=== PATIENT | male | born 1960 | race Caucasian/White ===

== ENCOUNTER 2018-10-15 16:06 | Outpatient (REF) | payer BC, SELFPAY ==
[2018-10-15 21:33] LABS: Anion Gap 12.3 mmol/L (3-11); BUN 24 mg/dL (7-18); CO2 21.7 mmol/L (21.0-32.0); CREATININE 1.51 mg/dL (0.70-1.30); Calcium 9.2 mg/dL (8.5-10.1); Chloride 105 mmol/L (98-107); Estimated GFR 47.37 (mL/min/1.73m2); Glucose 92 mg/dL (70-100); Potassium 4.5 mmol/L (3.5-5.1); Sodium 139 mmol/L (136-145)
[2018-10-15 21:35] LABS: Hemoglobin A1C 7.1 % (4.5-6.2)
== END 2018-10-15 16:26 ==
LOC: NCHCN 16:06
PROVIDERS: PCP Internal Medicine; Visit Provider Internal Medicine
DX: E11.9 Type 2 diabetes mellitus without complications (principal)
CPT/HCPCS: 80048; 83036

== ENCOUNTER 2019-07-18 13:43 | Outpatient (REF) | payer BC, SELFPAY ==
[2019-07-18 20:51] LABS: Anion Gap 10.6 mmol/L (3-11); BUN 47 mg/dL (7-18); CO2 20.4 mmol/L (21.0-32.0); CREATININE 2.41 mg/dL (0.70-1.30); Calcium 9.7 mg/dL (8.5-10.1); Chloride 103 mmol/L (98-107); Estimated GFR 27.53 (mL/min/1.73m2); Glucose 136 mg/dL (74-106); Potassium 5.8 mmol/L (3.5-5.1); Sodium 134 mmol/L (136-145)
[2019-07-22 11:52] LABS: Hepatitis C Ab w Rflx HCV PCR Negative (Negative)
== END 2019-07-18 14:03 ==
LOC: NCHCN 13:43
PROVIDERS: PCP Internal Medicine; Visit Provider Internal Medicine
DX: E11.9 Type 2 diabetes mellitus without complications (principal); I10 Essential (primary) hypertension; N18.3 Chronic kidney disease, stage 3 (moderate); F32.9 Major depressive disorder, single episode, unspecified; I35.8 Other nonrheumatic aortic valve disorders; E66.9 Obesity, unspecified; Z11.59 Encounter for screening for other viral diseases
CPT/HCPCS: 80048; 86803

== ENCOUNTER 2019-07-23 09:53 | Outpatient (REF) | payer BC, SELFPAY ==
[2019-07-23 20:32] LABS: Anion Gap 10.5 mmol/L (3-11); BUN 41 mg/dL (7-18); CO2 19.5 mmol/L (21.0-32.0); CREATININE 1.86 mg/dL (0.70-1.30); Calcium 9.6 mg/dL (8.5-10.1); Chloride 107 mmol/L (98-107); Estimated GFR 37.12 (mL/min/1.73m2); Glucose 110 mg/dL (74-106); Potassium 5.9 mmol/L (3.5-5.1); Sodium 137 mmol/L (136-145)
== END 2019-07-23 10:13 ==
LOC: NCHCN 09:53
PROVIDERS: PCP Internal Medicine; Visit Provider Internal Medicine
DX: E11.9 Type 2 diabetes mellitus without complications (principal); I10 Essential (primary) hypertension; N17.9 Acute kidney failure, unspecified
CPT/HCPCS: 80048

== ENCOUNTER 2019-08-01 09:51 | Outpatient (REF) | payer BC, SELFPAY ==
[2019-08-01 20:50] LABS: Anion Gap 11.9 mmol/L (3-11); BUN 45 mg/dL (7-18); CO2 25.1 mmol/L (21.0-32.0); CREATININE 2.05 mg/dL (0.70-1.30); Calcium 9.6 mg/dL (8.5-10.1); Chloride 104 mmol/L (98-107); Estimated GFR 33.18 (mL/min/1.73m2); Glucose 164 mg/dL (74-106); Potassium 4.5 mmol/L (3.5-5.1); Sodium 141 mmol/L (136-145)
== END 2019-08-01 10:11 ==
LOC: NCHCN 09:51
PROVIDERS: PCP Internal Medicine; Visit Provider Internal Medicine
DX: I10 Essential (primary) hypertension (principal); E11.9 Type 2 diabetes mellitus without complications; N18.3 Chronic kidney disease, stage 3 (moderate)
CPT/HCPCS: 80048

== ENCOUNTER 2020-05-05 16:38 | Outpatient (REF) | payer BC, SELFPAY ==
[2020-05-05 21:11] LABS: HCT 37.7 % (40.0-50.0); HGB 12.5 g/dL (13.5-17.5); MCH 28.2 pg (27.0-33.0); MCHC 33.2 % (32.0-36.0); MCV 84.9 fL (80-95); MPV 11.1 fL (8.0-11.0); Platelet Count 136 10^3/uL (130-400); RBC 4.44 10^6/uL (4.36-5.78); RDW 13.4 % (11.8-14.1); RDW-SD 41.8 fL; WBC 5.91 10^3/uL (4.4-10.8)
[2020-05-05 22:06] LABS: ALT 37 U/L (16-63); AST 29 U/L (15-37); Albumin 4.1 g/dL (3.4-5.0); Alkaline Phosphatase 119 U/L (46-116); Anion Gap 11.2 mmol/L (3-11); BUN 33 mg/dL (7-18); Bilirubin, Total 0.5 mg/dL (0.2-1.0); CO2 26.8 mmol/L (21.0-32.0); Calcium 9.3 mg/dL (8.5-10.1); Calculated LDL 117 mg/dL (<100); Chloride 104 mmol/L (98-107); Cholesterol 214 mg/dL (<200); Estimated GFR 34.03 (mL/min/1.73m2); Glucose 123 mg/dL (74-106); HDL Cholesterol 45 mg/dL (40-60); Sodium 142 mmol/L (136-145); Total Protein 7.9 g/dL (6.4-8.2); Triglyceride 260 mg/dL (<150)
[2020-05-05 22:42] LABS: PHOSPHORUS 3.3 mg/dL (2.6-4.7)
== END 2020-05-05 16:39 | disposition home or self-care (01) ==
LOC: NCHCN 16:38
PROVIDERS: PCP Internal Medicine; Visit Provider Internal Medicine
DX: I10 Essential (primary) hypertension (principal); E11.9 Type 2 diabetes mellitus without complications; N18.30 Chronic kidney disease, stage 3 unspecified; F32.9 Major depressive disorder, single episode, unspecified; G44.219 Episodic tension-type headache, not intractable; E66.9 Obesity, unspecified
CPT/HCPCS: 80053; 80061; 85027; 83986; 84100

== ENCOUNTER 2020-12-17 14:46 | Outpatient (REF) | payer BC, SELFPAY ==
[2020-12-17 14:51] LABS: Anion Gap 10.2 mmol/L (3-11); BUN 46 mg/dL (7-18); CO2 25.8 mmol/L (21.0-32.0); CREATININE 2.4 mg/dL (0.70-1.30); Calcium 9.5 mg/dL (8.5-10.1); Chloride 105 mmol/L (98-107); Estimated GFR 27.57 (mL/min/1.73m2); Glucose 152 mg/dL (74-106); Potassium 4.3 mmol/L (3.5-5.1); Sodium 141 mmol/L (136-145)
[2020-12-18 10:04] LABS: HIV-1/2 Ag & Ab Screen Negative (Negative)
== END 2020-12-17 14:47 | disposition home or self-care (01) ==
LOC: NCHCN 14:46
PROVIDERS: PCP Internal Medicine; Visit Provider Internal Medicine
DX: E11.9 Type 2 diabetes mellitus without complications (principal); I10 Essential (primary) hypertension; N18.30 Chronic kidney disease, stage 3 unspecified; N17.9 Acute kidney failure, unspecified; E78.5 Hyperlipidemia, unspecified; Z11.4 Encounter for screening for human immunodeficiency virus [HIV]
CPT/HCPCS: 80048; 87389

== ENCOUNTER 2021-05-31 18:47 | Outpatient (REF) | payer BC, SELFPAY ==
[2021-05-31 18:25] LABS: HCT 35.6 % (40.0-50.0); HGB 11.4 g/dL (13.5-17.5); MCH 27.9 pg (27.0-33.0); MPV 11.1 fL (8.0-11.0); Platelet Count 109 10^3/uL (130-400); RBC 4.09 10^6/uL (4.36-5.78); RDW 13.8 % (11.8-14.1)
[2021-05-31 19:26] LABS: Anion Gap 10.6 mmol/L (3-11); BUN 36 mg/dL (7-18); CO2 24.4 mmol/L (21.0-32.0); CREATININE 2.2 mg/dL (0.70-1.30); Calcium 9.3 mg/dL (8.5-10.1); Chloride 108 mmol/L (98-107); Estimated GFR 30.38 (mL/min/1.73m2); Glucose 142 mg/dL (74-106); Potassium 4.2 mmol/L (3.5-5.1); Sodium 143 mmol/L (136-145)
[2021-06-01 09:33] LABS: Iron 66 ug/dL (65-175); Total Iron Binding Capacity 338 ug/dL (250-450)
[2021-06-01 09:47] LABS: ALT 30 U/L (16-63); AST 23 U/L (15-37); Albumin 4.1 g/dL (3.4-5.0); Alkaline Phosphatase 107 U/L (46-116); Bilirubin, Total 0.6 mg/dL (0.2-1.0); Ferritin 125 ng/mL (26-388); Total Protein 7.6 g/dL (6.4-8.2)
[2021-06-01 09:56] LABS: Bilirubin, Direct 0.1 mg/dL (0.0-0.2)
== END 2021-05-31 18:48 | disposition home or self-care (01) ==
LOC: NCHCN 18:47
PROVIDERS: PCP Internal Medicine; Visit Provider Internal Medicine
DX: D64.9 Anemia, unspecified (principal); D69.6 Thrombocytopenia, unspecified; E11.9 Type 2 diabetes mellitus without complications; R07.89 Other chest pain
CPT/HCPCS: 80048; 80076; 85027; 82728; 83540; 83550

== ENCOUNTER 2021-06-03 00:51 | Outpatient (CLI) | payer BC, SELFPAY ==
--- NOTE | 2021-06-03 09:00 | ETT_ITS ---
APPROVED REPORT Exam: Exercise Treadmill Patient Location: Out-Patient Room/Bed: Stress Nurse: Kristi Mays RN Ordering Provider:KOJO LAM, Contact Number: [phone] BMI: 42.82 Indications: CHEST DISCOMFORT. Medical History Medical History: Murmur, GERD, Sleep apnea, Obesity, HTN, DM II, HLD, CKD III Cardiac Medications: Metoprolol succinate, Metformin, Losartan, Atorvastatin, Amlodipine, Aspirin, Ve rapamil, Torsemide, Allergies: Losartan, Lisinopril Cardiac Risk Factors: HTN, Hyperlipidemia, , DM, Obesity Previous Cardiac Procedures: None Pretest Chest Pain Characteristics: No chest pain Exercise History: Sedentary Physical Disabilities: None Lung Sounds: Clear to auscultation Heart Sounds: Regular, Murmur Stress Test Details Test: Exercise stress testing was performed using a Sinan protocol. Rest Stress HR Resting HR Supine: 70 bpm Max Heart Rate (APMHR): 157 bpm Resting HR Standin bpm Target HR (85% APMHR): 133 bpm Max HR Achieved: 138 bpm % of APMHR: 87 Recovery HR: 87 bpm HR response to stress: Normal HR response to stress Comment: Metoprolol succinate held for 48 hours prior to test. BP Resting BP Supine: 180/98 mmHg Resting BP Standin/80 mmHg Max BP: 200/70 mmHg Recovery BP: 158/80 mmHg BP response to stress: Normal blood pressure response to stress. Comment: Hypertensive at baseline. ECG Resting ECG: Sinus Rhythm Ectopy: none Comment: minimal baseline ST depression noted in inferior leads Stress ECG: Sinus Tachycardia ST Change: Horizontal/Downsloping ST depression Lead(s): II, III, aVF, V3, V4, V5, V6 Stage: [address] Deviation: 2 mm Arrhythmia: None Recovery ECG: Sinus Rhythm Recovery ST Change: Horizontal/Downsloping ST depression Lead(s): inferior leads, V5, V6 Recovery ST Deviation: 2 mm Recovery Arrhythmia: Rare PVC, PACs Comment: ST segments returning to baseline by minute 11 of recovery period. Clinical Reason for Termination: Fatigue Stress Symptoms: Dyspnea, Leg Fatigue, General Fatigue, Chest pain Exercise duration: 06 min37 sec Highest Stage Reached: Stage 2: 2.5 mph at 12% grade. Exercise capacity: 8.01 METs Potts Treadmill Score: -7 Rate Pressure Product: [id number] Stress ECG Conclusion 1. Resting electrocardiogram showed minor inferolateral ST depression 2. Patient exercised on Sinan protocol and completed a workload of 8 METS 3. Resting hypertension. Normal hemodynamic response to exercise. The patient achieved 87% of predi cted heart rate for age 4. The electrocardiographic portion of the test was consistent with myocardial ischemia with 2 mm of inferior and 1.[address] depression at peak exercise. The electrocardiogram returned to baseline by minute 11 of recovery 5. Rare atrial and ventricular ectopic beats were seen 6. Suggest repeat with imaging if clinically indicated Potts Treadmill Score is -7 which is Moderate risk. Stress Test Summary STAGE Time (mins) Speed (mph) Grade (%) HR BP SYMPTOMS METS Supine 70 180/98 Standing 79 162/80 1 3 1.7 10 120 148/78 4.6 2 6 2.5 12 132 178/88 2/10 chest discomfort; leg spasms 7 1 min recovery 122 192/62 nausea; chest discomfort resolved. 3 min recovery 89 200/70 6 min recovery 91 182/78 9 min recovery 87 158/80
== END 2021-06-03 01:11 ==
PROVIDERS: PCP Internal Medicine; Visit Provider Internal Medicine
DX: R07.89 Other chest pain (principal)
CPT/HCPCS: 93017

== ENCOUNTER 2021-06-04 13:49 | Outpatient (REF) | payer BC, SELFPAY ==
[2021-06-04 21:54] LABS: HCT 36.1 % (40.0-50.0); HGB 11.6 g/dL (13.5-17.5); MCH 28.2 pg (27.0-33.0); MCHC 32.1 % (32.0-36.0); MCV 87.8 fL (80-95); MPV 11.6 fL (8.0-11.0); Platelet Count 106 10^3/uL (130-400); RBC 4.11 10^6/uL (4.36-5.78); RDW 13.5 % (11.8-14.1); RDW-SD 43.4 fL; Reticulocyte 1.4 % (0.5-2.4); WBC 5.33 10^3/uL (4.4-10.8)
[2021-06-04 22:52] LABS: Vitamin B12 320 pg/mL (193-986)
[2021-06-07 13:29] LABS: Albumin 57.7 % (55.8-66.1); Albumin g/dL 4.3 g/dL (3.6-5.2); Total Protein 7.5 g/dL (6.3-8.2)
== END 2021-06-04 13:50 | disposition home or self-care (01) ==
LOC: NCHCN 13:49
PROVIDERS: PCP Internal Medicine; Visit Provider Internal Medicine
DX: D64.9 Anemia, unspecified (principal); D69.6 Thrombocytopenia, unspecified; E78.5 Hyperlipidemia, unspecified; E11.9 Type 2 diabetes mellitus without complications; I10 Essential (primary) hypertension; N18.31 Chronic kidney disease, stage 3a; E66.9 Obesity, unspecified
CPT/HCPCS: 85027; 82607; 82746; 84165; 85045

== ENCOUNTER 2021-06-14 04:35 | Outpatient (CLI) | payer BC, SELFPAY ==
[2021-06-14 11:30] LABS: Source Nasal/Nares
[2021-06-14 14:03] LABS: COVID-19 PCR Negative (Negative)
== END 2021-06-14 04:36 | disposition home or self-care (01) ==
LOC: LBO 04:35
PROVIDERS: PCP Internal Medicine; Visit Provider Internal Medicine Interventional Cardiology
DX: Z20.822 Contact with and (suspected) exposure to COVID-19 (principal); R06.00 Dyspnea, unspecified; Z01.818 Encounter for other preprocedural examination
CPT/HCPCS: 87635

== ENCOUNTER 2021-06-21 16:27 | Outpatient (REF) | payer BC, SELFPAY ==
[2021-06-21 21:34] LABS: Anion Gap 11.1 mmol/L (3-11); BUN 40 mg/dL (7-18); CO2 26.9 mmol/L (21.0-32.0); CREATININE 2.6 mg/dL (0.70-1.30); Calcium 9.9 mg/dL (8.5-10.1); Chloride 106 mmol/L (98-107); Estimated GFR 25.05 (mL/min/1.73m2); Glucose 127 mg/dL (74-106); Potassium 4.1 mmol/L (3.5-5.1); Sodium 144 mmol/L (136-145)
== END 2021-06-21 16:28 | disposition home or self-care (01) ==
LOC: NCHCN 16:27
PROVIDERS: PCP Internal Medicine; Visit Provider Internal Medicine
DX: I10 Essential (primary) hypertension (principal)
CPT/HCPCS: 80048

== ENCOUNTER → 2021-09-02 01:27 | Outpatient (CLI) | payer BC, SELFPAY ==
--- NOTE | 2021-09-02 07:45 | DI.MRI_ITS ---
Exam(s) MR ABDOMEN WO EXAM: MR ABDOMEN WO CLINICAL HISTORY: LIVER CYST, K76.89, HEMANGIOMA PROTOCOL TECHNIQUE: Multiplanar multisequence MRA of the Abdomen was performed. Examination was performed w ithout contrast due to the patient's decreased renal function. COMPARISON: US US ABDOMEN from 07/30/2021 FINDINGS: Liver: Innumerable hepatic cysts. The largest measures 3.9 x 3.5 cm. There is a septated 3.3 x 2.8 cm cyst in the left lobe. No solid hepatic mass is identified. Pancreas: Unremarkable. Gallbladder and Bile Ducts: Unremarkable. No biliary ductal dilatation. Adrenals: Unremarkable. Kidneys: Multiple bilateral renal simple cysts. The largest is on the left and measures 3.1 x 3.1 cm . No solid renal mass or obstruction. Spleen: Unremarkable. Bowel: Unremarkable. Aorta: Unremarkable. Soft Tissues: Unremarkable. Bone: Unremarkable. Lymph Nodes: Unremarkable. IMPRESSION: 1. Multiple hepatic and renal simple cysts. 2. No solid hepatic mass. DATA REPOSITORY:
[2021-09-02 08:09] LABS: CREATININE 3.1 mg/dL (0.70-1.30); Estimated GFR 20.45 (mL/min/1.73m2)
== END ==
PROVIDERS: PCP Internal Medicine; Visit Provider Internal Medicine
DX: K76.89 Other specified diseases of liver (principal)
CPT/HCPCS: 74181; 82565

== ENCOUNTER 2021-09-06 08:07 | Day surgery (SDC) | payer BC, SELFPAY ==
--- NOTE | 2021-09-03 10:21 | ANES.CON_ITS ---
General Date of Service Date of Service: 09/03/21 Reason for Consult Requesting Provider: Rosanna Velazco How Consult Conducted:: Chart Review Reason for Consult:: Known cardiac history. Consult Recommendation after Review:: Patient can proceed. Stable angina, moderate risk per recent stress test. Meds Allergies and Home Medications Allergies Allergy/AdvReac Type Severity Reaction Status Date / Time losartan Allergy Unknown Verified 08/26/21 08:45 lisinopril AdvReac cough Unverified 08/26/21 08:45 Home Medication Medication Instructions Recorded amlodipine 10 mg tablet 10 mg PO DAILY 12/25/13 sertraline 100 mg tablet 100 mg PO DAILY 12/25/13 aspirin 81 mg tablet,delayed 81 mg PO DAILY 08/28/16 release (Aspir-) atorvastatin 20 mg tablet (Lipitor) 20 mg PO QPM 08/28/16 ranitidine HCl 75 mg tablet 75 mg PO DAILY 05/08/17 spironolactone 50 mg tablet 50 mg PO DAILY 05/08/17 diltiazem HCl 360 mg capsule,24 360 mg PO DAILY 12/24/20 hr,extended release losartan 50 mg tablet 25 mg PO DAILY 12/24/20 metformin 500 mg tablet 1,000 mg PO BID 12/24/20 metoprolol succinate 50 mg 50 mg PO DAILY 12/24/20 tablet,extended release 24 hr torsemide 10 mg tablet 10 mg PO DAILY 12/24/20 bisacodyl 5 mg tablet,delayed 5 mg PO ONCE #4 tabs 08/26/21 release (Dulcolax (bisacodyl)) polyethylene glycol 3350 17 17 g PO ONCE #238 grams 08/26/21 gram/dose oral powder PFSH Active Problems Active Problems: Problem Status Onset Code Screening for colon cancer Z12.11 Medical History Medical History (Updated 09/03/21 @ 08:05 by Von Mejia) Aortic stenosis Chronic kidney disease CKD III Depression Deviated nasal septum Diabetes GERD (gastroesophageal reflux disease) History of adenomatous polyp of colon History of chest pain Hypertension Idiopathic thrombocytopenia Murmur Obesity MARI (obstructive sleep apnea) Very Severe-per sleep study 05/04/17 Positive cardiac stress test Sleep apnea Stable angina Surgical History Surgical History (Updated 09/03/21 @ 08:05 by Von Mejia) Colonoscopy - MAC (06/05/17) History of cardiac catheterization 06/17/21 [facility]-see scanned records Tobacco Smoking/Tobacco Use Status: Never Substance Use Substance use: Never Vital Signs & Lab Results Point of Care Results Nursing Point of Care Results: No Data to Display Lab Results Blood Type / Crossmatch: No Data to Display Complete Blood Count: No Data to Display Complete Metabolic Panel: Creatinine 3.1 mg/dL (0.70-1.30) H 09/02/21 07:56 Estimated GFR/1.73 m2 20.45 (mL/min/1.73m2) 09/02/21 07:56 Liver Function Panel: No Data to Display Coagulation Panel: No Data to Display Cardiac Panel: No Data to Display Arterial Blood Gas: No Data to Display Venous Blood Gas: No Data to Display Pancreas Panel: No Data to Display Thyroid Panel: No Data to Display Infectious Disease: No Data to Display Blood Cultures: No Data to Display Toxicology Panel: No Data to Display Imaging and Studies Imaging and Studies Stress Test Summary: Stress ECG Conclusion 1. Resting electrocardiogram showed minor inferolateral ST depression 2. Patient exercised on Sinan protocol and completed a workload of 8 METS 3. Resting hypertension. Normal hemodynamic response to exercise. The patient achieved 87% of predicted heart rate for age 4. The electrocardiographic portion of the test was consistent with myocardial ischemia with 2 mm of inferior and 1.[address] depression at peak exercise. The electrocardiogram returned to baseline by minute 11 of recovery 5. Rare atrial and ventricular ectopic beats were seen 6. Suggest repeat with imaging if clinically indicated Potts Treadmill Score is -7 which is Moderate risk. Echocardiogram Summary: MARIA DE JESUS from [facility] reviewed. Scanned into system.
--- NOTE | 2021-09-06 06:17 | W.COLOREPORT ---
Colonoscopy Report Date of procedure: 09/06/21 Pre-op diagnosis general: Colon Cancer Screening and Hx of polyps Post-op diagnosis procedure note: other (polyps and mild diverticulosis) Procedure: Colonoscopy with polypectomy Surgeon: Rosanna Velazco Anesthesia Type: General:No Airway Estimated blood loss (mL): 3 Pathology: other (ascending, transverse and descending colon polyp) Complications: None Disposition: same day Indications: The patient is here for Colonoscopy pre-op.?His last screening was in? 2018, which was remarkable for tubular adenomatous polyps x4.??He has no family history of colon cancer. He has not had any bowel habit changes. -Discussed colonoscopy bowel prep as well as the procedure. Discussed possible complications of the procedure to include bleeding, pain, perforation, missed small lesion/polyp, sore throat, aspiration and adverse reaction to the medications. Questions were answered to patient?s satisfaction. No guarantees were implied or given.? Prep: Miralax/Dulcolax Procedure Start Time: 10:01 Procedure End Time: 11:08 Retraction Time: 49 minutes Findings: 3 polyps mild sigmoid diverticulosis Procedure Description: After informed consent was obtained the patient was taken to the procedure room and placed in a left decubitous position. Monitors were applied and a time out was done. The patients name, date of , procedure, allergies to medications and metal in their body was reviewed. The patient was then sedated. Once sedated and comfortable a rectal exam was done. External exam was normal. Internal exam revealed a normal sphincter tone and no palpable masses. The prostate felt smooth and enlarged. The scope was then introduced and retro-flexed. No internal hemorrhoids, polyps or masses were identified on retro-flexion. The scope was then advanced to the cecum without difficulty. The ileocecal vlave and appendiceal orifice were identified. The prep was marginal. The scope was then slowly retracted over 49 minutes back into the rectum. Polyps were removed with a hot snare in the ascending and transverse colon and with cold forceps in the descending colon. There was mild sigmoid diverticulosis noted. The scope was removed and the patient was woken up and taken back to Same day surgery in stable condition. The patient tolerated the procedure well and there were no immediate complications.
--- NOTE | 2021-09-06 06:18 | W.PM.DSUDISC ---
Discharge Plan Disposition Patient Disposition: HOME Condition: Good Discharge Details Reason For Visit: colonoscopy Attending Provider: Rosanna Velazco Primary Care Provider: Vinicius John Home Meds and New Rx's Prescriptions: Continued sertraline 100 MG tablet 100 mg PO DAILY spironolactone 50 MG tablet 50 mg PO DAILY ranitidine HCl 75 MG tablet 75 mg PO DAILY Label Comments: 06/01/17 has not been taking. losartan 50 mg tablet 25 mg PO DAILY metformin 500 mg tablet 1,000 mg PO BID torsemide 10 mg tablet 10 mg PO DAILY metoprolol succinate 50 mg tablet extended release 24 hr 50 mg PO DAILY verapamil 240 mg capsule,ext rel. pellets 24 hr 240 cap PO DAILY Label Comments: TAKE 1 CAPSULE BY MOUTH EVERY DAY atorvastatin [Lipitor] 20 MG tablet 20 mg PO QPM aspirin [Aspir-81] 81 MG tablet,delayed release (DR/EC) 81 mg PO DAILY Discontinued bisacodyl [Dulcolax (bisacodyl)] 5 mg tablet,delayed release (DR/EC) 5 mg PO ONCE Qty: 4 0RF Rx Instructions: Take according to provider's instructions for colonoscopy prep. polyethylene glycol 3350 17 gram/dose powder 17 g PO ONCE Qty: 238 0RF Rx Instructions: To be taken as directed by prescriber's office for colonoscopy prep. Discharge Instructions Instructions: Colorectal Polyps (DC) Additional Instructions: Findings: 3 polyps Follow up: 3-5 years Please call if you develop: fevers >101.5 Nausea or Vomiting Abdominal pain that is not transient Rectal bleeding that is more then a tbsp A hard abdomen and inability to pass gas DAY SURGERY UNIT POST ENDOSCOPY INSTRUCTIONS Instructions for everyone who is given Anesthesia: For your safety, please do the following for the next 24 Hours: a. Do not drive or operate dangerous equipment b. Do not drink alcohol beverages or use any recreational drugs for the first 24 hours or while taking pain medications. The medications in your body may have a reaction that can be dangerous. c. Do not make any important decisions or sign any important papers 1. Generally there are no restrictions on your activity after a day or so has gone by, but you may feel a bit fatigued for a few days. 2. After you arrive home you may have a light meal and return to a normal diet as you can tolerate it without feeling sick to your stomach. 3. After surgery, you may feel pain or discomfort. This should be only transient, but if it persists please contact your doctor. 4. If there are any questions regarding the findings of your procedure, please feel free to contact your doctor. 6. If you are unable to contact your doctor with a problem, contact the hospital at [phone]. 7. Continue all your regular medications unless directed otherwise. I understand the above instructions and have no questions. Signature of Patient or Responsible Adult Escort Date/Time Name of Responsible Adult Escort Signature of Nurse Date/Time Activity:: Activity as Tolerated Diet:: As Tolerated Discharge Orders Discharge Orders: Discharge Order (Routine); Ordered 09/06/21 Ordered By: Rosanna Velazco
--- NOTE | 2021-09-06 06:19 | W.ANESPRE ---
General Info Date of Service Date Performed: 09/06/21 Height: 5 ft 9 in Weight: 126.552 kg Body Mass Index (BMI): 41.2 Surgical Procedure: Operation Date: 09/06/21 09:35 Proposed Procedure Side Surgeon p Colonoscopy Rosanna Velazco MD Meds Allergies and Home Medications Allergies Allergy/AdvReac Type Severity Reaction Status Date / Time losartan AdvReac Mild Verified 09/06/21 08:24 lisinopril AdvReac cough Unverified 09/06/21 08:08 Home Medication Medication Instructions Recorded sertraline 100 mg tablet 100 mg PO DAILY 12/25/13 aspirin 81 mg tablet,delayed 81 mg PO DAILY 08/28/16 release (Aspir-) atorvastatin 20 mg tablet (Lipitor) 20 mg PO QPM 08/28/16 ranitidine HCl 75 mg tablet 75 mg PO DAILY 05/08/17 spironolactone 50 mg tablet 50 mg PO DAILY 05/08/17 losartan 50 mg tablet 25 mg PO DAILY 12/24/20 metformin 500 mg tablet 1,000 mg PO BID 12/24/20 metoprolol succinate 50 mg 50 mg PO DAILY 12/24/20 tablet,extended release 24 hr torsemide 10 mg tablet 10 mg PO DAILY 12/24/20 bisacodyl 5 mg tablet,delayed 5 mg PO ONCE #4 tabs 08/26/21 release (Dulcolax (bisacodyl)) polyethylene glycol 3350 17 17 g PO ONCE #238 grams 08/26/21 gram/dose oral powder verapamil 240 mg 24 hr 240 cap PO DAILY 09/03/21 capsule,extended release Current Visit Medications: Current Medications Generic Name Dose Route Start Last Admin Trade Name Eileen PRN Reason Stop Dose Admin Ringer's Solution 1,000 mls @ 80 mls/hr 09/06/21 06:00 IV 10/03/21 23:59 INFUSION KRYS IV Miscellaneous Supplies 1 each 09/06/21 06:00 Iv Access IV 10/03/21 23:59 DIRECTED KRYS Sodium Chloride 0 ml 09/06/21 06:00 Normal Saline Flush 10 Ml Syr IV 10/03/21 23:59 PRN PRN Sodium Chloride 0 ml 09/06/21 06:00 Normal Saline 10 Ml Vial IJ 10/03/21 23:59 DIRECTED PRN Sterile Water 0 ml 09/06/21 06:00 Water,Injection,Sterile 10 Ml Vial IJ 10/03/21 23:59 DIRECTED PRN PFSH Active Problems Active Problems: Problem Status Onset Code Screening for colon cancer Z12.11 Medical History Medical History Aortic stenosis Chronic kidney disease CKD III Depression Deviated nasal septum Diabetes GERD (gastroesophageal reflux disease) History of adenomatous polyp of colon History of chest pain Hypertension Idiopathic thrombocytopenia Murmur Obesity MARI (obstructive sleep apnea) Very Severe-per sleep study 05/04/17-Uses BiPAP Positive cardiac stress test Sleep apnea Stable angina Surgical History Surgical History Colonoscopy - MAC (06/05/17) History of cardiac catheterization 06/17/21 [facility]-see scanned records Tobacco Smoking/Tobacco Use Status: Never Alcohol Alcohol Intake: current Alcohol intake frequency: holidays/special occasions only Substance Use Substance use: Never Substance use type: does not use Vital Signs and Lab Results Vital Signs Most Recent Vital Signs in EMR: Temp Pulse Resp BP Pulse Ox 36.6 C 80 18 158/98 H 98 09/06/21 08:20 09/06/21 08:20 09/06/21 08:20 09/06/21 08:20 09/06/21 08:20 Lab Results Blood Type / Crossmatch: No Data to Display Complete Blood Count: No Data to Display Complete Metabolic Panel: Creatinine 3.1 mg/dL (0.70-1.30) H 09/02/21 07:56 Estimated GFR/1.73 m2 20.45 (mL/min/1.73m2) 09/02/21 07:56 Liver Function Panel: No Data to Display Coagulation Panel: No Data to Display Cardiac Panel: No Data to Display Arterial Blood Gas: No Data to Display Venous Blood Gas: No Data to Display Pancreas Panel: No Data to Display Thyroid Panel: No Data to Display Infectious Disease: No Data to Display Blood Cultures: No Data to Display Toxicology Panel: No Data to Display Imaging and Studies Imaging and Studies Study information below may be from another EMR and interpreted by another provider. Please see original notes in EMR for more complete details. Stress Test Summary: 06/03/21: 8 Mets, 87% of predicted HR, ischemia with 2 mm of inferior and 1.5 mm anterolateral depression at peak. Echocardiogram Summary: 06/17/21: Mild , moderate MR, LVEF 60-65% Cardiac Catheterization Summary: 06/17/21: aortic stenosis, mod diffuse LAD, 90% left circ lesion. Anesthesia Assessment and Plan Anesthesia History Personal History: No History of Anesthesia Complications Family History: No Family History of Anesthesia Complications Exercise Tolerance Exercise Tolerance: Metabolic Equivalents>4 Pertinent Negatives Pertinent Negatives: No Symptoms of GERD Cardiac & Pulmonary Exam Cardiac Exam: Normal S1/S2 Heart Sounds Pulmonary Exam: Clear Bilateral Breath Sounds Implantable Cardiac Device Does patient have a Pacemaker or an ICD?: No Airway Exam Known Difficult Airway: No Mallampati Class: 2 Mouth Opening: Normal (> 3cm) Thyromental Distance: Greater than 3 cm Neck Range of Motion: Full ROM Neck Circumference: Thick Teeth Condition: Normal Dentition ASA Classification ASA Score: ASA 3 Emergency Case?: No NPO Status NPO Status: NPO Clears >2 hours, Solids >8 hours Anesthesia Plan Resuscitation Status: Full Code Anesthesia Technique: General Anesthesia Airway Planned: Natural Airway Monitors Used: Standard Monitors Preoperative Comments:: 61 yo male with history of polyps here for colo. Sig PMHx: CAD (90% circ stenosis, + stress test), mild , CKDIV, DM (metformin), GERD, HTN, severe MARI, HTN (losartan, metoprolol, torsemide, verapamil). Previous Anes: colo - prop, and glyco for severe nalini with pauses.
[2021-09-06 08:20] VITALS: BP 158/98; PULSE 80; RESP 18; TEMP 36.6; O2SAT 98
[2021-09-06] MEDS: Lactated Ringers 1,000 ML 80 ML IV (08:46)
[2021-09-06 09:59] VITALS: BMI 41.2
--- NOTE | 2021-09-06 10:20 | BOWEL_PTH ---
PATIENT: Khang Cortez LOC: [facility] U#:[id number] AGE/SX: 61/M ROOM: RE09/06/[address]: Rosanna Velazco MD : [id number] BED: DIS: 09/06/2021 SPEC #: [id number] RECD: 09/06/21 12:59 STATUS: JOSE ENRIQUE REQ #: [id number] MARI: 09/06/21 10:[address]: Rosanna Velazco DEPT: Surgical Specimen RECD BY: Patience Faria ENTERED: 09/06/21 13:00 SP TYPE: Bowel OTHR DR: Vinicius John Tissues: 1 - BIOPSY BOWEL 2 - BIOPSY BOWEL 3 - BIOPSY BOWEL Procedures: GROSS AND MICRO LEVEL 4 Comments: [id number]
[2021-09-06 11:15] VITALS: BP 147/88; PULSE 74; RESP 16; TEMP 36.4; O2SAT 97
--- NOTE | 2021-09-06 11:30 | W.ANESPOSTOP ---
Postoperative Evaluation Date, Time and Location Date Performed: 09/06/21 Time Performed: 11:30 Patient Location: Day Surgery Unit Vital Signs Most Recent Imported Vital Signs: Most Recent Vital Signs Temp Pulse Resp BP Pulse Ox 36.4 C L 74 16 147/88 H 97 09/06/21 11:15 09/06/21 11:15 09/06/21 11:15 09/06/21 11:15 09/06/21 11:15 Assessment Mental Status: Awake (Alert & Oriented to Patient Baseline) Airway and Respiratory Function: Patent airway with normal (patient baseline) respiratory exam Cardiovascular Function: Hemodynamically Stable Hydration Status: Adequately Hydrated Nausea & Vomiting: No Nausea or Vomiting Pain: Pt. Denies Any Pain Peripheral Nerve Block: Patient did not receive a nerve block
[2021-09-06 11:40] VITALS: BP 154/87; PULSE 60; RESP 16; TEMP 36.3; O2SAT 97
== END 2021-09-06 11:55 | disposition home or self-care (01) ==
PROVIDERS: PCP Internal Medicine; Visit Provider Surgery
PROC: 0DJD8ZZ Inspection of Lower Intestinal Tract, Via Natural or Artificial Opening Endoscopic (ICD-10-PCS; CPT 45378; principal; 2021-09-06 09:30)
DX: Z12.11 Encounter for screening for malignant neoplasm of colon (principal); K63.5 Polyp of colon; K57.30 Diverticulosis of large intestine without perforation or abscess without bleeding; Z86.010 Personal history of colon polyps; I12.9 Hypertensive chronic kidney disease with stage 1 through stage 4 chronic kidney disease, or unspecified chronic kidney disease; E11.22 Type 2 diabetes mellitus with diabetic chronic kidney disease; N18.30 Chronic kidney disease, stage 3 unspecified
CPT/HCPCS: 45385; 88305

== ENCOUNTER 2021-10-01 09:30 | Outpatient (REF) | payer BC, SELFPAY ==
[2021-10-01 15:24] LABS: HCT 35.1 % (40.0-50.0); HGB 11.3 g/dL (13.5-17.5); MCHC 32.2 % (32.0-36.0); MCV 87 fL (80-95); MPV 11.3 fL (8.0-11.0); Platelet Count 142 10^3/uL (130-400); RBC 4.04 10^6/uL (4.36-5.78); RDW 13.7 % (11.8-14.1); WBC 6.33 10^3/uL (4.4-10.8)
[2021-10-01 15:59] LABS: Anion Gap 12.9 mmol/L (3-11); BUN 45 mg/dL (7-18); CO2 22.1 mmol/L (21.0-32.0); CREATININE 2.2 mg/dL (0.70-1.30); Calcium 9.3 mg/dL (8.5-10.1); Chloride 104 mmol/L (98-107); Estimated GFR 30.38 (mL/min/1.73m2); Glucose 167 mg/dL (74-106); Potassium 4.3 mmol/L (3.5-5.1); Sodium 139 mmol/L (136-145)
== END 2021-10-01 09:31 | disposition home or self-care (01) ==
LOC: NCHCN 09:30
PROVIDERS: PCP Internal Medicine; Visit Provider Internal Medicine
DX: D64.9 Anemia, unspecified (principal); N28.1 Cyst of kidney, acquired
CPT/HCPCS: 80048; 85027

== ENCOUNTER → 2021-10-05 01:03 | Outpatient (CLI) | payer BC, SELFPAY ==
--- NOTE | 2021-10-05 | DI.MRI_ITS ---
Exam(s) MR ANGIO BRAIN WO EXAM: MR ANGIO BRAIN WO CLINICAL HISTORY: LIVER DISEASE,? ANEURYSM, family h/o aneurysm, z82.49 TECHNIQUE: Magnetic resonance angiography brain was performed on a 1.5 dayton unit with [id number] t sequence. No IV contrast Field of view of this study is from the skull base up. COMPARISON: No prior brain exams were available for comparison FINDINGS: ANTERIOR CIRCULATION: Both internal carotid arteries are patent in the skull base-carotid canals as well as within the cave rnous sinuses. Supraclinoid aspects of the internal carotid arteries are patent and nonaneurysmal. Both a 1 segments are patent as are the anterior cerebral arteries and there is no evidence of aneury sm at the level of the anterior communicating artery. Both middle cerebral arteries are patent. No significant stenosis nor occlusion. No aneurysms evide nt in these vessels. POSTERIOR CIRCULATION: Basilar artery is formed by both vertebral arteries at the skull base. Basila r artery ascends with normal luminal diameter. Distally gives off superior cerebellar arteries and a walter this level terminates as patent bilateral posterior cerebral arteries. The posterior cerebral a rteries also receive blood from thin bilateral posterior communicating arteries. There is no evidenc e of aneurysm of the tip of the basilar artery nor elsewhere in the [id number]. LIMITED BRAIN PARENCHYMAL SEQUENCES: No evidence of intracranial hemorrhage, intra or extra-axial. Ventricles are not enlarged or shifted . There is no abnormal signal in the cerebellar hemispheres nor within the cassidy, midbrain, and thalami. There is relatively symmetrical periventricular signal abnormality around the atriae of both latera l ventricles as well as some patchy to sub cm white matter signal abnormality in the supra ventricula r and periventricular white matter bilaterally. These findings most probable aided to chronic ischem ic change. Visualized paranasal sinuses post inflammatory retention cysts seen anteriorly in the left maxillary sinus. Frontal sinuses are hypoplastic. Sphenoid sinuses are clear. There is signal abnormality th roughout the mastoid air cells on the left side and in a few of the mastoid air cells on the right si de. IMPRESSION: 1. Patent intracranial arteries, as described above. No aneurysms evident. 2. Chronic small-vessel white matter ischemic changes in the periventricular and supraventricular reg ions. Incidentally noted is evidence signal abnormality throughout the left mastoid air cells, consistent w ith mastoiditis. Lesser amount of the same seen on the right side. Also post inflammatory retention cyst seen in the anterior aspect of the left maxillary sinus measuring 1 1 x 1.3 cm. No fluid level s evident in the paranasal sinuses. DATA REPOSITORY:
== END ==
PROVIDERS: PCP Internal Medicine; Visit Provider Internal Medicine
DX: R90.82 White matter disease, unspecified (principal)
CPT/HCPCS: 70544

== ENCOUNTER 2022-02-13 10:10 | Emergency (ER) | payer BC, SELFPAY ==
[2022-02-13] VITALS (39 sets, daily range): BP systolic 143–186; BP diastolic 69–113; PULSE 42–78; RESP 14–30; TEMP 36.8; O2SAT 90–100
--- NOTE | 2022-02-13 10:00 | RT.EKG_ITS ---
APPROVED REPORT Exam: Resting ECG Reason for Exam: chest pain Patient Location: E HR:49 bpm ECG Measurements Heart Rate 49 AXIS WI 198 P 60 QRSd 98 QRS 29 QT 416 T 43 QTc 376 Conclusion Sinus bradycardia...rate< 60 Supraventricular bigeminy...bigeminy string>4 w/ SV complexes Sinus pause...long R-R interval, normal QRSd. Sinus. Normal axis. No STEMI. I have reviewed and interpreted ECG and agree with software generated interpretation.
--- NOTE | 2022-02-13 10:13 | W.ED.GENAD ---
Discharge Plan Disposition Patient Disposition: Home Condition: Improving Discharge Details Clinical Impression: Calculus of left ureter, Nausea, Chest pressure Primary Care Provider: Vinicius John ED Provider: Mari Jenkins Home Meds and New Rx's Prescriptions: New tamsulosin [Flomax] 0.4 mg capsule 0.4 mg PO DAILY Qty: 10 0RF Continued sertraline 100 MG tablet 100 mg PO DAILY losartan 50 mg tablet 50 mg PO DAILY metformin 500 mg tablet 1,000 mg PO BID torsemide 10 mg tablet 10 mg PO DAILY metoprolol succinate 50 mg tablet extended release 24 hr 50 mg PO DAILY atorvastatin 80 mg tablet 80 mg PO DAILY isosorbide dinitrate 30 mg tablet 30 mg PO DAILY Rx Instructions: allow nitrate-free interval of 12-14 hrs per 24-hr period verapamil 240 mg capsule,ext rel. pellets 24 hr 240 cap PO DAILY Label Comments: TAKE 1 CAPSULE BY MOUTH EVERY DAY aspirin [Aspir-81] 81 MG tablet,delayed release (DR/EC) 81 mg PO DAILY Discharge Instructions Instructions: Chest Pain (ED), Kidney Stones (ED), Acute Nausea and Vomiting (ED) Additional Instructions: Your blood tests, EKGs and chest imaging today are reassuring and show no evidence of acute concerning or significant findings. You were noted to have a small kidney stone in the left side of your abdomen on the CT of your abdomen today. This may be contributing to your lower abdominal pain and nausea. Drink plenty of fluids and get plenty of rest. Take Tylenol as needed and directed for pain. Take Zofran as needed and directed for nausea and vomiting. A prescription for Flomax has been sent electronically to your pharmacy to take once daily. Follow-up with urology for reevaluation of your kidney stone. Follow-up with your primary care doctor in 1 week. Return to the emergency department with any worsening or new concerning symptoms. Referrals: Alexander Barrera MD [ [facility] STAFF PHYSICIAN] - Discharge Data Discharge Physician: Mari Jenkins Medical Decision Making 1020 -- 61yo M w/ a h/o obesity, hypertension, hyperlipidemia, diabetes, gerd, and MARI who presents with nausea for the past 6 hours and chest pain or shortness of breath for the past hour. He did also endorse lower abdominal pain this morning. EKG notes a rate of 49, sinus with supraventricular bigeminy but no stemi and nondiagnostic. Heart rate 50s. Blood pressure hypertensive at 185/83. He is afebrile. Patient appears uncomfortable which I suspect is from his nausea and is bradycardic at times which may be a vagal response from the nausea. His abdomen is soft and minimally tender in the left lower and suprapubic quadrants. Differential diagnosis includes GERD, gastritis, gastroenteritis, colitis, ACS, PE. Will place an IV, bolus IV fluids, screening labs, CT chest abdomen pelvis and give IV Zofran, IV Pepcid, GI cocktail and Carafate and reassess. 1050 --labs reviewed. Normal white blood cell count. Creatinine 3.2 which is significantly diminished compared to 2.2 in September 2021 however his creatinine was 3.1 in August 2021. Lipase within normal limits. Fluvid negative. Will change CT scan from IV to oral contrast. Patient states his nausea is improved. We will attempt oral contrast. 1300 --patient tolerating contrast well. He states his nausea and pain has improved. 1430 --repeat troponin negative. Repeat EKG unchanged and no acute findings. CT chest negative for acute findings. CT abdomen and pelvis note tiny stone in the left lower ureter with mild left hydronephrosis. Patient reassessed and he feels much better and feels comfortable going home. Renal function improved after IV fluids. Dose of Flomax given. Will send home with Zofran ODT and will send with 3 tab bottle zofran to go and will send flomax electronically to his pharmacy. Patient placed on urology follow-up list. Advised to increase fluids and rest. Advised to follow up with the primary care doctor for re-evaluation. Usual and customary return precautions given prior to discharge. Medical Records Medical records reviewed: Yes I reviewed the patient's medical records. Imaging Data Radiologic Study: Radiologist's impression: CT Chest Without Contrast; Diagnostic Exam date and time: 02/13/2022 1:51 PM Age: 61 years old Clinical indication: Vomiting; Dyspnea and other: Substernal pain TECHNIQUE: Imaging protocol: Diagnostic computed tomography of the chest without contrast. Radiation optimization: All CT scans at this facility use at least one of these dose optimization techniques: automated exposure control; mA and/or kV adjustment per patient size (includes targeted exams where dose is matched to clinical indication); or iterative reconstruction. Other contrast: Oral, [id number], 50ml; COMPARISON: CR LEFT RIBS PA CXR ONLY-3VIEWS 08/28/2016 4:57 PM FINDINGS: Lungs: Slight subpleural scarring in the left mid lung adjacent to the old rib fractures. Pleural spaces: Unremarkable. No pneumothorax. No pleural effusion. Heart: Unremarkable. No cardiomegaly. No pericardial effusion. Coronary arteries: Coronary artery calcifications. Lymph nodes: Unremarkable. No enlarged lymph nodes. Vasculature: Vascular calcifications. Bones/joints: Old left rib fractures. Soft tissues: Unremarkable. IMPRESSION: 1. No acute findings 2. Old left rib fractures CT Abdomen And Pelvis Without Contrast Exam date and time: 02/13/2022 1:51 PM Age: 61 years old Clinical indication: Vomiting; Dyspnea and other: Substernal pain TECHNIQUE: Imaging protocol: Computed tomography of the abdomen and pelvis without contrast. Radiation optimization: All CT scans at this facility use at least one of these dose optimization techniques: automated exposure control; mA and/or kV adjustment per patient size (includes targeted exams where dose is matched to clinical indication); or iterative reconstruction. Other contrast: Oral, [id number], 50ml; COMPARISON: MR ABDOMEN WO 09/02/2021 8:01 AM FINDINGS: Liver: Multiple hepatic cysts.? These were better demonstrated on the MRI. Gallbladder and bile ducts: Normal. No calcified stones. No ductal dilation. Pancreas: Normal. No ductal dilation. Spleen: Normal. No splenomegaly. Adrenal glands: Normal. No mass. Kidneys and ureters:? Mild left hydronephrosis and ureterectasis.? Left perinephric and periureteric soft tissue stranding. 3-4 mm stone in the lower left ureter, just above the ureterovesical junction. Bulky nonobstructing stones lower pole right kidney.? Large cyst left kidney.? Multiple tiny cysts in both kidneys were better demonstrated the MRI. Stomach and bowel: Unremarkable. No obstruction. No mucosal thickening. Appendix: No evidence of appendicitis. Intraperitoneal space: Unremarkable. No free air. No significant fluid collection. Vasculature: Vascular calcifications. No abdominal aortic aneurysm. Lymph nodes: Unremarkable. No enlarged lymph nodes. Urinary bladder: Unremarkable as visualized. Reproductive: Mild prostatic enlargement. Prostatic calcifications. Bones/joints: Degenerative arthritis lower lumbar spine and pelvis. Soft tissues: Subcutaneous edema lateral to the left hip. Small fat containing inguinal hernias. IMPRESSION: 1. Tiny stone in the lower left ureter with mild left hydronephrosis and ureterectasis 2. Bulky nonobstructing stones in the right kidney 3. Multiple hepatic cysts and renal cysts Lab Data Lab results reviewed: Yes I reviewed the patient's lab results. Labs: Laboratory Tests Range/Units 02/13/22 02/13/22 02/13/22 10:22 10:22 11:10 WBC (4.4-10.8) 10^3/uL 8.63 RBC (4.36-5.78) 10^6/uL 4.51 Hgb (13.5-17.5) g/dL 12.4 L Hct (40.0-50.0) % 40.0 MCV (80-95) fL 89 MCH (27.0-33.0) pg 27.5 MCHC (32.0-36.0) % 31.0 L RDW (11.8-14.1) % 14.9 H Plt Count (130-400) 10^3/uL 148 MPV (8.0-11.0) fL 10.8 Immature Gran % 0.3 Neutrophils % 89.0 Lymphocytes % 5.1 Monocytes % 4.8 Eosinophils % 0.5 Basophils % 0.3 Nucleated RBC % (0.0-0.3) % 0.0 Absolute Neutrophils (1.2-6.7) 10^3/uL 7.68 H Absolute Lymphocytes (1.2-3.4) 10^3/uL 0.44 L Absolute Monocytes (0.1-0.8) 10^3/uL 0.41 Absolute Eosinophils (0.0-0.7) 10^3/uL 0.04 Absolute Basophils (0.0-0.2) 10^3/uL 0.03 Sodium (136-145) mmol/L 141 Potassium (3.5-5.1) mmol/L 4.5 Chloride (98-107) mmol/L 106 Carbon Dioxide (21.0-32.0) mmol/L 24.3 Anion Gap (3-11) mmol/L 10.7 BUN (7-18) mg/dL 37 H Creatinine (0.70-1.30) mg/dL 3.2 H Est GFR (CKD-EPI 2020) (mL/min/1.73m2) 20.94 Glucose (74-106) mg/dL 158 H Calcium (8.5-10.1) mg/dL 10.0 Magnesium (1.8-2.4) mg/dL 2.3 Total Bilirubin (0.2-1.0) mg/dL 0.8 AST (15-37) U/L 52 H ALT (16-63) U/L 48 Alkaline Phosphatase (46-116) U/L 142 H Troponin I (<or=60) ng/L < 50 Total Protein (6.4-8.2) g/dL 9.4 H Albumin (3.4-5.0) g/dL 4.7 Lipase (73-393) U/L 207 COVID-19 Source Nasopharynx SARS-CoV-2 (PCR) (Negative) Negative Influenza Type A (PCR) (Negative) Negative Influenza Type B (PCR) (Negative) Negative RSV (PCR) (Negative) Negative Range/Units 02/13/22 02/13/22 14:00 14:00 WBC (4.4-10.8) 10^3/uL RBC (4.36-5.78) 10^6/uL Hgb (13.5-17.5) g/dL Hct (40.0-50.0) % MCV (80-95) fL MCH (27.0-33.0) pg MCHC (32.0-36.0) % RDW (11.8-14.1) % Plt Count (130-400) 10^3/uL MPV (8.0-11.0) fL Immature Gran % Neutrophils % Lymphocytes % Monocytes % Eosinophils % Basophils % Nucleated RBC % (0.0-0.3) % Absolute Neutrophils (1.2-6.7) 10^3/uL Absolute Lymphocytes (1.2-3.4) 10^3/uL Absolute Monocytes (0.1-0.8) 10^3/uL Absolute Eosinophils (0.0-0.7) 10^3/uL Absolute Basophils (0.0-0.2) 10^3/uL Sodium (136-145) mmol/L 142 Potassium (3.5-5.1) mmol/L 4.5 Chloride (98-107) mmol/L 110 H Carbon Dioxide (21.0-32.0) mmol/L 25.0 Anion Gap (3-11) mmol/L 7.0 BUN (7-18) mg/dL 35 H Creatinine (0.70-1.30) mg/dL 2.9 H Est GFR (CKD-EPI 2020) (mL/min/1.73m2) 23.57 Glucose (74-106) mg/dL 117 H Calcium (8.5-10.1) mg/dL 8.8 Magnesium (1.8-2.4) mg/dL Total Bilirubin (0.2-1.0) mg/dL AST (15-37) U/L ALT (16-63) U/L Alkaline Phosphatase (46-116) U/L Troponin I (<or=60) ng/L < 50 Total Protein (6.4-8.2) g/dL Albumin (3.4-5.0) g/dL Lipase (73-393) U/L COVID-19 Source SARS-CoV-2 (PCR) (Negative) Influenza Type A (PCR) (Negative) Influenza Type B (PCR) (Negative) RSV (PCR) (Negative) ECG Data Attestation: I personally reviewed and interpreted this ECG (s) as follows: Interpretation: rate of 49, sinus, normal axis, supraventricular bigeminy, no stemi. HPI General Mode of arrival: ambulatory. Date/Time Provider Initiated Documentation: 02/13/22 10:10. Limitations to Documentation: no limitations. Information obtained by: patient. HPI Narrative: Pt is a 61yo M w/ a h/o obesity, hypertension, hyperlipidemia, diabetes, gerd, MARI who presents for nausea since 4am and chest pain and shortness of breath started 1 hour ago. Patient states he went to bed feeling fatigued and then awoke at 4 AM with nausea and dry heaving. Patient states 1 hour ago while sitting on the couch at home he developed substernal chest pressure and shortness of breath. He does also endorse that he has leftlower abdominal pain that feels achy since this morning. He states the chest pain and abdominal pain is 2/10. He has not taken any medication for his symptoms. He denies fever, sore throat, ear pain, cough, vomiting, diarrhea, or urinary symptoms. He states he ate pasta salad last night. He states his last bowel movement was this morning and within normal limits. Related Data Home Medications Medication Instructions Recorded Confirmed sertraline 100 mg tablet 100 mg PO DAILY 12/25/13 02/13/22 aspirin 81 mg tablet,delayed 81 mg PO DAILY 08/28/16 02/13/22 release (Aspir-) losartan 50 mg tablet 50 mg PO DAILY 12/24/20 02/13/22 metformin 500 mg tablet 1,000 mg PO BID 12/24/20 02/13/22 metoprolol succinate 50 mg 50 mg PO DAILY 12/24/20 02/13/22 tablet,extended release 24 hr torsemide 10 mg tablet 10 mg PO DAILY 12/24/20 02/13/22 verapamil 240 mg 24 hr 240 cap PO DAILY 09/03/21 02/13/22 capsule,extended release atorvastatin 80 mg tablet 80 mg PO DAILY 12/08/21 02/13/22 isosorbide dinitrate 30 mg tablet 30 mg PO DAILY 12/08/21 02/13/22 tamsulosin 0.4 mg capsule (Flomax) 0.4 mg PO DAILY #10 caps 02/13/22 Previous Rx's Medication Instructions Recorded tamsulosin 0.4 mg capsule (Flomax) 0.4 mg PO DAILY #10 caps 02/13/22 Allergies Allergy/AdvReac Type Severity Reaction Status Date / Time losartan AdvReac Mild Verified 09/06/21 08:24 lisinopril AdvReac cough Unverified 02/13/22 10:45 General Stated Complaint: Chest Pain BEENA: 3 Review of Systems All systems reviewed & are unremarkable except as noted in HPI and below Constitutional Constitutional: Reports as per HPI, Denies chills and Denies fever(s) Eyes Eyes: Denies blurry vision ENT Ears, Nose, Mouth, and Throat: Denies dizziness, Denies sore throat and Denies throat swelling Cardiovascular Cardiovascular: Reports chest pain and Reports dyspnea Respiratory Respiratory: Denies cough and Reports dyspnea Gastrointestinal Gastrointestinal: Denies abdominal pain, Denies diarrhea, Reports nausea and Denies vomiting Genitourinary Genitourinary: Denies hematuria and Denies dysuria Musculoskeletal Musculoskeletal: Denies back pain and Denies numbness Integumentary/Breasts Skin/Breast: Denies lesions and Denies rash Neurologic Neurologic: Denies dizziness, Denies localized weakness and Denies numbness Allergic/Immunologic Allergic/Immunologic: Denies throat swelling PFSH All Active Problems (Updated 12/25/22 @ 14:55 by Mari Jenkins DO) Calculus of left ureter (Acute) Nausea (Acute) Chest pressure (Acute) Tubular adenoma of colon (Acute) Screening for colon cancer (Acute) Medical History (Updated 02/13/22 @ 14:55 by Mari Jenkins DO) Aortic stenosis Chronic kidney disease CKD III Depression Deviated nasal septum Diabetes GERD (gastroesophageal reflux disease) History of adenomatous polyp of colon History of chest pain Hypertension Idiopathic thrombocytopenia Murmur Obesity MARI (obstructive sleep apnea) Very Severe-per sleep study 05/04/17-Uses BiPAP Positive cardiac stress test Sleep apnea Stable angina Surgical History (Updated 09/15/21 @ 08:22 by Anita Oliveira RN) Colonoscopy - MAC (06/05/17) 08/2021 History of cardiac catheterization 06/17/21 [facility]-see scanned records Social History Smoking/Tobacco Use Status: Never Smoking risk assessment performed?: Yes Alcohol Intake: current Alcohol Intake frequency: holidays/special occasions only Drug use: Never Substance use type: does not use Do you feel safe at home: Yes Do you feel safe in your relationship?: Yes Exam Const General: cooperative and anxious Orientation: alert, awake and oriented x3 HENMT Head: normal to inspection Ears: hearing grossly normal bilaterally and external ears normal Face and sinus: normal facial exam Eyes General: appearance normal, both eyes and all related structures Pupils: PERRL EOM: EOM intact bilaterally Neck Neck: normal visual inspection and No submandibular swelling Lymphatic: no lymphadenopathy noted Chest Chest: normal inspection of the chest, normal palpation of entire chest wall and no tenderness Resp Effort & Inspection: normal respiratory effort and able to speak in complete sentences Auscultation: clear to auscultation bilaterally Cardio Rate: regular rate Rhythm: regular rhythm GI Inspection: normal to inspection Palpation: soft, not firm, not rigid and tender (minimal) in the LLQ and suprapubicly Auscultation: hypoactive bowel sounds Back/Spine/Pelvis Thoracic/Lumbar Spine: thoracic and lumbar spine normal to inspection Pelvis: no pain with anterior-posterior compression Skin General skin exam: no rashes or lesions noted Neuro General: patient alert, patient awake and patient oriented x3 Cognition: normal cognition Speech: speech normal Motor: muscle tone normal throughout Sensory Exam: no sensory deficits noted Extrem General: normal to inspection, full ROM, capillary refill normal, no calf tenderness bilaterally and no edema Psych Appearance: grossly normal Mental Status: mental status grossly normal Speech and Movement: speech and movement normal Affect: normal affect
[2022-02-13 10:32] LABS: Abs Immature Grans 0.03 10^3/uL (0.0-0.06); Absolute Basophil Count 0.03 10^3/uL (0.0-0.2); Absolute Eosinophil Count 0.04 10^3/uL (0.0-0.7); Absolute Lymphocyte Count 0.44 10^3/uL (1.2-3.4); Absolute Monocyte Count 0.41 10^3/uL (0.1-0.8); Absolute Neutrophil Count 7.68 10^3/uL (1.2-6.7); Basophils % 0.3; Eosinophils % 0.5; HGB 12.4 g/dL (13.5-17.5); Immature Grans % 0.3; Lymphocytes % 5.1; MCH 27.5 pg (27.0-33.0); MCV 89 fL (80-95); MPV 10.8 fL (8.0-11.0); Monocytes % 4.8; Platelet Count 148 10^3/uL (130-400); RBC 4.51 10^6/uL (4.36-5.78); RDW 14.9 % (11.8-14.1); RDW-SD 48.9 fL; WBC 8.63 10^3/uL (4.4-10.8)
[2022-02-13] MEDS: Famotidine 20 MG/2 ML VIAL IVP (10:40)
[2022-02-13] MEDS: Normal Saline 1,000 ML 1000 ML IV (10:40)
[2022-02-13] MEDS: Ondansetron 4 MG/2 ML VIAL IVP (10:40)
[2022-02-13 10:48] LABS: ALT 48 U/L (16-63); AST 52 U/L (15-37); Albumin 4.7 g/dL (3.4-5.0); Alkaline Phosphatase 142 U/L (46-116); Anion Gap 10.7 mmol/L (3-11); BUN 37 mg/dL (7-18); Bilirubin, Total 0.8 mg/dL (0.2-1.0); CO2 24.3 mmol/L (21.0-32.0); CREATININE 3.2 mg/dL (0.70-1.30); Chloride 106 mmol/L (98-107); Estimated GFR 20.94 (mL/min/1.73m2); Glucose 158 mg/dL (74-106); Lipase 207 U/L (73-393); Magnesium 2.3 mg/dL (1.8-2.4); Potassium 4.5 mmol/L (3.5-5.1); Sodium 141 mmol/L (136-145); Total Protein 9.4 g/dL (6.4-8.2); Troponin I < 50 ng/L (<or=60)
[2022-02-13] MEDS: ACETAMINOPHEN 1,000 MG/100 ML BTL 400 MG IVPB (10:59)
[2022-02-13 11:57] LABS: COVID-19 PCR Negative (Negative); Influenza A PCR Negative (Negative); Influenza B PCR Negative (Negative); RSV PCR Negative (Negative)
[2022-02-13 12:01] LABS: Source Nasopharynx
--- NOTE | 2022-02-13 13:45 | RT.EKG_ITS ---
APPROVED REPORT Exam: Resting ECG Reason for Exam: chest pressure Patient Location: E HR:56 bpm ECG Measurements Heart Rate 56 AXIS AL 221 P 55 QRSd 93 QRS 18 QT 388 T 32 QTc 374 Conclusion Sinus bradycardia...rate< 60 Prolonged AL interval...AL >220, V-rate 50- 90. Sinus. Normal axis. No STEMI. I have reviewed and interpreted ECG and agree with software generated interpretation.
[2022-02-13] MEDS: Omnipaque 350 MG/ML 50 ML BTL PO (13:46)
--- NOTE | 2022-02-13 13:52 | DI.CT_ITS ---
Exam(s) CT CHEST/ABD/PEL WO EXAM: CT CHEST/ABD/PEL WO CLINICAL HISTORY: substernal chest/lower abd pain/nausea. TECHNIQUE: Imaging Protocol: Axial computed tomography images with coronal and sagittal reformatted images were created and reviewed CONTRAST MATERIAL: Intravenous: none Oral: Yes there COMPARISON: MR MR ABDOMEN WO from 09/02/2021 FINDINGS: CHEST: LUNGS: There are no pulmonary infiltrates nor pleural effusions. There are no ominous pulmonary nodu les. No focal findings in the trachea and mainstem bronchi. No bronchiectasis.. MEDIASTINUM: There is no obvious hilar nor mediastinal adenopathy. Partially visualized thyroid appe ars unremarkable. No supraclavicular nor axillary adenopathy evident. CARDIAC: Heart size is upper normal. There is no pericardial effusion.Coronary artery calcification noted-moderate. The diameter of the ascending thoracic aorta is 3.8 cm. Slightly prominent. Diamet er of the descending thoracic aorta is upper normal. OSSEOUS: There are multiple healed left-sided rib fractures involving the left 3rd through 7th ribs.. No acute fractures. No osseous lesions. ABDOMEN: There is no ascites. LIVER: Again noted are innumerable cysts in the liver involving both lobes and measuring up to 3.8 cm , as evident on prior MRI. Liver size is slightly prominent. GALLBLADDER/BILIARY: No obvious gallbladder pathology. CBD is not dilated. PANCREAS: No evidence of obvious pancreatic mass nor dilatation of the pancreatic duct. There are no pancreatic cysts. SPLEEN: Slightly prominent spleen size. No splenic cysts. ADRENALS: There are no significant adrenal masses. KIDNEYS: Small cortical cysts seen on the prior MRI are difficult to appreciate on noninfused study. However, there is is again noted a cyst in the lateral cortex of the left kidney measuring 3 x 3 cm, unchanged. No new solid renal masses. There calculi in the right kidney measuring up to 1.4 cm, no nobstructive. On the left side there is a 3 millimeter calculus in the lower left ureter few cm abov e the UVJ with mild dilatation/hydronephrosis of the left collecting system above this level. Also m ild perinephric streaking on the left side. ABDOMINAL AORTA: Abdominal aorta is not enlarged. LYMPH NODES: There is no retroperitoneal nor para-aortic adenopathy. ABDOMINAL WALL/GI: No evidence of significant anterior abdominal wall nor inguinal hernia. No evidence of bowel obstruction. PELVIS: LYMPH NODES: There is no intrapelvic nor inguinal adenopathy. GI: No evidence of appendicitis.No evidence of sigmoid diverticulitis. URINARY BLADDER: No calculi nor obvious masses evident REPRODUCTIVE: Age appropriate OSSEOUS: No significant osseous lesions. IMPRESSION: 1. No acute pulmonary findings. Multiple healed left-sided rib fractures. 2. Ascending thoracic aorta diameter is slightly prominent measuring 3.8 cm 3. There is a 3 millimeter calculus in the lower left ureter with mild hydronephrosis on the left oneida e above this level as well as unilateral left-sided perinephric streaking. 4. 1.4 cm nonobstructive calculus in lower pole of the opposite-right kidney. 5. Innumerable benign-appearing cysts in the liver again noted. 3.3 cm cyst in the left kidney. No evidence of adult polycystic kidney disease in this patient who has innumerable hepatic cysts. RADIATION DOSE DELIVERED: 2,106.82mGy.cm Total DLP DATA REPOSITORY: All CT scans at this facility are submitted to the National Radiology Data Registry (NRDR) Dose Index Registry (DIR) with the [employer] ([employer]). RADIATION OPTIMIZATION: All CT scans at this facility use at least one of these dose optimization te chniques: automated exposure control; mA and/or kV adjustment per patient size (includes targeted exa ms where dose is matched to clinical indication); or iterative reconstruction.
[2022-02-13 14:24] LABS: Troponin I < 50 ng/L (<or=60)
--- NOTE | 2022-02-13 14:27 | DI.VRAD_ITS ---
PROCEDURE INFORMATION: Exam: CT Chest Without Contrast; Diagnostic Exam date and time: 02/13/2022 1:51 PM Age: 61 years old Clinical indication: Vomiting; Dyspnea and other: Substernal pain TECHNIQUE: Imaging protocol: Diagnostic computed tomography of the chest without contrast. Radiation optimization: All CT scans at this facility use at least one of these dose optimization techniques: automated exposure control; mA and/or kV adjustment per patient size (includes targeted exams where dose is matched to clinical indication); or iterative reconstruction. Other contrast: Oral, [id number], 50ml; COMPARISON: CR LEFT RIBS PA CXR ONLY-3VIEWS 08/28/2016 4:57 PM FINDINGS: Lungs: Slight subpleural scarring in the left mid lung adjacent to the old rib fractures. Pleural spaces: Unremarkable. No pneumothorax. No pleural effusion. Heart: Unremarkable. No cardiomegaly. No pericardial effusion. Coronary arteries: Coronary artery calcifications. Lymph nodes: Unremarkable. No enlarged lymph nodes. Vasculature: Vascular calcifications. Bones/joints: Old left rib fractures. Soft tissues: Unremarkable. IMPRESSION: 1. No acute findings 2. Old left rib fractures PROCEDURE INFORMATION: Exam: CT Abdomen And Pelvis Without Contrast Exam date and time: 02/13/2022 1:51 PM Age: 61 years old Clinical indication: Vomiting; Dyspnea and other: Substernal pain TECHNIQUE: Imaging protocol: Computed tomography of the abdomen and pelvis without contrast. Radiation optimization: All CT scans at this facility use at least one of these dose optimization techniques: automated exposure control; mA and/or kV adjustment per patient size (includes targeted exams where dose is matched to clinical indication); or iterative reconstruction. Other contrast: Oral, [id number], 50ml; COMPARISON: MR ABDOMEN WO 09/02/2021 8:01 AM FINDINGS: Liver: Multiple hepatic cysts. These were better demonstrated on the MRI. Gallbladder and bile ducts: Normal. No calcified stones. No ductal dilation. Pancreas: Normal. No ductal dilation. Spleen: Normal. No splenomegaly. Adrenal glands: Normal. No mass. Kidneys and ureters: Mild left hydronephrosis and ureterectasis. Left perinephric and periureteric soft tissue stranding. 3-4 mm stone in the lower left ureter, just above the ureterovesical junction. Bulky nonobstructing stones lower pole right kidney. Large cyst left kidney. Multiple tiny cysts in both kidneys were better demonstrated the MRI. Stomach and bowel: Unremarkable. No obstruction. No mucosal thickening. Appendix: No evidence of appendicitis. Intraperitoneal space: Unremarkable. No free air. No significant fluid collection. Vasculature: Vascular calcifications. No abdominal aortic aneurysm. Lymph nodes: Unremarkable. No enlarged lymph nodes. Urinary bladder: Unremarkable as visualized. Reproductive: Mild prostatic enlargement. Prostatic calcifications. Bones/joints: Degenerative arthritis lower lumbar spine and pelvis. Soft tissues: Subcutaneous edema lateral to the left hip. Small fat containing inguinal hernias. IMPRESSION: 1. Tiny stone in the lower left ureter with mild left hydronephrosis and ureterectasis 2. Bulky nonobstructing stones in the right kidney 3. Multiple hepatic cysts and renal cysts Dictated and Authenticated by: Naty Goldman MD. Ordering:ODETTE Guerra MD
[2022-02-13 14:48] LABS: BUN 35 mg/dL (7-18); CREATININE 2.9 mg/dL (0.70-1.30); Calcium 8.8 mg/dL (8.5-10.1); Chloride 110 mmol/L (98-107); Estimated GFR 23.57 (mL/min/1.73m2); Glucose 117 mg/dL (74-106); Potassium 4.5 mmol/L (3.5-5.1); Sodium 142 mmol/L (136-145)
[2022-02-13] MEDS: Ondansetron O.D.T. 4 MG TABEF (14:54)
[2022-02-13] MEDS: Ondansetron O.D.T. 4 MG TABEF, 3 TABS/BTL 12 MG (14:54)
[2022-02-13] MEDS: Ondansetron O.D.T. 4 MG TABEF, 3 TABS/BTL PO (14:54)
[2022-02-13] MEDS: Ondansetron O.D.T. 4 MG TABEF PO (14:54)
[2022-02-13] MEDS: Tamsulosin 0.4 MG CAPCR PO (14:55)
[2022-02-13] MEDS: Sucralfate 1 GM TAB PO (14:55)
== END 2022-02-13 15:12 | disposition home or self-care (01) ==
PROVIDERS: Emergency Provider Physician Assistant; PCP Internal Medicine
DX: N13.2 Hydronephrosis with renal and ureteral calculous obstruction (principal); R07.2 Precordial pain; E78.5 Hyperlipidemia, unspecified; E11.22 Type 2 diabetes mellitus with diabetic chronic kidney disease; I12.9 Hypertensive chronic kidney disease with stage 1 through stage 4 chronic kidney disease, or unspecified chronic kidney disease; N18.30 Chronic kidney disease, stage 3 unspecified; Z20.822 Contact with and (suspected) exposure to COVID-19; Z79.82 Long term (current) use of aspirin; Z79.84 Long term (current) use of oral hypoglycemic drugs
CPT/HCPCS: 36415; 71250; 80048; 80053; 83690; 87637; 93005; 96361; 96374; 96375; 99285; 74176; 83735; 84484; 85025; 93010; J0131; J2405; Q9967

== ENCOUNTER 2022-02-15 19:15 | Observation (INO) | payer BC, SELFPAY ==
[2022-02-15] VITALS (22 sets, daily range): BP systolic 151–175; BP diastolic 73–81; PULSE 69–81; RESP 14–24; TEMP 36.5–36.8; O2SAT 90–99
[2022-02-15 19:37] LABS: Bilirubin Negative (Negative); Blood Large (Negative); Clarity Clear (Clear); Glucose Negative (Negative); Ketones Negative (Negative); Leukocyte Esterase Negative (Negative); Nitrite Negative (Negative); Specific Gravity 1.015 (1.005-1.025); Urobilinogen 0.2 EU/dL (Up TO 0.2); pH 5.5 (5-8)
[2022-02-15] MEDS: Normal Saline 500 ML IV ×2 (19:54→22:49)
[2022-02-15 19:57] LABS: Bacteria Few HPF (Negative); C & S Indicated? No; Casts 0-2 Hyaline LPF (Negative); Crystals Negative HPF (Negative); Epithelial Cells Rare HPF (Negative); Mucus Negative (Negative); RBC >50 HPF (0-2); WBC 0-2 HPF (0-5)
[2022-02-15] MEDS: Ondansetron 4 MG/2 ML VIAL IVP (20:00)
--- NOTE | 2022-02-15 20:01 | ED.GENADUL_ITS ---
Discharge Plan Disposition Patient Disposition: Admit to [facility] Condition: Stable Discharge Details Clinical Impression: Kidney calculus, PALLAVI (acute kidney injury) Admit Date/Time: 02/15/22 23:53 Admit Provider: Jarad Gómez Attending Provider: Jarad Gómez Primary Care Provider: Vinicius John ED Provider: Sanket Garcia Discharge Data Discharge Date/Time-TO BE ENTERED AT DEPARTURE: 02/16/22 00:47 Medical Decision Making <Sanket Garcia NP - Last Filed: 02/16/22 20:27> Patient presenting to the emergency department for chief complaint of left flank pain. Patient states symptoms started 3 days ago and he presented to the emergency department was evaluated and diagnosed with a small left kidney stone. He states since then he has had chills especially with painful episodes, diffic ulty feeling warm, and checked his temperature tonight and had thermometer reading at home of 100.2. Patient does report that symptoms seem to coincide with pain. Patient does state history of poor renal function but denies any change in urination. Patient's only other associated symptoms is some nausea again with pain episodes. Physical exam shows very mild left lower quadrant tenderness to deep palpation only. No CVA tenderness and exam is otherwise unremarkable. We will plan on giving fluids, Tylenol and hydromorphone and checking labs Review of patient's labs show slightly worsened anemia with hemoglobin of 9.9 with patient's baseline being typically around 12, platelet count of 87, otherwise no leukocytosis or shift noted. CMP does show significant elevation of BUN at 42, creatinine of 4.2 and a GFR 15 CMP is otherwise nondiagnostic. Uric acid was 8.5. Urinalysis reviewed and shows large amount of blood in greater than 50 RBCs but no nitrites leukocyte Estrace or significant findings to suggest infection were noted. We will still send for culture given patient's report of fever like symptoms but I question if this is more secondary to pain response compared to acute infection. Given significant worsening of patient's renal function over the past couple days we will plan on performing noncontrasted CT scan for comparison of any worsening findings. Radiologist in regards to finding and patient does continue to have a obstructing 3 mm stone in the left UVJ that is moved to 5 mm. Radiologist also did note some thickening around the junction of the ureter and bladder and questions inflammatory process versus very subtle neoplasm that could be delaying stone movement. He did also notice a nonobstructing 15 mm staghorn calculi on the right. And also mention concern of possible angiomyolipoma that was not noticed on previous MRI imaging done in August. We will plan on speaking to urology at [facility] given concerning acute worsening of labs over the last [address] findings. Patient remains mildly hypertensive but otherwise in stable condition. Medical Records Medical records reviewed: Yes I reviewed the patient's medical records. Imaging Data Radiologic Study: Imaging: CT Scan Radiologist's impression: IMPRESSION: 1. The previously reported partially obstructive calculus in the distal left ureter demonstrates a short distal translation and is now approximately 5 mm proximal to the left UVJ. 2. In the right kidney, there is a 15 mm nonobstructive staghorn calculus. 3. Multiple bilateral renal and hepatic cysts as demonstrated on the comparison MRI. 4. However, in the left kidney, the largest lesion measures 3 cm and contains a small center of macroscopic fat without calcification which is suspicious for an angiomyolipoma. As this was not confirmed on the MRI without contrast, this may represent an atypical fat poor angiomyolipoma. Non emergent ultrasound of the left kidney may be helpful in further characterizing this lesion if clinically indicated. 5. Mild splenomegaly. 6. Prostatomegaly. Lab Data Lab results reviewed: Yes I reviewed the patient's lab results. <Jasen Ross MD - Last Filed: 02/15/22 23:58> Patient presenting to the emergency department for chief complaint of left flank pain. Patient states symptoms started 3 days ago and he presented to the emergency department was evaluated and diagnosed with a small left kidney stone. He states since then he has had chills especially with painful episodes, difficulty feeling warm, and checked his temperature tonight and had thermometer reading at home of 100.2. Patient does report that symptoms seem to coincide with pain. Patient does state history of poor renal function but denies any change in urination. Patient's only other associated symptoms is some nausea again with pain episodes. Physical exam shows very mild left lower quadrant tenderness to deep palpation only. No CVA tenderness and exam is otherwise unremarkable. We will plan on giving fluids, Tylenol and hydromorphone and checking labs Review of patient's labs show slightly worsened anemia with hemoglobin of 9.9 with patient's baseline being typically around 12, platelet count of 87, otherwise no leukocytosis or shift noted. CMP does show significant elevation of BUN at 42, creatinine of 4.2 and a GFR 15 CMP is otherwise nondiagnostic. Uric acid was 8.5. Urinalysis reviewed and shows large amount of blood in greater than 50 RBCs but no nitrites leukocyte Estrace or significant findings to suggest infection were noted. We will still send for culture given patient's report of fever like symptoms but I question if this is more secondary to pain response compared to acute infection. Given significant worsening of patient's renal function over the past couple days we will plan on performing noncontrasted CT scan for comparison of any worsening findings. Radiologist in regards to finding and patient does continue to have a obstructing 3 mm stone in the left UVJ that is moved to 5 mm. Radiologist also did note some thickening around the junction of the ureter and bladder and qu estions inflammatory process versus very subtle neoplasm that could be delaying stone movement. He did also notice a nonobstructing 15 mm staghorn calculi on the right. And also mention concern of possible angiomyolipoma that was not noticed on previous MRI imaging done in August. We will plan on speaking to urology at [facility] given concerning acute worsening of labs over the last [address] findings. Patient remains mildly hypertensive but otherwise in stable condition. 23: 36 patient requiring multiple doses of pain medications for persistent left lower quadrant discomfort. It appears the kidney stone is moving however slightly working its way towards the UVJ. Slight hydro without signs of infected stone. Nontoxic no vomiting. Given history of CKD now with PALLAVI in the setting of kidney stone and persistent pain patient be admitted for fluid hydration tamsulosin and urology consultation in the morning. HPI <Sanket Garcia NP - Last Filed: 02/16/22 20:27> General Mode of arrival: ambulatory . Date/Time Provider Initiated Documentation: 02/15/22 19:21 . Limitations to Documentation: no limitations . Information obtained by: patient, RN notes reviewed and old records reviewed . History of Present Illness 61 year old M presents to the emergency department with the chief complaint of Left flank pain , described as moderate, with intensity rated at 5. Quality is described as aching and sharp, and is localized to the left (flank). Patient abdomen. Patient started experiencing this hour(s) (3) and it has been intermittent. No relieving factors improve symptom(s), No exacerbating factors reported . Related Data Home Medications Medication Instructions Recorded Confirmed sertraline 100 mg tablet 100 mg PO DAILY 12/25/13 02/15/22 aspirin 81 mg tablet,delayed 81 mg PO DAILY 08/28/16 02/13/22 release (Aspir-) losartan 50 mg tablet 50 mg PO DAILY 12/24/20 02/15/22 metformin 500 mg tablet 1,000 mg PO BID 12/24/20 02/15/22 metoprolol succinate 50 mg 50 mg PO DAILY 12/24/20 02/15/22 tablet,extended release 24 hr torsemide 10 mg tablet 10 mg PO DAILY 12/24/20 02/15/22 verapamil 240 mg 24 hr 240 cap PO DAILY 09/03/21 02/15/22 capsule,extended release atorvastatin 80 mg tablet 80 mg PO QPM 12/08/21 02/16/22 tamsulosin 0.4 mg capsule (Flomax) 0.4 mg PO DAILY #10 caps 02/13/22 02/15/22 isosorbide mononitrate 30 mg 30 mg PO DAILY 02/16/22 02/16/22 tablet,extended release 24 hr Previous Rx's Medication Instructions Recorded tamsulosin 0.4 mg capsule (Flomax) 0.4 mg PO DAILY #10 caps 02/13/22 Allergies Allergy/AdvReac Type Severity Reaction Status Date / Time losartan AdvReac Mild Verified 02/15/22 19:31 lisinopril AdvReac cough Unverified 02/15/22 19:31 General Stated Complaint: FlankPain BEENA: 3 Review of Systems <Sanket Garcia NP - Last Filed: 02/16/22 20:27> Constitutional Constitutional: Reports chills, Reports fever(s) and Reports malaise ENT Ears, Nose, Mouth, and Throat: Denies nasal congestion and Denies sore throat Cardiovascular Cardiovascular: Denies chest pain, Denies syncope and Denies dyspnea Respiratory Respiratory: Denies cough and Denies dyspnea Gastrointestinal Gastrointestinal: Reports abdominal pain, Denies melena, Denies hematochezia, Reports nausea and Denies vomiting Genitourinary Genitourinary: Reports as per HPI, Denies hematuria, Denies difficulty urinating, Denies dysuria, Reports flank pain and Denies urinary frequency Integumentary/Breasts Skin/Breast: Denies rash and Denies unusual bruising Neurologic Neurologic: Denies syncope Hematologic/Lymphatic Hematologic/Lymphatic: Denies easy bruising PFSH <Sanket Garcia NP - Last Filed: 02/16/22 20:27> All Active Problems (Updated 02/16/22 @ 19:30 by Parisa Eason MD) Discharge planning issues (Acute) DVT prophylaxis (Acute) Hydronephrosis of left kidney (Acute) Acute kidney injury superimposed on chronic kidney disease (Acute) Calculus of left ureter (Acute) Nausea (Acute) Chest pressure (Acute) Kidney calculus (Chronic) PALLAVI (acute kidney injury) (Acute) Tubular adenoma of colon (Acute) Screening for colon cancer (Acute) Medical History Aortic stenosis Chronic kidney disease CKD III Depression Deviated nasal septum Diabetes GERD (gastroesophageal reflux disease) History of adenomatous polyp of colon History of chest pain Hypertension Idiopathic thrombocytopenia Murmur Obesity MARI (obstructive sleep apnea) Very Severe-per sleep study 05/04/17-Uses BiPAP Positive cardiac stress test Sleep apnea Stable angina Surgical History Colonoscopy - [facility] (06/05/17) 08/2021 History of cardiac catheterization 06/17/21 [facility]-see scanned records Social History Smoking/Tobacco Use Status: Never Smoking risk assessment performed?: Yes Alcohol Intake: current Alcohol Intake frequency: holidays/special occasions only Drug use: Never Substance use type: does not use Do you feel safe at home: Yes Do you feel safe in your relationship?: Yes Exam <Sanket Garcia NP - Last Filed: 02/16/22 20:27> Const General: cooperative Orientation: alert, awake and oriented x3 Resp Effort & Inspection: normal respiratory effort and able to speak in complete sentences Auscultation: clear to auscultation bilaterally Cardio Rate: regular rate Rhythm: regular rhythm Heart Sounds: murmur systolic II/ GI Palpation: soft, no hepatosplenomegaly, not firm, no guarding, no masses, no pulsatile masses, not rigid, no splenomegaly and tender in the LLQ Auscultation: normal bowel sounds Back/Spine/Pelvis Back: no CVA tenderness Neuro General: patient alert, patient awake, patient oriented x3, gait normal and moves all extremities Course <Sanket Garcia NP - Last Filed: 02/16/22 20:27> Vital Signs Vital signs: Vital Signs Temperature 36.5 C 02/15/22 19:24 Pulse 81 02/15/22 19:24 Respiratory Rate 16 02/15/22 19:24 Blood Pressure 175/75 H 02/15/22 19:24 Pulse Oximetry 99 02/15/22 19:24 Temperature 36.5 C 02/15/22 19:24 Temperature Source Temporal Artery Scan 02/15/22 19:24 Pulse 81 02/15/22 19:24 Respiratory Rate 16 02/15/22 19:24 Respiratory Effort 02/15/22 19:24 Blood Pressure 175/75 H 02/15/22 19:24 Blood Pressure Position Supine 02/15/22 19:24 Pulse Oximetry 99 02/15/22 19:24 Oxygen Delivery Method Room Air 02/15/22 19:24 Oxygen Flow Rate 0 02/15/22 19:24 Pain Level 5 02/15/22 19:24 Lab/Test Results Lab/Test Results: Laboratory Tests Range/Units 02/15/22 19:25 Urine Color (Yellow) Yellow Urine Clarity (Clear) Clear Urine pH (5-8) 5.5 Ur Specific Mingus (1.005-1.025) 1.015 Urine Protein (Negative) mg/dL 100 H Urine Ketones (Negative) mg/dL Negative Urine Blood (Negative) Large H Urine Nitrite (Negative) Negative Urine Bilirubin (Negative) Negative Urine Urobilinogen (Up TO 0.2) EU/dL 0.2 Ur Leukocyte Esterase (Negative) Negative Urine RBC (0-2) HPF >50 H Urine WBC (0-5) HPF 0-2 Ur Epithelial Cells (Negative) HPF Rare Urine Crystals (Negative) HPF Negative Urine Bacteria (Negative) HPF Few Urine Casts (Negative) LPF 0-2 Hyaline Urine Mucus (Negative) Negative Ur Culture Indicated? No Urine Glucose (Negative) mg/dL Negative
[2022-02-15 20:03] LABS: Abs Immature Grans 0.02 10^3/uL (0.0-0.06); Absolute Basophil Count 0.01 10^3/uL (0.0-0.2); Absolute Eosinophil Count 0.07 10^3/uL (0.0-0.7); Absolute Lymphocyte Count 0.63 10^3/uL (1.2-3.4); Absolute Monocyte Count 0.45 10^3/uL (0.1-0.8); Absolute Neutrophil Count 4.06 10^3/uL (1.2-6.7); Basophils % 0.2; Eosinophils % 1.3; HCT 31.3 % (40.0-50.0); HGB 9.9 g/dL (13.5-17.5); Immature Grans % 0.4; MCHC 31.6 % (32.0-36.0); MCV 88 fL (80-95); MPV 11.3 fL (8.0-11.0); Monocytes % 8.6; Neutrophils % 77.5; RBC 3.54 10^6/uL (4.36-5.78); RDW 14.8 % (11.8-14.1); RDW-SD 47.8 fL; WBC 5.24 10^3/uL (4.4-10.8)
[2022-02-15] MEDS: HYDROmorphone 2 MG/ML SYR 0.5 MG IVP ×2 (20:05→23:23)
[2022-02-15] MEDS: ACETAMINOPHEN 1,000 MG/100 ML BTL 400 MG IVPB (20:10)
[2022-02-15 20:11] LABS: ALT 29 U/L (16-63); AST 29 U/L (15-37); Albumin 3.8 g/dL (3.4-5.0); Alkaline Phosphatase 105 U/L (46-116); Anion Gap 10.7 mmol/L (3-11); BUN 42 mg/dL (7-18); Bilirubin, Total 0.7 mg/dL (0.2-1.0); CO2 24.3 mmol/L (21.0-32.0); Calcium 9.2 mg/dL (8.5-10.1); Chloride 107 mmol/L (98-107); Estimated GFR 15.11 (mL/min/1.73m2); Glucose 89 mg/dL (74-106); Potassium 4.5 mmol/L (3.5-5.1); Sodium 142 mmol/L (136-145); Total Protein 7.9 g/dL (6.4-8.2); Uric Acid 8.5 mg/dL (3.5-7.2)
[2022-02-15 20:13] LABS: CREATININE 4.2 mg/dL (0.70-1.30)
--- NOTE | 2022-02-15 20:15 | DI.CT_ITS ---
Exam(s) CT RENAL COLIC WO EXAM: CT RENAL COLIC WO CLINICAL HISTORY: left flank pain. TECHNIQUE: Imaging Protocol: Axial computed tomography images with coronal and sagittal reformatted images were created and reviewed. COMPARISON: MR MR ABDOMEN WO from 09/02/[address] CHEST/ABD/PEL WO from 02/13/2022 FINDINGS: ABDOMEN: Lung Bases: Normal where visualized. Liver: Normal density. There again seen numerous hepatic cysts. Gallbladder and biliary tract: No radiodense calculus or biliary ductal dilation. Pancreas: Normal density, no abnormal calcifications or inflammatory process. Spleen: Mild splenomegaly. Kidneys: Normal size, contour and axis.There is a 3 mm stone in the distal left ureter causing mild-t o-moderate hydronephrosis. There is bilateral nephrolithiasis. There is a stable left renal cyst. Adrenal glands: No mass is seen. Lymph nodes: Within normal limits. Abdominal Aorta: Abdominal portion non-dilated. Atherosclerosis is present. PELVIS: Bladder:Symmetric distention, no gross wall thickening. Bowel: No obstruction or bowel wall thickening. Appendix is unremarkable. There are few colonic dive rticuli but no evidence of acute diverticulitis. Peritoneal cavity: No ascites, collection or mesenteric inflammatory response. No free air. Reproductive organs: There is an enlarged prostate gland. Bones: Within normal limits. Soft Tissues: Within normal limits. IMPRESSION: 1. There is a 3 mm stone in the distal ureter just proximal to the UVJ causing [id number] hydro nephrosis. 2. Bilateral nephrolithiasis. RADIATION DOSE DELIVERED: 1,642.49mGy.cm Total DLP DATA REPOSITORY: All CT scans at this facility are submitted to the National Radiology Data Registry (NRDR) Dose Index Registry (DIR) with the [employer] ([employer]). RADIATION OPTIMIZATION: All CT scans at this facility use at least one of these dose optimization te chniques: automated exposure control; mA and/or kV adjustment per patient size (includes targeted exa ms where dose is matched to clinical indication); or iterative reconstruction.
[2022-02-15 20:26] LABS: Diff Comment PLT Morph Reviewed; Platelet Count 87 10^3/uL (130-400)
[2022-02-15 21:23] LABS: Source Nasal/Nares
[2022-02-15 21:55] LABS: COVID-19 PCR Negative (Negative)
--- NOTE | 2022-02-15 22:11 | DI.VRAD_ITS ---
Addendum created by Shiva oLtt MD on 02/15/2022 10:41:20 PM EST: Findings were discussed with SABIHA DELGADO at 02/15/2022 10:23 PM EST. Addendum created by Shiva Lott MD on 02/15/2022 10:18:52 PM EST: Findings were discussed with SABIHA DELGADO at 02/15/2022 10:16 PM EST. There is mild thickening of the bladder trigone, particularly on the left, that may reflect inflammation, thrombus or neoplasm. Initial report created on 02/15/2022 10:10:17 PM EST: PROCEDURE INFORMATION: Exam: CT Abdomen And Pelvis Without Contrast Exam date and time: 02/15/2022 8:51 PM Age: 61 years old Clinical indication: Other: L flank; Patient HX: Left flank pain; Additional info: HX of kidney disease TECHNIQUE: Imaging protocol: Computed tomography of the abdomen and pelvis without contrast. Radiation optimization: All CT scans at this facility use at least one of these dose optimization techniques: automated exposure control; mA and/or kV adjustment per patient size (includes targeted exams where dose is matched to clinical indication); or iterative reconstruction. COMPARISON: 1. CT CHEST/ABD/PEL WO 02/13/2022 1:51 PM 2. MRI ABDOMEN WO 09/02/2021 8:01 AM FINDINGS: Lungs: The visualized lung qureshi show mild bibasilar atelectasis. Liver: The liver dome is outside the field of view. However, the liver appears normal in size and contains multiple simple appearing cysts. These have been reported on the comparison MRI. Gallbladder and bile ducts: No calcified gallstones. No ductal dilation. Pancreas: The pancreas is normal. Spleen: In the spleen is mildly enlarged measuring 14 cm in length. Adrenal glands: The adrenal glands are normal. Kidneys and ureters: There is no right hydronephrosis. In the lower pole of the right kidney, there is a nonobstructive calcified staghorn calculus measuring 15 mm in long dimension. There is fullness of the left renal collecting system and ureter down to the ureterovesical junction (UVJ). The previously described calculus that on the comparison CT scan was in the distal left ureter, is now 5 mm proximal to the left UVJ after a short interval distal mobilization. There is stranding and inflammatory change in the retroperitoneal fat adjacent to the left ureter. There are multiple bilateral renal cysts as described on the prior MRI of the abdomen without contrast. In the interpolar region to lower pole of the left kidney, there is a 3 cm diameter low-density lesion with microscopic fat at the center of the lesion that measures-41 Hounsfield units. The lesion contains no calcifications. This is suspicious for an angiomyolipoma. Stomach and bowel: There is no evidence of small bowel or colonic obstruction. Appendix: No evidence of appendicitis. Intraperitoneal space: No free air. No significant fluid collection. Vasculature: No abdominal aortic aneurysm. Lymph nodes: No enlarged retroperitoneal or mesenteric lymph nodes. Urinary bladder: The bladder shows a normal contour and is clear of calcific opacities. Reproductive: The prostate measures 5.2 cm in transverse dimension. Bones/joints: No acute fracture. No evidence of bone destruction. Soft tissues: Unremarkable. IMPRESSION: 1. The previously reported partially obstructive calculus in the distal left ureter demonstrates a short distal translation and is now approximately 5 mm proximal to the left UVJ. 2. In the right kidney, there is a 15 mm nonobstructive staghorn calculus. 3. Multiple bilateral renal and hepatic cysts as demonstrated on the comparison MRI. 4. However, in the left kidney, the largest lesion measures 3 cm and contains a small center of macroscopic fat without calcification which is suspicious for an angiomyolipoma. As this was not confirmed on the MRI without contrast, this may represent an atypical fat poor angiomyolipoma. Non emergent ultrasound of the left kidney may be helpful in further characterizing this lesion if clinically indicated. 5. Mild splenomegaly. 6. Prostatomegaly. Dictated and Authenticated by: Shiva Lott MD. Ordering:ANNA MARIE Coles MD
[2022-02-16] VITALS (11 sets, daily range): BP systolic 124–183; BP diastolic 69–95; PULSE 60–107; RESP 9–24; TEMP 36.7–37.4; O2SAT 91–95
[2022-02-16] MEDS: Normal Saline Flush 10 ML SYR IVP ×5 (01:17→22:47)
[2022-02-16] MEDS: Normal Saline 1,000 ML 150 ML IV (01:17)
[2022-02-16] MEDS: Tamsulosin 0.4 MG CAPCR PO ×2 (01:17→11:03)
--- NOTE | 2022-02-16 06:45 | HPE_ITS ---
Date of service: 02/15/22 Time of Service: 23:58 Assessment and Plan Assessment and plan (1) Calculus of left ureter: Start date: 02/15/22 Status: Acute Assessment and plan: This is a 61-year-old gentleman with acute left flank pain and an obstructing 3 to 5 mm distal ureteral stone without evidence of urinary tract infection but having some chills and slightly elevated temperature at home. Watch closely for infection and consult urology for evaluation. He may need cystoscopy and ureteral stent with a question of a mass in the distal ureteral region. He does not have a history of previous kidney stones. He does have CKD and is made and worsened with metformin on board with his IV contrast therefore metformin will be held and IV resuscitation is ongoing with pain control. Consult urology. (2) PALLAVI (acute kidney injury): Start date: 02/15/22 Status: Acute Assessment and plan: Patient's baseline creatinine is just around 3 and he is now above 4. IV hydration and trend labs. Consult urology but also long-term patient should be seeing nephrology and do better with diet and weight control. His uric acid is also elevated which may need to be addressed. (3) Chronic kidney disease: Assessment and plan: Baseline elevation in his creatinine with anemia associated. Monitor with PCP. (4) Diabetes: Assessment and plan: On metformin with admitting glucose low. Hold metformin and glucometer checks before meals and at bedtime with short acting insulin coverage while hospitalized. Patient will be n.p.o. for possible procedure. (5) Hypertension: Assessment and plan: Continue usual outpatient medical therapy with patient blood pressure running high presently. (6) Idiopathic thrombocytopenia: Assessment and plan: Patient platelet count is low without evidence of liver disease and no other blood lines low. Caution with procedures with patient on aspirin chronically. Aspirin is held. This should be reviewed by hematology at some point. History of Present Illness History of Present Illness Chief Complaint: Left flank pain for 3 days Narrative: This is a 61-year-old gentleman who presented to the ED with a 3-day history of left flank pain but no reports of gross hematuria. He offers no previous history of renal lithiasis but did have symptoms of the chills and not been able to get warm with a measurement of his temperature at 100.2 at home prior to presentation. In the ED he was evaluated and found to have a staghorn calculus on the right kidney and a left distal ureteral stone 3 to 5 mm at the UVP junction and not passing. He received IV fluids with Flomax and continued to have discomfort requiring IV Dilaudid for pain management. He also received IV Tylenol. He states that he does have a history of hypertension diabetes but does not mention his chronic kidney disease which apparently is present with a creatinine in the range of 3 at baseline. It is slightly elevated above 4 at this time. He denies any nausea or vomiting. He is not active physically but d oes have an exercise plan started. His diabetes is not reported as uncontrolled and he is on mostly oral therapy. In the ED he was found to have a low platelet count and mild anemia which probably is associated with CKD though the platelet count would not necessarily go with that diagnosis. He is not a drinker of alcohol and liver functions and bilirubin are normal. The patient appears to have poor grasp of his medical problems being on Imdur and high-dose statin but stated that he has never had a cardiac event though he does admit to having a cardiac murmur (). His problem list does hav stable angina listed. He did have some nausea with this pain episodes and felt chills but no vomiting as stated. His urinalysis in the ED did not show acute infection. He did have contrast with his CTs and metformin is being held with patient on glucometer checks with insulin coverage during his hospital stay. He is on observation. He is a full code. Review of Systems Narrative: 13 point review of systems otherwise unrevealing or stable. PFSH All Active Problems Calculus of left ureter (Acute) Nausea (Acute) Chest pressure (Acute) Kidney calculus (Chronic) PALLAVI (acute kidney injury) (Acute) Tubular adenoma of colon (Acute) Screening for colon cancer (Acute) Medical History Aortic stenosis Chronic kidney disease CKD III Depression Deviated nasal septum Diabetes GERD (gastroesophageal reflux disease) History of adenomatous polyp of colon History of chest pain Hypertension Idiopathic thrombocytopenia Murmur Obesity MARI (obstructive sleep apnea) Very Severe-per sleep study 05/04/17-Uses BiPAP Positive cardiac stress test Sleep apnea Stable angina Surgical History Colonoscopy - MAC (06/05/17) 08/2021 History of cardiac catheterization 06/17/21 [facility]-see scanned records Social History Smoking/Tobacco Use Status: Never Smoking risk assessment performed?: Yes Alcohol Intake: current Alcohol Intake frequency: holidays/special occasions only Drug use: Never Substance use type: does not use Do you feel safe at home: Yes Do you feel safe in your relationship?: Yes Meds Allergies and Home Medications Allergies Allergy/AdvReac Type Severity Reaction Status Date / Time losartan AdvReac Mild Verified 02/15/22 19:31 lisinopril AdvReac cough Unverified 02/15/22 19:31 Home Medications Medication Instructions Recorded Confirmed Type sertraline 100 mg tablet 100 mg PO DAILY 12/25/13 02/15/22 History aspirin 81 mg tablet,delayed 81 mg PO DAILY 08/28/16 02/13/22 History release (Aspir-) losartan 50 mg tablet 50 mg PO DAILY 12/24/20 02/15/22 History metformin 500 mg tablet 1,000 mg PO BID 12/24/20 02/15/22 History metoprolol succinate 50 mg 50 mg PO DAILY 12/24/20 02/15/22 History tablet,extended release 24 hr torsemide 10 mg tablet 10 mg PO DAILY 12/24/20 02/15/22 History verapamil 240 mg 24 hr 240 cap PO DAILY 09/03/21 02/15/22 History capsule,extended release atorvastatin 80 mg tablet 80 mg PO DAILY 12/08/21 02/13/22 History tamsulosin 0.4 mg capsule (Flomax) 0.4 mg PO DAILY #10 caps 02/13/22 02/15/22 Rx isosorbide mononitrate 30 mg 30 mg PO DAILY 02/16/22 02/16/22 History tablet,extended release 24 hr Exam Narrative Exam Narrative: General: Patient appears slightly older than stated age, moderately obese especially over the trunk acute distress. He is alert and oriented x3. HEENT: Normocephalic, eyes with pupils equal and react to light symmetrically, extraocular movement intact and sclera anicteric. Oropharynx with moist mucosa. Neck: Supple without JVD. Back: Stooped posture without CVA tenderness. Heart: Regular rate and rhythm with 3/6 to 4/6 systolic murmur left lower border and 3/6 holosystolic murmur over apex. No rubs or gallops. Abdomen: Obese contour, soft without guarding or rebound. Tender to palpation over left kidney and flank area but not left lower quadrant. No palpable masses. Bowel sounds positive all quadrants. Genitalia/rectal: Exam deferred. Extremities: Without clubbing, cyanosis or grossly pitting edema. Peripheral pulses intact. Skin: Normal color, warm and dry. Neuro: Cranial nerves II through XII grossly intact, no focalizing motor deficits and no tremor. Psych: Normal affect and mood though patient is a poor historian. No abnormal thought processes. Remote and recent memory intact. Results Imaging Imaging Studies: CT RENAL COLIC WO EXAM:? CT RENAL COLIC WO CLINICAL HISTORY: ? left flank pain.? TECHNIQUE:? Imaging Protocol: Axial computed tomography images with coronal and sagittal reformatted images were created and reviewed. COMPARISON:? MR MR ABDOMEN WO from 09/02/[address] CHEST/ABD/PEL WO from 02/13/2022 FINDINGS: ABDOMEN: Lung Bases: Normal where visualized. Liver: Normal density. There again seen numerous hepatic cysts.? Gallbladder and biliary tract: No radiodense calculus or biliary ductal dilation. Pancreas: Normal density, no abnormal calcifications or inflammatory process. Spleen: Mild splenomegaly.? Kidneys: Normal size, contour and axis.There is a 3 mm stone in the distal left ureter causing [id number] hydronephrosis.? There is bilateral nephrolithiasis.? There is a stable left renal cyst.? Adrenal glands: No mass is seen. Lymph nodes: Within normal limits.? Abdominal Aorta: Abdominal portion non-dilated. Atherosclerosis is present. PELVIS:? Bladder:Symmetric distention, no gross wall thickening. Bowel: No obstruction or bowel wall thickening. Appendix is unremarkable.? There are few colonic diverticuli but no evidence of acute diverticulitis. Peritoneal cavity: No ascites, collection or mesenteric inflammatory response.? No free air.? Reproductive organs: There is an enlarged prostate gland.? Bones: Within normal limits. Soft Tissues: Within normal limits. IMPRESSION: 1. There is a 3 mm stone in the distal ureter just proximal to the UVJ causing [id number] hydronephrosis. 2. Bilateral nephrolithiasis.? Addendum created by Shiva Lott MD on 02/15/2022 10:41:20 PM EST: Findings were discussed with SABIHA DELGADO at 02/15/2022 10:23 PM EST. Addendum created by Shiva Lott MD on 02/15/2022 10:18:52 PM EST: Findings were discussed with SABIHA DELGADO at 02/15/2022 10:16 PM EST. There is mild thickening of the bladder trigone, particularly on the left, that may reflect inflammation, thrombus or neoplasm. Initial report created on 02/15/2022 10:10:17 PM EST: PROCEDURE INFORMATION: Exam: CT Abdomen And Pelvis Without Contrast Exam date and time: 02/15/2022 8:51 PM Age: 61 years old Clinical indication: Other: L flank; Patient HX: Left flank pain; Additional info: HX of kidney disease TECHNIQUE: Imaging protocol: Computed tomography of the abdomen and pelvis without contrast. Radiation optimization: All CT scans at this facility use at least one of these dose optimization techniques: automated exposure control; mA and/or kV adjustment per patient size (includes targeted exams where dose is matched to clinical indication); or iterative reconstruction. COMPARISON: 1. CT CHEST/ABD/PEL WO 02/13/2022 1:51 PM 2. MRI ABDOMEN WO 09/02/2021 8:01 AM FINDINGS: Lungs: The visualized lung quresih show mild bibasilar atelectasis. Liver: The liver dome is outside the field of view. However, the liver appears normal in size and contains multiple simple appearing cysts. These have been reported on the comparison MRI. Gallbladder and bile ducts: No calcified gallstones. No ductal dilation. Pancreas: The pancreas is normal. Spleen: In the spleen is mildly enlarged measuring 14 cm in length. Adrenal glands: The adrenal glands are normal. Kidneys and ureters: There is no right hydronephrosis. In the lower pole of the right kidney, there is a nonobstructive calcified staghorn calculus measuring 15 mm in long dimension. There is fullness of the left renal collecting system and ureter down to the ureterovesical junction (UVJ). The previously described calculus that on the comparison CT scan was in the distal left ureter, is now 5 mm proximal to the left UVJ after a short interval distal mobilization. There is stranding and inflammatory change in the retroperitoneal fat adjacent to the left ureter. There are multiple bilateral renal cysts as described on the prior MRI of the abdomen without contrast. In the interpolar region to lower pole of the left kidney, there is a 3 cm diameter low-density lesion with microscopic fat at the center of the lesion that measures-41 Hounsfield units. The lesion contains no calcifications. This is suspicious for an angiomyolipoma. Stomach and bowel: There is no evidence of small bowel or colonic obstruction. Appendix: No evidence of appendicitis. Intraperitoneal space: No free air. No significant fluid collection. Vasculature: No abdominal aortic aneurysm. Lymph nodes: No enlarged retroperitoneal or mesenteric lymph nodes. Urinary bladder: The bladder shows a normal contour and is clear of calcific opacities. Reproductive: The prostate measures 5.2 cm in transverse dimension. Bones/joints: No acute fracture. No evidence of bone destruction. Soft tissues: Unremarkable. IMPRESSION: 1. The previously reported partially obstructive calculus in the distal left ureter demonstrates a short distal translation and is now approximately 5 mm proximal to the left UVJ. 2. In the right kidney, there is a 15 mm nonobstructive staghorn calculus. 3. Multiple bilateral renal and hepatic cysts as demonstrated on the comparison MRI. 4. However, in the left kidney, the largest lesion measures 3 cm and contains a small center of macroscopic fat without calcification which is suspicious for an angiomyolipoma. As this was not confirmed on the MRI without contrast, this may represent an atypical fat poor angiomyolipoma. Non emergent ultrasound of the left kidney may be helpful in further characterizing this lesion if clinically indicated. 5. Mild splenomegaly. 6. Prostatomegaly. Labs Result diagrams: 02/15/22 19:50 02/15/22 19:50 Labs: Laboratory Results - last 24 hr 02/15/22 02/15/22 02/15/22 19:25 19:50 19:50 WBC 5.24 RBC 3.54 L Hgb 9.9 L D Hct 31.3 L MCV 88 MCH 28.0 MCHC 31.6 L RDW 14.8 H Plt Count 87 L MPV 11.3 H Immature Gran % 0.4 Neutrophils % 77.5 Lymphocytes % 12.0 Monocytes % 8.6 Eosinophils % 1.3 Basophils % 0.2 Nucleated RBC % 0.0 Absolute Neutrophils 4.06 Absolute Lymphocytes 0.63 L Absolute Monocytes 0.45 Absolute Eosinophils 0.07 Absolute Basophils 0.01 Sodium 142 Potassium 4.5 Chloride 107 Carbon Dioxide 24.3 Anion Gap 10.7 BUN 42 H Creatinine 4.2 H* D Est GFR (CKD-EPI 2020) 15.11 Glucose 89 Uric Acid 8.5 H Calcium 9.2 Total Bilirubin 0.7 AST 29 ALT 29 Alkaline Phosphatase 105 Total Protein 7.9 Albumin 3.8 Urine Color Yellow Urine Clarity Clear Urine pH 5.5 Ur Specific [place] 1.015 Urine Protein 100 H Urine Ketones Negative Urine Blood Large H Urine Nitrite Negative Urine Bilirubin Negative Urine Urobilinogen 0.2 Ur Leukocyte Esterase Negative Urine RBC >50 H Urine WBC 0-2 Ur Epithelial Cells Rare Urine Crystals Negative Urine Bacteria Few Urine Casts 0-2 Hyaline Urine Mucus Negative Ur Culture Indicated? No Urine Glucose Negative COVID-19 Source SARS-CoV-2 (PCR) 02/15/22 21:20 WBC RBC Hgb Hct MCV MCH MCHC RDW Plt Count MPV Immature Gran % Neutrophils % Lymphocytes % Monocytes % Eosinophils % Basophils % Nucleated RBC % Absolute Neutrophils Absolute Lymphocytes Absolute Monocytes Absolute Eosinophils Absolute Basophils Sodium Potassium Chloride Carbon Dioxide Anion Gap BUN Creatinine Est GFR (CKD-EPI 2020) Glucose Uric Acid Calcium Total Bilirubin AST ALT Alkaline Phosphatase Total Protein Albumin Urine Color Urine Clarity Urine pH Ur Specific [place] Urine Protein Urine Ketones Urine Blood Urine Nitrite Urine Bilirubin Urine Urobilinogen Ur Leukocyte Esterase Urine RBC Urine WBC Ur Epithelial Cells Urine Crystals Urine Bacteria Urine Casts Urine Mucus Ur Culture Indicated? Urine Glucose COVID-19 Source Nasal/Nares SARS-CoV-2 (PCR) Negative Last Vital Signs Temp 37.2 C 02/16/22 01:06 Pulse 79 02/16/22 01:06 Resp 16 02/16/22 01:06 BP 165/95 H 02/16/22 01:06 Pulse Ox 95 02/16/22 01:06
[2022-02-16] MEDS: MORPHine 2 MG/ML SYR IVP (07:20)
[2022-02-16 07:26] LABS: HCT 31.2 % (40.0-50.0); HGB 9.9 g/dL (13.5-17.5); MCHC 31.7 % (32.0-36.0); MCV 88 fL (80-95); MPV 10.8 fL (8.0-11.0); RBC 3.53 10^6/uL (4.36-5.78); RDW-SD 48.2 fL; WBC 4.33 10^3/uL (4.4-10.8)
[2022-02-16 07:48] LABS: ALT 26 U/L (16-63); AST 26 U/L (15-37); Albumin 3.7 g/dL (3.4-5.0); Alkaline Phosphatase 102 U/L (46-116); Anion Gap 9.6 mmol/L (3-11); BUN 36 mg/dL (7-18); Bilirubin, Total 0.7 mg/dL (0.2-1.0); CO2 25.4 mmol/L (21.0-32.0); Calcium 9.1 mg/dL (8.5-10.1); Chloride 107 mmol/L (98-107); Estimated GFR 16.52 (mL/min/1.73m2); Glucose 98 mg/dL (74-106); Magnesium 2.1 mg/dL (1.8-2.4); Potassium 4.4 mmol/L (3.5-5.1); Sodium 142 mmol/L (136-145); Total Protein 7.7 g/dL (6.4-8.2)
[2022-02-16 07:50] LABS: CREATININE 3.9 mg/dL (0.70-1.30)
[2022-02-16 08:27] LABS: Platelet Count 80 10^3/uL (130-400)
--- NOTE | 2022-02-16 08:42 | PDOC.CMIN ---
- If Service Date Differs Date of service: 02/16/22 Time of Service: 08:42 Care Management Initial Assess REASON FOR HOSPITALIZATION:: left ureteral calculus PAST MEDICAL HISTORY/PAST SURGICAL HISTORY:: All Active Problems . Calculus of left ureter (Acute). Nausea (Acute). Chest pressure (Acute). Kidney calculus (Chronic). PALLAVI (acute kidney injury) (Acute). Tubular adenoma of colon (Acute). Screening for colon cancer (Acute). Medical History . Aortic stenosis. Chronic kidney disease. CKD III. Depression. Deviated nasal septum. Diabetes. GERD (gastroesophageal reflux disease). History of adenomatous polyp of colon. History of chest pain. Hypertension. Idiopathic thrombocytopenia. Murmur. Obesity. MARI (obstructive sleep apnea). Very Severe-per sleep study 05/04/17-Uses BiPAP. Positive cardiac stress test. Sleep apnea. Stable angina. Surgical History . Colonoscopy - MAC (06/05/17). 08/2021. History of cardiac catheterization. 06/17/21 [facility]-see scanned records PREVIOUS FUNCTIONAL STATUS/SOCIAL/FAMILY SUPPORTS:: Delfino lives alone in a single family home in [facility]. He has 2 daughters; one daughter lives in the [facility] where she attends school and the other is moving to [place] imminently. Delfino is retired but worked as [employer] for the [employer]. He is independent at baseline. Delfino continues to drive but prefers to walk most places for the exercise. CURRENT FUNCTIONAL STATUS:: Delfino was lying in bed when CM met with him. He was polite and agreeable to conversation, but not overly talkative. Delfino is scheduled to have Urological Surgery tomorrow and shared that he may be able to discharge afterwards if all goes well. ADVANCE DIRECTIVES:: On file. Nico Cortez is [facility] Has patient been provided with info about the portal/API?: Yes Did the patient sign up for the portal?: Yes CODE STATUS:: Full Code INSURANCE COVERAGE / FINANCIAL ISSUES:: [employer] CURRENT HOME/COMMUNITY SERVICES/EQUIPMENT:: none PRIMARY CARE PHYSICIAN:: Vinicius John POTENTIAL DISCHARGE NEEDS:: follow up with PCP and plan of care PATIENT/FAMILY EDUCATION NEEDS:: review of discharge instructions, activity, limitations, follow up plan, Ask Me Three TRANSPORTATION:: via private vehicle with family PLAN:: Anticipate Delfino will be discharged home with no new services when medically cleared by provider. He will follow up with Urology and his PCP and transport with family vs RCT. CM will continue to offer support to Delfino and his discharge needs.
[2022-02-16] MEDS: Lactated Ringers 1,000 ML 150 ML IV ×3 (09:10→22:47)
[2022-02-16] MEDS: HYDROmorphone 2 MG/ML SYR 0.5 MG IVP ×4 (09:10→22:47)
[2022-02-16] MEDS: Ondansetron 4 MG/2 ML VIAL IVP (09:10)
[2022-02-16] MEDS: Metoprolol CR 50 MG TABCR PO (11:02)
[2022-02-16] MEDS: Isosorbide Mononitrate 30 MG TABCR PO (11:03)
[2022-02-16] MEDS: Sertraline 100 MG TAB PO (11:03)
--- NOTE | 2022-02-16 11:59 | UCONE_ITS ---
Date of service: 02/16/22 Time of Service: 10:30 Assessment and Plan Assessment and plan (1) Calculus of left ureter: Status: Acute Assessment and plan: Khang is a 61-year-old male that has been recently in the emergency room twice for left flank pain. His second trip to the emergency room yesterday then initiated an inpatient stay. He is currently in for observation for pain management related to his distal left ureteral stone. It was discussed with this individual that he has greater than 50% chance to pass this 3 mm stone. He at this point is having trouble with pain management. We discussed surgical intervention that could occur as early as tomorrow. Surgical intervention would include cystoscopy, left retrograde pyelogram, left ureteroscopy and stone manipulation with questionable possible stent to the left. He is interested in surgical intervention if he does not pass the stone overnight. He understands that he is not to have anything to eat or drink after midnight. Hospitalist was informed that preop orders will be completed and given to the urology nurse for getting this individual on the surgical schedule for tomorrow. Due to his cardiac history and noted prominent murmur on exam, anesthesia group was messaged so they can review this individual. Per anesthesia he is good to proceed with the procedure tomorrow. Patient and daughter are without questions or concerns at this time. Will continue with orders by hospitalist. Dictation was done by Dragon voice recognition. Errors may be present within the note. A total of 25 minutes was spent reviewing this patient's EMR, [id number] time, and documenting. History of Present Illness History of Present Illness Chief Complaint: Left flank pain for 3 days Narrative: Khang is a 61-year-old male that presented to the emergency room 3 days ago with chest pain, flank pain, nausea and lower left quadrant discomfort. He was discovered to have a 3 mm distal left ureteral stone. He was given tamsulosin and discharged home. Late yesterday evening he has pain flared and he went back to the emergency room. He states that he was again scanned with a CT and told that his distal left ureteral stone had moved slightly down towards the UVJ. For pain management he was admitted to the hospitalist services. This is his first kidney stone. He has no known history of gout or parathyroid disease to report. He does have a history of GERD, obesity, hypertension, heart murmur, hyperlipidemia, and MARI. Patient reports that the hospitalist team is working on transitioning his pain management. He still notes being uncomfortable. He reported a fever to the emergency room yesterday but has been afebrile since. He is able to take sips of water. He does not describe nausea or vomiting. He has not had gross hematuria nor dysuria. Consults Consult date: 02/16/22 Requesting physician: Jarad Gómez Review of Systems Narrative: As noted in HPI PFSH All Active Problems Calculus of left ureter (Acute) Nausea (Acute) Chest pressure (Acute) Kidney calculus (Chronic) PALLAVI (acute kidney injury) (Acute) Tubular adenoma of colon (Acute) Screening for colon cancer (Acute) Medical History Aortic stenosis Chronic kidney disease CKD III Depression Deviated nasal septum Diabetes GERD (gastroesophageal reflux disease) History of adenomatous polyp of colon History of chest pain Hypertension Idiopathic thrombocytopenia Murmur Obesity MARI (obstructive sleep apnea) Very Severe-per sleep study 05/04/17-Uses BiPAP Positive cardiac stress test Sleep apnea Stable angina Surgical History Colonoscopy - MAC (06/05/17) 08/2021 History of cardiac catheterization 06/17/21 [facility]-see scanned records Social History Smoking/Tobacco Use Status: Never Smoking risk assessment performed?: Yes Alcohol Intake: current Alcohol Intake frequency: holidays/special occasions only Drug use: Never Substance use type: does not use Do you feel safe at home: Yes Do you feel safe in your relationship?: Yes Exam Const General: cooperative and acute distress mild (flank pain) Nutritional Appearance: obese Orientation: alert, awake and oriented x3 Eyes Conjunctivae: conjunctivae normal Resp Effort & Inspection: normal respiratory effort and able to speak in complete sentences Auscultation: clear to auscultation bilaterally Cardio Rate: regular rate Rhythm: regular rhythm Heart Sounds: murmur GI Palpation: tender in the LLQ General: No CVA tenderness Results Last Vital Signs Temp 98.1 F 02/16/22 07:09 Pulse 70 02/16/22 07:09 Resp 20 02/16/22 07:09 BP 183/90 H 02/16/22 07:09 Pulse Ox 94 02/16/22 07:09 Labs Result diagrams: 02/16/22 07:15 02/16/22 07:15 Labs: Laboratory Results - last 24 hr 02/15/22 02/15/22 02/15/22 19:25 19:50 19:50 WBC 5.24 RBC 3.54 L Hgb 9.9 L D Hct 31.3 L MCV 88 MCH 28.0 MCHC 31.6 L RDW 14.8 H Plt Count 87 L MPV 11.3 H Immature Gran % 0.4 Neutrophils % 77.5 Lymphocytes % 12.0 Monocytes % 8.6 Eosinophils % 1.3 Basophils % 0.2 Nucleated RBC % 0.0 Absolute Neutrophils 4.06 Absolute Lymphocytes 0.63 L Absolute Monocytes 0.45 Absolute Eosinophils 0.07 Absolute Basophils 0.01 Sodium 142 Potassium 4.5 Chloride 107 Carbon Dioxide 24.3 Anion Gap 10.7 BUN 42 H Creatinine 4.2 H* D Est GFR (CKD-EPI 2020) 15.11 Glucose 89 Uric Acid 8.5 H Calcium 9.2 Magnesium Total Bilirubin 0.7 AST 29 ALT 29 Alkaline Phosphatase 105 Total Protein 7.9 Albumin 3.8 Urine Color Yellow Urine Clarity Clear Urine pH 5.5 Ur Specific [place] 1.015 Urine Protein 100 H Urine Ketones Negative Urine Blood Large H Urine Nitrite Negative Urine Bilirubin Negative Urine Urobilinogen 0.2 Ur Leukocyte Esterase Negative Urine RBC >50 H Urine WBC 0-2 Ur Epithelial Cells Rare Urine Crystals Negative Urine Bacteria Few Urine Casts 0-2 Hyaline Urine Mucus Negative Ur Culture Indicated? No Urine Glucose Negative COVID-19 Source SARS-CoV-2 (PCR) 02/15/22 02/16/22 02/16/22 21:20 07:15 07:15 WBC 4.33 L RBC 3.53 L Hgb 9.9 L Hct 31.2 L MCV 88 MCH 28.0 MCHC 31.7 L RDW 15.0 H Plt Count 80 L MPV 10.8 Immature Gran % Neutrophils % Lymphocytes % Monocytes % Eosinophils % Basophils % Nucleated RBC % Absolute Neutrophils Absolute Lymphocytes Absolute Monocytes Absolute Eosinophils Absolute Basophils Sodium 142 Potassium 4.4 Chloride 107 Carbon Dioxide 25.4 Anion Gap 9.6 BUN 36 H Creatinine 3.9 H* Est GFR (CKD-EPI 2020) 16.52 Glucose 98 Uric Acid Calcium 9.1 Magnesium 2.1 Total Bilirubin 0.7 AST 26 ALT 26 Alkaline Phosphatase 102 Total Protein 7.7 Albumin 3.7 Urine Color Urine Clarity Urine pH Ur Specific [place] Urine Protein Urine Ketones Urine Blood Urine Nitrite Urine Bilirubin Urine Urobilinogen Ur Leukocyte Esterase Urine RBC Urine WBC Ur Epithelial Cells Urine Crystals Urine Bacteria Urine Casts Urine Mucus Ur Culture Indicated? Urine Glucose COVID-19 Source Nasal/Nares SARS-CoV-2 (PCR) Negative Imaging Abdomen CT scan report/results: report reviewed and image reviewed
--- NOTE | 2022-02-16 14:25 | PHA.REVIEW2 ---
Pharmacy Admission Review - Admission Clinical Review (Last Reviewed 02/16/22 @ 12:10 by Yenifer Vance DNP) Calculus of left ureter (Acute) PALLAVI (acute kidney injury) (Acute) losartan Adverse Reaction (Mild, Verified 02/15/22 19:31) lisinopril Adverse Reaction (Unverified 02/15/22 19:31) cough Resuscitation Status Full Code Height 5 ft 8 in Weight 122.7 kg - Comments Comments/Follow Ups: OR tomorrow - Renal Dosing Renal Dosing: BUN 36 mg/dL (7-18) H 02/16/22 07:15 Creatinine 3.9 mg/dL (0.70-1.30) H* 02/16/22 07:15 Medications needing adjustments: Reviewed List of meds needing interventions: eCrCl 24.7 ml/min, Scr 3.9 (baseline around 3) - Anticoagulation Anticoagulation: Hgb 9.9 g/dL (13.5-17.5) L 02/16/22 07:15 Hct 31.2 % (40.0-50.0) L 02/16/22 07:15 Plt Count 80 10^3/uL (130-400) L 02/16/22 07:15 Creatinine 3.9 mg/dL (0.70-1.30) H* 02/16/22 07:15 DVT Prophylaxis: N/A (Plts <100 -- aspirin also held) - Opiate Usage Evaluate Pain Scale/Pains Meds: Reviewed (hydromorphone 0.5mg q2h prn) Scheduled Bowel Reg ordered if on Opiates?: Yes (prn orders) - Relevant Labs Sodium 142 mmol/L (136-145) 02/16/22 07:15 Potassium 4.4 mmol/L (3.5-5.1) 02/16/22 07:15 Chloride 107 mmol/L (98-107) 02/16/22 07:15 Magnesium 2.1 mg/dL (1.8-2.4) 02/16/22 07:15 Electrolytes, C-Reactive P, ESR: Reviewed - DM Control DM Control: Glucose 98 mg/dL (74-106) 02/16/22 07:15 Finger Stick Blood Glucose 112 Finger Stick Blood Glucose 112 Finger Stick Blood Glucose 112 Finger Stick Blood Glucose 107 Finger Stick Blood Glucose 107 DM Control: Intervened (SSI with meals) - Cardiac Review BP, HR, EF%: Reviewed List meds needing interventions: isosorbide, metoprolol, losartan (not ordered) - Qtc Review QTc: Reviewed - IV to PO Switch IV Medications: Reviewed - Home Meds Home Med List reviewed: Reviewed Relevent Home Meds Not ordered & why?: not ordered: losartan (PALLAVI) - Current meds Current Medication Order Review: Reviewed
[2022-02-16] MEDS: Acetaminophen 325 MG TAB PO ×2 (17:35→22:46)
--- NOTE | 2022-02-16 19:21 | PGE_ITS ---
Date of Service Date of service: 02/16/22 Time of Service: 17:50 Assessment and Plan Assessment and plan (1) Calculus of left ureter: Start date: 02/15/22 Status: Acute Assessment and plan: Obstructive, causing L hydronephrosis. Continue IVF + flomax. Case reviewed and there are no contraindications to procede with surgery. NPO for cystoscopy/stent tomorrow if does not pass the stone. (2) Hydronephrosis of left kidney: Status: Acute Assessment and plan: As above (3) Acute kidney injury superimposed on chronic kidney disease: Status: Acute Assessment and plan: As above (4) Diabetes: Assessment and plan: Continue to hold metformin. SSI. (5) Idiopathic thrombocytopenia: Assessment and plan: Does have evidence of B12 deficiency on prior labs. Will recheck B12. Will rx cyanocobalamin. (6) DVT prophylaxis: Status: Acute Assessment and plan: SCDs Hold chemical DVT ppx in light of thrombocytopenia and anticipated procedure tomorrow (7) Discharge planning issues: Status: Acute Assessment and plan: Full code Possible discharge home after procedure tomorrow Subjective Subjective Interval history since last seen: Mr Cortez feels better right now. His pain is 1/10 and is in his left flank. No nausea at this time, had it earlier. No shortness of breath. Has a headache. Tired. Planned for cysto/stent tomorrow. NPO after midnight. Exam Narrative Exam Narrative: General: Pleasant middle-aged male, A&Ox3, sitting comfortably at the edge of the bed HEENT: EOMI, MMM Heart: RRR, + WHITNEY Lungs: faint crackles at B bases Abdomen: soft, nontender, nondistended Extremities: trace edema BLEs Objective Last Vital Signs Temp 36.8 C 02/16/22 15:20 Pulse 60 02/16/22 15:20 Resp 19 02/16/22 15:20 BP 143/72 H 02/16/22 15:20 Pulse Ox 95 02/16/22 15:20 Laboratory Results - last 24 hr 02/15/22 02/15/22 02/15/22 19:25 19:50 19:50 WBC 5.24 RBC 3.54 L Hgb 9.9 L D Hct 31.3 L MCV 88 MCH 28.0 MCHC 31.6 L RDW 14.8 H Plt Count 87 L MPV 11.3 H Immature Gran % 0.4 Neutrophils % 77.5 Lymphocytes % 12.0 Monocytes % 8.6 Eosinophils % 1.3 Basophils % 0.2 Nucleated RBC % 0.0 Absolute Neutrophils 4.06 Absolute Lymphocytes 0.63 L Absolute Monocytes 0.45 Absolute Eosinophils 0.07 Absolute Basophils 0.01 Sodium 142 Potassium 4.5 Chloride 107 Carbon Dioxide 24.3 Anion Gap 10.7 BUN 42 H Creatinine 4.2 H* D Est GFR (CKD-EPI 2020) 15.11 Glucose 89 Uric Acid 8.5 H Calcium 9.2 Magnesium Total Bilirubin 0.7 AST 29 ALT 29 Alkaline Phosphatase 105 Total Protein 7.9 Albumin 3.8 Urine Color Yellow Urine Clarity Clear Urine pH 5.5 Ur Specific [place] 1.015 Urine Protein 100 H Urine Ketones Negative Urine Blood Large H Urine Nitrite Negative Urine Bilirubin Negative Urine Urobilinogen 0.2 Ur Leukocyte Esterase Negative Urine RBC >50 H Urine WBC 0-2 Ur Epithelial Cells Rare Urine Crystals Negative Urine Bacteria Few Urine Casts 0-2 Hyaline Urine Mucus Negative Ur Culture Indicated? No Urine Glucose Negative COVID-19 Source SARS-CoV-2 (PCR) 02/15/22 02/16/22 02/16/22 21:20 07:15 07:15 WBC 4.33 L RBC 3.53 L Hgb 9.9 L Hct 31.2 L MCV 88 MCH 28.0 MCHC 31.7 L RDW 15.0 H Plt Count 80 L MPV 10.8 Immature Gran % Neutrophils % Lymphocytes % Monocytes % Eosinophils % Basophils % Nucleated RBC % Absolute Neutrophils Absolute Lymphocytes Absolute Monocytes Absolute Eosinophils Absolute Basophils Sodium 142 Potassium 4.4 Chloride 107 Carbon Dioxide 25.4 Anion Gap 9.6 BUN 36 H Creatinine 3.9 H* Est GFR (CKD-EPI 2020) 16.52 Glucose 98 Uric Acid Calcium 9.1 Magnesium 2.1 Total Bilirubin 0.7 AST 26 ALT 26 Alkaline Phosphatase 102 Total Protein 7.7 Albumin 3.7 Urine Color Urine Clarity Urine pH Ur Specific [place] Urine Protein Urine Ketones Urine Blood Urine Nitrite Urine Bilirubin Urine Urobilinogen Ur Leukocyte Esterase Urine RBC Urine WBC Ur Epithelial Cells Urine Crystals Urine Bacteria Urine Casts Urine Mucus Ur Culture Indicated? Urine Glucose COVID-19 Source Nasal/Nares SARS-CoV-2 (PCR) Negative
[2022-02-16] MEDS: Atorvastatin 40 MG TAB 80 MG PO (20:37)
[2022-02-17] VITALS (21 sets, daily range): BP systolic 77–160; BP diastolic 39–79; PULSE 48–75; RESP 14–26; TEMP 36.2–37.4; O2SAT 86–96; BMI 42.2
[2022-02-17] MEDS: Acetaminophen 325 MG TAB PO ×3 (05:36→17:56)
[2022-02-17] MEDS: HYDROmorphone 2 MG/ML SYR 0.5 MG IVP ×2 (05:37→09:38)
[2022-02-17] MEDS: Ondansetron 4 MG/2 ML VIAL IVP (05:43)
[2022-02-17] MEDS: Normal Saline Flush 10 ML SYR IVP ×2 (05:43→09:39)
[2022-02-17] MEDS: Lactated Ringers 1,000 ML 150 ML IV (05:48)
[2022-02-17 06:10] LABS: Abs Immature Grans 0.01 10^3/uL (0.0-0.06); Absolute Basophil Count 0.02 10^3/uL (0.0-0.2); Absolute Lymphocyte Count 0.45 10^3/uL (1.2-3.4); Absolute Monocyte Count 0.48 10^3/uL (0.1-0.8); Absolute Neutrophil Count 3.88 10^3/uL (1.2-6.7); Basophils % 0.4; HCT 29.7 % (40.0-50.0); HGB 9.3 g/dL (13.5-17.5); Immature Grans % 0.2; Lymphocytes % 9.1; MCH 27.7 pg (27.0-33.0); MCHC 31.3 % (32.0-36.0); MCV 88 fL (80-95); MPV 11.1 fL (8.0-11.0); Monocytes % 9.7; Neutrophils % 78.6; RBC 3.36 10^6/uL (4.36-5.78); RDW 14.6 % (11.8-14.1); RDW-SD 47.1 fL; WBC 4.94 10^3/uL (4.4-10.8)
[2022-02-17 06:20] LABS: Prothrombin Time 10.1 sec (9.3-11.0)
[2022-02-17 06:26] LABS: Anion Gap 8.4 mmol/L (3-11); BUN 31 mg/dL (7-18); CO2 24.6 mmol/L (21.0-32.0); CREATININE 3.5 mg/dL (0.70-1.30); Calcium 8.9 mg/dL (8.5-10.1); Chloride 106 mmol/L (98-107); Estimated GFR 18.81 (mL/min/1.73m2); Glucose 110 mg/dL (74-106); Magnesium 1.9 mg/dL (1.8-2.4); Potassium 4.4 mmol/L (3.5-5.1); Sodium 139 mmol/L (136-145)
[2022-02-17 06:37] LABS: Diff Comment PLT Morph Reviewed; Platelet Count 85 10^3/uL (130-400)
[2022-02-17 06:54] LABS: Vitamin B12 403 pg/mL (193-986)
[2022-02-17] MEDS: Isosorbide Mononitrate 30 MG TABCR PO (09:39)
[2022-02-17] MEDS: Metoprolol CR 50 MG TABCR PO (09:39)
--- NOTE | 2022-02-17 09:43 | PDOC.CMPRO ---
- If Service Date Differs Date of service: 02/17/22 Time of Service: 09:43 Care Management Progress Note S/O: Delfino was scheduled to have surgery today with Dr. Barrera. He had a Cystoscopy with stent placement. CM met with Delfino and his daughter Nico post-operatively. He will be discharged in the morning. Both Delfino and his daughter Nico denied the need for any services at home. A: Delfino is a 61 year old man admitted on 02/15/22 with left Ureterolithiasis P:Anticipate Delfino will be discharged home with no new services when medically cleared by provider, likely tomorrow morning. He will follow up with Urology and his PCP and transport with his daughter, who will remain with him for a few days. CM will continue to offer support to Delfino and his discharge needs.
--- NOTE | 2022-02-17 10:20 | W.ANESPRE ---
General Info Date of Service Date Performed: 02/17/22 Height: 5 ft 8 in Weight: 125.9 kg Body Mass Index (BMI): 42.2 Surgical Procedure: Operation Date: 02/17/22 11:10 Proposed Procedure Side Surgeon p Cystoscopy/Retrograde/UreteroscopyStone Manipulation/? Stent Placement Left Alexander Barrera MD Meds Allergies and Home Medications Allergies Allergy/AdvReac Type Severity Reaction Status Date / Time losartan AdvReac Mild Verified 02/15/22 19:31 lisinopril AdvReac cough Unverified 02/15/22 19:31 Home Medication Medication Instructions Recorded sertraline 100 mg tablet 100 mg PO DAILY 12/25/13 aspirin 81 mg tablet,delayed 81 mg PO DAILY 08/28/16 release (Aspir-) losartan 50 mg tablet 50 mg PO DAILY 12/24/20 metformin 500 mg tablet 1,000 mg PO BID 12/24/20 metoprolol succinate 50 mg 50 mg PO DAILY 12/24/20 tablet,extended release 24 hr torsemide 10 mg tablet 10 mg PO DAILY 12/24/20 verapamil 240 mg 24 hr 240 cap PO DAILY 09/03/21 capsule,extended release atorvastatin 80 mg tablet 80 mg PO QPM 12/08/21 tamsulosin 0.4 mg capsule (Flomax) 0.4 mg PO DAILY #10 caps 02/13/22 isosorbide mononitrate 30 mg 30 mg PO DAILY 02/16/22 tablet,extended release 24 hr Current Visit Medications: Current Medications Generic Name Dose Route Start Last Admin Trade Name Freq PRN Reason Stop Dose Admin Acetaminophen 0 mg 02/16/22 06:51 02/17/22 09:39 Acetaminophen 325 Mg Tab PO 650 mg Q4H PRN PRN Administration Al Hydrox/Mg Hydrox/Simethicone 30 ml 02/16/22 06:51 Mylanta Suspension 30 Ml Cup PO Q2H PRN PRN Atorvastatin Calcium 80 mg 02/16/22 20:00 02/16/22 20:37 Atorvastatin 40 Mg Tab PO 80 mg QPM KRYS Administration Cyanocobalamin 1,000 mcg 02/17/22 08:30 02/17/22 09:31 Cyanocobalamin 500 Mcg Tab PO Not Given DAILY KRYS Dextrose 0 gm 02/16/22 07:03 Glucose Oral Gel 15 Gm/37.5 Gm Tube PO DIRECTED PRN Dextrose/Water 0 gm 02/16/22 07:03 Dextrose 50%-Water 25 Gm/50 Ml Syr IVP DIRECTED PRN Dimethicone/Zinc Oxide 0 gm 02/16/22 06:51 Karina Protect Cream 142 Gm Tube TP PRN PRN Docusate Sodium 100 mg 02/16/22 06:51 Docusate Sodium 100 Mg Cap PO TID PRN PRN Hydromorphone HCl 0.5 mg 02/16/22 08:51 02/17/22 09:38 Hydromorphone 2 Mg/Ml Syr IVP 0.5 mg Q2H PRN PRN Administration Sodium Chloride 500 mls @ 0 mls/hr 02/15/22 23:52 Saline 500ml Bag IV PRN PRN As Directed Ringer's Solution 1,000 mls @ 150 mls/hr 02/16/22 08:00 02/17/22 05:48 IV 150 mls/hr INFUSION KRYS Administration IV Miscellaneous Supplies 1 each 02/15/22 23:45 Iv Access IV DIRECTED [facility] Insulin Aspart 0 units 02/16/22 08:00 02/17/22 09:04 Insulin Aspart 300 Units/3 Ml Pen SC Not Given 0800,1200,1700,2200 [facility] Protocol Isosorbide Mononitrate 30 mg 02/16/22 08:30 02/17/22 09:39 Isosorbide Mononitrate 30 Mg Tabcr PO 30 mg DAILY KRYS Administration Magnesium Hydroxide 30 ml 02/16/22 06:51 Milk Of Magnesia 30 Ml Cup PO DAILY PRN PRN Metoprolol Succinate 50 mg 02/16/22 08:30 02/17/22 09:39 Metoprolol Cr 50 Mg Tabcr PO 50 mg DAILY KRYS Administration Ondansetron HCl 4 mg 02/16/22 08:50 02/17/22 05:43 Ondansetron 4 Mg/2 Ml Vial IVP 4 mg Q6H PRN PRN Administration Polyethylene Glycol 17 gm 02/16/22 06:51 Polyethylene Glycol 3350 17 Gm Packet PO DAILY PRN PRN Constipation Sertraline HCl 100 mg 02/16/22 08:30 02/17/22 09:31 Sertraline 100 Mg Tab PO Not Given DAILY [facility] Sodium Chloride 0 ml 02/15/22 19:43 02/17/22 09:39 Normal Saline Flush 10 Ml Syr IVP 10 ml PRN PRN Administration Tamsulosin HCl 0.4 mg 02/16/22 08:30 02/17/22 09:31 Tamsulosin 0.4 Mg Capcr PO Not Given DAILY KRYS Verapamil HCl 240 mg 02/16/22 08:30 02/17/22 09:39 Verapamil C.R. 120 Mg Tabcr PO 240 mg DAILY KRYS Administration PFSH Active Problems Active Problems: Problem Status Onset Code Discharge planning issues Z02.9 DVT prophylaxis Z29.9 Hydronephrosis of left kidney N13.30 Acute kidney injury superimposed on chronic kidney disease N17.9, N18.9 Calculus of left ureter N20.1 Nausea R11.0 Chest pressure R07.89 Kidney calculus N20.0 PALLAVI (acute kidney injury) N17.9 Tubular adenoma of colon D12.6 Screening for colon cancer Z12.11 Medical History Medical History Aortic stenosis Chronic kidney disease CKD III Depression Deviated nasal septum Diabetes GERD (gastroesophageal reflux disease) History of adenomatous polyp of colon History of chest pain Hypertension Idiopathic thrombocytopenia Murmur Obesity MARI (obstructive sleep apnea) Very Severe-per sleep study 05/04/17-Uses BiPAP Positive cardiac stress test Sleep apnea Stable angina Surgical History Surgical History Colonoscopy - MAC (06/05/17) 08/2021 History of cardiac catheterization 06/17/21 [facility]-see scanned records Tobacco Smoking/Tobacco Use Status: Never Alcohol Alcohol Intake: current Alcohol intake frequency: holidays/special occasions only Substance Use Substance use: Never Substance use type: does not use Vital Signs and Lab Results Vital Signs Most Recent Vital Signs in EMR: Most Recent Vital Signs Temp Pulse Resp BP Pulse Ox 36.9 C 60 18 145/78 H 92 02/17/22 07:09 02/17/22 07:09 02/17/22 07:09 02/17/22 07:09 02/17/22 07:09 Point of Care Results Point of Care Results: Finger Stick Blood Glucose 118 02/17/22 09:04 Lab Results Result Diagrams: 02/17/22 05:58 02/17/22 05:58 Blood Type / Crossmatch: No Data to Display Complete Blood Count: White Blood Count 4.94 10^3/uL (4.4-10.8) 02/17/22 05:58 Red Blood Count 3.36 10^6/uL (4.36-5.78) L 02/17/22 05:58 Hemoglobin 9.3 g/dL (13.5-17.5) L 02/17/22 05:58 Hematocrit 29.7 % (40.0-50.0) L 02/17/22 05:58 Platelet Count 85 10^3/uL (130-400) L 02/17/22 05:58 Complete Metabolic Panel: Sodium 139 mmol/L (136-145) 02/17/22 05:58 Potassium 4.4 mmol/L (3.5-5.1) 02/17/22 05:58 Chloride 106 mmol/L (98-107) 02/17/22 05:58 Carbon Dioxide 24.6 mmol/L (21.0-32.0) 02/17/22 05:58 BUN 31 mg/dL (7-18) H 02/17/22 05:58 Creatinine 3.5 mg/dL (0.70-1.30) H 02/17/22 05:58 Est GFR (CKD-EPI 2020) 18.81 (mL/min/1.73m2) 02/17/22 05:58 Magnesium 1.9 mg/dL (1.8-2.4) 02/17/22 05:58 Calcium 8.9 mg/dL (8.5-10.1) 02/17/22 05:58 Albumin 3.7 g/dL (3.4-5.0) 02/16/22 07:15 Glucose 110 mg/dL (74-106) H 02/17/22 05:58 Liver Function Panel: Alanine Aminotransferase (ALT/SGPT) 26 U/L (16-63) 02/16/22 07:15 Aspartate Amino Transf (AST/SGOT) 26 U/L (15-37) 02/16/22 07:15 Coagulation Panel: INR International Normalized Ratio 1.0 (0.9-1.1) 02/17/22 05:58 Prothrombin Time 10.1 sec (9.3-11.0) 02/17/22 05:58 Cardiac Panel: Troponin I < 50 ng/L (<or=60) 02/13/22 Arterial Blood Gas: No Data to Display Venous Blood Gas: No Data to Display Pancreas Panel: Lipase 207 U/L (73-393) 02/13/22 10:22 Thyroid Panel: No Data to Display Infectious Disease: Coronavirus (COVID-19)(PCR) Negative (Negative) 02/15/22 21:20 Coronavirus 2019 Source Nasal/Nares 02/15/22 21:20 Influenza Virus Type A (PCR) Negative (Negative) 02/13/22 11:10 Influenza Virus Type B (PCR) Negative (Negative) 02/13/22 11:10 Respiratory Syncytial Virus (PCR) Negative (Negative) 02/13/22 11:10 Blood Cultures: No Data to Display Toxicology Panel: No Data to Display Imaging and Studies Imaging and Studies Study information below may be from another EMR and interpreted by another provider. Please see original notes in EMR for more complete details. EKG Summary: 02/13/22: Conclusion Sinus bradycardia...rate< 60 Prolonged NV interval...NV >220, V-rate 50- 90. Stress Test Summary: 06/03/21: 8 Mets, 87% of predicted HR, ischemia with 2 mm of inferior and 1.5 mm anterolateral depression at peak. Echocardiogram Summary: 06/17/21: Mild , moderate MR, LVEF 60-65% Cardiac Catheterization Summary: 06/17/21: aortic stenosis, mod diffuse LAD, 90% left circ lesion. Anesthesia Assessment and Plan Anesthesia History Personal History: No History of Anesthesia Complications Family History: No Family History of Anesthesia Complications Exercise Tolerance Exercise Tolerance: Metabolic Equivalents>4 Pertinent Negatives Pertinent Negatives: No Symptoms of GERD Cardiac & Pulmonary Exam Cardiac Exam: Normal S1/S2 Heart Sounds Pulmonary Exam: Clear Bilateral Breath Sounds Implantable Cardiac Device Does patient have a Pacemaker or an ICD?: No Airway Exam Known Difficult Airway: No Mallampati Class: 2 Mouth Opening: Normal (> 3cm) Thyromental Distance: Greater than 3 cm Neck Range of Motion: Full ROM Neck Circumference: Thick Teeth Condition: Normal Dentition ASA Classification ASA Score: ASA 3 Emergency Case?: No NPO Status NPO Status: NPO Clears >2 hours, Solids >8 hours Anesthesia Plan Resuscitation Status: Full Code Anesthesia Technique: General Anesthesia Airway Planned: LMA Monitors Used: Standard Monitors Preoperative Comments:: Below is from last preop: Sig PMHx: CAD (90% circ stenosis, + stress test), mild , CKDIV, DM (metformin), GERD, HTN, severe MARI, HTN (losartan, metoprolol, torsemide, verapamil). Previous Anes: colo - prop, and glyco for severe nalini with pauses.
--- NOTE | 2022-02-17 10:38 | CHAPLAIN ---
Khang was up in the chair when I visited. His daughter was staying with him. I explained my role and offered support. Khang was pleasant but not interested in further conversation.
--- NOTE | 2022-02-17 11:30 | DI.RAD_ITS ---
Exam(s) XR RETROGRADE IN OR EXAM: XR RETROGRADE IN OR CLINICAL HISTORY: Calculus Left Ureter. TECHNIQUE: 2D digital imaging was performed. COMPARISON: No exams were available for comparison FINDINGS: Fluoroscopy provided during urologic procedure. See procedure report for details. Radiation exposure index: mai Bernard=14.36mGy IMPRESSION: DATA REPOSITORY: RADIATION DOSE DELIVERED:
[2022-02-17] MEDS: Omnipaque 300 MG/ML 50 ML BTL (12:39)
[2022-02-17] MEDS: Lidocaine 2% Jelly 6 ML SYR (12:40)
--- NOTE | 2022-02-17 12:57 | ROE_ITS ---
Date of service: 02/17/22 Time of Service: 12:57 Operative Note Operative Note DATE OF PROCEDURE: 02/17/22 PRE-OP DIAGNOSIS: Left ureteral stone POST-OP DIAGNOSIS: same PROCEDURE: cystoscopy, left retrograde pyelogram, left ureteroscopy with stone extraction, insert left ureteral stent SURGEON: Alexander Barrera ANESTHESIA TYPE: General LMA/ETT Refer to Anesthesia Record ESTIMATED BLOOD LOSS: 5 PATHOLOGY: other (stone for chemical analysis) COMPLICATIONS: None Patient was transported to: PACU Patient's condition: stable Implants: 4.8 [place] by 22 to 30 cm left ureteral stent (with safety string taped to dorsum of penis) Indications: This is a 61-year-old gentleman who presented to the emergency department with left renal colic. He was found to have a 3 to 4 mm left distal ureteral stone. He failed conservative management and presented back to the emergency room with uncontrolled pain and low-grade fevers. He was then admitted to the hospital and presents now for stone manipulation Findings: Left distal ureteral stone Procedure Description: The patient was given preoperative IV antibiotics. He was brought to the operating room on 02/17/2022. After successful induction of general anesthesia, he was placed in the dorsal lithotomy position. His genitalia was prepped and draped. 2% Xylocaine jelly was instilled into the urethra to act as a local anesthetic. A 22 [place] Irish rigid cystoscope was passed through the urethra into the bladder. Urethra and bladder were inspected with a 30 degree lens. The pendulous, bulbar and membranous urethra appeared normal with no strictures. The prostatic urethra showed lateral lobe enlargement and a very small median lobe. The bladder neck was entered and the bladder mucosa was inspected. Both ureteral orifices were identified. The left orifice appeared more edematous than the right. We cannulated the left ureteral orifice with a 5 [place] Irish access catheter and a retrograde pyelogram was obtained by injecting Omnipaque through the access catheter under fluoroscopic guidance. A filling defect in the distal ureter was identified. I was able to maneuver a Glidewire through the access catheter and passed the wire above the level of the filling defect up the remainder of the ureter. Once I did so, a hydronephrotic drip was encountered. We then removed the cystoscope and passed a semirigid ureteroscope through the urethra into the bladder. I was able to engage the semirigid ureteroscope into the left ureteral orifice and advanced the scope until a stone was visualized. The stone was grasped in a 0 tip stone basket and removed. The stone was then sent to pathology for chemical analysis. Because of the hydronephrotic drip, we elected to place a ureteral stent. We chose a 4.8 [place] variable length stent and advanced it over the wire. The proximal end of the stent was curled in the collecting system and the distal and was curled within the bladder. The safety string was left in place and brought through the urethra. The end of the string was taped to the dorsum of the penis. The positioning of the stent was confirmed both fluoroscopically and cystoscopically. He tolerated this procedure well with no complications.
[2022-02-17] MEDS: fentaNYL 100 MCG/2 ML VIAL IVP (13:42)
[2022-02-17] MEDS: Phenazopyridine 200 MG TAB PO (14:01)
--- NOTE | 2022-02-17 14:06 | W.ANESPOSTOP ---
Postoperative Evaluation Date, Time and Location Date Performed: 02/17/22 Time Performed: 14:06 Patient Location: PACU Vital Signs Most Recent Imported Vital Signs: Most Recent Vital Signs Temp Pulse Resp BP Pulse Ox 36.7 C 58 L 16 116/60 92 02/17/22 13:15 02/17/22 13:30 02/17/22 13:30 02/17/22 13:30 02/17/22 13:30 Pain Score Most Recent Pain Score: Most Recent Pain Score Pain Level [Left Lower 4 02/16/22 22:40 Posterior Back] Pain Level 4 02/17/22 13:30 Assessment Mental Status: Awake (Alert & Oriented to Patient Baseline) Airway and Respiratory Function: Other (back to floor with 2 l NC. ) Cardiovascular Function: Hemodynamically Stable Hydration Status: Adequately Hydrated Nausea & Vomiting: No Nausea or Vomiting Pain: Pain is tolerable per patient Peripheral Nerve Block: Patient did not receive a nerve block
--- NOTE | 2022-02-17 14:12 | W.ANESPOSTOP ---
Postoperative Evaluation Date, Time and Location Date Performed: 02/17/22 Time Performed: 13:35 Patient Location: PACU Vital Signs Most Recent Imported Vital Signs: Most Recent Vital Signs Temp Pulse Resp BP Pulse Ox 36.7 C 56 L 17 120/52 L 86 L 02/17/22 13:15 02/17/22 13:45 02/17/22 13:45 02/17/22 13:45 02/17/22 13:45 Most Recent Vital Signs Temp Pulse Resp BP Pulse Ox 36.7 C 58 L 16 116/60 92 02/17/22 13:15 02/17/22 13:30 02/17/22 13:30 02/17/22 13:30 02/17/22 13:30 Pain Score Most Recent Pain Score: Most Recent Pain Score Pain Level [Left Lower 4 02/16/22 22:40 Posterior Back] Pain Level 5 02/17/22 13:45 Assessment Mental Status: Awake (Alert & Oriented to Patient Baseline) Airway and Respiratory Function: Patent airway with normal (patient baseline) respiratory exam Cardiovascular Function: Hemodynamically Stable Hydration Status: Adequately Hydrated Nausea & Vomiting: No Nausea or Vomiting Pain: Pain is tolerable per patient Peripheral Nerve Block: Patient did not receive a nerve block
[2022-02-17] MEDS: Insulin Aspart 300 UNITS/3 ML PEN SC (17:18)
--- NOTE | 2022-02-17 17:30 | W.PM.PROGNOT ---
Date of Service Date of service: 02/17/22 Time of Service: 17:31 Assessment and Plan Assessment and plan (1) Calculus of left ureter: Start date: 02/15/22 Status: Acute Assessment and plan: Obstructive, causing L hydronephrosis. Now s/p cystoureteroscopy and left distal ureter stenting Cont. flomax and iv fluids even though he is drinking ok, his creatinine and BUN were still high this morning but coming down. Now at 31 and 3.5 I anticipated dc home today but apparently Dr. Barrera wants to observe him overnight. If no fevers or complications then dc home in the a.m. Professional time spent interviewing and examining patient, discussion of goals of care with hospital team (care management, nursing and consulting professionals) was 30 minutes. (2) Hydronephrosis of left kidney: Status: Acute Assessment and plan: As above (3) Acute kidney injury superimposed on chronic kidney disease: Status: Acute Assessment and plan: His baseline creatinine appears to be 2.2 to 2.9; he presented w/ creatinine 4.2 and BUN 37, BUN now down to 31. Will cont. hydration overnight w/ LR (4) Diabetes: Assessment and plan: Continue to hold metformin. SSI. (5) Idiopathic thrombocytopenia: Assessment and plan: Does have evidence of B12 deficiency on prior labs. repeat B12 level was normal at 403 pg/mL; check methylmalonic acid level and homocysteine however, w/ serum level of 403, he is not B12 deficient (6) DVT prophylaxis: Status: Acute Assessment and plan: SCDs Hold chemical DVT ppx in light of thrombocytopenia and anticipated procedure tomorrow (7) Discharge planning issues: Status: Acute Assessment and plan: Full code dc home tomorrow after seen by Dr. Barrera Subjective Subjective Interval history since last seen: Mr. Cortez underwent cystoureteroscopy, retrograde pyelogram, and left ureteral stenting for distal left ureteral 3 mm stone just proximal to the L. UVJ. Patient tolerated this well. He returned to his room late this afternoon but is already sitting up at the bedside eating. he says that he has some urethral pain and some hematuria but no flank pain. I asked him when Dr. Barrera wants him to follow up, he indicated that Dr. Barrera said that he would be in to see him in the morning. Exam Narrative Exam Narrative: Morbidly obese male (BMI 42.2 kg/m2), who is alert and oriented, sitting up at the beside eating dinner and conversing w/ his daughter Left flank is nontender to palpation; abdomen is obese, soft, nontender Objective Last Vital Signs Temp 36.6 C 02/17/22 17:12 Pulse 53 L 02/17/22 17:12 Resp 20 02/17/22 17:12 BP 138/71 02/17/22 17:12 Pulse Ox 93 02/17/22 17:12 Laboratory Results - last 24 hr 02/17/22 02/17/22 02/17/22 05:58 05:58 05:58 WBC 4.94 RBC 3.36 L Hgb 9.3 L Hct 29.7 L MCV 88 MCH 27.7 MCHC 31.3 L RDW 14.6 H Plt Count 85 L MPV 11.1 H Immature Gran % 0.2 Neutrophils % 78.6 Lymphocytes % 9.1 Monocytes % 9.7 Eosinophils % 2.0 Basophils % 0.4 Nucleated RBC % 0.0 Absolute Neutrophils 3.88 Absolute Lymphocytes 0.45 L Absolute Monocytes 0.48 Absolute Eosinophils 0.10 Absolute Basophils 0.02 PT 10.1 INR 1.0 Sodium 139 Potassium 4.4 Chloride 106 Carbon Dioxide 24.6 Anion Gap 8.4 BUN 31 H Creatinine 3.5 H Est GFR (CKD-EPI 2020) 18.81 Glucose 110 H Calcium 8.9 Magnesium 1.9 Vitamin B12 02/17/22 05:58 WBC RBC Hgb Hct MCV MCH MCHC RDW Plt Count MPV Immature Gran % Neutrophils % Lymphocytes % Monocytes % Eosinophils % Basophils % Nucleated RBC % Absolute Neutrophils Absolute Lymphocytes Absolute Monocytes Absolute Eosinophils Absolute Basophils PT INR Sodium Potassium Chloride Carbon Dioxide Anion Gap BUN Creatinine Est GFR (CKD-EPI 2020) Glucose Calcium Magnesium Vitamin B12 403
[2022-02-17] MEDS: Atorvastatin 40 MG TAB 80 MG PO (19:24)
[2022-02-17] MEDS: Lactated Ringers 1,000 ML 85 ML IV (19:24)
[2022-02-18 00:14] VITALS: BP 120/71; PULSE 60; RESP 20; TEMP 37; O2SAT 94
[2022-02-18 02:23] VITALS: BP 174/79; PULSE 62; RESP 18; TEMP 37.1; O2SAT 96
[2022-02-18] MEDS: Acetaminophen 325 MG TAB PO (05:14)
--- NOTE | 2022-02-18 07:25 | DSE_ITS ---
Date of service: 02/18/22 Time of Service: 07:26 DS: Diagnosis Discharge Diagnosis (1) Calculus of left ureter: Status: Acute (2) Hydronephrosis of left kidney: Status: Acute (3) Acute kidney injury superimposed on chronic kidney disease: Status: Acute (4) Diabetes: (5) Idiopathic thrombocytopenia: (6) DVT prophylaxis: Status: Acute (7) Discharge planning issues: Status: Acute Discharge Plan Disposition Patient Disposition: Home Condition: Good Discharge Details Reason For Visit: Left Ureterolithiasis,PALLAVI,DM Admit Date/Time: 02/15/22 23:53 Admit Provider: Jarad Gómez Attending Provider: Jarad Gómez Primary Care Provider: Vinicius oJhn Hospital Course Hospital Course: The patient was admitted and given IV the hydration and analgesics. His renal function was monitored. His symptoms persisted in spite of medical therapy, so he was taken to the operating room on 02/17/2022 where he underwent ureteroscopy, stone extraction and insertion of a left ureteral stent. His renal colic pain improved but he had some stent discomfort with voiding. His symptoms have been managed with Tylenol. His serum creatinine was stable at 3.3 mg/dL. He is ready for discharge on 02/18/2022. Home Meds and New Rx's Prescriptions: No Action sertraline 100 MG tablet 100 mg PO DAILY losartan 50 mg tablet 50 mg PO DAILY metformin 500 mg tablet 1,000 mg PO BID torsemide 10 mg tablet 10 mg PO DAILY metoprolol succinate 50 mg tablet extended release 24 hr 50 mg PO DAILY atorvastatin 80 mg tablet 80 mg PO QPM verapamil 240 mg capsule,ext rel. pellets 24 hr 240 cap PO DAILY Label Comments: TAKE 1 CAPSULE BY MOUTH EVERY DAY aspirin [Aspir-81] 81 MG tablet,delayed release (DR/EC) 81 mg PO DAILY tamsulosin [Flomax] 0.4 mg capsule 0.4 mg PO DAILY Qty: 10 0RF isosorbide mononitrate [Imdur] 30 mg Tablet Extended Release 24 Hr 30 mg PO DAILY Discharge Instructions Additional Instructions: No need to strain urine Use [id number] Tylenol for pain-avoid anti-inflammatory medications due to kidney effects and Follow-up with urology early next week for stent removal Additional follow-up with urology in 4 to 6 weeks for renal ultrasound Use [id number] MiraLAX and stool softeners for bowel function Activity:: Activity as Tolerated Equipment/Supplies:: No Equipment Needed Diet:: As Tolerated Discharge Data Discharge Comment: Please OK discharge with hospitalists DS: Summary Time Spent with Patient providing and/or coordinating discharge services: Less than 30 minutes Status at Discharge Functional status at discharge: independent ambulation Overall status at discharge: patient is progressing back to baseline Mental Status: mental status grossly normal Speech and Movement: speech and movement normal Mood: congruent mood Affect: normal affect Exam Narrative Exam Narrative: On the morning of this charge, he appears comfortable His vital signs are documented elsewhere His chest wall motion is normal. He does not appear short of breath at rest His abdomen is soft with no guarding or rebound tenderness He is awake and alert Psych Mental Status: mental status grossly normal Speech and Movement: speech and movement normal Mood: congruent mood Affect: normal affect DS: Data Vitals/I&O Vitals and I&O: Vital Signs Temperature 37.1 C 02/18/22 02:23 Temperature Source Tympanic 02/18/22 02:23 Pulse 62 02/18/22 02:23 Pulse Rhythm Regular 02/18/22 00:44 Pulse 75 02/16/22 00:40 Respiratory Rate 18 02/18/22 02:23 Respiratory Effort Non-Labored 02/18/22 00:44 Respiratory Depth Normal 02/18/22 00:44 Respiratory Pattern Normal 02/18/22 00:44 Blood Pressure 174/79 H 02/18/22 02:23 Blood Pressure Mean 101 02/15/22 23:00 Blood Pressure Position Supine 02/15/22 19:24 Pulse Oximetry 96 02/18/22 02:23 Oxygen Delivery Method Room Air 02/18/22 02:23 Oxygen Flow Rate 0 02/18/22 02:23 Pain Level 2 02/18/22 05:14 Comment 02/16/22 07:09 Intake & Output 02/17/22 02/17/22 02/18/22 11:59 23:59 11:59 Intake Total 1020 / 2411.417 1391.417 / 2411.417 0 / 0 Output Total 1000 / 1400 400 / 1400 200 / 200 Balance 1010.417 991.417 / 1011.417 -200 / -200 Weight 125.9 kg Intake: IV 1020 / 1990.417 971.417 / 1990.417 0 / 0 Oral 420 / 420 Output: Urine 1000 / 1400 400 / 1400 200 / 200 Other: Urine Color Yellow Bright Red Dark Sridevi Brown [place] Urine Appearance Clear Hematuria Hematuria Urine Odor Normal Strong Normal Comment Patient voiding independently in room Emesis Description None Voiding Methods Toilet Urinal Toilet Data Completed and Pending Labs on day of discharge: Labs from last 24 hours 02/18/22 02/18/22 02/17/22 06:35 06:35 12:50 Sodium Pending Potassium Pending Chloride Pending Carbon Dioxide Pending Anion Gap Pending BUN Pending Creatinine Pending Est GFR (CKD-EPI 2020) Pending Glucose Pending Calcium Pending Methylmalonic Acid Pending Folate Pending Homocysteine Pending Stone Source Pending Stone Comment Pending Kidney Stone Analysis Pending [facility] All Active Problems Discharge planning issues (Acute) DVT prophylaxis (Acute) Hydronephrosis of left kidney (Acute) Acute kidney injury superimposed on chronic kidney disease (Acute) Calculus of left ureter (Acute) Nausea (Acute) Chest pressure (Acute) Kidney calculus (Chronic) PALLAVI (acute kidney injury) (Acute) Tubular adenoma of colon (Acute) Screening for colon cancer (Acute) Medical History Aortic stenosis Chronic kidney disease CKD III Depression Deviated nasal septum Diabetes GERD (gastroesophageal reflux disease) History of adenomatous polyp of colon History of chest pain Hypertension Idiopathic thrombocytopenia Murmur Obesity MARI (obstructive sleep apnea) Very Severe-per sleep study 05/04/17-Uses BiPAP Positive cardiac stress test Sleep apnea Stable angina Surgical History Colonoscopy - MAC (06/05/17) 08/2021 History of cardiac catheterization 06/17/21 [facility]-see scanned records Social History Smoking/Tobacco Use Status: Never Smoking risk assessment performed?: Yes Alcohol Intake: current Alcohol Intake frequency: holidays/special occasions only Drug use: Never Substance use type: does not use Do you feel safe at home: Yes Do you feel safe in your relationship?: Yes
[2022-02-18 07:26] LABS: Anion Gap 8.8 mmol/L (3-11); BUN 29 mg/dL (7-18); CO2 26.2 mmol/L (21.0-32.0); CREATININE 3.3 mg/dL (0.70-1.30); Calcium 8.9 mg/dL (8.5-10.1); Chloride 105 mmol/L (98-107); Estimated GFR 20.18 (mL/min/1.73m2); Glucose 93 mg/dL (74-106); Potassium 4.4 mmol/L (3.5-5.1); Sodium 140 mmol/L (136-145)
--- NOTE | 2022-02-18 07:33 | W.PM.PROGNOT ---
Date of Service Date of service: 02/18/22 Time of Service: 07:33 Assessment and Plan Assessment and plan (1) Calculus of left ureter: Status: Acute Assessment and plan: His discomfort is now controlled with Tylenol. I think as long as his lab work does not show an increase in his creatinine, a discharge to home would be reasonable. He will need to follow-up with me early next week to have his stent removed. We will then follow-up in 4 to 6 weeks for renal ultra sound (to rule out residual hydronephrosis after ureteroscopy), to review his stones chemical analysis and to discuss treatment options available for his nonobstructing right-sided kidney stone. Subjective Subjective Interval history since last seen: He has had some comfort with the voiding which seems to be improving over time. His discomfort has been controlled with Tylenol. He denies any nausea or vomiting He has not moved his bowels in about 3 days Exam Narrative Exam Narrative: He appears comfortable His vital signs are documented elsewhere He is awake and alert His lab work from this morning is still pending Objective Last Vital Signs Temp 37.1 C 02/18/22 02:23 Pulse 62 02/18/22 02:23 Resp 18 02/18/22 02:23 BP 174/79 H 02/18/22 02:23 Pulse Ox 96 02/18/22 02:23
[2022-02-18 08:22] VITALS: BP 169/80; PULSE 64; RESP 18; TEMP 36.8; O2SAT 95
[2022-02-18] MEDS: Tamsulosin 0.4 MG CAPCR PO (08:24)
[2022-02-18] MEDS: Isosorbide Mononitrate 30 MG TABCR PO (08:24)
[2022-02-18] MEDS: Sertraline 100 MG TAB PO (08:24)
[2022-02-18] MEDS: Metoprolol CR 50 MG TABCR PO (08:24)
[2022-02-18] MEDS: Cyanocobalamin 500 MCG TAB 1000 MCG PO (08:25)
[2022-02-18] MEDS: Polyethylene Glycol 3350 17 GM PACKET PO (09:26)
--- NOTE | 2022-02-18 11:45 | PDOC.CMDIS ---
- If Service Date Differs Date of service: 02/18/22 Time of Service: 11:45 LACE Index Scoring Tool - Questions: Length of Stay (in days): 3 Acuity (Admit via E.D.?): Yes Comorbidities: Diabetes w/o Complication, Liver or Renal Disease E.D. Visits: 2 - Answers: Total Score: 13 Risk of Readmission: High Risk Care Management Discharge Reason for Hospitalization: left ureteral calculus Discharge Plan: Delfino will discharge home with no new services anticipated at this time. He will follow up with Urology, his PCP and transport via private vehicle with his daughter, who plans on staying with him for a few days. Patient/Family Education Needs: Review discharge instructions, discuss Ask Me Three.
--- NOTE | 2022-02-18 17:41 | W.PM.DS.N ---
Date of service: 02/18/22 Time of Service: 08:00 DS: Diagnosis Discharge Diagnosis (1) Calculus of left ureter: Status: Acute (2) Hydronephrosis of left kidney: Status: Acute (3) Acute kidney injury superimposed on chronic kidney disease: Status: Acute (4) Diabetes: (5) Idiopathic thrombocytopenia: (6) DVT prophylaxis: Status: Acute (7) Discharge planning issues: Status: Acute Discharge Plan Disposition Patient Disposition: Home Condition: Good Discharge Details Reason For Visit: Left Ureterolithiasis,PALLAVI,DM Admit Date/Time: 02/15/22 23:53 Admit Provider: Jarad Gómez Attending Provider: Jarad Gómez Primary Care Provider: Vinicius John Hospital Course Hospital Course: The patient was admitted and given IV the hydration and analgesics. His renal function was monitored. His symptoms persisted in spite of medical therapy, so he was taken to the operating room on 02/17/2022 where he underwent ureteroscopy, stone extraction and insertion of a left ureteral stent. His renal colic pain improved but he had some stent discomfort with voiding. His symptoms have been managed with Tylenol. His serum creatinine was stable at 3.3 mg/dL. He is ready for discharge on 02/18/2022. Home Meds and New Rx's Prescriptions: No Action sertraline 100 MG tablet 100 mg PO DAILY losartan 50 mg tablet 50 mg PO DAILY metformin 500 mg tablet 1,000 mg PO BID torsemide 10 mg tablet 10 mg PO DAILY metoprolol succinate 50 mg tablet extended release 24 hr 50 mg PO DAILY atorvastatin 80 mg tablet 80 mg PO QPM verapamil 240 mg capsule,ext rel. pellets 24 hr 240 cap PO DAILY Label Comments: TAKE 1 CAPSULE BY MOUTH EVERY DAY aspirin [Aspir-81] 81 MG tablet,delayed release (DR/EC) 81 mg PO DAILY tamsulosin [Flomax] 0.4 mg capsule 0.4 mg PO DAILY Qty: 10 0RF isosorbide mononitrate [Imdur] 30 mg Tablet Extended Release 24 Hr 30 mg PO DAILY Discharge Instructions Instructions: Ureteral Stent Placement (DC) Additional Instructions: No need to strain urine Use [id number] Tylenol for pain-avoid anti-inflammatory medications due to kidney effects and Follow-up with urology early next week for stent removal Additional follow-up with urology in 4 to 6 weeks for renal ultrasound Use [id number] MiraLAX and stool softeners for bowel function Stand Alone Forms: Nursing Discharge Form Referrals: Alexander Barrera MD [ [facility] STAFF PHYSICIAN] - (Stent Removal appointment- 02/22/2022 @ 8:00am Renal Ultra sound appointment- 03/22/2022 @ 1:30pm Follow up with results appointment- 03/29/2022 @ 2:00pm w/ Dr. Barrera) Activity:: Activity as Tolerated Equipment/Supplies:: No Equipment Needed Diet:: As Tolerated Discharge Orders Discharge Orders: Discharge Order (Routine); Ordered 02/18/22 Ordered By: Arianna Zhu Discharge Data Discharge Date/Time-TO BE ENTERED AT DEPARTURE: 02/18/22 10:51 Discharge Comment: Please OK discharge with hospitalists DS: Summary Time Spent with Patient providing and/or coordinating discharge services: Less than 30 minutes Status at Discharge Functional status at discharge: independent ambulation Overall status at discharge: patient is back to baseline Mental Status: mental status grossly normal Speech and Movement: speech and movement normal Mood: congruent mood Affect: normal affect Exam Narrative Exam Narrative: General: Pleasant middle-aged male, A&Ox3, sitting at the edge of the bed, appears comfortable HEENT: EOMI, MMM Heart: RRR, + WHITNEY Lungs: faint crackles at B bases Abdomen: soft, nontender, nondistended Extremities: trace edema BLEs Psych Mental Status: mental status grossly normal Speech and Movement: speech and movement normal Mood: congruent mood Affect: normal affect DS: Data Vitals/I&O Vitals and I&O: Vital Signs Temperature 36.8 C 02/18/22 08:22 Temperature Source Tympanic 02/18/22 08:22 Pulse 64 02/18/22 08:22 Pulse Rhythm Regular 02/18/22 08:25 Pulse 75 02/16/22 00:40 Respiratory Rate 18 02/18/22 08:22 Respiratory Effort Non-Labored 02/18/22 08:25 Respiratory Depth Normal 02/18/22 08:25 Respiratory Pattern Normal 02/18/22 08:25 Blood Pressure 169/80 H 02/18/22 08:22 Blood Pressure Mean 101 02/15/22 23:00 Blood Pressure Position Supine 02/15/22 19:24 Pulse Oximetry 95 02/18/22 08:22 Oxygen Delivery Method Room Air 02/18/22 08:22 Oxygen Flow Rate 0 02/18/22 08:22 Pain Level 0 02/18/22 08:22 Comment 02/18/22 08:22 Intake & Output 02/17/22 02/18/22 02/18/22 23:59 11:59 23:59 Intake Total 1391.417 / 2411.417 342.833 / 342.833 Output Total 400 / 1400 200 / 200 Balance 991.417 / 1011.417 142.833 / 142.833 Weight 127.4 kg Intake: IV 971.417 / 1991.417 342.833 / 342.833 Oral 420 / 420 Output: Urine 400 / 1400 200 / 200 Other: Urine Color Bright Red Dark Sridevi Brown [place] Urine Appearance Hematuria Hematuria Urine Odor Strong Normal Comment pT stated he had voided in toilet. Emesis Description None Voiding Methods Urinal Toilet Data Completed and Pending Labs on day of discharge: Labs from last 24 hours 02/18/22 02/18/22 06:35 06:35 Sodium 140 Potassium 4.4 Chloride 105 Carbon Dioxide 26.2 Anion Gap 8.8 BUN 29 H Creatinine 3.3 H Est GFR (CKD-EPI 2020) 20.18 Glucose 93 Calcium 8.9 Methylmalonic Acid Pending Folate 14.0 Homocysteine Cancelled PFSH All Active Problems Discharge planning issues (Acute) DVT prophylaxis (Acute) Hydronephrosis of left kidney (Acute) Acute kidney injury superimposed on chronic kidney disease (Acute) Calculus of left ureter (Acute) Nausea (Acute) Chest pressure (Acute) Kidney calculus (Chronic) PALLAVI (acute kidney injury) (Acute) Tubular adenoma of colon (Acute) Screening for colon cancer (Acute) Medical History Aortic stenosis Chronic kidney disease CKD III Depression Deviated nasal septum Diabetes GERD (gastroesophageal reflux disease) History of adenomatous polyp of colon History of chest pain Hypertension Idiopathic thrombocytopenia Murmur Obesity MARI (obstructive sleep apnea) Very Severe-per sleep study 05/04/17-Uses BiPAP Positive cardiac stress test Sleep apnea Stable angina Surgical History Colonoscopy - MAC (06/05/17) 08/2021 History of cardiac catheterization 06/17/21 [facility]-see scanned records Social History Smoking/Tobacco Use Status: Never Smoking risk assessment performed?: Yes Alcohol Intake: current Alcohol Intake frequency: holidays/special occasions only Drug use: Never Substance use type: does not use Do you feel safe at home: Yes Do you feel safe in your relationship?: Yes
[2022-02-23 11:39] LABS: Methylmalonic Acid 0.21 nmol/mL (<=0.40)
[2022-02-24 13:00] LABS: Interpretation 100% Uric acid; Source: Left Ureter
== END 2022-02-18 10:51 | disposition home or self-care (01) ==
LOC: ER 02-16 00:11 → MS 02-16 01:01
PROVIDERS: Internal Medicine; Urology; Admitting Provider Family Medicine; Emergency Provider Nurse Practitioner Family; PCP Internal Medicine; Visit Provider Family Medicine
PROC: (CPT 52320; principal; 2022-02-17 11:00)
DX: N13.2 Hydronephrosis with renal and ureteral calculous obstruction (principal); N17.9 Acute kidney failure, unspecified; E11.22 Type 2 diabetes mellitus with diabetic chronic kidney disease; I12.9 Hypertensive chronic kidney disease with stage 1 through stage 4 chronic kidney disease, or unspecified chronic kidney disease; D69.3 Immune thrombocytopenic purpura; Z20.822 Contact with and (suspected) exposure to COVID-19; Z79.84 Long term (current) use of oral hypoglycemic drugs; D64.9 Anemia, unspecified; I35.0 Nonrheumatic aortic (valve) stenosis; N18.30 Chronic kidney disease, stage 3 unspecified; K21.9 Gastro-esophageal reflux disease without esophagitis; E66.9 Obesity, unspecified; Z68.41 Body mass index [BMI] 40.0-44.9, adult; G47.33 Obstructive sleep apnea (adult) (pediatric)
CPT/HCPCS: 52320; 52332; 36415; 80048; 80053; 80186; 83090; 85027; 87635; 96361; 96365; 96366; 96374; 96375; 96376; 99285; 74176; 74420; 81003; 81015; 82365; 82607; 82746; 83735; 84550; 85025; 85610; 87086; 99217; 99220; 99225; 99284; G0378; J0131; J0690; J1170; J2270; J2405; J2704; J3010; Q9967

== ENCOUNTER 2022-03-01 12:38 | Outpatient (CLI) | payer BC, SELFPAY ==
--- NOTE | 2022-03-01 12:30 | RT.EKG_ITS ---
APPROVED REPORT Exam: Resting ECG Reason for Exam: cardiac evaluation Patient Location: O HR:72 bpm ECG Measurements Heart Rate 72 AXIS NC 197 P 34 QRSd 99 QRS 0 QT 401 T 40 QTc 439 Conclusion Sinus rhythm...normal P axis, V-rate 50- 99 LVH with minor repolarization abnormality...multi-LVH criteria, abnrm ST-T
== END 2022-03-01 12:39 | disposition home or self-care (01) ==
LOC: DI.CARD 12:39
PROVIDERS: PCP Internal Medicine; Visit Provider Internal Medicine Cardiovascular Disease
DX: I25.10 Atherosclerotic heart disease of native coronary artery without angina pectoris (principal); R07.89 Other chest pain
CPT/HCPCS: 93010

== ENCOUNTER 2022-04-25 17:12 | Outpatient (REF) | payer BC, SELFPAY ==
[2022-04-25 15:11] LABS: Anion Gap 10.4 mmol/L (3-11); BUN 38 mg/dL (7-18); CO2 27.6 mmol/L (21.0-32.0); CREATININE 2.7 mg/dL (0.70-1.30); Chloride 107 mmol/L (98-107); Estimated GFR 25.52 (mL/min/1.73m2); Glucose 97 mg/dL (74-106); Potassium 4.8 mmol/L (3.5-5.1); Sodium 145 mmol/L (136-145); Uric Acid 7.6 mg/dL (3.5-7.2)
[2022-04-25 15:39] LABS: Hemoglobin A1C 5.1 % (<5.7)
== END 2022-04-25 17:13 | disposition home or self-care (01) ==
LOC: NCHCN 17:12
PROVIDERS: PCP Internal Medicine; Visit Provider Internal Medicine
DX: Z00.00 Encounter for general adult medical examination without abnormal findings (principal); D64.9 Anemia, unspecified; E78.5 Hyperlipidemia, unspecified; E11.9 Type 2 diabetes mellitus without complications; N18.30 Chronic kidney disease, stage 3 unspecified; K76.89 Other specified diseases of liver
CPT/HCPCS: 80048; 83036; 84550

== ENCOUNTER 2022-06-09 10:31 | Outpatient (REF) | payer BC, SELFPAY ==
[2022-06-09 14:42] LABS: HCT 33.9 % (40.0-50.0); HGB 10.6 g/dL (13.5-17.5); MCHC 31.3 % (32.0-36.0); MCV 89 fL (80-95); MPV 11.5 fL (8.0-11.0); Platelet Count 165 10^3/uL (130-400); RBC 3.79 10^6/uL (4.36-5.78); RDW 14.6 % (11.8-14.1); RDW-SD 47.7 fL; WBC 6.36 10^3/uL (4.4-10.8)
[2022-06-09 16:22] LABS: ALT 53 U/L (16-63); AST 45 U/L (15-37); Alkaline Phosphatase 200 U/L (46-116); Anion Gap 8.5 mmol/L (3-11); BUN 35 mg/dL (7-18); Bilirubin, Total 0.7 mg/dL (0.2-1.0); CO2 27.5 mmol/L (21.0-32.0); CREATININE 2.2 mg/dL (0.70-1.30); Calcium 9.8 mg/dL (8.5-10.1); Chloride 107 mmol/L (98-107); Estimated GFR 32.63 (mL/min/1.73m2); Glucose 111 mg/dL (74-106); Potassium 4.7 mmol/L (3.5-5.1); Sodium 143 mmol/L (136-145); Total Protein 7.7 g/dL (6.4-8.2); Uric Acid 6.3 mg/dL (3.5-7.2)
[2022-06-10 09:38] LABS: PSA, Screening 4.3 ng/mL (<=4.5)
== END 2022-06-09 10:32 | disposition home or self-care (01) ==
LOC: NCHCN 10:31
PROVIDERS: PCP Internal Medicine; Visit Provider Internal Medicine
DX: E11.9 Type 2 diabetes mellitus without complications (principal); I25.10 Atherosclerotic heart disease of native coronary artery without angina pectoris; D69.6 Thrombocytopenia, unspecified; I10 Essential (primary) hypertension; F32.89 Other specified depressive episodes; R35.0 Frequency of micturition; Z12.5 Encounter for screening for malignant neoplasm of prostate; Z87.442 Personal history of urinary calculi
CPT/HCPCS: 80053; 84153; 85027; 84550

== ENCOUNTER 2022-09-26 21:42 | Outpatient (REF) | payer BC, SELFPAY ==
[2022-09-26 22:48] LABS: ALT 42 U/L (16-63); AST 39 U/L (15-37); Albumin 3.9 g/dL (3.4-5.0); Alkaline Phosphatase 167 U/L (46-116); Anion Gap 8.4 mmol/L (3-11); BUN 41 mg/dL (7-18); Bilirubin, Total 0.7 mg/dL (0.2-1.0); CO2 27.6 mmol/L (21.0-32.0); CREATININE 2.3 mg/dL (0.70-1.30); Calcium 9.5 mg/dL (8.5-10.1); Chloride 108 mmol/L (98-107); Estimated GFR 30.93 (mL/min/1.73m2); GGT 235 U/L (15-85); Glucose 92 mg/dL (74-106); Potassium 4.6 mmol/L (3.5-5.1); Sodium 144 mmol/L (136-145); Total Protein 7.3 g/dL (6.4-8.2); Uric Acid 5.9 mg/dL (3.5-7.2)
[2022-09-27 19:49] LABS: PSA, Screening 3.7 ng/mL (<=4.5)
== END 2022-09-26 21:43 | disposition home or self-care (01) ==
LOC: NCHCN 21:42
PROVIDERS: PCP Internal Medicine; Visit Provider Internal Medicine
DX: Z00.00 Encounter for general adult medical examination without abnormal findings (principal); R16.0 Hepatomegaly, not elsewhere classified; M10.9 Gout, unspecified; R35.0 Frequency of micturition; Z12.5 Encounter for screening for malignant neoplasm of prostate; Q44.6 Cystic disease of liver
CPT/HCPCS: 80053; 84153; 82977; 84550

== ENCOUNTER 2023-03-31 10:28 | Outpatient (CLI) | payer MEDICARE, SELFPAY | END 2023-03-31 10:29 | disposition home or self-care (01) | LOC: DI.CARD 10:30 | PROVIDERS: PCP Internal Medicine; Referring Provider Internal Medicine; Visit Provider Internal Medicine Interventional Cardiology | CPT/HCPCS: 93010 ==

== ENCOUNTER → 2023-03-31 10:28 | Outpatient (BNVA) | payer MEDICARE, SELFPAY | PROVIDERS: PCP Internal Medicine; Referring Provider Internal Medicine; Visit Provider Internal Medicine Interventional Cardiology | DX: N18.4 Chronic kidney disease, stage 4 (severe) (principal); I87.2 Venous insufficiency (chronic) (peripheral); I35.9 Nonrheumatic aortic valve disorder, unspecified; I25.10 Atherosclerotic heart disease of native coronary artery without angina pectoris | CPT/HCPCS: 99213 ==

== ENCOUNTER → 2023-05-08 09:29 | Outpatient (BNVA) | payer MEDICARE, SELFPAY | PROVIDERS: PCP Family Medicine; Visit Provider Internal Medicine Cardiovascular Disease | DX: I20.89 Other forms of angina pectoris (principal); N18.4 Chronic kidney disease, stage 4 (severe); I87.2 Venous insufficiency (chronic) (peripheral); I35.0 Nonrheumatic aortic (valve) stenosis | CPT/HCPCS: 99213 ==

== ENCOUNTER 2023-05-09 04:35 | Outpatient (CLI) | payer MEDICARE, SELFPAY ==
[2023-05-09 15:17] LABS: Anion Gap 12.1 mmol/L (3-11); BUN 53 mg/dL (7-18); CO2 22.9 mmol/L (21.0-32.0); CREATININE 2.9 mg/dL (0.70-1.30); Calcium 9.1 mg/dL (8.5-10.1); Chloride 113 mmol/L (98-107); Estimated GFR 23.28 (mL/min/1.73m2); Glucose 100 mg/dL (74-106); Potassium 4.8 mmol/L (3.5-5.1); Sodium 148 mmol/L (136-145)
== END 2023-05-09 04:36 | disposition home or self-care (01) ==
LOC: LBO 04:35
PROVIDERS: PCP Family Medicine; Visit Provider Internal Medicine Interventional Cardiology
DX: N18.4 Chronic kidney disease, stage 4 (severe) (principal)
CPT/HCPCS: 36415; 80048

== ENCOUNTER → 2023-05-16 09:36 | Outpatient (BNVA) | payer MEDICARE, SELFPAY | PROVIDERS: PCP Family Medicine; Referring Provider Family Medicine; Visit Provider Internal Medicine Cardiovascular Disease | DX: I25.10 Atherosclerotic heart disease of native coronary artery without angina pectoris (principal); I87.2 Venous insufficiency (chronic) (peripheral); N18.4 Chronic kidney disease, stage 4 (severe) | CPT/HCPCS: 99213 ==

== ENCOUNTER → 2023-05-23 10:23 | Outpatient (BNVA) | payer MEDICARE, SELFPAY | PROVIDERS: PCP Family Medicine; Visit Provider Urology | DX: N18.4 Chronic kidney disease, stage 4 (severe) (principal); R39.89 Other symptoms and signs involving the genitourinary system; N20.0 Calculus of kidney | CPT/HCPCS: 51798; 81003; 99213 ==

== ENCOUNTER 2023-06-05 18:41 | Outpatient (REF) | payer MEDICARE, SELFPAY ==
[2023-06-05 16:50] LABS: COMMENT (LAB VIEW ONLY) 50.41 mg/dL
== END 2023-06-05 18:42 | disposition home or self-care (01) ==
LOC: NCHCN 18:41
PROVIDERS: PCP Family Medicine; Visit Provider Family Medicine
DX: R73.03 Prediabetes (principal)
CPT/HCPCS: 82043; 82570

== ENCOUNTER 2023-10-17 14:48 | Outpatient (REF) | payer MEDICARE, SELFPAY ==
--- OUTSIDE RECORDS SUMMARY | 2023-10-17 14:52 | XMS_ITS | Encounter Summary ---
[place] [address] Care Team Providers Care Coder Name Role Phone Vinicius John MD Primary Care Provider [phone] Encounter Details Date Type Department Care Team (Late st Contact Info) Description 08/14/2017 Telephone Ne[place] [address] Lucille Alston Social History Tobacco Use Types Packs/Day Years Used Date Smoking Tobacco: Never Smokeless Tobacco: Never Sex and Gender Information Value Date Recorded Sex Assigned at Not on file Gender Identity Not on file Sexual Orientation Not on file documented as of this encounter Miscellaneous Notes * Telephone Encounter - Lucille Alston - 08/14/2017 12:01 PM EDT LM for Pt to call and lennox. I left message on both home and work documented in this encounter Plan of Treatment Upcoming Encounters Date Type Department Care Team (Late st Contact Info) Description 12/08/2023 9:40 AM EDT Office Visit [place] [address] Orion Calzada MD [facility] [place] [address] Ingrid Feldman APRN [facility] [place] [address] documented as of this encounter Visit Diagnoses Not on filedocumented in this encounter Care Teams Coder Relationship Specialty Start Date End Date Vinicius John MD [address] [place] [address] PCP - General Internal Medicine 05/03/17 documented as of this encounter
--- OUTSIDE RECORDS SUMMARY | 2023-10-17 14:52 | XMS_ITS | Encounter Summary ---
Author Organization [facility] Address [address] [place] [address] Care Team Providers Care Informatics Consultant Name Role Phone Unknown, Provider Primary Care Provider [phone] Encounter Details Date Type Department Care Team (Late st Contact Info) Description 01/13/2014 Results Only [facility] - [facility] [place] [address] [place] [address] Khang Cornelius MD [address] [place] [address] Social History Tobacco Use Types Packs/Day Years Used Date Smoking Tobacco: Never Assessed Sex and Gender Information Value Date Recorded Sex Assigned at Not on file Gender Identity Male 06/10/2021 9:48 EDT Sexual Orientation Not on file documented as of this encounter Plan of Treatment Not on file documented as of this encounter Procedures Procedure Name Priority Date/Time Associated Diagnosis Comments SURGICAL PATHOLOGY Routine 01/13/2014 16 :02 EST documented in this encounter Results * SURGICAL PATHOLOGY (01/13/2014 16:02 EST) Pathology Report: SURGICAL PATHOLOGY REPORT Reports generated via electronic interface contain original data; however they are lacking the format of the original report. Caution should be taken when reading/interpret ing unformatted reports. Name: ? KHANG HERRERA ? Accession #: ? [id number] ? : ? 1960 (Age: 53) ??M ? Collect Date: ? 01/13/2014 ? Location: ? [facility] ? Receive Date: ? 01/13/2014 ? Provider: KHANG CORNELIUS MD Copy to: KOJO LAM MD ? Final Pathologic Diagnosis: A. COLON, POLYP, 75 CM, POLYPECTOMY: - ??Tubulovillous adenoma. - ??Lateral margins negative for dysplasia. B. COLON, POLYPS, 30 CM, BIOPSY: - ??Fragments of tubulovillous adenoma(s). C. COLON, POLYPS, 100 CM, BIOPSY: - ??Fragments of tubular adenoma(s). Document reviewed and electronically signed by: ALANA MONTEJO MD Report ??Date: 01/15/2014 11:17 By the signature above, the attending physician certifies that he/she has personally conducted a gross and/or microscopic examination of the described specimens and rendered or confirmed the above diagnosis. Specimen(s) Received: A. ?Bx at 75 cm x1 B. ? Bx at 30 cm x3 C. ? Bx at 100 cm x2 Clinical History: Screening colonoscopy Gross Description: A. ?Received in formalin labelled with proper patient identification (initials C, K) and biopsy at 75 cm is a single pink-gil and friable polypoid tissue (1.4 x 1.0 x 0.9 cm). The margin is inked black, the specimen is serially sectioned and entirely submitted in A1-A3. B. ?Received in formalin labelled with proper patient identification (initials C, K) and biopsy at 30 cm are five pink-gil polypoid tissues (0.4 x 0.2 x 0.2 cm to 0.9 x 0.8 x 0.7 cm). The margins are inked black. Entirely submitted as follows: BLOCK LUCIO B1- ??one trisected polypoid tissue B2- ??one bisected polypoid tissue B3- ??one bisected polypoid tissue B4- ??two intact polypoid tissues C. ?Received in formalin labelled with proper patient identification (initials C, K) and biopsy at 10 cm are two gil-yellow polypoid tissues (0.5 x 0.4 x 0.2 cm and 0.6 x 0.6 x 0.4 cm). The margins are inked black, the larger piece is bisected and entirely submitted in C1, and the smaller piece is bisected[ ] and entirely submitted in C2. Marcelina Bender 01/13/2014 07:21 PM End of Report [facility] 01/13/2014 16:0 2 EST 01/13/2014 16:02 EST Khang Cornelius MD PATHOLOGY ORDERABLE S [facility] [address] [place] [address] documented in this encounter Visit Diagnoses Not on filedocumented in this encounter Care Teams Informatics Consultant Relationship Specialty Start Date End Date Unknown, Provider, PCP - General 01/13/14 06/06/17 documented as of this encounter
--- OUTSIDE RECORDS SUMMARY | 2023-10-17 14:52 | XMS_ITS | Encounter Summary ---
Author Organization [facility] [place] [address] Care Team Providers Care Sap Pp Consultant Name Role Phone Vinicius John MD Primary Care Provider [phone] Encounter Details Date Type Department Care Team (Latest Contact Info) Description 04/03/2023 Travel Social History Tobacco Use Types Packs/Day Years Used Date Smoking Tobacco: Never Smokeless Tobacco: Never Sex and Gender Information Value Date Recorded Sex Assigned at Not on file Gender Identity Not on file Sexual Orientation Not on file documented as of this encounter Plan of Treatment Upcoming Encounters Date Type Department Care Team (Late st Contact Info) Description 12/08/2023 9:40 AM EDT Office Visit [place] [address] Orion Calzada MD [facility] [place] [place] [address] Ingrid Feldman APRN [facility] [place] [address] documented as of this encounter Visit Diagnoses Not on filedocumented in this encounter Care Teams Sap Pp Consultant Relationship Specialty Start Date End Date Vinicius John MD [address] [place] [address] PCP - General Internal Medicine 05/03/17 documented as of this encounter
--- OUTSIDE RECORDS SUMMARY | 2023-10-17 14:52 | XMS_ITS | Encounter Summary ---
Author Organization [facility] Address [address] [place] [address] Care Team Providers Care Campus Coordinator Name Role Phone Vinicius John MD Primary Care Provider [phone] Encounter Details Date Type Department Care Team (Late st Contact Info) Description 09/27/2022 Lab Requisition [facility] Pathology & Laboratory Medicine - [facility] [address] [place], [place] [address] Outr Resulting Lab, Provider Social History Tobacco Use Types Packs/Day Years Used Date Smoking Tobacco: Never Smokeless Tobacco: Never Interpersonal Safety Answer Date Record ed Physically Hurt Never 09/22/2019 Verbally Threaten Not on file 09/22/2019 Sex and Gender Information Value Date Recorded Sex Assigned at Not on file Gender Identity Male 06/10/2021 9:48 EDT Sexual Orientation Not on file documented as of this encounter Plan of Treatment Not on file documented as of this encounter Procedures Procedure Name Priority Date/Time Associated Diagnosis Comments PSA TOTAL, DIAGNOSTIC Routine 09/26/2022 13:15 EDT documented in this encounter Results * PSA TOTAL, DIAGNOSTIC (09/26/2022 13:15 EDT) PSA 3.7 <=4.5 ng/mL 09/27/2022 19:44 EDT [facility] Blood VENOUS BLOOD / Unknown 09/26/2022 13:15 EDT 09/27/2022 17:26 EDT Narrative [facility] - 09/27/2022 19:44 EDT NOTE: Serum PSA concentration should not be interpreted as absolute evidence for the presence or absence of malignant disease. Assayed on Siemens ADVIA indoo.rsaur XPT using chemiluminescent technology.??Values obtained by using different assay methods cannot be used interchangeably. Provider Outr Resulting Lab CHEMISTRY & BLOOD GAS ORDERABLES [facility] [address] [place] [address] documented in this encounter Visit Diagnoses Not on filedocumented in this encounter Care Teams Campus Coordinator Relationship Specialty Start Date End Date Vinicius John MD [address] [place], [place] [id number] PCP - General 06/07/17 documented as of this encounter
--- OUTSIDE RECORDS SUMMARY | 2023-10-17 14:52 | XMS_ITS | Encounter Summary ---
[place] [address] Care Team Providers Care Leaf Tier Name Role Phone Vinicius John MD Primary Care Provider Reason for Referral * Consultation (Routine) - Authorized Specialty Diagnoses / Procedures Referred By Renard cedeño Referred To Contact Nephrology Diagnoses Chronic kidney disease, stage IV (severe) Fletcher Byrne MD [address] [place] [address] [facility] [address] [place] [id number] Referral ID Status Reason Start Date Expiration Date Visits Requested Visits Authorized [id number] Authorized Consult, Test & Treat PCP Updated and/or Approved 06/15/2023 06/14/2024 6 6 Encounter Details Date Type Department Care Team (Latest Contact Info) Description 06/15/2023 Transcribe Orders eDH Incoming Referrals [phone] Fletcher Byrne MD [address] [place], [place] [id number] Chronic kidney disease, stage IV (severe) Social History Tobacco Use Types Packs/Day Years [...] AM EDT Office Visit [place] [address] Orion Calzada MD [facility] [place] [address] Ingrid Feldman APRN [facility] [place] [address] Scheduled Referrals Name Type Priority Associated Diagnoses Order Schedule Referral to Nephrology Outpatient Referral Routine Chronic kidney disease, stage IV (severe) Ordered: 06/15/2023 documented as of this encounter Visit Diagnoses Diagnosis Chronic kidney disease, stage IV (severe) Chronic kidney disease, Stage IV (severe) documented in this encounter Care Teams Leaf Tier Relationship Specialty Start Date End Date Vinicius John MD [address] [place] [address] PCP - General Internal Medicine 05/03/17 documented as of this encounter
--- OUTSIDE RECORDS SUMMARY | 2023-10-17 14:52 | XMS_ITS | Encounter Summary ---
Author Organization [facility] Address [address] [place] [address] Care Team Providers Care Pacu Rn Name Role Phone Unknown, Provider Primary Care Provider Encounter Details Date Type Department Care Team (Latest Contact Info) Description 01/13/2014 14:52 EST - 01/13/2014 23:59 EST Hospital Encounter [address] [address] Unknown, Provider, Discharge Disposition: Home or Self Care Social History Tobacco Use Types Packs/Day Years Used Date Smoking Tobacco: Never Assessed Sex and Gender Information Value Date Recorded Sex Assigned at Not on file Gender Identity Male 06/10/2021 9:48 EDT Sexual Orientation Not on file documented as of this encounter Discharge Disposition Disposition Code Departure Means Destination Home or Self [facility] documented in this encounter Plan of Treatment Not on file documented as of this encounter Visit Diagnoses Not on filedocumented in this encounter Care Teams Pacu Rn Relationship Specialty Start Date End Date Unknown, Provider, PCP - General 01/13/14 06/06/17 documented as of this encounter
--- OUTSIDE RECORDS SUMMARY | 2023-10-17 14:52 | XMS_ITS | Encounter Summary ---
[place] [address] Care Team Providers Care Chart Clerk Name Role Phone Vinicius John MD Primary Care Provider [phone] Encounter Details Date Type Department Care Team (Late st Contact Info) Description 08/24/2017 Telephone [place] [address] Mary Hendrickson Social History Tobacco Use Types Packs/Day Years Used Date Smoking Tobacco: Never Smokeless Tobacco: Never Sex and Gender Information Value Date Recorded Sex Assigned at Not on file Gender Identity Not on file Sexual Orientation Not on file documented as of this encounter Miscellaneous Notes * Telephone Encounter - Mary Farmer - 08/24/2017 2:34 PM EDT Left message with patient to call back and make follow up appointment . documented in this encounter Plan of Treatment Upcoming Encounters Date Type Department Care Team (Late st Contact Info) Description 12/08/2023 9:40 AM EDT Office Visit [place] [address] Orion Calzada MD [facility] [place] [address] Ingrid Feldman APRN [facility] [place] [address] documented as of this encounter Visit Diagnoses Not on filedocumented in this encounter Care Teams Chart Clerk Relationship Specialty Start Date End Date Vinicius John MD [address] [place] [address] PCP - General Internal Medicine 05/03/17 documented as of this encounter
--- OUTSIDE RECORDS SUMMARY | 2023-10-17 14:52 | XMS_ITS | Encounter Summary ---
Author Organization [facility] [place] [address] Care Team Providers Care Die Maker Stamping Name Role Phone Vinicius John MD Primary Care Provider [phone] Encounter Details Date Type Department Care Team (Latest Contact Info) Description 04/07/2023 Travel Social History Tobacco Use Types Packs/Day [...] AM EDT Office Visit [place] [address] Orion Calzada MD [facility] [address] Ingrid Feldman APRN [facility] [place] [address] documented as of this encounter Visit Diagnoses Not on filedocumented in this encounter Care Teams Die Maker Stamping Relationship Specialty Start Date End Date Vinicius John MD [address] [place] [address] PCP - General Internal Medicine 05/03/17 documented as of this encounter
--- OUTSIDE RECORDS SUMMARY | 2023-10-17 14:52 | XMS_ITS | Encounter Summary ---
[place] [address] Care Team Providers Care Pick Up Worker Name Role Phone Vinicius John MD Primary Care Provider [phone] Reason for Visit * Diagnostic Test (Routine) - Closed Specialty Diagnoses / Procedures Referred By Renard cedeño Referred To Contact Diagnoses Varicose veins of bilateral lower extremities with other complications Procedures Venous Valvular Incomp, Bilat Legs Jonel Jett MD [address] [place] [address] [place] [address] [facility] V[facility] [address] [place] [id number] Referral ID Status Reason Start Date Expiration Date V isits Requested Visits Authorized [id number] Closed Specialty Service Requested 04/03/2023 04/02/2024 1 1 Encounter Details Date Type Department Care Team (Late st Contact Info) Description 04/07/2023 10:00 AM [facility] [place] [address] Beny Freeman, RVT Varicose veins of bilateral lower extremities with other complications Social History Tobacco Use Types Packs/Day Years [...] AM EDT Office Visit Nephrology Hypertension at [facility] [place] [address] Orion Calzada MD [facility] [place] [address] Ingrid Feldman APRN [facility] [place] [address] documented as of this encounter Procedures Procedure Name Priority Date/Time Associated Diagnosis Comments VENOUS VALVULAR INCOMP, BILAT LEGS Routine 04/07/2023 9:37 AM EST Varicose veins of bilateral lower extremities with other complications documented in this encounter Results * Venous Valvular Incomp, Bilat Legs (04/07/2023 9:37 AM EST) VB Text Report Department: Vascular Surgery Lab Patient: [id number] (KHANG HERRERA) CPT: 30906 Referring Physician: JONEL JETT ?? Phone: Indications: LE varicose veins Patient Positioning: ??Reverse Trendelenburg Findings: Right ?Reflux?Diameter (mm) ??Depth (mm) ?? Common Femoral Vein ??Competent ? Femoral Vein ? Competent ? Popliteal ?Competent ? GSV, Near SFJ ?Reflux ? 7.8 ?25.1 ?? GSV, Proximal Thigh ??Reflux ? 6.2 ?14.7 ?? GSV, Mid Thigh ? Reflux ? 6.0 ?12.0 ?? GSV, Distal Thigh ?Reflux ? 5.5 ? 8.5 ?? GSV, ??Knee ? Reflux ? 5.1 ? 6.4 ?? GSV Prox Calf ?Reflux ? 5.2 ? 5.6 ?? SSV ?Competent ? Left ? Reflux?Diameter (mm) ??Depth (mm) ?? Common Femoral Vein ??Reflux ? Femoral Vein ? Competent ? Popliteal ?Competent ? GSV, Near SFJ ?Reflux ? 6.5 ?25.8 ?? GSV, Proximal Thigh ??Competent ?4.0 ?11.7 ?? GSV, Mid Thigh ? Competent ?3.1 ?12.7 ?? GSV, Distal Thigh ?Competent ?1.8 ?13.9 ?? GSV, ??Knee ? Reflux ? 3.0 ?13.8 ?? GSV Prox Calf ?Reflux ? 2.1 ? 8.5 ?? SSV ?Competent ? Interpretation: RIGHT: No evidence of deep venous valvular incompetence or femoral-popliteal deep venous thrombosis. There is reflux in the great saphenous vein >1.0 sec consistent with superficial venous valvular incompetence. There is a prominent varicosity associated with the GSV in the proximal calf that courses anteriorly and distal. LEFT: There is isolated reflux >1.5 sec in the common femoral vein consistent with deep venous valvular incompetence. No evidence of femoral-popliteal deep venous thrombosis. There is reflux in the great saphenous vein >1.0 sec from the knee to proximal calf consistent with superficial venous valvular incompetence. No previous study in our vascular lab database for comparison. Electronically Signed by: ALANA CARMICHAEL on 2023-04-07 04:54:50 PM [facility] VB Text Report End of Report [facility] 04/07/2023 9:37 AM EST Jonel Jett MD VASCULAR ORDERABLES [facility] documented in this encounter Visit Diagnoses Diagnosis Varicose veins of bilateral lower extremities with other complications documented in this encounter Care Teams Pick Up Worker Relationship Specialty Start Date End Date Vinicius John MD [address] [place] [address] PCP - General Internal Medicine 05/03/17 documented as of this encounter
--- OUTSIDE RECORDS SUMMARY | 2023-10-17 14:52 | XMS_ITS | Encounter Summary ---
[place] [address] Care Team Providers Care Alodize Machine Helper Name Role Phone Vinicius John MD Primary Care Provider [phone] Encounter Details Date Type Department Care Team (Late st Contact Info) Description 02/15/2022 10:35 PM EST Ancillary Procedure [place] [phone] Jarad Mason MD [facility] [place] [address] Social History Tobacco Use Types Packs/Day Years [...] AM EDT Office Visit Nephrology [place] [address] Orion Calzada MD [facility] [place] [address] Ingrid Feldman, [place] [facility] [place] [address] documented as of this encounter Procedures Procedure Name Priority Date/Time Associated Diagnosis Comments FILM LIBRARY STORAGE ONLY CT ABDOMEN AND PELVIS Routine 02/15/2022 10:30 PM EST documented in this encounter Results * Film Library- Storage Only CT Abdomen & Pelvis (02/15/2022 10:30 PM EST) Narrative [facility] - 02/15/2022 10:30 PM EST This exam is auto-finalizing. It's purpose is for storage only. Jarad Mason MD IMG FILM LIBRARY ORD ERABLES [place], [place] documented in this encounter Visit Diagnoses Not on filedocumented in this encounter Care Teams Alodize Machine Helper Relationship Specialty Start Date End Date Vinicius John MD [address] [place] [address] PCP - General Internal Medicine 05/03/17 documented as of this encounter
--- OUTSIDE RECORDS SUMMARY | 2023-10-17 14:52 | XMS_ITS | Encounter Summary ---
Author Organization [facility] Address [address] [place] [address] Care Team Providers Care M48 M60 Armor Crewman Name Role Phone Vinicius John MD Primary Care Provider [phone] Encounter Details Date Type Department Care Team (Late st Contact Info) Description 07/19/2019 Lab Requisition [facility] Pathology & Laboratory Medicine - [facility] [address] [place], [place] [address] Outr Resulting Lab, Provider Social History Tobacco [...] Procedure Name Priority Date/Time Associated Diagnosis Comments HEPATITIS C AB W REFLEX TO HCV RNA BY PCR Routine 07/18/2019 9:11 EDT documented in this encounter Results * HEPATITIS C AB W REFLEX TO HCV RNA BY PCR (07/18/2019 9:11 EDT) Hep C Antibody Negative Negative 07/22/2019 11:48 EDT [facility] Blood VENOUS BLOOD / Unknown 07/18/2019 9:11 EDT 07/19/2019 15:36 EDT Provider Outr Resulting Lab CHEMISTRY & BLOOD GAS ORDERABLES [facility] [address] [place] [address] documented in this encounter Visit Diagnoses Not on filedocumented in this encounter Care Teams M48 M60 Armor Crewman Relationship Specialty Start Date End Date Vinicius John MD [address] [place], [place] [id number] PCP - General 06/07/17 documented as of this encounter
--- OUTSIDE RECORDS SUMMARY | 2023-10-17 14:52 | XMS_ITS | Encounter Summary ---
Author Organization [facility] Address [address] [place] [address] Care Team Providers Care Loom Setter Fourdrinier Name Role Phone Vinicius John MD Primary Care Provider [phone] Reason for Visit * Reason Onset Date Comments COVID-19 06/09/2021 Encounter Details Date Type Department Care Team (Late st Contact Info) Description 06/09/2021 Telephone [facility] Cardiology - [address] [place] [address] Cande Watson, [place] [address] COVID-19 Social History Tobacco Use Types Packs/Day Years Used Date Smoking Tobacco: Never Assessed Interpersonal Safety Answer Date Record ed Physically Hurt Never 09/22/2019 Verbally Threaten Not on file 09/22/2019 Sex and Gender Information Value Date Recorded Sex Assigned at Not on file Gender Identity Male 06/10/2021 9:48 EDT Sexual Orientation Not on file documented as of this encounter Miscellaneous Notes * Telephone Encounter - Cande Watson, RN - 06/09/2021 1519 EDT COVID pre [facility] documented in this encounter Plan of Treatment Not on file documented as of this encounter Visit Diagnoses Diagnosis BERNAL (dyspnea on exertion)- Primary Other dyspnea and respiratory abnormality documented in this encounter Care Teams Loom Setter Fourdrinier Relationship Specialty Start Date End Date Vinicius John MD [address] [place] [address] PCP - General 06/07/17 documented as of this encounter
--- OUTSIDE RECORDS SUMMARY | 2023-10-17 14:52 | XMS_ITS | Encounter Summary ---
Author Organization [facility] Address [address] [place] [address] Care Team Providers Care Career Services Representative Name Role Phone Vinicius John MD Primary Care Provider [phone] Reason for Visit * Auth/Cert Specialty Diagnoses / Procedures Referred By Renard cedeño Referred To Contact Diagnoses Chest pain Positive cardiac stress test Cupid, Gas Meter Prover Referral ID Status Reason Start Date Expiration Date Visits Re quested Visits Authorized [id number] 06/08/2021 1 1 Encounter Details Date Type Department Care Team (Latest Contact Info) Description 06/17/2021 9:03 EDT - 06/17/2021 15:36 EDT Hospital Encounter [facility] Cardiovascular Unit [address] [place] [address] Brandee Hopkins MD [address] [place] [address] [place] [id number] Stage 3b chronic kidney disease (HCC) (Primary Dx); Chest pain; Positive cardiac stress test Discharge Disposition: Home or Self Care Social [...] on file documented as of this encounter Last Filed Vital Signs Vital Sign Reading Time Taken Comments Blood Pressure 160/89 06/17/2021 1437 EDT Pulse - - Temperature 36.6 ??C (97.9 ??F) 06/17/2021 1258 EDT Respiratory Rate 24 06/17/2021 1430 EDT Oxygen Saturation 99% 06/17/2021 1430 EDT Inhaled Oxygen Concentration - - Weight 129.7 kg (286 lb) 06/17/2021 1437 EDT Height 175.3 cm (5' 9) 06/17/2021 1437 EDT Body Mass Index 42.23 06/17/2021 1437 EDT documented in this encounter Discharge Instructions * Discharge Instructions* Talita Caballero RN - 06/17/2021 12:29 EDT Diagnostic Cardiovascular Catheterization Discharge Instructions Department of Cardiology Ramiro Herrera, your Procedure was performed by Dr. Hopkins . You have had a Cardiovascular Catheterization performed through a small incision in the artery in your right wrist. Your artery was closed using the following method: TR band Care of your Incision: For your right wrist incision, keep the area clean & dry. Leave the sterile dressing in place for 24 hours. After this you may shower but no tub baths, swimming, or hot tubs for 5 days. You may remove your dressing the next day in the shower & wash area gently. (It is best to soak the dressing off with water in the shower. ) Apply a sterile bandage such as a Band Aid to the site after your shower daily until the site heals. DO NOT apply powder or lotion or antibiotic ointment to this area. Activity: Unless your physician instructs you otherwise, continue to drink a lot of fluids for the next 24 hours to flush the dye out of your system. Avoid Driving x 24 hours. You had an ARM approach, Keep your arm comfortably straight for the first 24 hours and AVOID Bending or Lifting with your ARM for 48-72 hours. No Heavy lifting (>10 pounds) for one week. Normal Observations: Soreness or tenderness at the site that may last one week. Bruising that could last 2 weeks. Formation of a small lump (dime to quarter size) which may last up to 6 weeks. Call your Physician immediately if you experience any of the following: Fever (temp >101), swelling, redness or signs of infection (including yellow discharge). Persistent and increasing pain at the site of the wound, in your extremity or your back. Numbness or tingling at a point below the wound Skin Rash If you have not been able to Urinate within 24 hours of the procedure. *If you note any signs of bleeding, such as bulging under the skin (size of a golf ball or larger) put Direct Pressure on the area and Call your Doctor immediately. If bleeding persists after 10 minutes with pressure held call 911. *Please make a follow-up appointment with your Primary Care Physician 2-4 weeks after your Cardiac Catheterization was performed. documented in this encounter Medications at Time of Discharge Medication Sig Dispensed Refills Start Date End Date aspirin chewable 81 mg tablet Take 81 mg by mouth daily. atorvastatin (LIPITOR) 80 mg tablet Take 80 mg by mouth daily. losartan (COZAAR) 50 mg tablet Take 50 mg by mouth daily. metFORMIN (GLUCOPHAGE) 1,000 mg tablet Take 1,000 mg by mouth 2 times daily. ranolazine (RANEXA) 500 mg SR tablet Take 1 Tablet by mouth 2 times daily. 180 Tablet 2 06/17/2021 sertraline (ZOLOFT) 100 mg tablet Take 100 mg by mouth daily. torsemide (DEMADEX) 10 mg tablet Take 10 mg by mouth daily. verapamil (CALAN-SR) 240 mg CR tablet Take 240 mg by mouth daily. documented as of this encounter Ordered Prescriptions Prescription Sig Dispensed Refills Start Date End Da te ranolazine (RANEXA) 500 mg SR tablet Take 1 Tablet by mouth 2 times daily. 180 Tablet 2 06/17/2021 documented in this encounter Discharge Disposition Disposition Code Departure Means Destination Home or Self Custodial documented in this encounter Progress Notes * Malini Estevez RN - 06/17/2021 0952 EDT Ramiro Herrera arrived to the Cardiovascular Unit via ambulation. Patient alert and oriented x3. Transfers to stretcher independently. Patient stretcher in low position with side rails up & call bond within patient reach. Patient's daughter is at bedside. Patient's discharge plan is home with his daughter.Have you had any of the following symptoms? Fever YES/NO: No Cough/Chest congestion/Difficulty breathing YES/NO: No Sore throat or loss of taste / smell?YES/NO: No Chills YES/NO: No Joint Pain or weakness YES/NO: No Vomiting, abdominal pain, diarrhea (more common in children) YES/NO: No Severe headache YES/NO: No New loss of taste or smell YES/NO: No Have you had known exposure or close contact with someone who has been diagnosed with Covid 19? (close contact, unmasked, within 6 feet of any person known to have Coronavirus in the past 14 days) YES/NO: Unknown Were you Covid tested? YES/NO: Yes When / Results:Neg VACCINATION STATUS: boosted See admission vital signs assessment for temperature. * Cande Ha RN - 06/10/2021 1036 EDT Covid negative (results in scans) Precardiac Cath Nursing Checklist Recent Labs: No results found for: BUN, CREATININE, HGB, CALCGFR Hgt: Height: 177.8 cm (70) Wgt:Weight : (!) 131.5 kg (290 lb) Allergies: Not on File Local Pharmacy No Pharmacies Listed Cardiac History: Stress Test? Yes,Nuclear with a positive result. Reason for Cath: chest pain, BERNAL Anginal equivalent:: Cardiac Procedures: no Stent Type/Size: Cardiac surgery: no Medical/Surgical History: Patient has no past medical history on file. Patient has no past surgical history on file. Chronic Risk Factors: HTN, HLD, Diabetic and CKD Smoking and Alcohol intake: has no history on file for tobacco use and alcohol use. History of complications from sedation: No Patient Instructions: Patient Instructed by: Patient instructed by Advanced Testing Nurse NPO Instructions: Patient/family instructed to have no solid food after midnight and to stop drinking clear liquids 3 hours prior to registration time. Diabetic Pre procedure Instructions: Metformin, instructed to hold Metformin the day before and themorning of the procedure. Shower Instructions: Patient/family instructed to shower the night before or the day of the procedure. Registration location: Patient/family instructed to register on the 3rd floor [facility] Lobby. Transportation Issues: No Patient/family instructed that they will need a designated refrigerated company driver if they are discharged on the dayof the procedure. Medications: Medication list: Patient/family instructed to bring medication list with them on the day of the procedure. Anticoagulants/Antiplatelets: Takes Aspirin 81 mg daily Anti-Anginal meds: CARLOS HA RN * Cande Ha RN - 06/09/2021 1522 EDT Images from the original note were not included. [facility] Cardiology Services [address] [place] [id number] Evert Quiñonez, Here is important information regarding your upcoming Cardiac Catheterization procedure. I will call you soon to go over these and answer any questions you may have. Please feel free to call or replyhere with any questions or concerns, using phone numbers provided at the end of this letter. Our COVID schedulers will be reaching out to you to set up your COVID test (MUST BE DONE 3 DAYS PRIOR TO YOUR PROCEDURE) Procedure Date: 06/17 Check in at: 9:30am Performing Physician: Ev Hopkins Pre-procedure Nursing Instructions Have no solid food or liquids containing fats, including milk, after midnight before your procedure. You may have fat free liquids (clear liquids) until 4 hours before the scheduled time of check in. Fat free clear liquids include water, clear fruit juices (apple or cranberry), carbonated beverages,Jell-O, black or sweetened coffee and tea. 1. On the morning of your procedure please take your regular morning medications with a small amount of water EXCEPT; 2. Please HOLD your Metformin the day before AND the day of your procedure. 3. Please HOLD your Torsemide (demadex) the morning of your procedure. 4. Please remain ON your Aspirin. 5. Please shower the evening before or the morning of your procedure. 6. Please do not bring any medications with you to the hospital; it is important however to bring an accurate list of the medications you are currently taking. 7. You may need to spend the night in the hospital, so please plan accordingly by bringing an overnight bag with simple items, such as a tooth brush, change of clothes, etc. We request that you leaveany valuables at home unless you are able to hand them over to the support person with you. IF you need to spend the night you will be allowed 2 healthy visitors per your entire stay. 8. If you do not need to spend the night, you will be discharged once you have recovered. When you go home you will need a designated refrigerated company driver, or a responsible adult to accompany you if you are takingpublic transportation or a cab. 9. The pre-registration department will call you 1 to 2 business days before your procedure to verify your address and insurance information. You will still need to stop by registration the day of your procedure. When you arrive at the Hospital 1. Park in the underground garage, and take any elevator to the 3rd floor registration; or you may prefer to have your refrigerated company driver drop you off at the front entrance. 2. You will be met by our COVID greeters at the entrance to the hospital and your temperature will be taken. You may have 2 healthy support person(s) accompany you. 3. Please request a wheelchair within the lobby if needed. There is a long walk (the length of 2 football qureshi) between registration and the cardiovascular unit. We have volunteers available to escort you. 4. The registration staff will direct you to the Cardiovascular Unit waiting room. Please check in with the audioprosthologist and they will notify of your arrival. If someone is accompanying you they willstay in the waiting room until your procedure is done. 5. When you arrive where you will be prepped for your procedure, the nurse will initiate your pre-procedure admission by reviewing your information, medications, etc. You will also have an intravenous started and possible some blood work drawn. 6. Which procedure access site (wrist, groin or both) will be decided by your doctor so BOTH areas will be prepped in the Cardiovascular Unit (CVU) prior to going to the cath lab nurse. 7. When the procedure is over, the doctor will meet with your family member or friend to review theresults. We are here to help, so should you need assistance prior to your procedure, please feel free to call anyone listed below with questions. Cath Cook Helper Fruit - [phone] Advanced Testing Nurse- [phone] Reed Castellon Patients & Visitors Information [email or web address] Hotels & Lodging Information [email or web address] [email or web address] [place] Information [email or web address] documented in this encounter H&P Notes * Lucy Luke - 06/16/2021 1404 EDT Images from the original note were not included. Fellow Pre-Cardiac Catheterization H&P Date of Procedure: 06/17/2021 History of Present Illness 61 y.o. male patient w/ obesity, NIDDM type 2, HLD, HTN, CKD stage G3a, MARI on CPAP, and idiopathicthrombocytopenia who presents w/ a recent typical angina and a positive ETT (as below) ordered by his PCP. He is now referred for [facility]. Denies h/o asthma, nasal congestion, fevers, and past adverse reactions to anesthesia or sedation. Review of Systems Complete ROS reviewed and negative except as listed above in HPI. Past Medical History There is no problem list on file for this patient. Outpatient Medications No current facility-administered medications on file prior to encounter. Current Outpatient Medications on File Prior to Encounter Medication Sig Dispense Refill ??? aspirin chewable 81 mg tablet Take 81 mg by mouth daily. ??? atorvastatin (LIPITOR) 80 mg tablet Take 80 mg by mouth daily. ??? losartan (COZAAR) 50 mg tablet Take 50 mg by mouth daily. ??? metFORMIN (GLUCOPHAGE) 1,000 mg tablet Take 1,000 mg by mouth 2 times daily. ??? sertraline (ZOLOFT) 100 mg tablet Take 100 mg by mouth daily. ??? torsemide (DEMADEX) 10 mg tablet Take 10 mg by mouth daily. ??? verapamil (CALAN-SR) 240 mg CR tablet Take 240 mg by mouth daily. Allergies No Known Allergies Past Surgical History History reviewed. No pertinent surgical history. Family History History reviewed. No pertinent family history. Social History Social History Socioeconomic History ??? Marital status: Spouse name: Not on file ??? Number of children: Not on file ??? Years of education: Not on file ??? Highest education level: Not on file Occupational History ??? Not on file Tobacco Use ??? Smoking status: Never Smoker ??? Smokeless tobacco: Never Used Substance and Sexual Activity ??? Alcohol use: Not on file Comment: occaisionally ??? Drug use: Never ??? Sexual activity: Not on file Other Topics Concern ??? Not on file Social History Narrative ??? Not on file Social Determinants of Health Financial Resource Strain: Not on file Food Insecurity: Not on file Transportation Needs: Not on file Physical Activity: Not on file Stress: Not on file Social Connections: Not on file Physical Exam BP (!) 170/93 (BP Cuff Location: Left arm, BP Patient Position: Semi fowlers) Temp 36.1 ??C (97 ??F) (Temporal) Resp 18 Ht 175.3 cm (69) Wt (!) 130.1 kg (286 lb 12.8 oz) SpO2 98% BMI 42.35 kg/m?? Gen: Obese, NAD, conversant HEENT: NC/AT, MMM, PERRLA, EOMI, anicteric Neck: Supple, no JVD, no goiter, no cervical LAD Heart: RRR, normal S1/S2, soft 1/6 systolic murmur over base Lungs: Normal WOB, diminished throughout Abdomen: Soft, NT/ND, NABS, no HSM, no abdominal bruits Neuro: A&O x3, furnishings conservator II-XII grossly intact, non-focal Ext: Warm, radial and PT pulses 2+, no pedal edema Skin: No jaundice or rashes Labs Reviewed. CBC: Recent Labs 06/17/21 1020 WBC 4.85 RBC 3.97* HGB 11.2* HCT 33.7* MCV 85 MCH 28.2 MCHC 33.2 PLT 127* BMP: Recent Labs 06/17/21 1020 NA 144 K 4.3 CL 113* CO2 22 BUN 50* CREATININE 2.31* Coags: Recent Labs 06/17/21 1020 PROTIME 11.8 INR 1.0 Imaging & Other Studies Reviewed. Today's EKG: Sinus rhythm with first degree AV delay and minimal voltage criteria for LVH ETT 06/03/2021 at [facility]: Assessment & Plan 61 y.o. male w/ plan to proceed w/ LHC to evaluate coronary anatomy +/- hemodynamics. No noted contraindications to LHC or DARIUSZ PCI. Pre-procedure assessment, ASA Class, and Mallampati Score completedin [facility]. ASA Class: II CCS Angina Grade: III Contrast Media Allergy: N PATIENT CONSENT TO CARDIOVASCULAR CATHETERIZATION OR INTERVENTION: I, LUCY LUKE, have explained the risks and benefits of cardiac catheterization and/or interventionto the patient (or responsible libertarian) and have answered the patient's (or responsible libertarian's) questions. To the best of my knowledge, the patient (or responsible libertarian) has been adequately informed.The patient (or responsible libertarian) has consented to the interventional cardiac procedure. As part of the consent we reviewed that, like surgical procedures, interventional procedures require aggressive short term support to determine the potential benefits of the procedures. For this reason, the patient (or responsible libertarian) has agreed to remain FULL CODE for a minimum of 48 hours after the procedure. LUCY LUKE Gaming Manager, PGY-4 documented in this encounter Procedure Notes * Brandee Hopkins MD - 06/17/2021 1209 EDT Cardiovascular Catheterization Laboratory Preliminary Report -- Catheterization Date of Service/Procedure: 06/17/2021 Attending Physician: Brandee Hopkins MD Fellow: EDWIN Worley and Lucy Luke MD Pre-Procedure Diagnosis /NCDR Indication: Ramiro Herrera is a 61 y.o. year old male with new onset angina <= 2 months. Chest Pain Symptom Assessment: Typical Angina NCDR Indication for PCI: Stable Angina If NOT STEMI or NSTE-ACS, Syntax Score: Low Heart Failure: No CHSA Clinical Frailty Scale: 3: Managing Well Prior Stress Testing? Yes, with a positive result. Is at indeterminate risk for cardiac mortality within one year . Anesthesia: A moderate level of anesthesia/conscious sedation was used in addition to local anesthesia. Access: Right radial artery Procedure: He was brought to [facility] Cardiac Catheterization Laboratory for the procedure: Diagnostic coronary/graft angiography and Left heart cath. Closure: TR Band Post-Procedure Condition: The condition of the patient was Good. Complications: None. IV Contrast Total: 55 mL X-ray Dose: 353mGy Estimated Blood Loss: Minimal. Unless otherwise noted,there were no specimens removed, cultures obtained, or drains retained. Research Study: Patient is not enrolled in a research study. Diagnostic Cardiac Study Results Left main: MLI Left anterior descending: moderate diffuse disease Left circumflex: Distal 90% Right coronary artery: MLi Grafts: NA Left Ventriculography and Hemodynamic Results LVEDP 15mmHg Endovascular Study Results None Post-Procedure Diagnostic Conclusion: Medical therapy is indicated. and optimize antianginal therapy, echo today. Plan: See post-procedure orders. Aspirin 81mg PO daily. High intensity statin therapy PO daily. Transthoracic echocardiography. add ranolazine At the completion of the procedure, the attending physician has explained the findings, therapies, any complications and treatment plan to the patient. With the patients consent, all family members and patient support persons who were present at the conclusion of the procedure have been notified ofthese results and treatment plans as well. Post Procedure Follow Up: Patient to follow up with me in 6 weeks Post Interventional Conclusion/Physician Disposition: (check one main category) Elective procedure-continue outpatient status. Discharge plan is for same day discharge in 4 hours. Brandee Hopkins MD PagerNumber: [phone] 06/17/2021 12:10 documented in this encounter Plan of Treatment Not on file documented as of this encounter Procedures Procedure Name Priority Date/Time Associated Diagnosis Comments ECG REPORT - SCANNED 06/21/2021 13:02 EDT ECG REPORT - SCANNED 06/21/2021 13:02 EDT ECG REPORT - SCANNED 06/17/2021 15:12 EDT TRANSTHORACIC ECHO (TTE) COMPLETE Routine 06/17/2021 14:20 EDT FFR Routine 06/17/2021 12:11 EDT Chest pain Positive cardiac stress test CARDIAC CATHETERIZATION Routine 06/18/19 12:11 EDT Chest pain Positive cardiac stress test POCT GLUCOSE, INTERFACED STAT 06/17/2021 10:22 EDT PROTIME STAT 06/17/2021 10:20 EDT COMPLETE BLOOD COUNT STAT 06/17/2021 10:20 EDT BUN STAT 06/17/2021 10:20 EDT HEMOGLOBIN A1C Add-On 06/17/2021 10:20 EDT CREATININE STAT 06/17/2021 10:20 EDT LIPID PROFILE (INCLUDES CHOLESTEROL, TRIGLYCERIDES, HDL, LDL) Add-On 06/17/2021 10:20 EDT ELECTROLYTES STAT 06/17/2021 10:20 EDT EKG 12-LEAD Routine 06/17/2021 9:58 EDT documented in this encounter Results * ECG REPORT - SCANNED (06/21/2021 13:02 EDT) 06/21/2021 13:0 2 EDT Scan 2 Patient Biller PROCEDURE/MINOR PAOLA GICAL ORDERABLES * ECG REPORT - SCANNED (06/21/2021 13:02 EDT) 06/21/2021 13:0 2 EDT Scan 2 Patient Biller PROCEDURE/MINOR PAOLA GICAL ORDERABLES * ECG REPORT - SCANNED (06/17/2021 15:12 EDT) 06/17/2021 15:1 2 EDT Scan 2 Patient Biller PROCEDURE/MINOR PAOLA GICAL ORDERABLES * TRANSTHORACIC ECHO (TTE) COMPLETE W/DOPPLER W/CF W/ CONTRAST (06/17/2021 14:20 EDT) LA Atrial Length A2C 5.9 cm [facility] LV ID, ED, PLAX 5.0 3.5 - 6.0 cm [facility] LVIDD BY MMODE 5.0 cm [facility] LV ID, ES, PLAX 3.4 2.1 - 4.0 cm [facility] LA ID, A-P, ES 5.0 cm [facility] LV PW thickness, ED, PLAX 1.4 0.6 - 1.1 cm [facility] Aortic root ID 3.0 cm [facility] Aortic valve mean velocity, S 1.7 m/s [facility] LV ejection fraction, 1-p A4C 60 % [facility] LVOT mean gradient, S 3 mmHg [facility] Aortic valve area, peak velocity 1.8 cm2 [facility] Aortic mean gradient, S 12 mmHg [facility] AV LVOT peak gradient 6 mmHg [facility] LV e', lateral 0.07 m/s [facility] Mitral deceleration time 229 ms [facility] LV IVRT, DP 72 msec [facility] PO INT OF CARE LVOT area 3.5 cm2 [facility] T [facility] LVOT peak velocity, S 1.2 m/s [facility] LVOT VTI, S 23.5 cm [facility] PO INT OF CARE Aortic valve peak velocity, S 2.4 m/s [facility] Aortic valve VTI, S 47.3 cm [facility] Stroke volume (SV), LVOT DP 81 ml [facility] Aortic peak gradient, S 23 mmHg [facility] Mitral peak gradient, D 4 mmHg [facility] LVOT mean velocity, S 0.8 m/s [facility] Mitral E-wave peak velocity 0.9 m/s [facility] Mitral A-wave peak velocity 1.3 m/s [facility] LV Systolic Volume Index 26.0 mL/m2 [facility] LV Diastolic Volume Index 68.0 mL/m2 [facility] AV DOI 0.51 [facility] LA Atrial Length A4C 6.5 cm [facility] LVOT ID, S 2.1 cm [facility] POI NT OF CARE EF 62 % [facility] LV Systolic Volume 64 mL [facility] LV Diastolic Volume 165 mL [facility] Stroke index (SV/bsa) LVOT DP 34.0 ml/m2 [facility] Aortic valve area VTI 1.7 cm2 [facility] Interventricular Septum to Posterior Wall Thickness Ratio 1 [facility] P OINT OF C[facility] IVS thickness, ED, PLAX 1.4 cm [facility] LV e', medial 0.07 m/s [facility] AV dimensionless index (DI) 0.7 [facility] LV e', average 0.07 m/s [facility] Velocity ratio, mean, LVOT/AV 0.47 [facility] Aortic valve area 1.6 cm2 [facility]INT [facility] AVAI Pk Zhou 0.7 cm2/m2 [facility] PO INT OF CARE Pulmonic valve mean velocity, S 1 cm/s [facility] Ascending aorta ID, a-p 3.9 cm [facility] LV end diastolic volume 1-p A2C 151 ml [facility] LV ejection fraction, 1-p A2C 63 % [facility] LV E/e', lateral 14.0 [facility] LV E/e', medial 0.1 [facility] POINT [facility] LV E/e', average 7 [facility] LV end-diastolic volume, 1-p A4C 176 ml [facility] Anatomical Region Laterality Modality Ultrasound Narrative 06/17/2021 14:57 EDT ?Aortic??Valve: The aortic valve was probably bicuspid with fusion of the right-left coronary cusps. There was mild aortic valve stenosis. There was no aortic valve regurgitation. AV Peak Gradient: 23mmHg. AV Mean Gradient: 12mmHg. AV Area VTI: 1.7. ?Mitral??Valve: The mitral leaflets were mildly thickened. There was mild annular calcification. There was moderate mitral regurgitation. ?Aorta: The aortic root was normal in size. The tubular ascending aorta was mildly dilated (3.9 cm). Left Ventricle The left ventricular cavity was normal in size. Left ventricular systolic function was normal with an ejection fraction of 60-65%. The estimated left ventricular ejection fraction by biplane Cole's method was 62%. Left ventricular diastolic parameters were not diagnostic. There was hypertrophy of the left ventricle. Left ventricular wall motion was normal; there were no regional wall motion abnormalities. Right Ventricle The right ventricular cavity was normal in size. Right ventricular systolic function was normal. Right ventricular wall thickness was normal. Left Atrium Left atrial cavity was dilated. Right Atrium The right atrium was normal in size. IVC/SVC The inferior vena cava was normal in size. Mitral Valve The mitral leaflets were mildly thickened. There was mild annular calcification. There was moderate mitral regurgitation. There was no significant mitral valve stenosis. Tricuspid Valve Tricuspid valve structure was normal. There was trace tricuspid valve regurgitation. There was no tricuspid valve stenosis. Aortic Valve The aortic valve was probably bicuspid with fusion of the right-left coronary cusps. There was mild aortic valve stenosis. There was no aortic valve regurgitation. AV Peak Gradient: 23mmHg. AV Mean Gradient: 12mmHg. AV Area VTI: 1.7. Pulmonic Valve Pulmonic valve structure was grossly normal. There was trace pulmonic valve regurgitation. There was no pulmonic valve stenosis. Ascending Aorta The aortic root was normal in size. The tubular ascending aorta was mildly dilated (3.9 cm). Pericardium There was no pericardial effusion. Pulmonic Artery Pulmonary systolic pressure was within the normal range, estimated to be 30 mmHg. Study Details Study status: Routine. Transthoracic echocardiography. M-Mode, complete 2D, complete spectral Doppler, and color Doppler.The study was interpreted by [facility]. Pertinent images and digital data are archived for permanent storage and are available for subsequent review. Scanning was performed from the apical, parasternal, subcostal and suprasternal acoustic windows. Definity contrast was used during the study. Overall the study quality was suboptimal. The study was difficult due to patient body habitus. Images were obtained using cardiac ultrasound machine [id number]. Lucy Luke MD CARDIAC ECHO ORDERAB LES * FFR (06/17/2021 12:11 EDT) Anatomical Region Laterality Modality Product Marketing Consultant Narrative 06/17/2021 12:12 EDT Refer to the primary case's report for the procedure summary. Vinicius John MD CARDIAC CATH ORDERAB LES * LEFT HEART CATH (06/17/2021 12:11 EDT) Anatomical Region Laterality Modality Product Marketing Consultant 06/17/2021 11:1 2 EDT Narrative 06/18/2021 8:56 EDT Cardiology [address] [place] [address] Catheterization Laboratory Study Patient: Ramiro Herrera J ? Study Date: ?06/17/2021 ?Accession #: ? [id number] : ? 1960 Referring: Vinicius John MD Diagnostic Attending: ??Brandee Hopkins Interventional Attending: ?? Brandee Hopkins Diagnostic Fellow: Lucy Luke MD ATTESTATION: Dr. Brandee Hopkins was present and supervising for the entire procedure. Nely Liao NP-C was the initial author of this report. Dr. Brandee Liao performed the entire procedure and have reviewed and agreed with the findings of this report. PROCEDURE PLAN: A diagnostic study was performed without intervention. RESEARCH STUDY: Patient is not enrolled in any research studies. IMPRESSIONS: Moderate coronary artery disease. SUMMARY: 1. HPI and indications: Stable angina. Aortic stenosis. 2. Adverse outcomes: There were no complications. 3. Coronary arteries: The coronary circulation is right dominant. 4. Left main: Minor luminal irregularities. 5. LAD: Moderate diffuse disease not significant on DFR assessment. 6. Left circumflex: Distal vessel lesion: There is a 90% stenosis. 7. Right coronary: Minor luminal irregularities. RECOMMENDATIONS: 1. ACC recommendation: Medical therapy and/or counseling. 2. Aspirin 81mg PO daily. 3. High intensity statin therapy PO daily. 4. Transthoracic echocardiography. 5. add ranolazine. HISTORY: Stable angina. ??Aortic stenosis. ??Functional status: ?? CCS class III (marked limitation of ordinary activity). ??Risk factors: ??Hypertension. Diabetes mellitus; on therapy with diet. Dyslipidemia. ??Allergies: ??No known allergies. LABS, PRIOR TESTS, PROCEDURES AND SURGERY: Serum potassium (K) of 4.3 mEq/l. ??Serum creatinine (current admission) of 2.31 mg/dl. ??Blood urea nitrogen of 50 mg/dl. ??Platelet count of 127 th/ul. ??Stress electrocardiography. ? Abnormal. ?? Moderate risk of ischemia. Stress test. ? Abnormal. STUDY DATA: Study status: ??Cardiac cath: elective. ??Patient status: ??Outpatient. Location: ??Catheterization laboratory. Sex: male. Patient is 61yr old. Height: 175.3cm. Weight: 130.1kg. BSA: 2.58m^2. Procedures performed: ?Right radial artery access. ?Left coronary angiography. ?Right coronary angiography. ?Left coronary angiography. ?Doppler flow reserve measurement. ANESTHESIA: Conscious sedation by cardiology staff. PROCEDURE: 1. Initial setup. The patient was brought to the laboratory in the ?? fasting state. A baseline ECG was recorded. Surface ECG leads, ?? automatic cuff blood pressure measurements, and pulse oximetric ?? signals were monitored. 2. Skin preparation. The planned puncture sites were prepped with ?? chlorhexidine and draped in the usual sterile manner. 3. Local anesthesia. Using 2% Lidocaine, local anesthetic was ?? administered to the access site(s). 4. Right radial artery access. A 6FR/.021 [place] Sheath Slender sheath ?? was advanced into the vessel. 5. Selective left coronary angiography. A 5 Fr Tig Catheter 4.0 catheter ?? was advanced into the left coronary vessel ostium under fluoroscopic ?? guidance. Contrast was injected. Images were obtained in multiple ?? projections. 6. Selective right coronary angiography. A 5F FR4 catheter was advanced ?? into the right coronary vessel ostium under fluoroscopic guidance. ?? Contrast was injected. Images were obtained in multiple projections. 7. Selective left coronary angiography. A 6fr CLS3 catheter was advanced ?? into the left coronary vessel ostium under fluoroscopic guidance. 8. Doppler flow reserve measurement for the LAD. Flow reserve was ?? measured using a Comet Doppler flow wire. Based on flow reserve, the ?? lesion was judged to be nonsignificant. 9. Right radial artery hemostasis. Mechanical compression was applied. STUDY COMPLETION: The estimated blood loss was 10ml. All catheters inserted during the procedure were removed. The patient tolerated the procedure well and was discharged from the lab. There were no complications. ??Contrast: Isovue 55ml (total dose). ??Isovue 145ml (wasted). ??Fluoroscopy time: 10.7min. ??Fluoroscopy dose: ??35.4cGy. CORONARY ARTERIES: The coronary circulation is right dominant. Left main: ??Minor luminal irregularities. LAD: Moderate diffuse disease not significant on DFR assessment. Left circumflex: ??Distal vessel lesion: There is a 90% stenosis. Right coronary: ??Minor luminal irregularities. HEMODYNAMICS: End diastolic pressure in the left ventricle is mildly elevated. Pressure measurements across the aortic valve show mild-moderate stenosis with a gradient of about 14. + + + Stage description ? Condition1:Condition 1 - + + + LV pressure s/ed ? 132/26 ? + + + Arterial pressure s/d (m) 124/80 (100) ? + + + * Aortic valve: + + + Stage description ? Condition1:Condition 1 Thermo + + + Mean gradient ? 13.9mm Hg ? + + + Peak-peak gradient ? 8mm Hg ? + + + Systolic ejection time 176ms ? + + + * Electronically signed by Brandee Hopkins MD 2021-06-18 08:56 Vinicius John MD CARDIAC CATH ORDERAB LES * (ABNORMAL) POCT GLUCOSE, INTERFACED (06/17/2021 10:22 EDT) Glucose, POC 136(H) 70 - 100 mg/dL 06/17/2021 10:23 EDT [facility] HN LAB POC COMMENT (GLUCOSE) Test Performed by Nursing Services 06/17/2021 10:23 EDT [facility] Blood CAPILLARY BLOOD / Unknown 06/17/2021 10:22 EDT 06/17/2021 10:23 EDT Lucy Luke MD POINT OF CARE TEST O RDERABLES [facility] [address] [place] [address] * (ABNORMAL) HEMOGLOBIN A1C (06/17/2021 10:20 EDT) Hemoglobin A1c 6.7(H) <5.7 % 06/17/2021 14:20 EDT [facility] Comment: Glycemic Status References: Normal: ??<5.7% Pre-Diabetes: ??5.7% - 6.4% Diagnostic of Diabetes: ??> or = 6.5% (if confirmed) Est Avg Glucose 146 mg/dL 14:20 EDT [facility] Comment:The eAG represents t he A1c result expressed as average glucose in mg/dL. Blood VENOUS BLOOD / Unknown Venipuncture / Unknown 06/17/2021 10:20 EDT 06/17/2021 10:35 EDT Nely Conte DIRECTOR INTEGRATED CHEMISTRY & BLOOD G ORDERABLES Performing Organization Address City/[facility]/ZIP Co de Phone Number [facility] [address] [place] [address] * (ABNORMAL) LIPID PROFILE (INCLUDES CHOLESTEROL, TRIGLYCERIDES, HDL, LDL) (06/17/2021 10:20 EDT) Cholesterol 145 <200 mg/dL 06/17/2021 12:25 EDT [facility] Comment:Note that therapeuti c goals will differ between patients based on cardiac risk factors and current medical therapy. HDL 39(L) >=40 mg/dL 06/17/2021 12:25 EDT [facility] Comment:Note that therapeuti c goals will differ between patients based on cardiac risk factors and current medical therapy. LDL, Calculated 70 <160 mg/dL 12:25 T [facility] Comment:Note that therapeuti c goals will differ between patients based on cardiac risk factors and current medical therapy. Triglyceride 178(H) <=150 mg/dL 06/17/2021 12:25 EDT [facility] Comment:Note that therapeuti c goals will differ between patients based on cardiac risk factors and current medical therapy. Chol/HDL Ratio 3.7 See Note 06/17/2021 12:25 T [facility] Comment:No reference range h as been established for CHOL/HDL ratio. Non HDL Cholesterol 106 <160 mg/dL 06/17/2021 12:25 T [facility] Comment:Note that therapeuti c goals will differ between patients based on cardiac risk factors and current medical therapy. Blood VENOUS BLOOD / Unknown Venipuncture / Unknown 06/17/2021 10:20 EDT 06/17/2021 10:35 EDT Nely Conte DIRECTOR INTEGRATED CHEMISTRY & BLOOD G ORDERABLES [facility] [address] [place] [address] * PROTIME (06/17/2021 10:20 EDT) I.N.R. 1.0 0.9 - 1.1 Ratio 06/17/2021 10:51 [facility] Pro Time 11.8 10.4 - 12.6 secs 06/17/2021 10:51 [facility] Blood VENOUS BLOOD / Unknown Venipuncture / Unknown 06/17/2021 10:20 EDT 06/17/2021 10:35 EDT Narrative [facility] - 06/17/2021 10:51 EDT Moderate Intensity Coumadin INR = 2.0-3.0 Adjustments in anticoagulant therapy dose should be based on the INR and NOT on the Protime. Lucy Luke MD HEMATOLOGY & PF4 ORD ERABLES [facility] [address] [place] [address] * (ABNORMAL) COMPLETE BLOOD COUNT (06/17/2021 10:20 EDT) WBC 4.85 4.00 - 10.40 K/cmm 06/17/2021 10:42 [facility] RBC 3.97(L) 4.36 - 5.78 M/cmm 06/17/2021 10:42 [facility] Hemoglobin 11.2(L) 13.8 - 17.3 gm/dL 06/17/2021 10:42 [facility] HCT 33.7(L) 39.5 - 50.2 % 06/17/2021 10:42 [facility] MCV 85 81 - 95 fl 06/17/2021 10:42 [facility] MCH 28.2 27.6 - 33.0 pg 06/17/2021 10:42 [facility] MCHC 33.2 32.8 - 36.4 gm/dL 06/17/2021 10:42 [facility] RDW-CV 13.8 <14.2 % 06/17/2021 10:42 [facility] RDW-SD 43.4 <46.0 fl 06/17/2021 10:42 [facility] PLT 127(L) 141 - 377 K/cmm 06/17/2021 10:42 EDT [facility] MPV 10.8 9.5 - 12.7 fl 06/17/2021 10:42 EDT [facility] Blood VENOUS BLOOD / Unknown Venipuncture / Unknown 06/17/2021 10:20 EDT 06/17/2021 10:35 EDT Lucy Luke MD HEMATOLOGY & PF4 ORD ERABLES Performing Organization Address City/[facility] Co de Phone Number [facility] [address] [place] [address] * (ABNORMAL) ELECTROLYTES (06/17/2021 10:20 EDT) Sodium 144 136 - 145 mmol/L 06/17/2021 10:51 EDT [facility] Potassium 4.3 3.5 - 5.0 mmol/L 06/17/2021 10:51 EDT [facility] Chloride 113(H) 96 - 110 mmol/L 06/17/2021 10:51 T [facility] CO2 Total 22 22 - 32 mmol/L 06/17/2021 10:51 [facility] Anion Gap 9 5 - 14 06/17/2021 10:51 EDT [facility] Blood VENOUS BLOOD / Unknown Venipuncture / Unknown 06/17/2021 10:20 EDT 06/17/2021 10:35 EDT Lucy Luke MD CHEMISTRY & BLOOD GA S ORDERABLES Performing Organization Address [facility] de Phone Number [facility] [address] [place] [address] * (ABNORMAL) CREATININE (06/17/2021 10:20 EDT) Creatinine 2.31(H) 0.66 - 1.25 mg/dL 06/17/2021 10:51 EDT [facility] eGFR 31(L) >60 mL/min/1.73 m2 06/17/2021 10:51 EDT [facility] Blood VENOUS BLOOD / Unknown Venipuncture / Unknown 06/17/2021 10:20 EDT 06/17/2021 10:35 EDT Lucy Luke MD CHEMISTRY & BLOOD GA S ORDERABLES Performing Organization Address [facility] de Phone Number [facility] [address] [place] [address] * (ABNORMAL) BUN (06/17/2021 10:20 EDT) BUN 50(H) 10 - 26 mg/dL 06/17/2021 10:51 EDT [facility] Blood VENOUS BLOOD / Unknown Venipuncture / Unknown 06/17/2021 10:20 EDT 06/17/2021 10:35 EDT Lucy Luke MD CHEMISTRY & BLOOD GA S ORDERABLES Performing Organization Address [facility] de Phone Number [facility] [address] [place] [address] * EKG 12-LEAD (06/17/2021 9:58 EDT) 06/17/2021 9:58 EDT Narrative [facility] - 06/17/2021 15:06 EDT ? [facility] ? Test Date: ?2021-06-17 Pat Name: ? RAMIRO JAVIER ?Department: ?? CVU ? Room: ? CVU05 Gender: ? Male ? Cart Driver: ?? [id number] : ?1960 ? Requested By: TI AYALA Order Number: [id number] ? Larissa MD: ?? IVANA RICHARDSON MD ? Measurements Intervals ?[place] ? Rate: ? 80 ? P: ?43 KS: ? 202 ?QRS: ?4 QRSD: ? 98 ? T: ?40 QT: ? 369 ? QTc: ?426 ? Interpretive Statements SINUS RHYTHM MINIMAL VOLTAGE CRITERIA FOR LVH, CONSIDER NORMAL VARIANT NONSPECIFIC T-WAVE ABNORMALITY No previous ECG available for comparison I reviewed the tracing and have either agreed or edited the findings in this report. Electronically Signed On 4-28-2022 15:06:31 EDT by IVANA RICHARDSON MD. Procedure Note Ivana Richardson MD - 06/17/2021 [facility] Test Date: 2021-06-17 Pat Name: RAMIRO HERRERA Department: CVU Room: [facility] Gender: Male Cart Driver: [id number] : 1960 Requested By: IT AYALA Order Number: [id number] Reading MD: IVANA RICHARDSON MD Measurements Intervals [place] Rate: 80 P: 43 KS: 202 QRS: 4 QRSD: 98 T: 40 QT: 369 QTc: 426 Interpretive Statements SINUS RHYTHM MINIMAL VOLTAGE CRITERIA FOR LVH, CONSIDER NORMAL VARIANT NONSPECIFIC T-WAVE ABNORMALITY No previous ECG available for comparison I reviewed the tracing and have either agreed or edited the findings inthis report. Electronically Signed On 06-17-2021 15:06:31 EDT by IVANA NELSON. Lucy Luke MD CARDIAC ECG ORDERABL ES [facility] E[facility] documented in this encounter Visit Diagnoses Diagnosis Stage 3b chronic kidney disease (HCC-CMS)- Primary Chest pain Chest pain, unspecified Positive cardiac stress test Other nonspecific abnormal cardiovascular system function study Chest pain Chest pain, unspecified Positive cardiac stress test Other nonspecific abnormal cardiovascular system function study documented in this encounter Administered Medications Inactive Administered Medications - up to 3 most recent administrations Medication Order MAR Action Action Date Dose Rate Site fentaNYL citrate (PF) 50 mcg/mL injection 1 dose, Starting on [place] 06/17/21 at 1108, Until [place] 06/17/21 at 1741 heparin 1,000 unit/mL injection 1 dose, Starting on [place] 06/17/21 at 1108, Until [place] 06/17/21 at 1741 heparin 1,000 unit/mL injection 1 dose, Starting on [place] 06/17/21 at 1151, Until [place] 06/17/21 at 1741 lidocaine (PF) 10 mg/mL (1 %) injection 2 mg 2 mg, intradermal, PRN, 4 doses, Starting on [place] 06/17/21 at 0931, Until [place] 06/17/21 at 1109, peripheral intravenous catheter placement, Routine, Preprocedure Given 06/17/2021 10:15 EDT 2 mg midazolam (PF) (VERSED) 1 mg/mL injection 1 dose, Starting on [place] 06/17/21 at 1108, Until [place] 06/17/21 at 1741 nitroglycerin 100 mcg/mL syringe 1 dose, Starting on [place] 06/17/21 at 1108, Until [place] 06/17/21 at 1741 perflutren lipid microspheres (DEFINITY) 0.165 mg in sodium chloride (PF) 1 mL 0.165 mg, intravenous, Once (Without Time Specified), 1 dose, Starting on [place] 06/17/21 at 1415, Until [place] 06/17/21 at 1415, Routine Given 06/17/2021 14:15 EDT 2 mL IV sodium chloride 0.9 % (NS) infusion 30 mL/hr, intravenous, CONTINUOUS, Starting on [place] 06/17/21 at 1000, Until [place] 06/17/21 at 1741, Routine, Preprocedure New Bag 06/17/2021 10:15 EDT 30 mL/hr 30 mL/hr sodium chloride 0.9 % (NS) infusion at 75 mL/hr, intravenous, CONTINUOUS, Starting on [place] 06/17/21 at 1230, Until [place] 06/17/21 at 1622, Routine Rate Documented 06/17/2021 12:23 EDT 75 mL/hr verapamil (ISOPTIN) 2.5 mg/mL injection 1 dose, Starting on [place] 06/17/21 at 1108, Until [place] 06/17/21 at 1741 documented in this encounter Historical Medications * This list may reflect changes made after this encounter. Medication Sig Dispensed Refills Start Date End Date sertraline (ZOLOFT) 100 mg tablet Take 100 mg by mouth daily. verapamil (CALAN-SR) 240 mg CR tablet Take 240 mg by mouth daily. losartan (COZAAR) 50 mg tablet Take 50 mg by mouth daily. atorvastatin (LIPITOR) 80 mg tablet Take 80 mg by mouth daily. torsemide (DEMADEX) 10 mg tablet Take 10 mg by mouth daily. metFORMIN (GLUCOPHAGE) 1,000 mg tablet Take 1,000 mg by mouth 2 times daily. aspirin chewable 81 mg tablet Take 81 mg by mouth daily. added in this encounter Active and Recently Administered Medications Times are shown in EDT. Scheduled Medication Order 06/15/2021 06/16/2021 06/17/2021 perflutren lipid microspheres (DEFINITY) 0.165 mg in sodium chloride (PF) 1 mL (COMPLETED) 0.165 mg, intravenous, Once (Without Time Specified), 1 dose, Starting on [place] 06/17/21 at 1415, Until [place] 06/17/21 at 1415, Routine 1415 (Given - Provid er: Dalila Freeman) Continuous Medication Order 06/15/2021 06/16/2021 06/17/2021 sodium chloride 0.9 % (NS) infusion 30 mL/hr, intravenous, CONTINUOUS, Starting on [place] 06/17/21 at 1000, Until [place] 06/17/21 at 1741, Routine, Preprocedure 1015 (New Bag - Prov ider: Malini Estevez RN) sodium chloride 0.9 % (NS) infusion at 75 mL/hr, intravenous, CONTINUOUS, Starting on [place] 06/17/21 at 1230, Until [place] 06/17/21 at 1622, Routine 1223 (Rate Documente d - Provider: Talita Caballero, WILLA) PRN Medication Order 06/15/2021 06/16/2021 06/17/2021 fentaNYL citrate (PF) injection (CANCELED) PRN, Starting on [place] 06/17/21 at 1130, Until [place] 06/17/21 at 1212, Routine, Intraprocedure 1130 (Given - Provid er: Cinthya Mccullough RN) heparin 1,000 unit/mL injection (CANCELED) PRN, Starting on [place] 06/17/21 at 1155, Until [place] 06/17/21 at 1212, Routine, Intraprocedure 1155 (Given - Provid er: Brian Herrera RN) iopamidoL (ISOVUE-370) injection (CANCELED) PRN, Starting on [place] 06/17/21 at 1209, Until [place] 06/17/21 at 1212, Routine, Intraprocedure 1209 (Given - Provid er: Brandee Hopkins MD) lidocaine (PF) 10 mg/mL (1 %) injection 2 mg (CANCELED) 2 mg, intradermal, PRN, 4 doses, Starting on [place] 06/17/21 at 0931, Until [place] 06/17/21 at 1109, peripheral intravenous catheter placement, Routine, Preprocedure 1015 (Given - Provid er: Malini Estevez RN) midazolam (PF) (VERSED) injection (CANCELED) PRN, Starting on [place] 06/17/21 at 1130, Until [place] 06/17/21 at 1212, Routine, Intraprocedure 1130 (Given - Provid er: Cinthya Mccullough RN) No Frequency Medication Order 06/15/2021 06/16/2021 06/17/2021 fentaNYL citrate (PF) 50 mcg/mL injection 1 dose, Starting on [place] 06/17/21 at 1108, Until [place] 06/17/21 at 1741 heparin 1,000 unit/mL injection 1 dose, Starting on [place] 06/17/21 at 1108, Until [place] 06/17/21 at 1741 heparin 1,000 unit/mL injection 1 dose, Starting on [place] 06/17/21 at 1151, Until [place] 06/17/21 at 1741 midazolam (PF) (VERSED) 1 mg/mL injection 1 dose, Starting on [place] 06/17/21 at 1108, Until [place] 06/17/21 at 1741 nitroglycerin 100 mcg/mL syringe 1 dose, Starting on [place] 06/17/21 at 1108, Until [place] 06/17/21 at 1741 verapamil (ISOPTIN) 2.5 mg/mL injection 1 dose, Starting on [place] 06/17/21 at 1108, Until [place] 06/17/21 at 1741 documented in this encounter Orders Medications Ordered That [place] ht Not Have Been Administered Count Last Ordered Date First Ordered Date fentaNYL citrate (PF) 50 mcg/mL injection 1 06/17/2021 fentaNYL citrate (PF) injection 1 2 heparin 1,000 unit/mL injection 3 2 iopamidoL (ISOVUE-370) injection 1 06/18/19 midazolam (PF) (VERSED) 1 mg/mL injection 1 06/17/2021 midazolam (PF) (VERSED) injection 1 022 nitroglycerin 100 mcg/mL syringe 1 04/28/20 22 verapamil (ISOPTIN) 2.5 mg/mL injection 1 0 06/17/2021 Nursing Count Last Ordered Date First Orde red Date PATIENT AT LOW RISK FOR VTE: RISK OF MECHANICAL PROPHYLAXIS OUTWEIGHS 1 06/17/2021 PATIENT AT LOW RISK FOR VTE: RISK OF PHARMACOLOGIC PROPHYLAXIS OUTWEIG 1 06/17/2021 Discharge Count Last Ordered Date First Orde red Date DISCHARGE PATIENT 1 06/17/2021 documented in this encounter Care Teams Career Services Representative Relationship Specialty Start Date End Date Vinicius John MD [address] [place] [address] PCP - General 06/07/17 documented as of this encounter
--- OUTSIDE RECORDS SUMMARY | 2023-10-17 14:52 | XMS_ITS | Encounter Summary ---
Author Organization [facility] Address [address] [place] [address] Care Team Providers Care Clipper Counters Name Role Phone Vinicius John MD Primary Care Provider [phone] Encounter Details Date Type Department Care Team (Late st Contact Info) Description 06/09/2022 Lab Requisition [facility] Pathology & Laboratory Medicine - [facility] [address], [place] [address] Outr Resulting Lab, Provider Social History Tobacco [...] Associated Diagnosis Comments PSA TOTAL, DIAGNOSTIC Routine 06/09/2022 9:40 EDT documented in this encounter Results * PSA TOTAL, DIAGNOSTIC (06/09/2022 9:40 EDT) PSA 4.3 <=4.5 ng/mL 06/10/2022 9:33 EDT [facility] Blood VENOUS BLOOD / Unknown 06/09/2022 9:40 EDT 06/09/2022 21:49 EDT Narrative [facility] - 06/10/2022 9:33 EDT NOTE: Serum PSA concentration should not be interpreted as absolute evidence for the presence or absence of malignant disease. Assayed on Siemens ADVIA RESPACEaur XPT using chemiluminescent technology.??Values obtained by using different assay methods cannot be used interchangeably. Provider Outr Resulting Lab CHEMISTRY & BLOOD GAS ORDERABLES [facility] [address] [place] [address] documented in this encounter Visit Diagnoses Not on filedocumented in this encounter Care Teams Clipper Counters Relationship Specialty Start Date End Date Vinicius John MD [address] [place], [place] [id number] PCP - General 06/07/17 documented as of this encounter
--- OUTSIDE RECORDS SUMMARY | 2023-10-17 14:52 | XMS_ITS | Encounter Summary ---
Author Organization [facility] Address [address] [place] [address] Care Team Providers Care Telephone Collector Name Role Phone Vinicius John MD Primary Care Provider [phone] Encounter Details Date Type Department Care Team (Late st Contact Info) Description 06/05/2021 Lab Requisition [facility] Pathology & Laboratory Medicine - [facility] [address] [place] [address] Outr Resulting Lab, Provider Social History Tobacco [...] Procedure Name Priority Date/Time Associated Diagnosis Comments SPEP, INCLUDES QUANTITATION OF MONOCLONAL SPIKE PERFORMABLE Today 06/04/2021 13:30 EDT SPEP, INCLUDES QUANTITATION OF MONOCLONAL SPIKE Routine 06/04/2021 13:30 EDT PROTEIN, TOTAL Today 06/04/2021 13:30 EDT documented in this encounter Results * (ABNORMAL) SPEP, INCLUDES QUANTITATION OF MONOCLONAL SPIKE PERFORMABLE (06/04/2021 13:30 EDT) Albumin % 57.7 55.8 - 66.1 % 06/07/2021 13:24 [facility] Albumin g/dL 4.3 3.6 - 5.2 g/dL 06/07/2021 13:24 [facility] Alpha-1 % 3.9 2.9 - 4.9 % 06/07/2021 13:24 [facility] Alpha-1 g/dL 0.30 0.15 - 0.40 g/dL 06/07/2021 13:24 [facility] Alpha-2 % 11.3 7.1 - 11.8 % 06/07/2021 13:24 [facility] Alpha-2 g/dL 0.80 0.50 - 1.00 g/dL 06/07/2021 13:24 [facility] Beta % 13.7(H) 8.4 - 13.1 % 06/07/2021 13:24 [facility] Beta g/dL 1.00 0.60 - 1.20 g/dL 06/07/2021 13:24 [facility] Gamma % 13.4 11.1 - 18.8 % 06/07/2021 13:24 [facility] Gamma g/dL 1.00 0.60 - 1.60 g/dL 06/07/2021 13:24 [facility] SPEP Comment No apparent monoclonal protein seen on serum electrophoresis 06/07/2021 13:24 [facility] Comment:See scanned/suppleme ntary report. Total Protein 7.5 6.3 - 8.2 g/dL 06/07/2021 13:24 [facility] Blood VENOUS BLOOD / Unknown 06/04/2021 13:30 EDT 06/05/2021 22:06 EDT Provider Outr Resulting Lab CHEMISTRY & BLOOD GAS ORDERABLES [facility] [address] [place] [address] * PROTEIN, TOTAL (06/04/2021 13:30 EDT) Blood VENOUS BLOOD / Unknown 06/04/2021 13:30 EDT 06/05/2021 22:06 EDT Provider Outr Resulting Lab CHEMISTRY & BLOOD GAS ORDERABLES [facility] [address] [place] [address] documented in this encounter Visit Diagnoses Not on filedocumented in this encounter Care Teams Telephone Collector Relationship Specialty Start Date End Date Vinicius John MD [address] [place] [address] PCP - General 06/07/17 documented as of this encounter
--- OUTSIDE RECORDS SUMMARY | 2023-10-17 14:52 | XMS_ITS | Encounter Summary ---
[place] [address] Care Team Providers Care Footwear Sales Leader Name Role Phone Vinicius John MD Primary Care Provider [phone] Encounter Details Date Type Department Care Team (Late st Contact Info) Description 08/17/2017 Telephone [place] [address] Mary Hendrickson Social History Tobacco Use Types Packs/Day Years Used Date Smoking Tobacco: Never Smokeless Tobacco: Never Sex and Gender Information Value Date Recorded Sex Assigned at Not on file Gender Identity Not on file Sexual Orientation Not on file documented as of this encounter Miscellaneous Notes * Telephone Encounter - Mary Farmer - 08/17/2017 10:18 AM EDT Left message with patient to call back and make follow up appointment . documented in this encounter Plan of Treatment Upcoming Encounters Date Type Department Care Team (Late st Contact Info) Description 12/08/2023 9:40 AM EDT Office Visit [place] [phone] Orion Calzada MD [facility] [place] [address] Ingrid Feldman APRN [facility] [place] [address] documented as of this encounter Visit Diagnoses Not on filedocumented in this encounter Care Teams Footwear Sales Leader Relationship Specialty Start Date End Date Vinicius John MD [address] [place] [id number] PCP - General Internal Medicine 05/03/17 documented as of this encounter
--- OUTSIDE RECORDS SUMMARY | 2023-10-17 14:52 | XMS_ITS | Encounter Summary ---
Author Organization [facility] Address [address] [place] [address] Care Team Providers Care Certified Nutritionist Name Role Phone Vinicius John MD Primary Care Provider [phone] Reason for Visit * Auth/Cert Specialty Diagnoses / Procedures Referred By Renard cedeño Referred To Contact Diagnoses Chest pain Positive cardiac stress test Cupid, Manager Clinical Referral ID Status Reason Start Date Expiration Date Visits Re quested Visits Authorized [id number] 06/08/2021 1 1 Encounter Details Date Type Department Care Team (Late st Contact Info) Description 06/17/2021 9:30 EDT - 06/17/2021 10:30 EDT Surgery [facility] [address] [place] [address] Brandee Hopkins MD [address] [place] [address] [place], [place] [id number] LEFT HEART CATH Surgery Details Date/Time Status Location OR Service Patient Class Case Class Case Type Trauma Case? 06/17/21 0930 Posted [facility] [employer] [facility] Outpatient Procedure Panel 1 Procedure LRB Anes Op Region Wound Class Comments LEFT HEART CATH N/A None Chest DFR N/A None Chest Surgeon Surgeon Role Service Panel Brandee Hopkins MD Primary Cardiovascular 1 Lucy Luke MD Fellow Interventional Cardiology 1 Case Notes Echo __ DC around 1535 documented in this encounter Social History Tobacco Use Types Packs/Day Years [...] Sign Reading Time Taken Comments Blood Pressure 170/93 06/17/2021 0944 EDT Pulse - - Temperature 36.1 ??C (97 ??F) 06/17/2021 0936 EDT Respiratory Rate 18 06/17/2021 0936 EDT Oxygen Saturation 98% 06/17/2021935 EDT Inhaled Oxygen Concentration - - Weight 130.1 kg (286 lb 12.8 oz) 06/17/2021 09 EDT Height 175.3 cm (5' 9) 06/17/2021 09 EDT Body Mass Index 42.23 06/17/2021 1437 EDT documented in this encounter Discharge Instructions * Discharge Instructions* Talita Caballero, WILLA - 06/17/2021 12:29 EDT Diagnostic Cardiovascular Catheterization [...] Code Departure Means Destination Home or Self Half-Way documented in this encounter Progress Notes * Malini Estevez, WILLA - 06/17/2021 0952 EDT Ramiro Herrera arrived [...] admission vital signs assessment for temperature. * Sheri Ha RN - 06/10/2021 1036 EDT Covid [...] instructed to register on the 3rd floor [facility]. Transportation Issues: No Patient/family instructed that they will need a designated industrial truck driver if they are discharged on the dayof the procedure. Medications: Medication list: Patient/family instructed to bring medication list with them on the day of the procedure. Anticoagulants/Antiplatelets: Takes Aspirin 81 mg daily Anti-Anginal meds: NA SHERI HA RN * Sheri Ha RN - 06/09/2021 1522 EDT Images from the original note were not included. [facility] Cardiology Services [address] [place] [address] Evert Quiñonez, Here is important information regarding [...] go home you will need a designated industrial truck driver, or a responsible adult to accompany [...] or you may prefer to have your industrial truck driver drop you off at the front [...] waiting room. Please check in with the hydrogen braze furnace operator and they will notify of your arrival. [...] (CVU) prior to going to the cath laboratory technician. 7. When the procedure is over, the doctor will meet with your family member or friend to review theresults. We are here to help, so should you need assistance prior to your procedure, please feel free to call anyone listed below with questions. Cath Community Fundraiser - [phone] Advanced Testing Nurse- [phone] ~ Sheri Patients & Visitors Information https://[email or web address].org/[facility]/Pages/Udalngqt-rus-Swerkvxw.aspx Hotels & Lodging Information https://www.[facility].org/[facility]/Pages/Hldcmhzo-qzh-Jbhiidkq/Vis itors/Slbkdq-qkf-Kzbotdv.aspx Miner Information [email or web address].[employer]/ documented in this encounter H&P Notes * [...] his PCP. He is now referred for C. Denies h/o asthma, nasal congestion, fevers, and [...] HSM, no abdominal bruits Neuro: A&O x3, transmitter engineer in charge II-XII grossly intact, non-focal Ext: Warm, radial [...] voltage criteria for LVH ETT 06/03/2021 at [facility]: Assessment & Plan 61 y.o. male w/ plan to proceed w/ LHC to evaluate coronary anatomy +/- hemodynamics. No noted contraindications to LHC or DARIUSZ PCI. Pre-procedure assessment, ASA Class, and [facility]amp[facility]. ASA Class: II CCS Angina Grade: III Contrast Media Allergy: N PATIENT CONSENT TO CARDIOVASCULAR CATHETERIZATION OR INTERVENTION: I, LUCY LUKE, have explained the risks and benefits of cardiac catheterization and/or interventionto the patient (or responsible democrat) and have answered the patient's (or responsible democrat's) questions. To the best of my knowledge, the patient (or responsible democrat) has been adequately informed.The patient (or responsible democrat) has consented to the interventional cardiac procedure. As part of the consent we reviewed that, like surgical procedures, interventional procedures require aggressive short term support to determine the potential benefits of the procedures. For this reason, the patient (or responsible democrat) has agreed to remain FULL CODE for a minimum of 48 hours after the procedure. LUCY LUKE Trampoline Team Coach, PGY-4 documented in this encounter Procedure Notes [...] artery Procedure: He was brought to [facility] for the procedure: Diagnostic [...] in 4 hours. Brandee Hopkins MD PagerNumber: [phone] 06/17/2021 12:10 documented in this encounter Plan [...] EDT) 06/21/2021 13:0 2 EDT Scan 2 Link Cutter PROCEDURE/MINOR PAOLA GICAL ORDERABLES * ECG REPORT - SCANNED (06/21/2021 13:02 EDT) 06/21/2021 13:0 2 EDT Scan 2 Link Cutter PROCEDURE/MINOR PAOLA GICAL ORDERABLES * ECG REPORT - SCANNED (06/17/2021 15:12 EDT) 06/17/2021 15:1 2 EDT Scan 2 Link Cutter PROCEDURE/MINOR PAOLA GICAL ORDERABLES * TRANSTHORACIC ECHO [...] color Doppler.The study was interpreted by [facility]. Pertinent images and digital [...] (06/17/2021 12:11 EDT) Anatomical Region Laterality Modality [employer] Narrative 06/17/2021 12:12 EDT Refer to the primary case's report for the procedure summary. Vinicius John MD CARDIAC CATH ORDERAB LES * LEFT HEART CATH (06/17/2021 12:11 EDT) Anatomical Region Laterality Modality [employer] 06/17/2021 11:1 2 EDT Narrative 06/18/2021 8:56 EDT Cardiology [address] [place] [address] Catheterization Laboratory Study Patient: Ramiro Herrera J ? Study Date: ?06/17/2021 ?Accession #: ? [id number] : ? 1960 Referring: Vinicius John MD Diagnostic Attending: ??Brandee Hopkins Interventional Attending: ?? Brandee Hopkins Diagnostic Fellow: Lucy Luke MD ATTESTATION: Dr. Brandee Hopkins was present and supervising for the entire procedure. Nely Liao NP-C was the initial author of this report. I, Dr. Brandee Hopkins performed the entire procedure and have reviewed [...] 4. Right radial artery access. A 6FR/.021 Joffre Sheath Slender sheath ?? was advanced into [...] 70 - 100 mg/dL 06/17/2021 10:23 EDT [facility] HN LAB POC COMMENT (GLUCOSE) Test Performed by Nursing Services 06/17/2021 10:23 EDT [facility] Blood CAPILLARY BLOOD / Unknown 06/17/2021 10:22 EDT 06/17/2021 10:23 EDT Lucy Luke MD POINT OF CARE TEST O RDERABLES [facility] [address] [place] [address] * (ABNORMAL) HEMOGLOBIN A1C (06/17/2021 10:20 EDT) Hemoglobin A1c 6.7(H) <5.7 % 06/17/2021 14:20 EDT [facility] Comment: Glycemic Status References: Normal: ??<5.7% Pre-Diabetes: ??5.7% - 6.4% Diagnostic of Diabetes: ??> or = 6.5% (if confirmed) Est Avg Glucose 146 mg/dL 14:20 EDT [facility] Comment:The eAG represents t he A1c result expressed as average glucose in mg/dL. Blood VENOUS BLOOD / Unknown Venipuncture / Unknown 06/17/2021 10:20 EDT 06/17/2021 10:35 EDT Nely Conte NP CHEMISTRY & BLOOD G ORDERABLES [facility] [address] [place] [address] * (ABNORMAL) LIPID PROFILE (INCLUDES CHOLESTEROL, TRIGLYCERIDES, HDL, LDL) (06/17/2021 10:20 EDT) Cholesterol 145 <200 mg/dL 06/17/2021 12:25 T [facility] Comment:Note that therapeuti c goals will differ between patients based on cardiac risk factors and current medical therapy. HDL 39(L) >=40 mg/dL 06/17/2021 12:25 [facility] Comment:Note that therapeuti c goals will differ between patients based on cardiac risk factors and current medical therapy. LDL, Calculated 70 <160 mg/dL 12:25 [facility] Comment:Note that therapeuti c goals will differ between patients based on cardiac risk factors and current medical therapy. Triglyceride 178(H) <=150 mg/dL 06/17/2021 12:25 [facility] Comment:Note that therapeuti c goals will differ between patients based on cardiac risk factors and current medical therapy. Chol/HDL Ratio 3.7 See Note 06/17/2021 12:25 [facility] Comment:No reference range h as been established for CHOL/HDL ratio. Non HDL Cholesterol 106 <160 mg/dL 06/17/2021 12:25 [facility] Comment:Note that therapeuti c goals will differ between patients based on cardiac risk factors and current medical therapy. Blood VENOUS BLOOD / Unknown Venipuncture / Unknown 06/17/2021 10:20 EDT 06/17/2021 10:35 EDT Nely Conte NP CHEMISTRY & BLOOD G ORDERABLES Performing Organization Address [facility] Co de Phone Number [facility] [address] [place] [address] * PROTIME (06/17/2021 10:20 EDT) [facility] I.N.R. 1.0 0.9 - 1.1 Ratio 06/17/2021 10:51 EDT [facility] Pro Time 11.8 10.4 - 12.6 secs 06/17/2021 10:51 EDT [facility] Blood VENOUS BLOOD / Unknown Venipuncture / Unknown 06/17/2021 10:20 EDT 06/17/2021 10:35 EDT Narrative [facility] - 06/17/2021 10:51 EDT Moderate Intensity Coumadin INR = 2.0-3.0 Adjustments in anticoagulant therapy dose should be based on the INR and NOT on the Protime. Lucy Luke MD HEMATOLOGY & PF4 ORD ERABLES Performing Organization Address [facility] Co de Phone Number [facility] [address] [place] [address] * (ABNORMAL) COMPLETE BLOOD COUNT (06/17/2021 10:20 EDT) [facility] WBC 4.85 4.00 - 10.40 K/cmm 06/17/2021 10:42 [facility] RBC 3.97(L) 4.36 - 5.78 M/cmm 06/17/2021 10:42 [facility] Hemoglobin 11.2(L) 13.8 - 17.3 gm/dL 06/17/2021 10:42 [facility] HCT 33.7(L) 39.5 - 50.2 % 06/17/2021 10:42 [facility] MCV 85 81 - 95 fl 06/17/2021 10:42 [facility] MCH 28.2 27.6 - 33.0 pg 06/17/2021 10:42 T [facility] MCHC 33.2 32.8 - 36.4 gm/dL 06/17/2021 10:42 EDT [facility] RDW-CV 13.8 <14.2 % 06/17/2021 10:42 EDT [facility] RDW-SD 43.4 <46.0 fl 06/17/2021 10:42 EDT [facility] PLT 127(L) 141 - 377 K/cmm 06/17/2021 10:42 EDT [facility] MPV 10.8 9.5 - 12.7 fl 06/17/2021 10:42 EDT [facility] Blood VENOUS BLOOD / Unknown Venipuncture / Unknown 06/17/2021 10:20 EDT 06/17/2021 10:35 EDT Lucy Luke MD HEMATOLOGY & PF4 ORD ERABLES Performing Organization Address [facility] Co de Phone Number [facility] [address] [place] [address] * (ABNORMAL) ELECTROLYTES (06/17/2021 10:20 EDT) Sodium 144 136 - 145 mmol/L 06/17/2021 10:51 EDT [facility] Potassium 4.3 3.5 - 5.0 mmol/L 06/17/2021 10:51 EDT [facility] Chloride 113(H) 96 - 110 mmol/L 06/17/2021 10:51 EDT [facility] CO2 Total 22 22 - 32 mmol/L 06/17/2021 10:51 EDT [facility] Anion Gap 9 5 - 14 06/17/2021 10:51 EDT [facility] Blood VENOUS BLOOD / Unknown Venipuncture / Unknown 06/17/2021 10:20 EDT 06/17/2021 10:35 EDT Lucy Luke MD CHEMISTRY & BLOOD GA S ORDERABLES Performing Organization Address [facility] Co de Phone Number [facility] [address] [place] [address] * (ABNORMAL) CREATININE (06/17/2021 10:20 EDT) Creatinine 2.31(H) 0.66 - 1.25 mg/dL 06/17/2021 10:51 EDT [facility] eGFR 31(L) >60 mL/min/1.73 m2 06/17/2021 10:51 EDT [facility] Blood VENOUS BLOOD / Unknown Venipuncture / Unknown 06/17/2021 10:20 EDT 06/17/2021 10:35 EDT Lucy Luke MD CHEMISTRY & BLOOD GA S ORDERABLES Performing Organization Address City/[facility]/ZIP Co de Phone Number [facility] [address] [place] [address] * (ABNORMAL) BUN (06/17/2021 10:20 EDT) BUN 50(H) 10 - 26 mg/dL 06/17/2021 10:51 EDT [facility] Blood VENOUS BLOOD / Unknown Venipuncture / Unknown 06/17/2021 10:20 EDT 06/17/2021 10:35 EDT Lucy Luke MD CHEMISTRY & BLOOD GA S ORDERABLES Performing Organization Address City/[facility]/ZIP Co de Phone Number [facility] [address] [place] [address] * EKG 12-LEAD (06/17/2021 9:58 EDT) 06/17/2021 9:58 EDT Narrative [facility] EKG - 06/17/2021 15:06 EDT ? [facility] ? Test Date: ?2021-06-17 Pat Name: ? RAMIRO JAVIER ?Department: ?? CVU ? Room: ? CVU05 Gender: ? Male ? General Contractor: ?? [id number] : ?1960 ? Requested By: IWONABebeto AYALA Order Number: [id number] ? Reading MD: ?? IVANA ADES MD ? Measurements Intervals ?[place] ? Rate: ? 80 ? P: ?43 ME: ? 202 ?QRS: ?4 QRSD: ? 98 ? T: ?40 QT: ? 369 ? QTc: ?426 ? Interpretive Statements SINUS RHYTHM MINIMAL VOLTAGE CRITERIA FOR LVH, CONSIDER NORMAL VARIANT NONSPECIFIC T-WAVE ABNORMALITY No previous ECG available for comparison I reviewed the tracing and have either agreed or edited the findings in this report. Electronically Signed On 06-17-2021 15:06:31 EDT by IVANA RICHARDSON MD. Procedure Note Ivana Richardson MD - 06/17/2021 [facility] Test Date: 2021-06-17 Pat Name: RAMIRO HERRERA Department: [facility] Room: [facility] Gender: Male General Contractor: [id number] : 1960 Requested By: TI AYALA Order Number: [id number] Reading MD: IVANA RICHARDSON MD Measurements Intervals [place] Rate: 80 P: 43 ME: 202 QRS: 4 QRSD: 98 T: 40 QT: 369 QTc: 426 Interpretive Statements SINUS RHYTHM MINIMAL VOLTAGE CRITERIA FOR LVH, CONSIDER NORMAL VARIANT NONSPECIFIC T-WAVE ABNORMALITY No previous ECG available for comparison I reviewed the tracing and have either agreed or edited the findings inthis report. Electronically Signed On 06-17-2021 15:06:31 EDT by IVANA NELSON. Lucy Luke MD CARDIAC ECG ORDERABL ES [facility] EKG documented in this encounter Visit Diagnoses [...] at 1108, Until [place] 06/17/21 at 1741 fentaNYL citrate (PF) injection PRN, Starting on [place] 06/17/21 at 1130, Until [place] 06/17/21 at 1212, Routine, Intraprocedure Given 06/17/2021 11:30 EDT 100 mcg heparin 1,000 unit/mL injection 1 dose, Starting on [place] 06/17/21 at 1108, Until [place] 06/17/21 at 1741 heparin 1,000 unit/mL injection 1 dose, Starting on [place] 06/17/21 at 1151, Until [place] 06/17/21 at 1741 heparin 1,000 unit/mL injection PRN, Starting on [place] 06/17/21 at 1155, Until [place] 06/17/21 at 1212, Routine, Intraprocedure Given 06/17/2021 11:55 EDT 6,000 Units iopamidoL (ISOVUE-370) injection PRN, Starting on [place] 06/17/21 at 1209, Until [place] 06/17/21 at 1212, Routine, Intraprocedure Given 06/17/2021 12:09 EDT 55 mL lidocaine (PF) 10 mg/mL (1 %) injection 2 mg 2 mg, intradermal, PRN, 4 doses, Starting on [place] 06/17/21 at 0931, Until [place] 06/17/21 at 1109, peripheral intravenous catheter placement, Routine, Preprocedure Given 06/17/2021 10:15 EDT 2 mg midazolam (PF) (VERSED) 1 mg/mL injection 1 dose, Starting on [place] 06/17/21 at 1108, Until [place] 06/17/21 at 1741 midazolam (PF) (VERSED) injection PRN, Starting on [place] 06/17/21 at 1130, Until [place] 06/17/21 at 1212, Routine, Intraprocedure Given 06/17/2021 11:30 EDT 2 mg nitroglycerin 100 mcg/mL syringe 1 dose, Starting [...] (Rate Documente d - Provider: Talita Caballero, RN) PRN Medication Order 06/15/2021 06/16/2021 06/17/2021 fentaNYL [...] citrate (PF) 50 mcg/mL injection 1 06/17/2021 heparin 1,000 unit/mL injection 2 2 midazolam (PF) (VERSED) 1 mg/mL injection 1 06/17/2021 nitroglycerin 100 mcg/mL syringe 1 06/18/19 22 verapamil (ISOPTIN) 2.5 mg/mL injection 1 0 06/17/2021 Nursing Count Last Ordered Date First Orde red Date PATIENT AT LOW RISK FOR VTE: RISK OF MECHANICAL PROPHYLAXIS OUTWEIGHS 1 06/17/2021 PATIENT AT LOW RISK FOR VTE: RISK OF PHARMACOLOGIC PROPHYLAXIS OUTWEIG 1 06/17/2021 Discharge Count Last Ordered Date First Orde red Date DISCHARGE PATIENT 1 06/17/2021 documented in this encounter Care Teams Certified Nutritionist Relationship Specialty Start Date End Date Vinicius John MD [address] [place] [address] PCP - General 06/07/17 documented as of this encounter
--- OUTSIDE RECORDS SUMMARY | 2023-10-17 14:52 | XMS_ITS | Encounter Summary ---
Author Organization [facility] Address [address] [place] [address] Care Team Providers Care Stem Teacher Name Role Phone Unknown, Provider Primary Care Provider Encounter Details Date Type Department Care Team (Late st Contact Info) Description 06/05/2017 Results Only [facility] [phone] Zack Garibay MD [address] [place] [id number] Social History Tobacco Use Types Packs/Day Years [...] Date/Time Associated Diagnosis Comments SURGICAL PATHOLOGY Routine 06/05/2017 16 :39 EDT documented in this encounter Results * SURGICAL PATHOLOGY (06/05/2017 16:39 EDT) Pathology Report: SURGICAL PATHOLOGY REPORT Reports generated via electronic interface contain original data; however they are lacking the format of the original report. Caution should be taken when reading/interpret ing unformatted reports. Name: ? KHANG HERRERA ? Accession #: ? [id number] ? : ? 1960 (Age: 57) ??M ? Collect Date: ? 06/05/2017 ? Location: ? [facility] ? Receive Date: ? 06/05/2017 ? Provider: ZACK GARIBAY MD Copy to: KOJO LAM MD ? Final Pathologic Diagnosis: A. COLON, DESCENDING, POLYPS, BIOPSY: - Tubular adenomas. B. COLON, ASCENDING, POLYPS, BIOPSY: - Fragments of tubular adenoma(s). C. COLON, DESCENDING, POLYP, BIOPSY: - Tubular adenoma. D. COLON, SIGMOID, POLYP, BIOPSY: - Tubular adenoma. Document reviewed and electronically signed by: ALANA MONTEJO MD Report ??Date: 06/07/2017 10:34 By the signature above, the attending physician certifies that he/she has personally conducted a gross and/or microscopic examination of the described specimens and rendered or confirmed the above diagnosis. Specimen(s) Received: A. ??Descending colon polyps x2 B. ??Transverse colon polyps x2 C. ??Descending colon polyp D. ??Sigmoid polyp Clinical History: Hx of colon polyp Gross Description: A. ?Received in formalin labelled with proper patient identification (initials C, K) and descending colon polyp x2 are two gil-brown nodular tissues averaging 0.3 x 0.3 x 0.2 cm. Entirely submitted in A1. B. ?Received in formalin labelled with proper patient identification (initials C, K) and transverse colon polyp x2 are four gil irregular tissues ranging from 0.1 x 0.1 x 0.1 cm to 0.3 x 0.2 x 0.1 cm. Entirely submitted in B1 and B2. C. ?Received in formalin labelled with proper patient identification (initials C, K) and descending colon polyp is a gil nodular tissue, 0.2 x 0.2 x 0.2 cm. Entirely submitted in C1. D. ?Received in formalin labelled with proper patient identification (initials C, K) and sigmoid colon polyp are three gil irregular tissues ranging from 0.1 x 0.1 x 0.1 cm to 0.3 x 0.2 x 0.1 cm. Entirely submitted in D1. STEF Smith (ASCP) 06/05/2017 5:37 PM End of Report [facility] 06/05/2017 16:3 9 EDT 06/05/2017 16:39 EDT Zack Garibay MD PATHOLOGY ORDERA SHRUTHI [facility] Organization Address City/State/ZIP Co de Phone Number [facility] [address] [place] [address] documented in this encounter Visit Diagnoses Not on filedocumented in this encounter Care Teams Stem Teacher Relationship Specialty Start Date End Date Unknown, Provider, PCP - General 01/13/14 06/06/17 documented as of this encounter
--- OUTSIDE RECORDS SUMMARY | 2023-10-17 14:52 | XMS_ITS | Referral Summary ---
Author Organization [facility] Address [address] [place] [address] Care Team Providers Care Drawstring Knotter Name Role Phone Vinicius John MD Primary Care Provider [phone] Allergies No known active allergies Medications Medication Sig Dispensed Refills Start Date End Date Status aspirin chewable 81 mg tablet Take 81 mg by mouth daily. Active metFORMIN (GLUCOPHAGE) 1,000 mg tablet Take 1,000 mg by mouth 2 times daily. Active torsemide (DEMADEX) 10 mg tablet Take 10 mg by mouth daily. Active atorvastatin (LIPITOR) 80 mg tablet Take 80 mg by mouth daily. Active losartan (COZAAR) 50 mg tablet Take 50 mg by mouth daily. Active verapamil (CALAN-SR) 240 mg CR tablet Take 240 mg by mouth daily. Active sertraline (ZOLOFT) 100 mg tablet Take 100 mg by mouth daily. Active ranolazine (RANEXA) 500 mg SR tablet Take 1 Tablet by mouth 2 times daily. 180 Tablet 2 06/17/2021 Active Active Problems No known active problems Social History Tobacco Use Types Packs/Day Years Used Date Smoking Tobacco: Never Smokeless Tobacco: Never Interpersonal Safety Answer Date Record ed Physically Hurt Never 09/22/2019 Verbally Threaten Not on file 09/22/2019 Sex and Gender Information Value Date Recorded Sex Assigned at Not on file Gender Identity Male 06/10/2021 9:48 EDT Sexual Orientation Not on file Last Filed Vital Signs Vital Sign Reading [...] Body Mass Index 42.23 06/17/2021 1437 EDT Plan of Treatment Not on file Procedures Procedure Name Priority Date/Time Associated Diagnosis Comments HEPATITIS C AB W REFLEX TO HCV RNA BY PCR Routine 07/18/2019 9:11 EDT from Last 3 Months or Most Recently Relevant to Health Maintenance Results * HEPATITIS C AB W REFLEX TO HCV RNA BY PCR (07/18/2019 9:11 EDT) Hep C Antibody Negative Negative 07/22/2019 11:48 EDT [facility] Blood VENOUS BLOOD / Unknown 07/18/2019 9:11 EDT 07/19/2019 15:36 EDT Provider Outr Resulting Lab CHEMISTRY & BLOOD GAS ORDERABLES [facility] [address] [place] [address] from Last 3 Months or Most Recently Relevant to Health Maintenance Advance Directives For more information, please contact: [phone] * Full Code (Latest Code Status on File) Date Activated Date Inactivated Comments 06/17/2021 9:31 06/17/2021 17:41 Question Answer Comments When the patient has NO PULSE: Full Code / CPR Who Made the Decision? Patient Care Teams Drawstring Knotter Relationship Specialty Start Date End Date Vinicius John MD [address] [place] [address] PCP - General 06/07/17
--- OUTSIDE RECORDS SUMMARY | 2023-10-17 14:52 | XMS_ITS | Clinical Summary ---
Author Organization [facility] Address [address] [place] [address] Care Team Providers Care Senior Maintenance Mechanic Name Role Phone Vinicius John MD Primary Care Provider [phone] Allergies No known active allergies Medications Medication [...] Active Active Problems No known active problems Medical History Medical History Date Comments Diabetes mellitus ([facility]) Hypertension Social History Tobacco Use Types Packs/Day Years Used Date Smoking Tobacco: Never Smokeless Tobacco: Never Interpersonal Safety Answer Date Record ed Physically Hurt Never 09/22/2019 Verbally Threaten Not on file 09/22/2019 Sex and Gender Information Value Date Recorded Sex Assigned at Not on file Gender Identity Male 06/10/2021 9:48 EDT Sexual Orientation Not on file Obstetrics History Last Filed Vital Signs Vital Sign Reading [...] 42.23 06/17/2021 1437 EDT Plan of Treatment Health Maintenance Due Date Last Done Comments RSV Immunization ( o r 60+ Years) (1 - 1-dose 60+ series) 2018 COVID-19 Vaccine (2022-24 season) 2022 Fall Risk Screening 2023 Hepatitis C Screen Completed 07/18/2019 Procedures Procedure Name Priority Date/Time Associated Diagnosis Comments HEPATITIS C AB W REFLEX TO HCV RNA BY PCR Routine 07/18/2019 9:11 EDT from Last 3 Months or Most Recently Relevant to Health Maintenance Results * HEPATITIS C AB W REFLEX TO HCV RNA BY PCR (07/18/2019 9:11 EDT) Hep C Antibody Negative Negative 07/22/2019 11:48 EDT [facility] Blood VENOUS BLOOD / Unknown 07/18/2019 9:11 EDT 07/19/2019 15:36 EDT Provider Outr Resulting Lab CHEMISTRY & BLOOD GAS ORDERABLES [facility] [address] [place] [address] from Last 3 Months or Most Recently Relevant to Health Maintenance Advance Directives For more information, please contact: [phone] * Full Code (Latest Code Status on File) Date Activated Date Inactivated Comments 06/17/2021 9:31 06/17/2021 17:41 Question Answer Comments When the patient has NO PULSE: Full Code / CPR Who Made the Decision? Patient Care Teams Senior Maintenance Mechanic Relationship Specialty Start Date End Date Vinicius John MD [address] [place] [address] [facility] - General 06/07/17
--- OUTSIDE RECORDS SUMMARY | 2023-10-17 14:52 | XMS_ITS | Encounter Summary ---
Author Organization [facility] Address [address] [place] [address] Care Team Providers Care Deputy Sheriff Civil Division Name Role Phone Vinicius John MD Primary Care Provider [phone] Reason for Visit * Reason Onset Date Comments Paperwork request 06/21/2021 Encounter Details Date Type Department Care Team (Late st Contact Info) Description 06/21/2021 Telephone [facility] Cardiology - [address] [place] [address] Brandee Hopkins MD [address] [place], [place] [id number] Paperwork request Social History Tobacco Use Types Packs/Day Years [...] encounter Miscellaneous Notes * Telephone Encounter - Amy Sauer RN - 06/21/2021 1128 EDT Procedure note and lab req faxed * Telephone Encounter - Gloria Kimball - 06/21/2021 1034 EDT Patient called to ask if note from his procedure on 06/[address] Hopkins, as well as BMP lab order,could be faxed to Thea at Dr. Vinicius John's office at: [phone]. Dr. John will need these documents by 06/24. documented in this encounter Plan of Treatment Not on file documented as of this encounter Visit Diagnoses Not on filedocumented in this encounter Care Teams Deputy Sheriff Civil Division Relationship Specialty Start Date End Date Vinicius John MD [address] [place] [address] PCP - General 06/07/17 documented as of this encounter
--- OUTSIDE RECORDS SUMMARY | 2023-10-17 14:52 | XMS_ITS | Encounter Summary ---
[place] [address] Care Team Providers Care Helicopter Technician Name Role Phone Vinicius John MD Primary Care Provider [phone] Encounter Details Date Type Department Care Team (Late st Contact Info) Description 08/15/2017 Telephone [place] [address] Mary Hendrickson Social History Tobacco Use Types Packs/Day Years Used Date Smoking Tobacco: Never Smokeless Tobacco: Never Sex and Gender Information Value Date Recorded Sex Assigned at Not on file Gender Identity Not on file Sexual Orientation Not on file documented as of this encounter Miscellaneous Notes * Telephone Encounter - Mary Farmer - 08/15/2017 2:13 PM EDT Left message with patient to call back and make follow up appointment . documented in this encounter Plan of Treatment Upcoming Encounters Date Type Department Care Team (Late st Contact Info) Description 12/08/2023 9:40 AM EDT Office Visit [place] [phone] Orion Calzada MD [facility] [place] [address] Ingrid Feldman APRN [facility] [place] [address] documented as of this encounter Visit Diagnoses Not on filedocumented in this encounter Care Teams Helicopter Technician Relationship Specialty Start Date End Date Vinicius John MD [address] [place] [id number] PCP - General Internal Medicine 05/03/17 documented as of this encounter
--- OUTSIDE RECORDS SUMMARY | 2023-10-17 14:52 | XMS_ITS | Encounter Summary ---
[place] [address] Care Team Providers Care Rn Sexual Assault Name Role Phone Vinicius John MD Primary Care Provider [phone] Reason for Visit * Consultation (Routine) - Specialty Diagnoses / Procedures Referred By Renard cedeño Referred To Contact Nephrology Diagnoses Hypertension, obesity, diabetes worsening renal function Vinicius John MD [address] [place] [address] [facility] [address] [place] [phone] Referral ID Status Reason Start Date Expiration Date V isits Requested Visits Authorized [id number] Consult, Test & Treat Connection Center 05/09/2017 05/09/2018 1 1 Encounter Details Date Type Department Care Team (Latest Contact Info) Description 08/03/2017 8:00 AM EDT Office Visit Neph[place] [address] Jigar Nowak MD [facility] [place] [address] CKD (chronic kidney disease) stage 3, GFR 30-59 ml/min Social History Tobacco Use Types Packs/Day Years Used Date Smoking Tobacco: Never Smokeless Tobacco: Never Sex and Gender Information Value Date Recorded Sex Assigned at Not on file Gender Identity Not on file Sexual Orientation Not on file documented as of this encounter Last Filed Vital Signs Vital Sign Reading Time Taken Comments Blood Pressure 135/70 08/03/2017 8:45 AM EDT Pulse 84 08/02/2017 12:43 PM EDT Temperature - - Respiratory Rate - - Oxygen Saturation - - Inhaled Oxygen Concentration - - Weight 135.2 kg (298 lb) 08/02/2017 12:43 PM EDT Height 177.8 cm (5' 10) 08/02/2017 12:43 PM EDT Body Mass Index 42.76 08/02/2017 12:43 PM EDT documented in this encounter Progress Notes * Jigar Nowak MD - 08/03/2017 8:00 AM EDT 57 y/o man seen at the request of for renal insufficiency The patient has diabetes that was diagnosed and treated one year ago, has sleep apnea which was started on CPAP and HTN with the last medication change of changing HCTZ/triamterence to spironolactone, referred for elevated serum creatinine, the patient has not observed any urine changes, no hematuria, no dysuria, no nocturia Last HbA1c in 6% range His most recent eye exam was yesterday and reportedly normal Not checking home BP, usually in 130 range No previous renal imaging available Previous labs: 04/28/17 creat 1.81 K 4.9 09/09/16 creat 1.35 Past Medical Hx: Diabetes mellitus treated since one year HTN Depression Sleep apnea on CPAP GERD Fam Hx: No family history of renal disease 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 aspirin 81 mg Tablet, Delayed Release (E.C.), Take 81 mg by mouth daily., Disp: , Rfl: ??? losartan (COZAAR) 100 mg Tablet, Take 100 mg by mouth daily., Disp: , Rfl: ??? sertraline (ZOLOFT) 100 mg Tablet, Take 100 mg by mouth daily., Disp: , Rfl: ??? amLODIPine (NORVASC) 10 mg Tablet, Take 10 mg by mouth daily., Disp: , Rfl: ??? metFORMIN (GLUCOPHAGE) 1,000 mg Tablet, Take 1,000 mg by mouth 2 times daily (with meals)., Disp: , Rfl: ??? atorvastatin (LIPITOR) 20 mg Tablet, Take 20 mg by mouth daily., Disp: , Rfl: ??? ranitidine (ZANTAC) 75 mg Tablet, Take 75 mg by mouth daily as needed., Disp: , Rfl: ??? spironolactone (ALDACTONE) 50 mg Tablet, Take 50 mg by mouth daily., Disp: , Rfl: ??? glimepiride (AMARYL) 1 mg Tablet, Take 1 mg by mouth every morning (before breakfast)., Disp: ,Rfl: No Known Allergies Physical exam: Most Recent Vitals: 08/02/17 1243 BP: 142/72 Pulse: 84 PainSc: 0 - No pain Most Recent Vitals: 08/03/17 0845 BP: 135/70 Pulse: PainSc: overweight Normal color Lungs clears Heart regular rhythm, no rub, no murmur No costophrenic angle tenderness Abdomen soft, non tender, normal bowel sounds Limbs no edema No asterixes U/A: 1.015 pH 5 lase trace prot trace blood neg Urine sediment: few epithelial cells Labs: Results for KHANG HERRERA ( ) as of 08/07/2017 13:40 Ref. Range 08/03/2017 08:30 08/03/2017 09:12 WBC Latest Ref Range: 4.0 - 9.5 x10(3)/mcL 6.5 RBC Latest Ref Range: 4.58 - 5.54 x10(6)/mcL 4.17 (L) Hemoglobin Latest Ref Range: 13.7 - 16.5 gm/dL 11.9 (L) Hematocrit Latest Ref Range: 40.5 - 48.5 % 36.9 (L) MCV Latest Ref Range: 82.9 - 93.1 fL 88.5 MCH Latest Ref Range: 27.5 - 32.1 pg 28.5 MCHC Latest Ref Range: 32.0 - 35.7 gm/dL 32.2 RDWSD Latest Ref Range: 36.0 - 45.0 fL 44.2 RDWCV Latest Ref Range: 11.4 - 13.8 % 13.7 Platelets Latest Ref Range: 145 - 357 x10(3)/mcL 139 (L) MPV Latest Ref Range: 7.6 - 12.9 fL 10.2 nRBC % Auto Latest Units: % 0.0 nRBC Abs Auto Latest Ref Range: 0.000 - 0.000 x10(3)/mcL 0.000 Neutr Abs (ANC) Latest Ref Range: 1.70 - 6.10 x10(3)/mcL 4.57 Neutrophils % Latest Units: % 69.8 Immature Gran % Latest Units: % 0.50 Lymphocytes % Latest Units: % 17.3 Monocytes % Latest Units: % 8.9 Eosinophils % Latest Units: % 2.9 Basophils % Latest Units: % 0.6 Naomie Gran Abs Latest Ref Range: 0.00 - 0.04 x10(3)/mcL 0.03 Lymphocytes Abs Latest Ref Range: 0.9 - 3.2 x10(3)/mcL 1.1 Monocyte Abs Latest Ref Range: 0.3 - 0.9 x10(3)/mcL 0.6 Eosinophils Abs Latest Ref Range: 0.0 - 0.4 x10(3)/mcL 0.2 Basophils Abs Latest Ref Range: 0.0 - 0.1 x10(3)/mcL 0.0 Sodium Latest Ref Range: 135 - 145 mmol/L 137 Potassium Latest Ref Range: 3.5 - 5.0 mmol/L 5.4 (H) Chloride Latest Ref Range: 98 - 107 mmol/L 101 CO2 Latest Ref Range: 22 - 31 mmol/L 17 (L) Anion Gap Latest Ref Range: 5 - 15 mmol/L 19 (H) BUN Latest Ref Range: 10 - 20 mg/dL 35 (H) Creatinine Latest Ref Range: 0.80 - 1.50 mg/dL 1.84 (H) eGFR Latest Ref Range: >=60 mL/min/1.73 m?? 39 (L) eGFR Latest Ref Range: >=60 mL/min/1.73 m?? 45 (L) Glucose Lvl Latest Ref Range: 65 - 199 mg/dL 134 Calcium Latest Ref Range: 8.5 - 10.5 mg/dL 10.1 Phosphorus Latest Ref Range: 2.5 - 4.5 mg/dL 2.8 Uric Acid Latest Ref Range: 3.5 - 8.5 mg/dL 7.5 Albumin Latest Ref Range: 3.2 - 5.2 gm/dL 4.3 PTH Latest Ref Range: 15 - 65 pg/mL 40 Alb/Cr Ratio, Random Latest Ref Range: 0 - 29 mcg/mg Cr 249 (H) U Albumin Conc, Random Latest Units: mg/L 164.3 U Creatinine Latest Units: mg/dL 66 A/P: The patient is stage 3 CKD with a normal urine sediment and microalbuminuria in the context of type2 diabetes mellitus of unknown duration with no other complication, obesity, HTN and sleep apnea The patient has borderline elevated potassium and metabolic acidosis raising the possibility for obstructive uropathy albeit no clinical symptom, will obtain a renal ultrasound and check SPEP/UPEP atthe next visit Recommend replacement of bicarbonate The patient has mild anemia with no indication for erythropoiesis stimulating agents at this time, will check iron tests No secondary hyperparathyroidism RTC in 4 weeks with labs and renal ultrasound documented in this encounter Plan of Treatment Upcoming Encounters Date Type Department Care Team (Late st Contact Info) Description 12/08/2023 9:40 AM EDT Office Visit [place] [address] Orion Calzada MD [facility] [place] [address] Ingrid Feldman APRN [facility] [place] [address] documented as of this encounter Procedures Procedure Name Priority Date/Time Associated Diagnosis Comments PTH Routine 08/03/2017 9:12 AM EDT CKD (chronic kidney disease) stage 3, GFR 30-59 ml/min HEMOGRAM Routine 08/03/2017 9:12 AM EDT CKD (chronic kidney disease) stage 3, GFR 30-59 ml/min DIFFERENTIAL, AUTOMATED Routine 08/03/2017 9:12 AM EDT CKD (chronic kidney disease) stage 3, GFR 30-59 ml/min CBC (WITH DIFF) Routine 08/03/2017 9:12 AM EDT CKD (chronic kidney disease) stage 3, GFR 30-59 ml/min URIC ACID Routine 08/03/2017 9:12 AM EDT CKD (chronic kidney disease) stage 3, GFR 30-59 ml/min PHOSPHORUS Routine 08/03/2017 9:12 AM EDT CKD (chronic kidney disease) stage 3, GFR 30-59 ml/min ALBUMIN LEVEL Routine 08/03/2017 9:12 AM EDT CKD (chronic kidney disease) stage 3, GFR 30-59 ml/min BASIC METABOLIC PANEL Routine 08/03/2017 9:12 AM EDT CKD (chronic kidney disease) stage 3, GFR 30-59 ml/min U ALBUMIN/CRE RATIO Routine 08/03/2017 8 :30 AM EDT CKD (chronic kidney disease) stage 3, GFR 30-59 ml/min documented in this encounter Results * Differential, Automated (08/03/2017 9:12 AM EDT) Neutrophil % 69.8 % [facility] Neutrophil Absolute 4.57 1.70 - 6.10 x10(3)/[facility] Lymph % 17.3 % [facility] Lymphocytes Abs 1.1 0.9 - 3.2 x10(3)/[facility] Monocyte % 8.9 % [facility] Monocyte Abs 0.6 0.3 - 0.9 x10(3)/[facility] Eos % 2.9 % [facility] Eosinophils Abs 0.2 0.0 - 0.4 x10(3)/[facility] Basophil % 0.6 % [facility] Baso Absolute 0.0 0.0 - 0.1 x10(3)/[facility] Immature Gran % 0.50 % [facility] Comment: Immature granulocytes(IG's)percentage and absolute count will include metamyelocytes, myelocytes, and promyelocytes. Blood smears from CBCs yielding IG's will be scanned manually for concordance. If this scan disagrees with the automated IG or if promyelocytes are noted, a manual differential will be performed. Immature Gran Absolute 0.03 0.00 - 0.04 x10(3)/[facility] Blood specimen (specimen) 08/03/2017 9:12 AM EDT 08/03/2017 9:19 AM EDT Narrative Resulting Agency Comment Spec In Lab Jigar Nowak MD HEMATOLOGY ORDERABLE S [facility] [place] [address] * (ABNORMAL) Hemogram (08/03/2017 9:12 AM EDT) White Blood Cell 6.5 4.0 - 9.5 x10(3)/mc L [facility] Red Blood Cell 4.17(L) 4.58 - 5.54 x10(6)/mc L [facility] Hemoglobin 11.9(L) 13.7 - 16.5 gm/dL [facility] Hematocrit 36.9(L) 40.5 - 48.5 % [facility] Mean Cell Volume 88.5 82.9 - 93.[address] [facility] Mean Cell Hemoglobin 28.5 27.5 - 32.[address] [facility] Mean Cell Hemoglobin Concentration 32.2 32.0 - 35.7 gm/dL [facility] Platelet 139(L) 145 - 357 x10(3)/ L [facility] RDW Standard Deviation 44.2 36.0 - 45.[address] [facility] RDW coefficient of variation 13.7 11.4 - 13.8 % [facility] Mean Platelet Volume 10.2 7.6 - 12.[address] [facility] NRBC% auto 0.0 % [facility] NRBC Absolute 0.000 0.000 - 0.000 x10(3)/mc L [facility] Blood specimen (specimen) 08/03/2017 9:12 AM EDT 08/03/2017 9:19 AM EDT Narrative Resulting Agency Comment Spec In Lab Jigar Nowak MD HEMATOLOGY ORDERABLE S [facility] [place] [address] * Uric acid (08/03/2017 9:12 AM EDT) Uric Acid 7.5 3.5 - 8.5 mg/dL [facility] Blood specimen (specimen) 08/03/2017 9:12 AM EDT 08/03/2017 9:19 AM EDT Narrative Resulting Agency Comment Spec In Lab Jigar Nowak MD CHEMISTRY ORDERABLES Performing Organization Address City/[facility]/ZIP Co de Phone Number [facility] [place] [address] * Phosphorus (08/03/2017 9:12 AM EDT) Phosphorus 2.8 2.5 - 4.5 mg/dL [facility] Blood specimen (specimen) 08/03/2017 9:12 AM EDT 08/03/2017 9:19 AM EDT Narrative Resulting Agency Comment Spec In Lab Jigar Nowak MD CHEMISTRY ORDERABLES [facility] [place] [address] * Albumin Level (08/03/2017 9:12 AM EDT) Albumin 4.3 3.2 - 5.2 gm/dL [facility] Blood specimen (specimen) 08/03/2017 9:12 AM EDT 08/03/2017 9:19 AM EDT Narrative Resulting Agency Comment Spec In Lab Jigar Nowak MD CHEMISTRY ORDERABLES Performing Organization Address [facility] Co de Phone Number [facility] [place] [address] * PTH (08/03/2017 9:12 AM EDT) Parathyroid Hormone 40 15 - 65 pg/mL [facility] Blood specimen (specimen) 08/03/2017 9:12 AM EDT 08/03/2017 9:19 AM EDT Narrative Resulting Agency Comment Spec In Lab Jigar Nowak MD CHEMISTRY ORDERABLES Performing Organization Address [facility] Co de Phone Number [facility] [place] [address] * (ABNORMAL) Basic Metabolic Panel (non-fasting) (08/03/2017 9:12 AM EDT) Glucose 134 65 - 199 mg/dL [facility] Comment:Diabetes: >=200 mg/d L plus symptoms Blood Urea Nitrogen 35(H) 10 - 20 mg/dL [facility] Creatinine 1.84(H) 0.80 - 1.50 mg/dL [facility] Sodium 137 135 - 145 mmol/L [facility] Potassium 5.4(H) 3.5 - 5.0 mmol/L [facility] Comment: Please note: ??Patients with WBC >100,000 may have falsely elevated Potassium levels. ??For accurate Potassium quantification in these patients send serum separator tube (gold top) for subsequent determinations. ??Contact the Clinical Chemistry Laboratory if there are any questions. Chloride 101 98 - 107 mmol/L [facility] Carbon Dioxide 17(L) 22 - 31 mmol/L [facility] Anion Gap 19(H) 5 - 15 mmol/L [facility] Calcium 10.1 8.5 - 10.5 mg/dL [facility] Est Glomerular Filtration Rate 39(L) >=60 mL/min/1. 73 m?? [facility] Comment: The eGFR was calculated using the CKD-EPI equation. As with all creatinine based estimates of kidney function, eGFR values calculated with the CKD-EPI equation are not accurate in patients with acute kidney failure, extremes of body mass or the acutely ill. http://Dextr/24PageBookskdep http://Dextr/InterviewBestnkf eGFR 45(L) >=60 mL/min/1. 73 m?? [facility] Comment: The eGFR was calculated using the CKD-EPI equation. As with all creatinine based estimates of kidney function, eGFR values calculated with the CKD-EPI equation are not accurate in patients with acute kidney failure, extremes of body mass or the acutely ill. [email or web address]/InterviewBestnkdep [email or web address] OKLAHOMA CITYnkf Blood specimen (specimen) 08/03/2017 9:12 AM EDT 08/03/2017 9:19 AM EDT Narrative Resulting Agency Comment Spec In Lab Jigar Nowak MD CHEMISTRY ORDERABLES Performing Organization Address City/State/[facility] Co de Phone Number [facility] [place] [address] * (ABNORMAL) U Albumin/Cre Ratio (08/03/2017 8:30 AM EDT) Albumin / Creatinin Ratio, Urine 249(H) 0 - 29 mcg/mg Cr [facility] Comment: Reference Ranges: <30 mcg/mg: Normal 30-300 mcg/mg: Moderately increased albuminuria.* >300 mcg/mg: Severely increased albuminuria. * ACEI or ARB recommended if diabetic; suggested if BP>130/80 without diabetes ACEI or ARB strongly recommended if diabetic; recommended if BP>130/80 without diabetes Two of three specimens collected within a 3 to 6 month period should be abnormal before considering a patient to have albuminuria. Transient causes: exercise, fever, infection, CHF, marked hyperglycemia or hypertension. Persistent albuminuria indicates CKD and is an independent risk factor for ASCVD. ADA Standards of Medical Care in Diabetes-2016; KDIGO: Kidney International Supplements (2012) 2, 357? 362 Albumin, Urine 164.3 mg/L [facility] Creatinine, Urine 66 mg/dL [facility] Urine specimen (specimen) 08/03/2017 8:30 AM EDT 08/03/2017 12:10 PM EDT Narrative Resulting Agency Comment Spec In Lab Jigar Nowak MD URINE ORDERABLES [facility] [place] [address] documented in this encounter Visit Diagnoses Diagnosis CKD (chronic kidney disease) stage 3, GFR 30-59 ml/min Chronic kidney disease, Stage III (moderate) documented in this encounter Care Teams Rn Sexual Assault Relationship Specialty Start Date End Date Vinicius John MD [address] [place] [address] PCP - General Internal Medicine 05/03/17 documented as of this encounter
--- OUTSIDE RECORDS SUMMARY | 2023-10-17 14:52 | XMS_ITS | Encounter Summary ---
[place] [address] Care Team Providers Care Chief Controller Center Name Role Phone Vinicius John MD Primary Care Provider [phone] Reason for Referral * Diagnostic Test (Routine) - Closed Specialty Diagnoses / Procedures Referred By Renard cedeño Referred To Contact Diagnoses Varicose veins of bilateral lower extremities with other complications Procedures Venous Valvular Incomp, Bilat Legs Jonel Jett MD [address] [place] [address] [place] [address] [facility] [address] [address] Referral ID Status Reason Start Date Expiration Date V isits Requested Visits Authorized [id number] Closed Specialty Service Requested 04/03/2023 04/02/2024 1 1 Encounter Details Date Type Department Care Team (Latest Contact Info) Description 04/03/2023 Transcribe Orders eD Incoming Referrals [phone] Jonel Jett MD [address] [place] [address] [place] [address] Varicose veins of bilateral lower extremities with other complications (Primary Dx) Social History Tobacco Use Types Packs/Day Years [...] AM EDT Office Visit Nephrology [place] [address] Orion Calzada MD [facility] [place] [address] Ingrid Feldman APRN [facility] [place] [address] documented as of this encounter Results * Venous Valvular Incomp, Bilat Legs (04/07/2023 9:37 AM EST) VB Text Report Department: Vascular Surgery Lab Patient: [id number] (KHANG HERRERA) CPT: 56600 Referring Physician: JONEL JETT ?? Phone: Indications: [...] veins of bilateral lower extremities with other complications- Primary documented in this encounter Care Teams Chief Controller Center Relationship Specialty Start Date End Date Vinicius John MD [address] [place] [id number] PCP - General Internal Medicine 05/03/17 documented as of this encounter
--- OUTSIDE RECORDS SUMMARY | 2023-10-17 14:52 | XMS_ITS | Clinical Summary ---
Author Organization [facility] Address [facility] [place] [address] Care Team Providers Care State Epidemiologist Name Role Phone Vinicius John MD Primary Care Provider [phone] Allergies No known active allergies Medications Medication Sig Dispensed Refills Start Date End Date Status aspirin 81 mg Tablet, Delayed Release (E.C.) Take 81 mg by mouth daily. Active losartan (COZAAR) 100 mg Tablet Take 100 mg by mouth daily. Active sertraline (ZOLOFT) 100 mg Tablet Take 100 mg by mouth daily. Active amLODIPine (NORVASC) 10 mg Tablet Take 10 mg by mouth daily. Active metFORMIN (GLUCOPHAGE) 1,000 mg Tablet Take 1,000 mg by mouth 2 times daily (with meals). Active atorvastatin (LIPITOR) 20 mg Tablet Take 20 mg by mouth daily. Active ranitidine (ZANTAC) 75 mg Tablet Take 75 mg by mouth daily as needed. Active spironolactone (ALDACTONE) 50 mg Tablet Take 50 mg by mouth daily. Active glimepiride (AMARYL) 1 mg Tablet Take 1 mg by mouth every morning (before breakfast). Active Social History Tobacco Use Types Packs/Day Years Used Date Smoking Tobacco: Never Smokeless Tobacco: Never Sex and Gender Information Value Date Recorded Sex Assigned at Not on file Gender Identity Not on file Sexual Orientation Not on file Last Filed Vital Signs Vital Sign Reading Time Taken Comments Blood Pressure 135/70 08/03/2017 8:45 AM EDT Pulse 84 08/02/2017 12:43 PM EDT Temperature - - Respiratory Rate - - Oxygen Saturation - - Inhaled Oxygen Concentration - - Weight 135.2 kg (298 lb) 08/02/2017 12:43 PM EDT Height 177.8 cm (5' 10) 10/10/2017 9:14 AM EDT Body Mass Index 42.76 08/02/2017 12:43 PM EDT Plan of Treatment Upcoming Encounters Date Type Department Care Team (Late st Contact Info) Description 12/08/2023 9:40 AM EDT Office Visit Nephrology [place] [address] Orion Calzada MD [facility] [place] [address] Ingrid Feldman APRN [facility] [place] [address] Health Maintenance Due Date Last Done Comments CT Colonography 1958 Colonoscopy 1958 Colorectal Cancer Screening 1958 FIT DNA 1958 FIT 1958 Sigmoidoscopy (10 year) with FIT yearly 1958 Sigmoidoscopy 1958 HIV screen 1976 Hepatitis C Screening 1976 Tdap adult 1977 Tetanus vaccine 1977 Zoster vaccine (1 of 2) 2008 Advance Directive 2013 Covid-19 Vaccine ( - season) 2022 Pneumoccocal Vaccine: 65+ (1 of 1 - PCV) 2023 Influenza (Flu) vaccine (1 o f 1 - Influenza standard series) 10/22/2023 Diabetes Screening (HgbA1C or Glucose) Discontinued Procedures Procedure Name Priority Date/Time Associated Diagnosis Comments BASIC METABOLIC PANEL Routine 08/03/2017 9:12 AM EDT CKD (chronic kidney disease) stage 3, GFR 30-59 ml/min from Last 3 Months or Most Recently Relevant to Health Maintenance Results * (ABNORMAL) Basic Metabolic Panel (non-fasting) (08/03/2017 9:12 AM EDT) Glucose 134 65 - 199 mg/dL [facility] Comment:Diabetes: >=200 mg/d L plus symptoms Blood Urea Nitrogen 35(H) 10 - 20 mg/dL [facility] Creatinine 1.84(H) 0.80 - 1.50 mg/dL [facility] Sodium 137 135 - 145 mmol/L [facility] Potassium 5.4(H) 3.5 - 5.0 mmol/L [facility] Comment: Please note: ??Patients with WBC >100,000 may have falsely elevated Potassium levels. ??For accurate Potassium quantification in these patients send serum separator tube (gold top) for subsequent determinations. ??Contact the Clinical Chemistry Laboratory if there are any questions. Chloride 101 98 - 107 mmol/L [facility] Carbon Dioxide 17(L) 22 - 31 mmol/L [facility] Anion Gap 19(H) 5 - 15 mmol/L [facility] Calcium 10.1 8.5 - 10.5 mg/dL [facility] Est Glomerular Filtration Rate 39(L) >=60 mL/min/1. 73 m?? [facility] Comment: The eGFR was calculated using the CKD-EPI equation. As with all creatinine based estimates of kidney function, eGFR values calculated with the CKD-EPI equation are not accurate in patients with acute kidney failure, extremes of body mass or the acutely ill. http://Velasca/DHnkdep http://Velasca/DHMCnkf eGFR 45(L) >=60 mL/min/1. 73 m?? [facility] Comment: The eGFR was calculated using the CKD-EPI equation. As with all creatinine based estimates of kidney function, eGFR values calculated with the CKD-EPI equation are not accurate in patients with acute kidney failure, extremes of body mass or the acutely ill. http://Velasca/DHnkdep http://Velasca/DHMCnkf Blood specimen (specimen) 08/03/2017 9:12 AM EDT 08/03/2017 9:19 AM EDT Narrative Resulting Agency Comment Spec In Lab Jigar Nowak MD CHEMISTRY ORDERABLES [facility] [place] [address] from Last 3 Months or Most Recently Relevant to Health Maintenance Care Teams State Epidemiologist Relationship Specialty Start Date End Date Vinicius John MD [address] [place] [address] PCP - General Internal Medicine 05/03/17
--- OUTSIDE RECORDS SUMMARY | 2023-10-17 14:52 | XMS_ITS | Encounter Summary ---
Author Organization [facility] Address [address] [place] [address] Care Team Providers Care Construction Safety Manager Name Role Phone Vinicius John MD Primary Care Provider [phone] Encounter Details Date Type Department Care Team (Late st Contact Info) Description 12/17/2020 Lab Requisition [facility] Pathology & Laboratory Medicine - [facility] [address], [place] [id number] Outr Resulting Lab, Provider Social History Tobacco [...] Procedure Name Priority Date/Time Associated Diagnosis Comments HIV 1/2 ANTIGEN AND ANTIBODY, 4TH GENERATION Routine 12/17/2020 8:35 EDT documented in this encounter Results * HIV 1/2 ANTIGEN AND ANTIBODY, 4TH GENERATION (12/17/2020 8:35 EDT) HIV 1 and 2 Antibody/p24 Antigen, 4th Generation Negative Negative 12/18/2020 9:59 EDT [facility] Comment: If acute HIV-1 infection is suspected in a high risk ??patient, submit plasma specimen for HIV-1 RNA quantitation test. Fourth Generation assay performed on the Siemens Centaur. Blood VENOUS BLOOD / Unknown 12/17/2020 8:35 EDT 12/17/2020 21:07 EDT Provider Outr Resulting Lab IMMUNOLOGY A ND SEROLOGY ORDERABLES [facility] [address] [place] [address] documented in this encounter Visit Diagnoses Not on filedocumented in this encounter Care Teams Construction Safety Manager Relationship Specialty Start Date End Date Vinicius John MD [address] [place], [place] [phone] PCP - General 06/07/17 documented as of this encounter
--- OUTSIDE RECORDS SUMMARY | 2023-10-17 14:52 | XMS_ITS | Encounter Summary ---
Author Organization [facility] Address [address] [place] [address] Care Team Providers Care Preschool Adviser Name Role Phone Vinicius John MD Primary Care Provider [phone] Reason for Visit * Reason Onset Date Comments COVID-19 06/09/2021 Encounter Details Date Type Department Care Team (Late st Contact Info) Description 06/09/2021 Telephone [facility] [employer] [address] [place] [address] Brandee Hopkins MD [address] [place] [id number] COVID-19 Social History Tobacco Use Types Packs/Day [...] encounter Miscellaneous Notes * Telephone Encounter - Lizzie Chappell - 06/09/2021 1623 EDT Called patient to schedule covid test, Faxed order to [facility] for test on 06.14, Patient is aware they will call to schedule documented in this encounter Plan of Treatment Not on file documented as of this encounter Visit Diagnoses Not on filedocumented in this encounter Care Teams Preschool Adviser Relationship Specialty Start Date End Date Vinicius John MD [address] [place] [address] PCP - General 06/07/17 documented as of this encounter
--- OUTSIDE RECORDS SUMMARY | 2023-10-17 14:52 | XMS_ITS | Encounter Summary ---
Author Organization [facility] Address [address] [place] [address] Care Team Providers Care Data Examination Clerk Name Role Phone Vinicius John MD Primary Care Provider [phone] Encounter Details Date Type Department Care Team (Late st Contact Info) Description 09/06/2021 Lab Requisition [facility] Pathology & Laboratory Medicine - [facility] [address] [place] [address] Thanh Velazco MD [address] [place] [phone] Encounter for other general examination Social History Tobacco Use Types Packs/Day Years [...] Priority Date/Time Associated Diagnosis Comments SURGICAL PATHOLOGY Today 09/06/2021 10 :20 EDT Encounter for other general examination documented in this encounter Results * SURGICAL PATHOLOGY (09/06/2021 10:20 EDT) Note to Patient The following pathology results have been interpreted by your pathologist and may be available to you before your health provider has had the opportunity to review them. Please allow time for your provider to receive these results and explore management options, if applicable. 09/09/2021 8:36 [facility] Final Diagnosis A. COLON, ASCENDING, POLYP, BIOPSY: - Tubular adenoma. B. COLON, TRANSVERSE, POLYP, BIOPSY: - Tubular adenoma. C. COLON, DESCENDING, POLYP, BIOPSY: - Tubular adenoma. 09/09/2021 8:36 [facility] Attestation There was significant resident/fellow involvement in the diagnostic evaluation of this case. By the signature below, the attending physician certifies that they have personally conducted a gross and/or microscopic examination of the described specimens and rendered or confirmed the above diagnosis. 09/09/2021 8:36 [facility] at 0836 Clinical History Hx polyps 09/09/2021 8:36 [facility] Gross Description A. Received in formalin labelled with proper patient identification (initials C, K) and 1. Ascending polyp is a single gil-pink polypoid tissue (0.4 x 0.3 x 0.2 cm). Received in the same specimen container is a gil tissue (0.5 x 0.2 x 0.1 cm). The polypoid tissue is bisected and entirely submitted in A1 and the remaining tissue is submitted intact in A2. B. Received in formalin labelled with proper patient identification (initials C, K) and 2. Transverse colon polyp is a single gil-pink polypoid tissue (0.5 x 0.5 x 0.3 cm). Received in the same specimen container is a gil tissue (0.5 x 0.2 x 0.1 cm). The polypoid tissue is bisected and entirely submitted in B1 and the remaining tissue is submitted intact in B2. C. Received in formalin labelled with proper patient identification (initials (C, K) and 3. Descending colon polyp is a single gil-yellow polypoid tissue (0.4 x 0.3 x 0.2 cm). The specimen is bisected and entirely submitted in C1. ALANA DUNN 09/07/2021 9:20 09/09/2021 8:36 EDT [facility] Resident/Santos w: Oleg Bradley MD 09/09/2021 8:36 EDT [facility] Performing Lab [facility] 09/09/2021 8:36 EDT [facility] Scanned Images 09/09/2021 8:36 EDT [facility] Tissue DESCENDING COLON STRUCTURE / Unknown 09/06/2021 10:20 EDT 09/06/2021 18:03 EDT Tissue specimen (specimen) TRANSVERSE COLON STRUCTURE / Unknown 09/06/2021 10:20 EDT 09/06/2021 18:03 EDT Tissue specimen (specimen) DESCENDING COLON STRUCTURE / Unknown 09/06/2021 10:20 EDT 09/06/2021 18:03 EDT Thanh Velazco MD PATHOLOGY [facility] Organization Address City/State/ZIP Co de Phone Number [facility] [address] [place] [address] documented in this encounter Visit Diagnoses Diagnosis Encounter for other general examination documented in this encounter Care Teams Data Examination Clerk Relationship Specialty Start Date End Date Vinicius John MD [address] [place], [place] [phone] PCP - General 06/07/17 documented as of this encounter
--- OUTSIDE RECORDS SUMMARY | 2023-10-17 14:52 | XMS_ITS | Encounter Summary ---
Author Organization [facility] Address [address] [place] [address] Care Team Providers Care Velocity Shooter Name Role Phone Unknown, Provider Primary Care Provider Encounter Details Date Type Department Care Team (Latest Contact Info) Description 06/05/2017 10:18 EDT - 06/05/2017 23:59 EDT Hospital Encounter [address] [address] Unknown, Provider, Discharge Disposition: Home or Self Care Social History Tobacco Use Types Packs/Day Years Used Date Smoking Tobacco: Never Assessed Sex and Gender Information Value Date Recorded Sex Assigned at Not on file Gender Identity Male 06/10/2021 9:48 EDT Sexual Orientation Not on file documented as of this encounter Discharge Disposition Disposition Code Departure Means Destination Home or Self [facility] documented in this encounter Plan of Treatment Not on file documented as of this encounter Visit Diagnoses Not on filedocumented in this encounter Care Teams Velocity Shooter Relationship Specialty Start Date End Date Unknown, Provider, PCP - General 01/13/14 06/06/17 documented as of this encounter
[2023-10-17 14:55] LABS: Abs Immature Grans 0.01 10^3/uL (0.0-0.06); Absolute Basophil Count 0.03 10^3/uL (0.0-0.2); Absolute Eosinophil Count 0.22 10^3/uL (0.0-0.7); Absolute Lymphocyte Count 0.86 10^3/uL (1.2-3.4); Absolute Monocyte Count 0.46 10^3/uL (0.1-0.8); Absolute Neutrophil Count 4.35 10^3/uL (1.2-6.7); Basophils % 0.5 %; Eosinophils % 3.7 %; HCT 32.7 % (40.0-50.0); HGB 10.7 g/dL (13.5-17.5); Immature Grans % 0.2 %; Lymphocytes % 14.5 %; MCH 29.6 pg (27.0-33.0); MCHC 32.7 % (32.0-36.0); MCV 90 fL (80-95); MPV 11.2 fL (8.0-11.0); Monocytes % 7.8 %; Neutrophils % 73.3 %; Platelet Count 106 10^3/uL (130-400); RBC 3.62 10^6/uL (4.36-5.78); RDW 13.8 % (11.8-14.1); RDW-SD 45.3 fL; WBC 5.93 10^3/uL (4.4-10.8)
[2023-10-17 15:12] LABS: ALT 36 U/L (16-63); AST 27 U/L (15-37); Albumin 3.8 g/dL (3.4-5.0); Alkaline Phosphatase 122 U/L (46-116); Anion Gap 12.1 mmol/L (3-11); BUN 47 mg/dL (7-18); Bilirubin, Total 0.66 mg/dL (0.2-1.0); CO2 21.9 mmol/L (21.0-32.0); CREATININE 3.3 mg/dL (0.70-1.30); Calcium 9.1 mg/dL (8.5-10.1); Chloride 109 mmol/L (98-107); Estimated GFR 19.93 (mL/min/1.73m2); Glucose 95 mg/dL (74-106); Potassium 4.8 mmol/L (3.5-5.1); Sodium 143 mmol/L (136-145); Total Protein 7.2 g/dL (6.4-8.2)
[2023-10-17 23:31] LABS: PSA, Screening 7.4 ng/mL (<=4.5)
== END 2023-10-17 14:49 | disposition home or self-care (01) ==
LOC: NCHCN 14:48
PROVIDERS: PCP Family Medicine; Visit Provider Family Medicine
DX: N18.4 Chronic kidney disease, stage 4 (severe) (principal); N40.0 Benign prostatic hyperplasia without lower urinary tract symptoms
CPT/HCPCS: 80053; 84153; 85025

== ENCOUNTER 2023-11-07 02:02 | Outpatient (CLI) | payer MEDICARE, SELFPAY ==
[2023-11-07 10:30] LABS: Anion Gap 11.2 mmol/L (3-11); BUN 63 mg/dL (7-18); CO2 23.8 mmol/L (21.0-32.0); Calcium 9.1 mg/dL (8.5-10.1); Chloride 106 mmol/L (98-107); Estimated GFR 17.96 (mL/min/1.73m2); Glucose 147 mg/dL (74-106); Potassium 4.8 mmol/L (3.5-5.1); Sodium 141 mmol/L (136-145)
[2023-11-07 11:04] LABS: CREATININE 3.6 mg/dL (0.70-1.30)
== END 2023-11-07 02:03 | disposition home or self-care (01) ==
LOC: LBO 02:02
PROVIDERS: PCP Family Medicine; Visit Provider Internal Medicine Cardiovascular Disease
DX: N18.4 Chronic kidney disease, stage 4 (severe) (principal); I25.10 Atherosclerotic heart disease of native coronary artery without angina pectoris
CPT/HCPCS: 36415; 80048

== ENCOUNTER → 2023-11-14 08:59 | Outpatient (BNVA) | payer MEDICARE, SELFPAY | PROVIDERS: PCP Family Medicine; Visit Provider Internal Medicine Cardiovascular Disease | DX: I20.89 Other forms of angina pectoris (principal); I35.0 Nonrheumatic aortic (valve) stenosis; N18.4 Chronic kidney disease, stage 4 (severe) | CPT/HCPCS: 99213 ==

== ENCOUNTER 2023-11-16 02:02 | Outpatient (CLI) | payer MEDICARE, SELFPAY ==
--- NOTE | 2023-11-16 06:30 | DI.NM_ITS ---
APPROVED REPORT Exam: Pharmacologic Patient Location: Out-Patient Room/Bed: Stress Nurse: Mali Gonzales RN; Talita Orellana RN Ordering Provider:GARY MCCONNELL, Contact Number: BMI: 40.75 Baseline Rhythm: Sinus Bradycardia Comment: 1st degree block, nonspecific ST-T changes inferior leads Indications: exertional CP Medical History Medical History: CKD, CAD, PALLAVI, stable angina, MARI, murmur, HTN, GERD, depression, diabetes, + cardia c stress test, idiopathic thrombocytopenia Cardiac Medications: allopurinol, aspirin, atorvastatin, isosorbide mono-nitrate, metoprolol succinat e, sertraline, tamsulosin, torsemide, verapamil, losartan Allergies: lisinopril Cardiac Risk Factors: diabetes, HTN, HLD, CVD, obesity Previous Cardiac Procedures: none Pretest Chest Pain Characteristics: none Exercise History: Indeterminate Physical Disabilities: none Lung Sounds: Clear to auscultation Heart Sounds: Murmur Stress Test Details Test: Pharmacologic stress testing performed using 0.4 mg of regadenoson per 5 mL given IV over 10 s econds. Reason for pharmacologic stress test: beta ronak. Nuclear Acquisition: Rest Tc-99m/Stress Tc-99m 1 day Rest Isotope: Tc-99m Sestamibi. Dose: 12.0 Date: 11/16/2023 Injection Time: 0840 Stress Isotope: Tc-99m Sestamibi. Dose: 36.0 Date: 11/16/2023 Injection Time: 1026 HR Resting HR Supine: 55 bpm Max Heart Rate (APMHR): 155.162797 bpm Resting HR Standin bpm Target HR (85% APMHR): 131.326170 bpm Max HR Achieved: 87 bpm % of APMHR: 56.13 Recovery HR: 66 bpm BP Resting BP Supine: 164/88 mmHg Resting BP Standin/70 mmHg Max BP: 164/88 mmHg Recovery BP: 150/78 mmHg ECG Resting ECG: Sinus Bradycardia, 1st degree AV block Ectopy: none Comment: nonspecific ST-T changes inferior leads Stress ECG: Sinus Rhythm, 1st degree AV block ST Change: Nondiagnostic low heart rate, Nondiagnostic resting ST abnormalities Arrhythmia: None Recovery ECG: Sinus Rhythm, 1st degree AV block Recovery ST Change: Nondiagnostic low heart rate, Nondiagnostic resting ST abnormalities Recovery Arrhythmia: None Clinical Stress Symptoms: minimal chest heaviness Angina Score: None Rate Pressure Product: 92930 Stress ECG Conclusion 1. Resting electrocardiogram showed nondiagnostic ST abnormalities 2. Patient underwent testing using pharmacologic stress with regadenoson 3. Peak heart rate achieved was 56% of maximal age-predicted for age 4. The electrocardiographic portion of the test was nondiagnostic 5. See MPI report Stress Test Summary STAGE HR BP SpO2 Symptoms NOTES Supine 55 164/88 97 Standing 54 150/70 1 min post Lexiscan injection 85 minimal chest heaviness 3 min post Lexiscan injection 78 148/70 6 min post Lexiscan injection 70 144/84 98 9 min post Lexiscan injection 66 150/78 symptoms resolved MPI Conclusion Myocardial perfusion is normal. There is no ischemia or evidence of prior infarction Calculated EF is 47%. Wall motion appears normal Radiologist Interpretation Radiologist agrees with Rnp's Interpretation. Radiologist Interpretation by: Alisha Das MD Interpretation Date/Time: 11/24/2023 16:08:46
== END 2023-11-16 02:22 ==
LOC: DI 02:03
PROVIDERS: PCP Family Medicine; Visit Provider Internal Medicine Cardiovascular Disease
DX: I25.10 Atherosclerotic heart disease of native coronary artery without angina pectoris (principal)
CPT/HCPCS: 78452; 93017

== ENCOUNTER → 2023-11-28 09:30 | Outpatient (BNVA) | payer MEDICARE, SELFPAY | PROVIDERS: PCP Family Medicine; Visit Provider Urology | DX: N40.1 Benign prostatic hyperplasia with lower urinary tract symptoms (principal); R97.20 Elevated prostate specific antigen [PSA]; N20.0 Calculus of kidney | CPT/HCPCS: 81003; 99213 ==

== ENCOUNTER 2023-12-14 01:36 | Outpatient (CLI) | payer MEDICARE, SELFPAY ==
--- NOTE | 2023-12-14 12:00 | DI.US_ITS ---
Exam(s) US RENAL EXAM: US RENAL CLINICAL HISTORY: Progressive chronic kidney disease, stage IV, N18.4; h/o stones TECHNIQUE: Ultrasound of both kidneys performed using standard protocol. COMPARISON: FINDINGS: RIGHT KIDNEY: Measures 9.3 cm in length. There is a 1 point by 1.2 cm cyst in the inferior pole. Kidney exhibits d ecreased corticomedullary differentiation. There appears to be a 7 millimeter calculus and a 6 tara meter calculus and possible 4 millimeter calculus. No solid renal masses. No hydronephrosis. LEFT KIDNEY: Measures 9.8 cm in length. There is a 3.7 x 3.7 x 4.1 cm cyst at the midpole level. Other smaller c ortical cysts are noted. There is decreased corticomedullary differentiation, similar to the opposit e side. No solid mass. No hydronephrosis. URINARY BLADDER: Prevoid volume is 386 cc Postvoid volume is 53 cc No evidence of bladder mass nor diverticuli. Ureterovesical jets: Both not identified. OTHER: The echotexture of the liver is diffusely abnormal. There are innumerable cysts in the liver again noted, seen on CT scan of January 2022. However, cannot exclude more progressive pathology. IMPRESSION: 1. Both kidneys exhibit decreased corticomedullary differentiation consistent with element of medica l renal disease. Still exhibit normal size. 2. Renal cysts, the largest being in the left kidney measuring 4.1 cm. There are no solid renal mas ses. 3. There appear to be a few small calculi in the right kidney, non DATA REPOSITORY:
== END 2023-12-14 01:56 ==
LOC: DI 01:36
PROVIDERS: PCP Family Medicine; Visit Provider Registered Nurse Nephrology
DX: N18.4 Chronic kidney disease, stage 4 (severe) (principal)
CPT/HCPCS: 76770

== ENCOUNTER 2024-01-01 15:14 | Outpatient (REF) | payer MEDICARE, SELFPAY ==
[2024-01-01 14:55] LABS: Abs Immature Grans 0.02 10^3/uL (0.0-0.06); Absolute Basophil Count 0.06 10^3/uL (0.0-0.2); Absolute Eosinophil Count 0.65 10^3/uL (0.0-0.7); Absolute Lymphocyte Count 0.85 10^3/uL (1.2-3.4); Absolute Monocyte Count 0.45 10^3/uL (0.1-0.8); Absolute Neutrophil Count 3.99 10^3/uL (1.2-6.7); Eosinophils % 10.8 %; HCT 31.5 % (40.0-50.0); HGB 10.3 g/dL (13.5-17.5); Immature Grans % 0.3 %; Lymphocytes % 14.1 %; MCHC 32.7 % (32.0-36.0); MCV 92 fL (80-95); Monocytes % 7.5 %; Neutrophils % 66.3 %; Platelet Count 107 10^3/uL (130-400); RBC 3.43 10^6/uL (4.36-5.78); RDW 14.1 % (11.8-14.1); RDW-SD 47.5 fL; WBC 6.02 10^3/uL (4.4-10.8)
[2024-01-01 15:31] LABS: ALT 40 U/L (16-63); AST 31 U/L (15-37); Albumin 3.9 g/dL (3.4-5.0); Alkaline Phosphatase 135 U/L (46-116); Anion Gap 14.4 mmol/L (3-11); BUN 68 mg/dL (7-18); Bilirubin, Total 0.45 mg/dL (0.2-1.0); CO2 18.6 mmol/L (21.0-32.0); Chloride 112 mmol/L (98-107); Estimated GFR 16.83 (mL/min/1.73m2); Glucose 106 mg/dL (74-106); Potassium 5.3 mmol/L (3.5-5.1); Sodium 145 mmol/L (136-145); Total Protein 7.4 g/dL (6.4-8.2)
[2024-01-01 15:36] LABS: CREATININE 3.8 mg/dL (0.70-1.30)
[2024-01-01 19:52] LABS: TSH (W/Ref FT4) 1.45 uIU/mL (0.36-3.74)
== END 2024-01-01 15:15 | disposition home or self-care (01) ==
LOC: LBN 15:14
PROVIDERS: PCP Family Medicine; Visit Provider Family Medicine
DX: L28.2 Other prurigo (principal); L29.9 Pruritus, unspecified
CPT/HCPCS: 80053; 84443; 85025

== ENCOUNTER 2024-01-15 01:09 | Outpatient (CLI) | payer MEDICARE, SELFPAY ==
--- NOTE | 2024-01-15 | DI.US_ITS ---
APPROVED REPORT EXAM: Comprehensive 2D, Doppler, and color-flow Echocardiogram Patient Location: Out-Patient Liquid Flavor Compounder: Anastasia Morse RDCS (AE) Indications: Aortic stenosis non rheumatic Other Information Study Quality: Adequate. Technically limited study due to body habitus. Conclusion Mild concentric left ventricular hypertrophy. Ejection fraction is 57%. Wall motion is normal Normal right ventricular size and function Left atrium is moderately dilated. Right atrial size is normal Aortic valve is calcified and trileaflet. There is mild aortic stenosis. Peak gradient is 31, mean 18 mmHg with a calculated aortic valve area of 1.6 cm??. There is trace aortic regurgitation Mitral annular calcification. Moderate eccentric mitral regurgitation Estimated right ventricular systolic pressure is 24 mmHg Dilated ascending aorta measuring 4.09 cm Wall motion Left Ventricle The left ventricle is normal size. The left ventricular systolic function is normal. The left ventric ular ejection fraction is within the normal range. Mild concentric left ventricular hypertrophy. Ther e is normal LV segmental wall motion. There is no ventricular septal defect visualized. LVEF is 57%. Right Ventricle The right ventricle is normal size. The right ventricular systolic function is normal. Atria Left atrium is moderately dilated. The right atrium size is normal. The interatrial septum is intact with no evidence for an atrial septal defect. Aortic Valve Aortic valve is calcified. Aortic valve is trileaflet. Mild aortic stenosis. Peak aortic valve gradie nt is 31.16mmHg. Highest mean aortic valve gradient is 17.92mmHg. Calculated LUIS by the continuity eq uation is 1.6cm2. Trace aortic regurgitation. Mitral Valve Mild mitral annular calcification. No evidence of mitral valve stenosis. Moderate mitral regurgitatio n. Tricuspid Valve The tricuspid valve is normal in structure. There is no tricuspid valve stenosis. Trace tricuspid reg urgitation. The RVSP is 24.0 mmHg. Pulmonic Valve The pulmonary valve is normal in structure. There is no pulmonic valvular stenosis. Trace pulmonic re gurgitation. Great Vessels The aortic root is normal in size. The ascending aorta is moderately dilated. Aortic arch is normal i n caliber. IVC is normal in size and collapses >50% with inspiration. Pericardium There is no pericardial effusion. 2D Dimensions IVSD d PLAX 1.35 cm M: 0.6-1.2 Ao Root d 3.07 cm M: 3.1 - 3.7 LVPW d PLAX 1.34 cm M: 0.6 - 1.2 Ao Asc Diam d 4.09 cm M: 2.6 - 3.4 LVID d PLAX 5.33 cm M: 4.2 - 5.8 LVDs 3.70 cm M: 2.5 - 4.0 LV EF Teichholz 57.6 % FS 30.54 % LV EDV (Teich) 137.1 mL LV ESV (Teich) 58.2 mL M-Mode TAPSE 2.34 cm (M/F) >1.7 Auto EF LV EDV A4C 234.8 mL LV EDV A2C 246.4 mL LV EDV BP 239.4 mL LV ESV A4C 99.7 mL LV ESV A2C 110.1 mL LV ESV BP 104.4 mL LVEF(%) A4C 57.5 % LVEF(%) A2C 55.3 % LVEF(%) BP 56.4 % LV SV A4C 135.0 ml LV SV A2C 136.2 ml LV SV BP 134.9 ml LV CO A4C 6.8 L/min LV CO A2C 6.9 L/min LV CO BP 6.8 L/min HR A4C 50.00 BPM HR A2C 50.92 BPM LV EDV Index (BP) LA Volume LA Length A4C 7.3 cm LA Length A2C 5.6 cm LA Area A4C s 33.53 cm2 LA Area A2C s 23.15 cm2 LA Vol A4C A-L 130.76 mL LA Vol A2C A-L 81.92 mL LA Vol Biplane A-L 118.7 mL LA Vol/BSA A4C A-L LA Vol/BSA A2C A-L LA Vol/BSA BP A-L 50.1 mL/m2 LA Vol A4C MOD 124.7 mL LA Vol A2C MOD 77.1 mL LA Vol BP MOD 112.2 mL RA Volume RA Area A4C 12.8 cm2 RA ESV A4C (A-L) 27.8mL RA Vol/BSA A4C A-L RA Length A4C 5.0 cm RA ESV A4C (MOD) 27.9mL LV Diastology MV E' medial 0.077 (>0.07 m/s) MV E Vmax 1.18 (0.4-1.3 m/s) MV E/E' MED 15.26 (<14) MV A Vmax 0.80 (0.4-1.3 m/s) MV E' lateral 0.077 (>0.1 m/s) E/A Ratio 1.5 MV E/E' LAT 15.26 (<14) MV E' Average 0.077 m/s MV E/E'(average) 15.26 Aortic Valve AoV Vmax 2.79 m/s LVOT Vmax 1.31 m/s AoV Peak Grad 31.2 mmHg LVOT Peak Grad 6.9 mmHg AoV Area (Vmax) 1.54 cm2 LVOT VTI 0.334 m AoV VTI 0.675 m LVOT Mean Grad 4.2 mmHg AoV Mean Zhou. 2.01 m/s LVOT SV 109.26 mL AoV Mean Grad 17.9 mmHg LVOT Diam s 2.00 cm AoV Area (VTI) 1.62 cm2 AV Regurg Peak Gr. 31.16 mmHg Velocity Ratio 0.47 Mitral Valve MV DT 327 (160-240 msec) MV Vmax TIPS 1.21 m/s MV Mean Grad 1.9 (<2mmHg) MV VTI 0.432 m Pulmonary Valve PV Vmax 1.25 (0.5-1.5 m/s) RVOT Vmax 1.10 m/s PV Peak Grad 6.3 mmHg RVOT Peak Gr. 4.8 mmHg PV Mean Zhou 0.95 m/s RVOT VTI 0.291 m PV Mean Grad 4.0 mmHg RVOT Mean Gr. 2.9 mmHg Tricuspid Valve RA Pressure 3.00 mmHg TR Vmax 2.29 m/s TV S' 0.14 m/s TR Peak Grad 20.9 mmHg RVSP (TR) 24.0 mmHg
== END 2024-01-15 01:29 ==
LOC: DI 01:09
PROVIDERS: PCP Family Medicine; Visit Provider Family Medicine
DX: I35.0 Nonrheumatic aortic (valve) stenosis (principal); I51.7 Cardiomegaly
CPT/HCPCS: 93306

== ENCOUNTER 2024-03-05 03:46 | Outpatient (CLI) | payer MEDICARE, SELFPAY ==
[2024-03-05 22:25] LABS: PSA, Diagnostic 10.8 ng/mL (<=4.5)
== END 2024-03-05 03:47 | disposition home or self-care (01) ==
LOC: LBO 03:46
PROVIDERS: PCP Family Medicine; Visit Provider Urology
DX: R97.20 Elevated prostate specific antigen [PSA] (principal)
CPT/HCPCS: 36415; 84153

== ENCOUNTER → 2024-03-14 14:15 | Outpatient (BNVA) | payer MEDICARE, SELFPAY | PROVIDERS: PCP Family Medicine; Referring Provider Family Medicine; Visit Provider Urology | DX: R97.20 Elevated prostate specific antigen [PSA] (principal); N42.89 Other specified disorders of prostate | CPT/HCPCS: 99214 ==

== ENCOUNTER → 2024-05-02 14:25 | Outpatient (BNVA) | payer MEDICARE, SELFPAY | PROVIDERS: PCP Family Medicine; Referring Provider Family Medicine; Visit Provider Urology | DX: N42.89 Other specified disorders of prostate (principal); R97.20 Elevated prostate specific antigen [PSA] | CPT/HCPCS: 99214 ==

== ENCOUNTER → 2024-05-06 15:12 | Outpatient (BNVA) | payer MEDICARE, SELFPAY | PROVIDERS: PCP Family Medicine; Referring Provider Family Medicine; Visit Provider Urology | DX: C61 Malignant neoplasm of prostate (principal) | CPT/HCPCS: 55700; 76872 ==

== ENCOUNTER 2024-05-06 16:04 | Outpatient (REF) | payer MEDICARE, SELFPAY ==
--- NOTE | 2024-05-06 15:50 | PROST_PTH ---
PATIENT: Khang Cortez LOC: [facility] U#:[id number] AGE/SX: 64/M ROOM: RE05/06/[address]: Alexander Barrera MD : 1960 BED: DIS: 05/06/2024 SPEC #: [id number] RECD: 05/06/24 16:39 STATUS: JOSE ENRIQUE RE #: [id number] MARI: 05/06/24 15:[address]: Alexander Barrera DEPT: Surgical Specimen RECD BY: Patience Faria ENTERED: 05/06/24 16:40 SP TYPE: PROST OTHR DR: Fletcher Byrne Tissues: 1 - PROSTATE NEEDLE BIOPSY 2 - PROSTATE NEEDLE BIOPSY 3 - PROSTATE NEEDLE BIOPSY 4 - PROSTATE NEEDLE BIOPSY 5 - PROSTATE NEEDLE BIOPSY 6 - PROSTATE NEEDLE BIOPSY 7 - PROSTATE NEEDLE BIOPSY 8 - PROSTATE NEEDLE BIOPSY 9 - PROSTATE NEEDLE BIOPSY 10 - PROSTATE NEEDLE BIOPSY 11 - PROSTATE NEEDLE BIOPSY 12 - PROSTATE NEEDLE BIOPSY Procedures: GROSS AND MICRO LEVEL 4 Comments: [id number]
== END 2024-05-06 16:05 | disposition home or self-care (01) ==
LOC: LBN 16:04
PROVIDERS: PCP Family Medicine; Visit Provider Urology
DX: C61 Malignant neoplasm of prostate (principal)
CPT/HCPCS: 88305

== ENCOUNTER 2024-05-16 09:05 | Outpatient (CLI) | payer MEDICARE, SELFPAY ==
--- NOTE | 2024-05-16 10:30 | RT.EKG_ITS ---
APPROVED REPORT Exam: Resting ECG Reason for Exam: CAD Patient Location: O HR:52 bpm ECG Measurements Heart Rate 52 AXIS MA 211 P 44 QRSd 104 QRS 2 QT 417 T 46 QTc 388 Conclusion Sinus rhythm...normal P axis, V-rate 50- 99 Left ventricular hypertrophy...multiple voltage criteria
== END 2024-05-16 09:06 | disposition home or self-care (01) ==
PROVIDERS: PCP Family Medicine; Visit Provider Internal Medicine Cardiovascular Disease
DX: I25.10 Atherosclerotic heart disease of native coronary artery without angina pectoris (principal)
CPT/HCPCS: 93010

== ENCOUNTER → 2024-05-16 10:54 | Outpatient (BNVA) | payer MEDICARE, SELFPAY | PROVIDERS: PCP Family Medicine; Referring Provider Family Medicine; Visit Provider Internal Medicine Cardiovascular Disease | DX: I25.10 Atherosclerotic heart disease of native coronary artery without angina pectoris (principal); I35.0 Nonrheumatic aortic (valve) stenosis | CPT/HCPCS: 93005; 99213 ==

== ENCOUNTER 2024-05-20 01:49 | Outpatient (CLI) | payer MEDICARE, SELFPAY ==
[2024-05-20 16:24] LABS: Abs Immature Grans 0.01 10^3/uL (0.0-0.06); Absolute Basophil Count 0.02 10^3/uL (0.0-0.2); Absolute Eosinophil Count 0.13 10^3/uL (0.0-0.7); Absolute Lymphocyte Count 0.78 10^3/uL (1.2-3.4); Absolute Monocyte Count 0.42 10^3/uL (0.1-0.8); Absolute Neutrophil Count 3.56 10^3/uL (1.2-6.7); Basophils % 0.4 %; Eosinophils % 2.6 %; HCT 30.7 % (40.0-50.0); HGB 9.7 g/dL (13.5-17.5); Immature Grans % 0.2 %; Lymphocytes % 15.9 %; MCH 29.2 pg (27.0-33.0); MCHC 31.6 % (32.0-36.0); MCV 93 fL (80-95); MPV 10.4 fL (8.0-11.0); Monocytes % 8.5 %; Neutrophils % 72.4 %; Platelet Count 110 10^3/uL (130-400); RBC 3.32 10^6/uL (4.36-5.78); RDW-SD 47.4 fL; WBC 4.92 10^3/uL (4.4-10.8)
[2024-05-20 16:30] LABS: Bilirubin Negative (Negative); Blood Large (Negative); Clarity Clear (Clear); Glucose Negative (Negative); Ketones Negative (Negative); Leukocyte Esterase Negative (Negative); Nitrite Negative (Negative); Urobilinogen 0.2 mg/dL (Up to 0.2); pH 5.5 (5-8)
[2024-05-20 16:49] LABS: RBC 20-50 HPF (0-2); WBC 0-2 HPF (0-5)
[2024-05-20 16:50] LABS: Bacteria Rare HPF (Negative); C & S Indicated? No; Casts Negative LPF (Negative); Crystals Negative HPF (Negative); Epithelial Cells Rare HPF (Negative); Mucus Negative (Negative)
[2024-05-20 17:03] LABS: COMMENT (LAB VIEW ONLY) 51.55 mg/dL; PROTEIN 141.4 mg/dL; Prot/Crea Ur Ratio 2.74
[2024-05-20 17:08] LABS: Iron 75 ug/dL (65-175); Total Iron Binding Capacity 276 ug/dL (250-450); Transferrin Sat 27 % (20-55)
[2024-05-20 19:01] LABS: Albumin 3.8 g/dL (3.4-5.0); Anion Gap 14.7 mmol/L (3-11); BUN 71 mg/dL (7-18); CO2 21.3 mmol/L (21.0-32.0); Calcium 8.9 mg/dL (8.5-10.1); Chloride 109 mmol/L (98-107); Estimated GFR 14.03 (mL/min/1.73m2); Glucose 101 mg/dL (74-106); Magnesium 2.1 mg/dL; PHOSPHORUS 5.4 mg/dL (2.6-4.7); Potassium 5.5 mmol/L (3.5-5.1); Sodium 145 mmol/L (136-145)
[2024-05-20 19:14] LABS: CREATININE 4.4 mg/dL (0.70-1.30)
[2024-05-20 19:47] LABS: PSA, Diagnostic 12.3 ng/mL (<=4.5)
[2024-05-20 19:51] LABS: Ferritin 119 ng/mL (26-388); Vitamin D 25 Total 24 ng/mL (30-100)
[2024-05-21 18:39] LABS: Parathyroid Hormone,Intact 378.4 pg/mL (19.0-88.0)
== END 2024-05-20 01:50 | disposition home or self-care (01) ==
LOC: LBO 01:50
PROVIDERS: Registered Nurse Nephrology; PCP Family Medicine; Visit Provider Urology
DX: R97.20 Elevated prostate specific antigen [PSA] (principal); N18.4 Chronic kidney disease, stage 4 (severe)
CPT/HCPCS: 36415; 80048; 82306; 81003; 81015; 82040; 82565; 82728; 83540; 83550; 83735; 83970; 84100; 84153; 84156; 84550; 85025

== ENCOUNTER 2024-06-12 03:10 | Outpatient (RCR) | payer MEDICARE, SELFPAY ==
[2024-06-12 12:04] LABS: HGB 9.4 g/dL (13.5-17.5)
== END 2024-06-19 23:59 | disposition home or self-care (01) ==
LOC: INF 03:10
PROVIDERS: Registered Nurse Nephrology; PCP Family Medicine; Visit Provider Family Medicine
DX: N18.5 Chronic kidney disease, stage 5 (principal); D63.1 Anemia in chronic kidney disease
CPT/HCPCS: 36415; 96372; 85014; 85018; J0881

== ENCOUNTER 2024-07-01 17:38 | Inpatient (IN) | payer MEDICARE, SELFPAY ==
[2024-07-01] VITALS (18 sets, daily range): BP systolic 186–228; BP diastolic 70–125; PULSE 57–95; RESP 0–27; TEMP 36.2–36.9; O2SAT 94–99
--- NOTE | 2024-07-01 18:00 | DI.CT_ITS ---
Exam(s) CT RENAL COLIC WO EXAM: CT RENAL COLIC WO CLINICAL HISTORY: right flank pain. TECHNIQUE: Imaging Protocol: Axial computed tomography images with coronal and sagittal reformatted images were created and reviewed CONTRAST MATERIAL: Intravenous: none Oral: None COMPARISON: Prior CT scan 02/15/2022. FINDINGS: VISUALIZED LUNG BASES: No nodules nor pleural effusions evident. ABDOMEN: There is no ascites. LIVER: Multiple benign-appearing cysts are again noted throughout the liver, similar to previous. GALLBLADDER/BILIARY: No obvious gallbladder pathology. CBD is not dilated. PANCREAS: No evidence of pancreatic mass nor dilatation of the pancreatic duct. SPLEEN: There is mild splenomegaly again noted. Similar size to previous CT scan of 02/15/2022.. ADRENALS: There are no new significant adrenal masses. Some calcification in the left adrenal gland is again noted but no new mass. No evidence of adrenal hemorrhage. KIDNEYS:There is a benign cyst in the lateral cortex of the left kidney measuring 4.3 cm which has in creased in size from the prior study but remains benign appearance. Does not require further workup. No other focal left kidney findings. In the right kidney there is now an obstructing calculus in t he lower renal pelvis at the upper UPJ junction, this calculus measuring 11 by 8 mm, previously withi n the kidney. There is dilatation of the collecting system above this level and unilateral right-oneida ed perinephric streaking. The right ureter below the UPJ is normal size and there are no calculi see n lower down in the right ureter nor within the urinary bladder lumen. URINARY BLADDER: No radiopaque calculi seen in the lumen. Bladder base is indented by enlarged prost ate gland. No mass seen within the bladder nor intraluminal bladder clots. ABDOMINAL AORTA: Abdominal aorta is not enlarged. LYMPH NODES: There is no retroperitoneal nor paraaortic adenopathy. ABDOMINAL WALL: No evidence of significant anterior abdominal wall nor inguinal hernia. GI: There is no evidence of bowel obstruction, free air, nor abscess. PELVIS: LYMPH NODES: There is no intrapelvic nor inguinal adenopathy. GI: No evidence of appendicitis.No evidence of sigmoid diverticulitis. URINARY BLADDER: See above REPRODUCTIVE: Prostate gland is enlarged and indents the bladder base. OSSEOUS: No significant osseous lesions. IMPRESSION: 1. There is an 11 x 8 mm calculus in the upper right ureter at the UPJ causing obstruction at this le murphy with an element of right-sided kidney hydronephrosis and perinephric streaking. This calculus wa s previously with in the kidney on prior CT scan of 02/15/2022. There are no other calculi in the ri ght ureter and the right ureter is not dilated below this upper level obstruction. There are also no calculi evident within the urinary bladder. 2. No significant acute findings in the opposite-right kidney. 3. Urinary bladder base is indented by an enlarged prostate gland. However, there are no radiopaque calculi seen in the urinary bladder lumen and the bladder wall is not thickened. Report called by myself to ER physician 07/01/2024 at 6:40 p.m. RADIATION DOSE DELIVERED: 1,037.77mGy.cm Total DLP DATA REPOSITORY: All CT scans at this facility are submitted to the National Radiology Data Registry (NRDR) Dose Index Registry (DIR) with the [employer] (A[employer]). RADIATION OPTIMIZATION: All CT scans at this facility use at least one of these dose optimization te chniques: automated exposure control; mA and/or kV adjustment per patient size (includes targeted exa ms where dose is matched to clinical indication); or iterative reconstruction.
--- NOTE | 2024-07-01 18:06 | W.ED.GENAD ---
Discharge Plan Disposition Patient Disposition: Admit to [facility] Condition: Stable Discharge Details Chief Complaint: FlankPain Clinical Impression: PALLAVI (acute kidney injury), Calculus of right ureter Primary Care Provider: Fletcher Byrne ED Provider: Roman Guzman [place] Meds and New Rx's Prescriptions: No Action multivitamin Tablet 1 tab PO DAILY losartan 50 mg tablet 100 mg PO DAILY tamsulosin 0.4 mg capsule 0.8 mg PO DAILY Qty: 180 4RF allopurinol 100 mg tablet 100 mg PO BID metoprolol succinate 50 mg tablet extended release 24 hr 50 mg PO DAILY atorvastatin 80 mg tablet 80 mg PO QPM sertraline 100 mg tablet 50 mg PO DAILY torsemide 10 mg tablet 10 mg PO DAILY Qty: 90 3RF verapamil 240 mg capsule,ext rel. pellets 24 hr 240 cap PO DAILY Patient Comments: TAKE 1 CAPSULE BY MOUTH EVERY DAY aspirin [Aspir-81] 81 MG tablet,delayed release (DR/EC) 81 mg PO DAILY isosorbide mononitrate [Imdur] 30 mg Tablet Extended Release 24 Hr 30 mg PO DAILY [facility] General Mode of arrival: ambulatory. Date/Time Provider Initiated Documentation: 07/01/24 17:49. Limitations to Documentation: no limitations. Information obtained by: patient. History of Present Illness 64 year old M presents to the emergency department with the chief complaint of right flank pain, described as moderate, Patient started experiencing this hour(s) (5) and it has been constant. No relieving factors improve symptom(s), No exacerbating factors reported . Patient notes nausea/vomiting; denies chest pain and shortness of breath. Patient did receive the following treatments prior to arrival, none Related Data Home Medications ?Medication ?Instructions ?Recorded ?Confirmed aspirin 81 mg tablet,delayed 81 mg PO DAILY 08/28/16 07/01/24 release (Aspir-) metoprolol succinate 50 mg 50 mg PO DAILY 12/24/20 07/01/24 tablet,extended release 24 hr verapamil 240 mg 24 hr 240 cap PO DAILY 09/03/21 07/01/24 capsule,extended release atorvastatin 80 mg tablet 80 mg PO QPM 12/08/21 07/01/24 isosorbide mononitrate 30 mg 30 mg PO DAILY 02/16/22 07/01/24 tablet,extended release 24 hr multivitamin 1 tab PO DAILY 03/01/22 07/01/24 sertraline 100 mg tablet 50 mg PO DAILY 10/11/22 07/01/24 allopurinol 100 mg tablet 100 mg PO BID 03/31/23 07/01/24 losartan 50 mg tablet 100 mg PO DAILY 05/08/23 07/01/24 tamsulosin 0.4 mg capsule 0.8 mg (2 x 0.4 mg) PO DAILY #180 11/28/23 07/01/24 caps torsemide 10 mg tablet 10 mg PO DAILY #90 tabs 05/28/24 07/01/24 Previous Rx's ?Medication ?Instructions ?Recorded tamsulosin 0.4 mg capsule 0.8 mg (2 x 0.4 mg) PO DAILY #180 11/28/23 caps torsemide 10 mg tablet 10 mg PO DAILY #90 tabs 05/28/24 Allergies Allergy/AdvReac Type Severity Reaction Status Date / Time lisinopril AdvReac cough Verified 07/01/24 17:54 General Stated Complaint: FlankPain BEENA: 3 Review of Systems All systems reviewed & are unremarkable except as noted in HPI and below Constitutional Constitutional: Denies chills, Denies fever(s) and Denies weakness Cardiovascular Cardiovascular: Denies chest pain and Denies dyspnea Respiratory Respiratory: Denies cough and Denies dyspnea Gastrointestinal Gastrointestinal: Reports abdominal pain, Reports nausea and Reports vomiting Neurologic Neurologic: Denies weakness Psychiatric Psychiatric: Denies depression Exam Const General: no acute distress Orientation: alert [facility] Head: normal to inspection Ears: external ears normal General nose exam: external nose normal Mouth: moist mucous membranes Eyes General: appearance normal, both eyes and all related structures Neck Neck: normal visual inspection Resp Effort & Inspection: normal respiratory effort and able to speak in complete sentences Auscultation: clear to auscultation bilaterally Cardio Rate: regular rate GI Palpation: soft and tender Back/Spine/Pelvis Back: no CVA tenderness Skin General skin exam: no rashes or lesions noted Neuro General: patient alert and patient oriented x3 Extrem General: normal to inspection Psych Mental Status: mental status grossly normal Course Vital Signs Vital signs: Vital Signs Temperature 36.9 C 07/01/24 17:51 Pulse 95 H 07/01/24 17:51 Respiratory Rate 16 07/01/24 17:51 Blood Pressure 217/107 H 07/01/24 17:51 Pulse Oximetry 98 07/01/24 17:51 Temperature 36.9 C 07/01/24 17:54 Pulse 95 H 07/01/24 17:54 Respiratory Rate 16 07/01/24 17:54 Blood Pressure 217/107 H 07/01/24 17:54 Pulse Oximetry 98 07/01/24 17:54 Pain Level 9 07/01/24 17:54 Medical Decision Making 64-year-old male with a history of chronic kidney disease, history of kidney stones, comes in with acute onset right flank pain. She also notes nausea vomiting, denies any fevers or chest pain. He is stable on arrival and localizes the pain to the right oblique and right lower back area. He has minimal right lower quadrant tenderness without guarding. Given acute onset of symptoms and his history I suspect recurrent kidney stones, will check CBC, CMP, lipase ua and obtain CT renal colic to further evaluate. CT shows 11 by a proximal right ureter stone. No signs of infection. Patient does have mildly worsened renal function but is making urine. I did check in Dr. Barrera called back and is available and we will plan to bring him to the OR for likely stenting tomorrow. Given I am unable to give him NSAIDs due to his renal function he will likely require IV pain medication will discuss with the hospitalist about admission for pain control and urological intervention tomorrow. Differential Diagnosis Differential Diagnosis: Kidney stone, pyelonephritis Medical Records Medical records reviewed: Yes I reviewed the patient's medical records. Quality:SDOH Health Related Social Needs: No Data to Display PFSH All Active Problems (Updated 07/01/24 @ 19:32 by Roman Guzman MD) Calculus of right ureter (Acute) PALLAVI (acute kidney injury) (Acute) Prostate cancer (Chronic) Elevated PSA, between 10 and less than 20 ng/ml (Acute) Chronic kidney disease (Chronic) CKD III Chronic venous insufficiency (Acute) Lower urinary tract symptoms (LUTS) (Acute) Uric acid kidney stone (Acute) Coronary artery disease (Chronic) Kidney calculus (Chronic) Tubular adenoma of colon (Acute) Screening for colon cancer (Acute) Medical History Acute kidney injury superimposed on chronic kidney disease PALLAVI (acute kidney injury) Calculus of left ureter Aortic stenosis Stable angina Positive cardiac stress test History of chest pain MARI (obstructive sleep apnea) Very Severe-per sleep study 05/04/17-Uses BiPAP Idiopathic thrombocytopenia Murmur History of adenomatous polyp of colon Deviated nasal septum Obesity Hypertension GERD (gastroesophageal reflux disease) Depression Diabetes Sleep apnea Surgical History History of cardiac catheterization 06/17/21 [facility]-see scanned records Colonoscopy - MAC (06/05/17) 08/2021 Social History Smoking/Tobacco Use Status: Never Smoking risk assessment performed?: Yes Alcohol Intake: current Alcohol Intake frequency: holidays/special occasions only Alcohol type: beer Drug use: Never Substance use type: does not use Do you feel safe at home: Yes Do you feel safe in your relationship?: Yes
[2024-07-01] MEDS: Ondansetron 4 MG/2 ML VIAL IVP ×2 (18:28→22:39)
[2024-07-01] MEDS: HYDROmorphone 2 MG/ML SYR 1 MG IVP (18:29)
[2024-07-01 18:34] LABS: Abs Immature Grans 0.03 10^3/uL (0.0-0.06); Absolute Basophil Count 0.05 10^3/uL (0.0-0.2); Absolute Eosinophil Count 0.17 10^3/uL (0.0-0.7); Absolute Lymphocyte Count 0.56 10^3/uL (1.2-3.4); Absolute Monocyte Count 0.53 10^3/uL (0.1-0.8); Absolute Neutrophil Count 7.71 10^3/uL (1.2-6.7); Basophils % 0.6 %; Eosinophils % 1.9 %; HCT 31.9 % (40.0-50.0); HGB 10.3 g/dL (13.5-17.5); Immature Grans % 0.3 %; Lymphocytes % 6.2 %; MCH 28.9 pg (27.0-33.0); MCHC 32.3 % (32.0-36.0); MCV 90 fL (80-95); MPV 10.2 fL (8.0-11.0); Monocytes % 5.9 %; Neutrophils % 85.1 %; Platelet Count 126 10^3/uL (130-400); RBC 3.56 10^6/uL (4.36-5.78); RDW 13.5 % (11.8-14.1); RDW-SD 44.4 fL; WBC 9.05 10^3/uL (4.4-10.8)
[2024-07-01 18:43] LABS: ALT 32 U/L (16-63); AST 27 U/L (15-37); Albumin 4.2 g/dL (3.4-5.0); Alkaline Phosphatase 179 U/L (46-116); Anion Gap 11.6 mmol/L (3-11); BUN 72 mg/dL (7-18); Bilirubin, Total 0.8 mg/dL (0.2-1.0); CO2 20.4 mmol/L (21.0-32.0); Calcium 9.7 mg/dL (8.5-10.1); Chloride 106 mmol/L (98-107); Glucose 112 mg/dL (74-106); Lipase 57 U/L (<78); Magnesium 2.2 mg/dL (1.8-2.4); Potassium 5.1 mmol/L (3.5-5.1); Sodium 138 mmol/L (136-145); Total Protein 8.7 g/dL (6.4-8.2)
[2024-07-01 18:46] LABS: CREATININE 5.6 mg/dL (0.70-1.30)
[2024-07-01] MEDS: Normal Saline 1,000 ML 1000 ML IV (19:01)
[2024-07-01 19:18] LABS: Bilirubin Negative (Negative); Blood Moderate (Negative); Clarity Clear (Clear); Glucose Negative (Negative); Ketones Negative (Negative); Leukocyte Esterase Negative (Negative); Nitrite Negative (Negative); Urobilinogen 0.2 mg/dL (Up to 0.2); pH 5.5 (5-8)
[2024-07-01 19:25] LABS: Bacteria Moderate HPF (Negative); Epithelial Cells Rare HPF (Negative); RBC >50 HPF (0-2)
[2024-07-01 19:26] LABS: C & S Indicated? No; Casts 0-2 Fine Granular LPF (Negative); Crystals Negative HPF (Negative); Mucus Negative (Negative)
--- NOTE | 2024-07-01 19:38 | W.PM.HP.N ---
Date of service: 07/01/24 Time of Service: 19:38 Assessment and Plan Assessment and plan (1) Calculus of right ureter: Start date: 07/01/24 Status: Acute Assessment and plan: This is a 64-year-old gentleman with a history of uric acid nephrolithiasis in the past now with large right ureteral stone at the UPJ causing hydronephrosis with no evidence of infection. Patient was admitted for pain control and IV hydration with Dr. Barrera consulted for procedure in the morning to remove the obstruction. Patient did see grossly bloody urine over the weekend and his back pain was rather acute onset. He is medically stable for procedure. He does have a low platelet count and is on no anticoagulation. His renal functions are worsened and should respond to IV hydration. He does have CKD. He is a full code. (2) PALLAVI (acute kidney injury): Start date: 07/01/24 Status: Acute Assessment and plan: Patient's creatinine has been increased from his baseline which is around 4. He does have CKD and able. With IV hydration overnight. (3) Chronic kidney disease: Status: Chronic Assessment and plan: Exacerbated by acute process hopefully returned to baseline overnight. Trend labs. (4) Coronary artery disease: Status: Chronic Assessment and plan: Stable with no evidence of exacerbation. (5) Hypertension: Assessment and plan: Exacerbated with pain with patient to continue his usual outpatient medical therapy adjusting as needed. (6) MARI (obstructive sleep apnea): Assessment and plan: Patient should wear home devices if available. He is overweight. (7) Depression: Assessment and plan: Continue outpatient medical therapy. (8) Diabetes: Assessment and plan: Diet controlled not on medical therapy. CKD may be associated with this problem. History of Present Illness History of Present Illness Chief Complaint: Acute right flank pain with nausea. Narrative: This is a 64-year-old male patient with a history of nephrolithiasis over the last couple of years now presenting with right flank pain with acute onset, grossly bloody urine over the last couple days and nausea without vomiting. He denies any fever or chills but does feel cold. He was seen in the ED and imaging did reveal right hydronephrosis with large ureteral stone at the ureterovesical junction causing obstruction further with no signs of infection and Dr. Barrera was called planning stenting and procedure in the morning. Patient will be n.p.o. after midnight. IV hydration overnight with IV pain meds. He is chronically on Flomax which will be continued. Patient's medical problems are stable and he is on no anticoagulation with a history of CAD, CKD and previous uric acid nephrolithiasis on allopurinol. He did not have any chest pain or signs of cardiac ischemia stable on his current medical therapy. He does have a low platelet with chronic anemia both appearing stable. He is a full code. Review of Systems Narrative: 13 point review of systems otherwise unrevealing or stable. PFSH All Active Problems (Updated 07/01/24 @ 19:46 by Jarad Gómez) Calculus of right ureter (Acute) PALLAVI (acute kidney injury) (Acute) Prostate cancer (Chronic) Elevated PSA, between 10 and less than 20 ng/ml (Acute) Chronic kidney disease (Chronic) CKD III Chronic venous insufficiency (Acute) Lower urinary tract symptoms (LUTS) (Acute) Uric acid kidney stone (Acute) Coronary artery disease (Chronic) Kidney calculus (Chronic) Tubular adenoma of colon (Acute) Screening for colon cancer (Acute) Medical History Acute kidney injury superimposed on chronic kidney disease PALLAVI (acute kidney injury) Calculus of left ureter Aortic stenosis Stable angina Positive cardiac stress test History of chest pain MARI (obstructive sleep apnea) Very Severe-per sleep study 05/04/17-Uses BiPAP Idiopathic thrombocytopenia Murmur History of adenomatous polyp of colon Deviated nasal septum Obesity Hypertension GERD (gastroesophageal reflux disease) Depression Diabetes Sleep apnea Surgical History History of cardiac catheterization 06/17/21 [facility]-see scanned records Colonoscopy - MAC (06/05/17) 08/2021 Social History Smoking/Tobacco Use Status: Never Smoking risk assessment performed?: Yes Alcohol Intake: current Alcohol Intake frequency: holidays/special occasions only Alcohol type: beer Drug use: Never Substance use type: does not use Housing: house Do you feel safe at home: Yes Do you feel safe in your relationship?: Yes Meds Allergies and Home Medications Allergies Allergy/AdvReac Type Severity Reaction Status Date / Time lisinopril AdvReac cough Verified 07/01/24 17:54 Home Medications ?Medication ?Instructions ?Recorded ?Confirmed ?Type aspirin 81 mg tablet,delayed 81 mg PO DAILY 08/28/16 07/01/24 History release (Aspir-) metoprolol succinate 50 mg 50 mg PO DAILY 12/24/20 07/01/24 History tablet,extended release 24 hr verapamil 240 mg 24 hr 240 cap PO DAILY 09/03/21 07/01/24 History capsule,extended release atorvastatin 80 mg tablet 80 mg PO QPM 12/08/21 07/01/24 History isosorbide mononitrate 30 mg 30 mg PO DAILY 02/16/22 07/01/24 History tablet,extended release 24 hr multivitamin 1 tab PO DAILY 03/01/22 07/01/24 History sertraline 100 mg tablet 50 mg PO DAILY 10/11/22 07/01/24 History allopurinol 100 mg tablet 100 mg PO BID 03/31/23 07/01/24 History losartan 50 mg tablet 100 mg PO DAILY 05/08/23 07/01/24 History tamsulosin 0.4 mg capsule 0.8 mg (2 x 0.4 mg) PO DAILY #180 11/28/23 07/01/24 Rx caps torsemide 10 mg tablet 10 mg PO DAILY #90 tabs 05/28/24 07/01/24 Rx Exam Narrative Exam Narrative: General: Patient appears appropriate for age, moderately obese, alert and oriented x 3. He is in moderate distress from his right flank pain. HEENT: Normocephalic, eyes with pupils equal and reactive to light symmetrically, extraocular movement intact and sclera anicteric. Oropharynx with moist mucosa and fair dentition. Neck: Supple without JVD. Back: Right CVA tenderness, stooped posture. Lungs: Fair aeration and clear to auscultation percussion with no focalized rales or rhonchi. No expiratory wheeze. Heart: Regular rate and rhythm with no murmurs gallops appreciated. Abdomen: Obese contour, soft to palpation but discomfort to deep palpation over the right abdomen without guarding or rebound. No palpable hepatosplenomegaly. Bowel sounds audible all quadrants. Genitalia/medical exam deferred. Extremities: No clubbing, cyanosis or grossly pitting edema. Good capillary refill. Skin: Normal color, warm and dry. Neuro: Cranial nerves II through XII gross intact, no focalized motor deficits and no tremor. Psych: Flattened affect with depressed mood. No abnormal thought processes. Remote and recent memory intact. Results Imaging Imaging Studies: EXAM: CT RENAL COLIC WO CLINICAL HISTORY: right flank pain. TECHNIQUE: Imaging Protocol: Axial computed tomography images with coronal and sagittal reformatted images were created and reviewed CONTRAST MATERIAL: Intravenous: none Oral: None COMPARISON: Prior CT scan 02/15/2022. FINDINGS: VISUALIZED LUNG BASES: No nodules nor pleural effusions evident. ABDOMEN: There is no ascites. LIVER: Multiple benign-appearing cysts are again noted throughout the liver, similar to previous. GALLBLADDER/BILIARY: No obvious gallbladder pathology. CBD is not dilated. PANCREAS: No evidence of pancreatic mass nor dilatation of the pancreatic duct. SPLEEN: There is mild splenomegaly again noted. Similar size to previous CT scan of 02/15/2022.. ADRENALS: There are no new significant adrenal masses. Some calcification in the left adrenal gland is again noted but no new mass. No evidence of adrenal hemorrhage. KIDNEYS:There is a benign cyst in the lateral cortex of the left kidney measuring 4.3 cm which has increased in size from the prior study but remains benign appearance. Does not require further workup. No other focal left kidney findings. In the right kidney there is now an obstructing calculus in the lower renal pelvis at the upper UPJ junction, this calculus measuring 11 by 8 mm, previously within the kidney. There is dilatation of the collecting system above this level and unilateral right-sided perinephric streaking. The right ureter below the UPJ is normal size and there are no calculi seen lower down in the right ureter nor within the urinary bladder lumen. URINARY BLADDER: No radiopaque calculi seen in the lumen. Bladder base is indented by enlarged prostate gland. No mass seen within the bladder nor intraluminal bladder clots. ABDOMINAL AORTA: Abdominal aorta is not enlarged. LYMPH NODES: There is no retroperitoneal nor paraaortic adenopathy. ABDOMINAL WALL: No evidence of significant anterior abdominal wall nor inguinal hernia. GI: There is no evidence of bowel obstruction, free air, nor abscess. PELVIS: LYMPH NODES: There is no intrapelvic nor inguinal adenopathy. GI: No evidence of appendicitis.No evidence of sigmoid diverticulitis. URINARY BLADDER: See above REPRODUCTIVE: Prostate gland is enlarged and indents the bladder base. OSSEOUS: No significant osseous lesions. IMPRESSION: 1. There is an 11 x 8 mm calculus in the upper right ureter at the UPJ causing obstruction at this level with an element of right-sided kidney hydronephrosis and perinephric streaking. This calculus was previously with in the kidney on prior CT scan of 02/15/2022. There are no other calculi in the right ureter and the right ureter is not dilated below this upper level obstruction. There are also no calculi evident within the urinary bladder. 2. No significant acute findings in the opposite-right kidney. 3. Urinary bladder base is indented by an enlarged prostate gland. However, there are no radiopaque calculi seen in the urinary bladder lumen and the bladder wall is not thickened. Labs 07/01/24 18:13 07/01/24 18:13 Labs: Laboratory Results - last 24 hr 07/01/24 07/01/24 18:13 19:09 WBC 9.05 RBC 3.56 L Hgb 10.3 L Hct 31.9 L MCV 90 MCH 28.9 MCHC 32.3 RDW 13.5 Plt Count 126 L MPV 10.2 Immature Gran % 0.3 Neutrophils % 85.1 Lymphocytes % 6.2 Monocytes % 5.9 Eosinophils % 1.9 Basophils % 0.6 Nucleated RBC % 0.0 Absolute Neutrophils 7.71 H Absolute Lymphocytes 0.56 L Absolute Monocytes 0.53 Absolute Eosinophils 0.17 Absolute Basophils 0.05 Sodium 138 Potassium 5.1 Chloride 106 Carbon Dioxide 20.4 L Anion Gap 11.6 H BUN 72 H Creatinine 5.6 H* Est GFR (CKD-EPI 2020) 10.50 Glucose 112 H Calcium 9.7 Magnesium 2.2 Total Bilirubin 0.8 AST 27 ALT 32 Alkaline Phosphatase 179 H Total Protein 8.7 H Albumin 4.2 Lipase 57 Urine Color Yellow Urine Clarity Clear Urine pH 5.5 Ur Specific [place] 1.020 Urine Protein >=300 H Urine Ketones Negative Urine Blood Moderate H Urine Nitrite Negative Urine Bilirubin Negative Urine Urobilinogen 0.2 Ur Leukocyte Esterase Negative Urine RBC >50 H Urine WBC 3-5 Ur Epithelial Cells Rare Urine Crystals Negative Urine Bacteria Moderate Urine Casts 0-2 Fine Granular Urine Mucus Negative Ur Culture Indicated? No Urine Glucose Negative Last Vital Signs Temp 36.9 C 07/01/24 17:54 Pulse 95 H 05/12/25 17:54 Resp 16 07/01/24 17:54 BP 217/107 H 07/01/24 17:54 Pulse Ox 98 07/01/24 17:54 PAWSS Have you Been Recently Intoxicated or Drunk Within the Last 30 days?: No Have you Ever Experienced Previous Episodes of Alcohol Withdrawal?: No Have you ever Experienced Withdrawal Seizures?: No Have you ever Experienced Delirium Tremens(DT)s?: No Have you ever undergone Alcohol Rehabilitation Treatment (i.e, inpt ot outpatient treatment programs)?: No Have you ever Experienced Blackouts?: No Have you ever Combined Alcohol with other Downers within the last 90 days?: No Have you ever Combined Alcohol with any other Substance of Abuse during the last 90 days?: No Positive Blood Alcohol level on Presentation? [PCS.BAL]: No Evidence of Increased Autonomic Activity (i.e. HR>120, tremor, sweating, agitation, nausea)?: No Result: 0 Time Spent Time spent with Patient: >75 minutes Time was spent: preparing to see the patient(eg.review tests), obtaining and/or reviewing separately otained hiistory, ordering medications,tests, procedures, referring, communicating with other health urgent care physician assistant, indepentently interpreting results and care coordination
[2024-07-01 20:48] LABS: COVID-19 PCR Negative (Negative); Influenza A PCR Negative (Negative); Influenza B PCR Negative (Negative); RSV PCR Negative (Negative)
[2024-07-01 20:49] LABS: Source Nasopharynx
--- NOTE | 2024-07-01 21:00 | W.PC.ACHO ---
Registration Status: Primary Language: Preferred Language: ED Information & Data Chief Complaint FlankPain 07/01/24 18:35 Chief Complaint FlankPain 07/01/24 18:10 Triage Note pt started feeling poorly ~ 07/01/24 17:51 1300, pain on right side, pain in abd, nausea. pt ate something and immediately vomited. pt has hx of kidney stones, has a known stone dr barrera is monitoring. pt has been seeing more blood in urine urine Medical / Surgical History (Last Reviewed 05/16/24 @ 11:05 by Diamond Granados MD) Acute kidney injury superimposed on chronic kidney disease PALLAVI (acute kidney injury) Calculus of left ureter Aortic stenosis Stable angina Positive cardiac stress test History of chest pain MARI (obstructive sleep apnea) Idiopathic thrombocytopenia Murmur History of adenomatous polyp of colon Deviated nasal septum Obesity Hypertension GERD (gastroesophageal reflux disease) Depression Diabetes Sleep apnea (Last Reviewed 05/16/24 @ 11:05 by Diamond Granados MD) History of cardiac catheterization Colonoscopy - MAC (06/05/17) Most Recent Vital Signs Temperature 36.9 C 07/01/24 17:54 Pulse 69 07/01/24 20:46 Pulse 74 07/01/24 20:46 Respiratory Rate 21 07/01/24 20:46 Blood Pressure 228/108 H 07/01/24 20:46 Blood Pressure Mean 152 07/01/24 20:46 Pulse Oximetry 94 07/01/24 20:46 Pain Level 8 07/01/24 18:36 Allergies lisinopril Adverse Reaction (Verified 07/01/24 17:54) cough IV IV Catheter Type [Left Saline Lock Antecubital] IV Catheter Gauge [Left 18 Antecubital] Diagnostics 07/01/24 07/01/24 07/01/24 Range/Units 20:05 19:09 18:13 WBC 9.05 (4.4-10.8) 10^3/uL RBC 3.56 L (4.36-5.78) 10^6/uL Hgb 10.3 L (13.5-17.5) g/dL Hct 31.9 L (40.0-50.0) % MCV 90 (80-95) fL MCH 28.9 (27.0-33.0) pg MCHC 32.3 (32.0-36.0) % RDW 13.5 (11.8-14.1) % Plt Count 126 L (130-400) 10^3/uL MPV 10.2 (8.0-11.0) fL Immature Gran % 0.3 % Neutrophils % 85.1 % Lymphocytes % 6.2 % Monocytes % 5.9 % Eosinophils % 1.9 % Basophils % 0.6 % Nucleated RBC % 0.0 (0.0-0.3) % Absolute Neutrophils 7.71 H (1.2-6.7) 10^3/uL Absolute Lymphocytes 0.56 L (1.2-3.4) 10^3/uL Absolute Monocytes 0.53 (0.1-0.8) 10^3/uL Absolute Eosinophils 0.17 (0.0-0.7) 10^3/uL Absolute Basophils 0.05 (0.0-0.2) 10^3/uL Sodium 138 (136-145) mmol/L Potassium 5.1 (3.5-5.1) mmol/L Chloride 106 (98-107) mmol/L Carbon Dioxide 20.4 L (21.0-32.0) mmol/L Anion Gap 11.6 H (3-11) mmol/L BUN 72 H (7-18) mg/dL Creatinine 5.6 H* (0.70-1.30) mg/dL Est GFR (CKD-EPI 2020) 10.50 (mL/min/1.73m2) Glucose 112 H (74-106) mg/dL Calcium 9.7 (8.5-10.1) mg/dL Magnesium 2.2 (1.8-2.4) mg/dL Total Bilirubin 0.8 (0.2-1.0) mg/dL AST 27 (15-37) U/L ALT 32 (16-63) U/L Alkaline Phosphatase 179 H (46-116) U/L Total Protein 8.7 H (6.4-8.2) g/dL Albumin 4.2 (3.4-5.0) g/dL Lipase 57 (<78) U/L Urine Color Yellow (Yellow) Urine Clarity Clear (Clear) Urine pH 5.5 (5-8) Ur Specific [place] 1.020 (1.005-1.025) Urine Protein >=300 H (Neg-Trace) mg/dL Urine Ketones Negative (Negative) mg/dL Urine Blood Moderate H (Negative) Urine Nitrite Negative (Negative) Urine Bilirubin Negative (Negative) Urine Urobilinogen 0.2 (Up to 0.2) mg/dL Ur Leukocyte Esterase Negative (Negative) Urine RBC >50 H (0-2) HPF Urine WBC 3-5 (0-5) HPF Ur Epithelial Cells Rare (Negative) HPF Urine Crystals Negative (Negative) HPF Urine Bacteria Moderate (Negative) HPF Urine Casts 0-2 Fine Granular (Negative) LPF Urine Mucus Negative (Negative) Ur Culture Indicated? No Urine Glucose Negative (Negative) mg/dL COVID-19 Source Nasopharynx SARS-CoV-2 (PCR) Negative (Negative) Influenza Type A (PCR) Negative (Negative) Influenza Type B (PCR) Negative (Negative) RSV (PCR) Negative (Negative) Intake and Output - 24 Hour Total 07/01/24 17:38 thru 07/01/24 17:51 Weight 260 lb Falls Risk Assessment History of Falls No History 07/01/24 18:36 Contributing Factors No Factors 07/01/24 18:36 Ambulatory Aids Independent 07/01/24 18:36 Tubes/Lines None 07/01/24 18:36 Gait Evaluation No gait disturbance 07/01/24 18:36 Cognition No cognitive impairment 07/01/24 18:36 Fall Total Score 0 07/01/24 18:36 Level of Risk Standard/Low Risk 07/01/24 18:36 Problems (Last Reviewed 05/16/24 @ 11:05 by Diamond Granados MD) Calculus of right ureter (Acute) PALLAVI (acute kidney injury) (Acute) Chronic kidney disease (Chronic) Coronary artery disease (Chronic) v v v v v v v v v Sending and/or Receiving Nurses: Please use comment section below to note any information pertinent to the patient hand-off not included above. Information / Comments: Dr. Barrera pt, flank pain today with hematuria, nausea/ dry heaves. HX of stones and CKD. Hypertensive in the ED. A&O x4. CT with 11mm x8mm stone in right ureter with obstruction and hydronephrosis.Got 1 liter fluid in ED. Dilaudid in ED with good relief from 8/10 to 5/10 pain. #18g LAC. FLUVID negative, recent cold. Report received from: Larissa Stratton RN
[2024-07-01] MEDS: Acetaminophen 325 MG TAB PO (21:34)
[2024-07-01] MEDS: Normal Saline 1,000 ML 150 ML IV (21:35)
[2024-07-01] MEDS: Normal Saline Flush 10 ML SYR IVP ×2 (21:35→22:39)
[2024-07-01] MEDS: Allopurinol 100 MG TAB PO (21:35)
[2024-07-01] MEDS: HYDROmorphone 2 MG/ML SYR 0.5 MG IVP (22:39)
[2024-07-02] VITALS (38 sets, daily range): BP systolic 111–187; BP diastolic 44–96; PULSE 51–75; RESP 8–32; TEMP 36.2–37.3; O2SAT 82–98; BMI 39.6
[2024-07-02] MEDS: HYDROmorphone 2 MG/ML SYR 0.5 MG IVP ×2 (02:51→08:00)
[2024-07-02] MEDS: Normal Saline Flush 10 ML SYR IVP ×4 (02:51→17:49)
[2024-07-02] MEDS: Normal Saline 1,000 ML 150 ML IV ×2 (04:25→17:23)
[2024-07-02] MEDS: Ondansetron 4 MG/2 ML VIAL IVP (04:32)
[2024-07-02 06:34] LABS: HCT 31.9 % (40.0-50.0); HGB 10.1 g/dL (13.5-17.5); MCH 28.5 pg (27.0-33.0); MCHC 31.7 % (32.0-36.0); MCV 90 fL (80-95); MPV 10.4 fL (8.0-11.0); RBC 3.54 10^6/uL (4.36-5.78); RDW 13.5 % (11.8-14.1); RDW-SD 44.9 fL; WBC 5.71 10^3/uL (4.4-10.8)
[2024-07-02 06:45] LABS: Prothrombin Time 10.3 sec (9.1-11.1)
[2024-07-02 06:51] LABS: ALT 24 U/L (16-63); AST 21 U/L (15-37); Albumin 3.4 g/dL (3.4-5.0); Alkaline Phosphatase 161 U/L (46-116); Anion Gap 11.9 mmol/L (3-11); BUN 69 mg/dL (7-18); Bilirubin, Total 0.5 mg/dL (0.2-1.0); CO2 20.1 mmol/L (21.0-32.0); Calcium 9.3 mg/dL (8.5-10.1); Chloride 108 mmol/L (98-107); Estimated GFR 10.07 (mL/min/1.73m2); Glucose 98 mg/dL (74-106); Magnesium 2.2 mg/dL (1.8-2.4); Potassium 5.1 mmol/L (3.5-5.1); Sodium 140 mmol/L (136-145); Total Protein 7.5 g/dL (6.4-8.2)
[2024-07-02 06:53] LABS: CREATININE 5.8 mg/dL (0.70-1.30)
[2024-07-02 06:56] LABS: Platelet Count 91 10^3/uL (130-400)
--- NOTE | 2024-07-02 07:21 | W.UROLOGYCON ---
Date of service: 07/02/24 Time of Service: 07:21 Assessment and Plan Assessment and plan (1) Calculus of right ureter: Status: Acute (2) PALLAVI (acute kidney injury): Status: Acute (3) Prostate cancer: Status: Chronic Assessment and plan: With his increase in creatinine and the size of his stone, I believe urgent intervention is indicated. At a minimum, we would want to place a ureteral stent to protect his renal function. If he is stable enough for a longer procedure, I would recommend ureteroscopy and holmium laser lithotripsy of his stone along with the stent placement. I have provided the information to the operating room. Once my office staff comes in this morning, we can coordinate with the OR regarding today's schedule. I am happy to report to the patient that based on his PSMA PET CT scan, there is absolutely no evidence of metastatic prostate cancer. Ultimately, we will refer him to radiation oncology for treatment of his recently diagnosed prostate cancer this referral will be made. The referral will be accomplished as an outpatient. History of Present Illness History of Present Illness Chief Complaint: Right ureteral stone Narrative: This is a 64-year-old gentleman who is well-known to our practice. He actually has a follow-up appointment scheduled for this afternoon regarding his recently diagnosed prostate cancer. He presented to the emergency department last evening with right flank pain. He does have a history of uric acid kidney stones. He required ureteroscopy and stone extraction of a left ureteral stone back in 2021. We have been monitoring known right sided kidney stones that had been nonobstructing. When he presented to the emergency department last evening, it was found that his right sided stone had migrated into the proximal ureter and was causing hydronephrosis. The patient does have a history of renal insufficiency. His serum creatinine was elevated above baseline last evening. He was not having any fevers or chills. He had no gross hematuria yesterday but as of this morning his urine his pink-tinged without clots. His pain has been associated with some nausea. Review of Systems Narrative: No fevers or chills No vision change or dysphasia No thyroid dysfunction No shortness of breath, cough or hemoptysis No chest pain or palpitations No hepatitis, ulcers, jaundice, diarrhea or constipation No seizures, strokes or peripheral neuropathy No bleeding disorders No gout PFSH All Active Problems (Updated 07/01/24 @ 19:46 by Jarad Gómez) Calculus of right ureter (Acute) PALLAVI (acute kidney injury) (Acute) Prostate cancer (Chronic) Elevated PSA, between 10 and less than 20 ng/ml (Acute) Chronic kidney disease (Chronic) CKD III Chronic venous insufficiency (Acute) Lower urinary tract symptoms (LUTS) (Acute) Uric acid kidney stone (Acute) Coronary artery disease (Chronic) Kidney calculus (Chronic) Tubular adenoma of colon (Acute) Screening for colon cancer (Acute) Medical History Acute kidney injury superimposed on chronic kidney disease PALLAVI (acute kidney injury) Calculus of left ureter Aortic stenosis Stable angina Positive cardiac stress test History of chest pain MARI (obstructive sleep apnea) Very Severe-per sleep study 05/04/17-Uses BiPAP Idiopathic thrombocytopenia Murmur History of adenomatous polyp of colon Deviated nasal septum Obesity Hypertension GERD (gastroesophageal reflux disease) Depression Diabetes Sleep apnea Surgical History History of cardiac catheterization 06/17/21 [facility]-see scanned records Colonoscopy - MAC (06/05/17) 08/2021 Social History Smoking/Tobacco Use Status: Never Smoking risk assessment performed?: Yes Alcohol Intake: current Alcohol Intake frequency: holidays/special occasions only Alcohol type: beer Drug use: Never Substance use type: does not use Housing: house Do you feel safe at home: Yes Do you feel safe in your relationship?: Yes Exam Narrative Exam Narrative: He does not appear septic or toxic His vital signs are documented elsewhere in the chart His chest wall motion is normal. He is not short of breath at rest. His abdomen is soft with no peritoneal signs He is awake and alert I reviewed his CT scan on the PACS system. I see no remaining stones on the left kidney. I do not see any stones in the right kidney, but in the right proximal ureter, I reviewed his lab work from admission. This morning's lab work is still pending. His serum creatinine in the emergency department was elevated to 5.6 mg/dL (baseline between 3 and 4 mg/dL). His urinalysis was not suspicious for infected urine. Results Last Vital Signs Temp 36.6 C 07/02/24 03:42 Pulse 70 07/02/24 03:42 Resp 18 07/02/24 03:42 BP 150/81 H 07/02/24 03:42 Pulse Ox 96 07/02/24 03:42 Labs 07/02/24 06:12 07/02/24 06:12 Labs: Laboratory Results - last 24 hr 07/01/24 07/01/24 07/01/24 17:57 18:13 19:09 WBC 9.05 RBC 3.56 L Hgb 10.3 L Hct 31.9 L MCV 90 MCH 28.9 MCHC 32.3 RDW 13.5 Plt Count 126 L MPV 10.2 Immature Gran % 0.3 Neutrophils % 85.1 Lymphocytes % 6.2 Monocytes % 5.9 Eosinophils % 1.9 Basophils % 0.6 Nucleated RBC % 0.0 Absolute Neutrophils 7.71 H Absolute Lymphocytes 0.56 L Absolute Monocytes 0.53 Absolute Eosinophils 0.17 Absolute Basophils 0.05 PT INR Sodium 138 Potassium 5.1 Chloride 106 Carbon Dioxide 20.4 L Anion Gap 11.6 H BUN 72 H Creatinine 5.6 H* Est GFR (CKD-EPI 2020) 10.50 Glucose 112 H Calcium 9.7 Magnesium 2.2 Total Bilirubin 0.8 AST 27 ALT 32 Alkaline Phosphatase 179 H Total Protein 8.7 H Albumin 4.2 Lipase 57 TSH 2.40 Urine Color Yellow Urine Clarity Clear Urine pH 5.5 Ur Specific [place] 1.020 Urine Protein >=300 H Urine Ketones Negative Urine Blood Moderate H Urine Nitrite Negative Urine Bilirubin Negative Urine Urobilinogen 0.2 Ur Leukocyte Esterase Negative Urine RBC >50 H Urine WBC 3-5 Ur Epithelial Cells Rare Urine Crystals Negative Urine Bacteria Moderate Urine Casts 0-2 Fine Granular Urine Mucus Negative Ur Culture Indicated? No Urine Glucose Negative COVID-19 Source SARS-CoV-2 (PCR) Influenza Type A (PCR) Influenza Type B (PCR) RSV (PCR) 07/01/24 07/02/24 20:05 06:12 WBC 5.71 RBC 3.54 L Hgb 10.1 L Hct 31.9 L MCV 90 MCH 28.5 MCHC 31.7 L RDW 13.5 Plt Count 91 L MPV 10.4 Immature Gran % Neutrophils % Lymphocytes % Monocytes % Eosinophils % Basophils % Nucleated RBC % Absolute Neutrophils Absolute Lymphocytes Absolute Monocytes Absolute Eosinophils Absolute Basophils PT 10.3 INR 1.0 Sodium 140 Potassium 5.1 Chloride 108 H Carbon Dioxide 20.1 L Anion Gap 11.9 H BUN 69 H Creatinine 5.8 H* Est GFR (CKD-EPI 2020) 10.07 Glucose 98 Calcium 9.3 Magnesium 2.2 Total Bilirubin 0.5 AST 21 ALT 24 Alkaline Phosphatase 161 H Total Protein 7.5 Albumin 3.4 Lipase TSH Urine Color Urine Clarity Urine pH Ur Specific [place] Urine Protein Urine Ketones Urine Blood Urine Nitrite Urine Bilirubin Urine Urobilinogen Ur Leukocyte Esterase Urine RBC Urine WBC Ur Epithelial Cells Urine Crystals Urine Bacteria Urine Casts Urine Mucus Ur Culture Indicated? Urine Glucose COVID-19 Source Nasopharynx SARS-CoV-2 (PCR) Negative Influenza Type A (PCR) Negative Influenza Type B (PCR) Negative RSV (PCR) Negative
[2024-07-02] MEDS: Metoprolol CR 50 MG TABCR PO (08:00)
[2024-07-02] MEDS: Isosorbide Mononitrate 30 MG TABCR PO (08:00)
[2024-07-02] MEDS: Losartan 50 MG TAB 100 MG PO (08:01)
[2024-07-02] MEDS: Aspirin E.C. 81 MG TABEC PO (08:01)
[2024-07-02] MEDS: Sertraline 100 MG TAB 50 MG PO (08:02)
[2024-07-02] MEDS: Allopurinol 100 MG TAB PO ×2 (08:02→20:24)
[2024-07-02] MEDS: Torsemide 10 MG TAB PO (08:02)
[2024-07-02] MEDS: Multivitamin TAB 1 TAB PO (08:02)
[2024-07-02] MEDS: Tamsulosin 0.4 MG CAPCR 0.8 MG PO (08:02)
[2024-07-02] MEDS: Acetaminophen 325 MG TAB PO (10:07)
--- NOTE | 2024-07-02 10:56 | ANES.PREOP_ITS ---
General Info Date of Service Date Performed: 07/02/24 Height: 5 ft 8 in Weight: 118.3 kg Body Mass Index (BMI): 39.6 Surgical Procedure: Operation Date: 07/02/24 11:55 Proposed Procedure Side Surgeon p Cystoscopy/Laser/Retrograde/Ureteroscopy/ Stent Placement Right Alexander Barrera MD Meds Allergies and Home Medications Allergies Allergy/AdvReac Type Severity Reaction Status Date / Time lisinopril AdvReac cough Verified 07/01/24 17:54 Home Medication ?Medication ?Instructions ?Recorded aspirin 81 mg tablet,delayed 81 mg PO DAILY 08/28/16 release (Aspir-) metoprolol succinate 50 mg 50 mg PO DAILY 12/24/20 tablet,extended release 24 hr verapamil 240 mg 24 hr 240 cap PO DAILY 09/03/21 capsule,extended release atorvastatin 80 mg tablet 80 mg PO QPM 12/08/21 isosorbide mononitrate 30 mg 30 mg PO DAILY 02/16/22 tablet,extended release 24 hr multivitamin 1 tab PO DAILY 03/01/22 sertraline 100 mg tablet 50 mg PO DAILY 10/11/22 allopurinol 100 mg tablet 100 mg PO BID 03/31/23 losartan 50 mg tablet 100 mg PO DAILY 05/08/23 tamsulosin 0.4 mg capsule 0.8 mg (2 x 0.4 mg) PO DAILY #180 11/28/23 caps torsemide 10 mg tablet 10 mg PO DAILY #90 tabs 05/28/24 Current Visit Medications: Current Medications Generic Name Dose Route Start Last Admin Trade Name Freq PRN Reason Stop Dose Admin Acetaminophen 0 mg 07/01/24 21:06 07/02/24 10:07 Acetaminophen 325 Mg Tab PO 650 mg Q4H PRN PRN Administration Allopurinol 100 mg 07/01/24 21:06 07/02/24 08:02 Allopurinol 100 Mg Tab PO 100 mg BID KRYS Administration Aspirin 81 mg 07/02/24 08:30 07/02/24 08:01 Aspirin E.C. 81 Mg Tabec PO 81 mg DAILY KRYS Administration Atorvastatin Calcium 80 mg 07/02/24 20:00 Atorvastatin 40 Mg Tab PO QPM KRYS Docusate Sodium 100 mg 07/01/24 21:06 Docusate Sodium 100 Mg Cap PO TID PRN PRN Hydromorphone HCl 0.5 mg 07/01/24 21:06 07/02/24 08:00 Hydromorphone 2 Mg/Ml Syr IVP 0.5 mg Q4H PRN PRN Administration Sodium Chloride 1,000 mls @ 150 mls/hr 07/01/24 21:06 07/02/24 04:25 Saline 1000ml Bag IV 150 mls/hr INFUSION KRYS Administration Cefazolin Sodium/Dextrose 2 gm in 50 mls @ 100 mls/hr 07/02/24 07:00 Ancef Duplex IVPB PREOP KRYS IV Miscellaneous Supplies 1 each 07/01/24 18:00 Iv Access IV DIRECTED KRYS Isosorbide Mononitrate 30 mg 07/02/24 08:30 07/02/24 08:00 Isosorbide Mononitrate 30 Mg Tabcr PO 30 mg DAILY KRYS Administration Losartan Potassium 100 mg 07/02/24 08:30 07/02/24 08:01 Losartan 50 Mg Tab PO 100 mg DAILY KRYS Administration Magnesium Hydroxide 30 ml 07/01/24 21:06 Milk Of Magnesia 30 Ml Cup PO DAILY PRN PRN Metoprolol Succinate 50 mg 07/02/24 08:30 07/02/24 08:00 Metoprolol Cr 50 Mg Tabcr PO 50 mg DAILY KRYS Administration Multivitamins 1 tab 07/02/24 08:30 07/02/24 08:02 Multivitamin Tab PO 1 tab DAILY KRYS Administration Ondansetron HCl 4 mg 07/01/24 21:42 07/02/24 04:32 Ondansetron 4 Mg/2 Ml Vial IVP 4 mg Q6H PRN PRN Administration Polyethylene Glycol 17 gm 07/01/24 21:06 Polyethylene Glycol 3350 17 Gm Packet PO DAILY PRN PRN Constipation Sertraline HCl 50 mg 07/02/24 08:30 07/02/24 08:02 Sertraline 100 Mg Tab PO 50 mg DAILY KRYS Administration Sodium Chloride 0 ml 07/01/24 17:56 07/02/24 02:51 Normal Saline Flush 10 Ml Syr IVP 10 ml PRN PRN Administration Sodium Chloride 0 ml 07/01/24 20:00 07/02/24 08:00 Normal Saline Flush 10 Ml Syr IVP 20 ml BID KRYS Administration Sodium Chloride 0 ml 07/01/24 17:56 Normal Saline 10 Ml Vial IJ DIRECTED PRN Tamsulosin HCl 0.8 mg 07/02/24 08:30 07/02/24 08:02 Tamsulosin 0.4 Mg Capcr PO 0.8 mg DAILY KRYS Administration Torsemide 10 mg 07/02/24 08:30 07/02/24 08:02 Torsemide 10 Mg Tab PO 10 mg DAILY KRYS Administration Verapamil HCl 240 mg 07/02/24 08:30 07/02/24 08:01 Verapamil C.R. 240 Mg Tabcr PO 240 mg DAILY KRYS Administration PFSH Active Problems Active Problems: Problem Status Onset Code Calculus of right ureter Acute N20.1 PALLAVI (acute kidney injury) Acute N17.9 Prostate cancer Chronic C61 Elevated PSA, between 10 and less than 20 ng/ml Acute R97.20 Chronic kidney disease Chronic N18.9 Chronic venous insufficiency Acute I87.2 Lower urinary tract symptoms (LUTS) Acute R39.9 Uric acid kidney stone Acute N20.0 Coronary artery disease Chronic I25.10 Kidney calculus Chronic N20.0 Tubular adenoma of colon Acute D12.6 Screening for colon cancer Acute Z12.11 Medical History Medical History Acute kidney injury superimposed on chronic kidney disease PALLAVI (acute kidney injury) Calculus of left ureter Aortic stenosis Stable angina Positive cardiac stress test History of chest pain MARI (obstructive sleep apnea) Very Severe-per sleep study 05/04/17-Uses BiPAP Idiopathic thrombocytopenia Murmur History of adenomatous polyp of colon Deviated nasal septum Obesity Hypertension GERD (gastroesophageal reflux disease) Depression Diabetes Sleep apnea Surgical History Surgical History History of cardiac catheterization 06/17/21 [facility]-see scanned records Colonoscopy - MAC (06/05/17) 08/2021 Tobacco Smoking/Tobacco Use Status: Never Alcohol Alcohol Intake: current Alcohol intake frequency: holidays/special occasions only Alcohol type: beer Substance Use Substance use: Never Substance use type: does not use Vital Signs and Lab Results Vital Signs Most Recent Vital Signs in EMR: Most Recent Vital Signs Temp Pulse Resp BP Pulse Ox 36.9 C 75 18 162/81 H 95 07/02/24 07:51 07/02/24 07:51 07/02/24 07:51 07/02/24 08:48 07/02/24 07:51 Lab Results 07/02/24 06:12 07/02/24 06:12 Blood Type / Crossmatch: 2 No Data to Display Complete Blood Count: 2 White Blood Count 5.71 10^3/uL (4.4-10.8) 07/02/24 06:12 Red Blood Count 3.54 10^6/uL (4.36-5.78) L 07/02/24 06:12 Hemoglobin 10.1 g/dL (13.5-17.5) L 07/02/24 06:12 Hematocrit 31.9 % (40.0-50.0) L 07/02/24 06:12 Platelet Count 91 10^3/uL (130-400) L 07/02/24 06:12 Complete Metabolic Panel: 2 Sodium 140 mmol/L (136-145) 07/02/24 06:12 Potassium 5.1 mmol/L (3.5-5.1) 07/02/24 06:12 Chloride 108 mmol/L (98-107) H 07/02/24 06:12 Carbon Dioxide 20.1 mmol/L (21.0-32.0) L 07/02/24 06:12 BUN 69 mg/dL (7-18) H 07/02/24 06:12 Creatinine 5.8 mg/dL (0.70-1.30) H* 07/02/24 06:12 Est GFR (CKD-EPI 2020) 10.07 (mL/min/1.73m2) 07/02/24 06:12 Magnesium 2.2 mg/dL (1.8-2.4) 07/02/24 06:12 Calcium 9.3 mg/dL (8.5-10.1) 07/02/24 06:12 Albumin 3.4 g/dL (3.4-5.0) 07/02/24 06:12 Glucose 98 mg/dL (74-106) 07/02/24 06:12 Liver Function Panel: 2 Alanine Aminotransferase (ALT/SGPT) 24 U/L (16-63) 07/02/24 06: 12 Aspartate Amino Transf (AST/SGOT) 21 U/L (15-37) 07/02/24 06:12 Coagulation Panel: 2 INR International Normalized Ratio 1.0 (0.9-1.1) 07/02/24 06:1 2 Prothrombin Time 10.3 sec (9.1-11.1) 07/02/24 06:12 Cardiac Panel: 2 No Data to Display Arterial Blood Gas: 2 No Data to Display Venous Blood Gas: 2 No Data to Display Pancreas Panel: 2 Lipase 57 U/L (<78) 07/01/24 18:13 Thyroid Panel: 2 Thyroid Stimulating Hormone (TSH) 2.40 uIU/mL (0.36-3.74) 07/01 17:57 Infectious Disease: 2 Coronavirus (COVID-19)(PCR) Negative (Negative) 07/01/24 20:05 Coronavirus 2019 Source Nasopharynx 07/01/24 20:05 Influenza Virus Type A (PCR) Negative (Negative) 07/01/24 20:0 5 Influenza Virus Type B (PCR) Negative (Negative) 07/01/24 20:0 5 Respiratory Syncytial Virus (PCR) Negative (Negative) 07/01/24 20:05 Blood Cultures: 2 No Data to Display Toxicology Panel: 2 No Data to Display Imaging and Studies Imaging and Studies Study information below may be from another EMR and interpreted by another provider. Please see original notes in EMR for more complete details. EKG Summary: 02/13/22: Conclusion Sinus bradycardia...rate< 60 Prolonged AR interval...AR >220, V-rate 50- 90. Stress Test Summary: 06/03/21: 8 Mets, 87% of predicted HR, ischemia with 2 mm of inferior and 1.5 mm anterolateral depression at peak. Echocardiogram Summary: 06/17/21: Mild , moderate MR, LVEF 60-65% Cardiac Catheterization Summary: 06/17/21: aortic stenosis, mod diffuse LAD, 90% left circ lesion. Anesthesia Assessment and Plan Anesthesia History Personal History: No History of Anesthesia Complications Family History: No Family History of Anesthesia Complications Exercise Tolerance Exercise Tolerance: Metabolic Equivalents>4 Cardiac & Pulmonary Exam Cardiac Exam: Normal S1/S2 Heart Sounds Pulmonary Exam: Clear Bilateral Breath Sounds Implantable Cardiac Device Does patient have a Pacemaker or an ICD?: No Airway Exam Known Difficult Airway: No Mallampati Class: 2 Mouth Opening: Normal (> 3cm) Thyromental Distance: Greater than 3 cm Neck Range of Motion: Full ROM Neck Circumference: Thick Teeth Condition: Normal Dentition ASA Classification ASA Score: ASA 3 Emergency Case?: No NPO Status NPO Status: NPO Clears >2 hours, Solids >8 hours Anesthesia Plan Resuscitation Status: Full Code Anesthesia Technique: General Anesthesia Airway Planned: Endotracheal Tube Monitors Used: Standard Monitors Preoperative Comments:: 64 yo male for cysto. To the ED 07/01 with flank pain. Found to had a stone with an PALLAVI. Sig PMHx: CAD (90% circ stenosis, + stress test. isosorbide), mild , CKDIV, DM (metformin), GERD, HTN, severe MARI, HTN (losartan, metoprolol, torsemide, verapamil). ECG: sinus, LVH. ECHO: LVEF 57%. mild , trace AR. moderate MR. ascending Ao 4 cm. Previous Anes: - cysto, fent/prop, LMA 4, no issues. - colo x2 prop, natural ariway, no issues. did get glyco once for severe nalini with pauses. Appropriately NPO, denies GERD, however is currently nauseated.
--- NOTE | 2024-07-02 11:27 | PDOC.CMIN ---
Date of service: 07/02/24 Time of Service: 11:27 Care Management Initial Assmt Initial Assessment Reason for Hospitalization: Right ureterolithiasis Functional Status/Living Situation Patient Presentation: Khang was lying in bed, his Nico (daughter) was in the room visiting with him when CM arrived. He presented to the ED with the chief complaint of right flank pain. Khang has planned procedure this morning, scheduled to take place shortly after CM met with him; the interaction was limited as the patient engaged minimally. Khang is living in [facility] in his single family home, alone. Per Khang, Nico is sometimes supportive but he describes himself as self-supported and independent. Khang is hopeful his procedure will help him feel better. 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 ) Instrumental Activities of Daily Living (ADLs): Independent Medications Medication Management: No Issues/Barriers identified Advance Directives Advance Directives: Do you have an Advance Directive: Y 06/04/21 13:49 AD On File at [facility]: Y 06/01/17 09:42 Date Asked 01/01/24 01/01/24 13:38 AD Date Reviewed 07/01/24 07/01/24 17:49 COLST On File at [facility] COLST Date Scanned Code Status Resuscitation Status Full Code Portal Pt does not currently have a portal and education provided: Yes Insurance Coverage/Financial Issues Insurance: BC/BS [facility] Care Team Visit Care Team Role Provider Type Claire Faith APRN MD [facility] STAFF PHYSICIAN Fletcher Byrne MD Primary Care Provider NON-[facility] STAFF PHYSICIAN Alexander Barrera MD Other Providers [facility] STAFF PHYSICIAN Roman Guzman MD Emergency Provider [facility] STAFF PHYSICIAN Jarad Gómez Admit Provider NON-[facility] STAFF PHYSICIAN Attending Provider Discharge Potential Discharge Needs: PCP F/U Appt and Surgical F/U Appt Anticipated Barriers to Discharge: None Identified Patient/Family Education Needs: Review discharge instructions, discuss Ask Me Three Transportation: Private vehicle Plan: Anticipate Khang will return home once medically cleared. He will follow up with his community providers and plan of care. Khang will transport via private vehicle by his daughter. Social Determinants of Health Screening Social Determinants of health last assessed in clinic: 07/02/24 Will the Patient Participate in the Screening?: Yes Do you worry about having a steady place to live?: yes What is your living situation today?: I do not have steady housing Problems where you live: pests such as bugs, ants or mice and inadequate lighting In the past 12 months, have you had to go without electric, gas, oil or water in your home?: no 1. Within the past 12 months, we worried whether our food would run out before we got money to buy more.: Never true 2. Within the past 12 months, the food we bought just didn't last and we didn't have money to get more.: Never true Has lack of transportation kept you from medical appointments or from doing things needed for daily living?: no Has anyone in your life made you feel unsafe or unsupported?: no How hard is it for you to pay for the very basics like food, housing, medical care, and heating? Would you say it is:: Not hard at all Do you want help finding or keeping work or a job?: I do not need or want help If for any reason you need help with day-to-day activities such as bathing, preparing meals, shopping, managing finances, etc., do you get the help you need?: I don?t need any help How often do you feel lonely or isolated from those around you?: Sometimes Do you speak a language other than [place] at home?: No Does the patient want assistance with any of the above?: No Health Related Social Needs Health related social needs: inadequate housing (Z59.1), housing instability, housed, with risk of homelessness (Z59.811) and feeling lonely/isolated (Z60.8) Health related social needs details: Pt declines need for assistance at this time PFSH All Active Problems (Updated 07/01/24 @ 19:46 by Jarad Gómez) Calculus of right ureter (Acute) PALLAVI (acute kidney injury) (Acute) Prostate cancer (Chronic) Elevated PSA, between 10 and less than 20 ng/ml (Acute) Chronic kidney disease (Chronic) CKD III Chronic venous insufficiency (Acute) Lower urinary tract symptoms (LUTS) (Acute) Uric acid kidney stone (Acute) Coronary artery disease (Chronic) Kidney calculus (Chronic) Tubular adenoma of colon (Acute) Screening for colon cancer (Acute) Medical History Acute kidney injury superimposed on chronic kidney disease PALLAVI (acute kidney injury) Calculus of left ureter Aortic stenosis Stable angina Positive cardiac stress test History of chest pain MARI (obstructive sleep apnea) Very Severe-per sleep study 05/04/17-Uses BiPAP Idiopathic thrombocytopenia Murmur History of adenomatous polyp of colon Deviated nasal septum Obesity Hypertension GERD (gastroesophageal reflux disease) Depression Diabetes Sleep apnea Surgical History History of cardiac catheterization 06/17/21 [facility]-see scanned records Colonoscopy - MAC (06/05/17) 08/2021 Social History Smoking/Tobacco Use Status: Never Smoking risk assessment performed?: Yes Alcohol Intake: current Alcohol Intake frequency: holidays/special occasions only Alcohol type: beer Drug use: Never Substance use type: does not use Housing: house Do you feel safe at home: Yes Do you feel safe in your relationship?: Yes Readmission Within the Past 30 Days Yes or No: No
[2024-07-02] MEDS: Normal Saline 1,000 ML 30 ML IV (12:41)
[2024-07-02] MEDS: ceFAZolin 2 GM/50 ML BAG IVPB (12:44)
--- NOTE | 2024-07-02 12:56 | W.ANESVAS ---
Midline Placement Date Performed: 07/02/24 Procedure Time: 12:40 Requesting Provider: Christian Victoria Procedure Location: Operating Room Sedation Given (Indicate Dose Given): No Sedation given Patient Mental Status: Awake Sterility: Hand Hygiene, Surgical Cap and Chlorhexidine Laterality: Right Insertion Site: Cephalic Midline Device: PowerGlide Pro 18G Catheter Length: 10 cm Midline Procedure Procedure: 1% Lidocaine to skin and subcutaneous tissue with 25g needle, Vessel accessed with catheter over needle and Catheter placed without resistance Dressing: Tegaderm Applied and Statlock Applied Blood Return: Present Flushes: Other (on flushing intermitently difficult. Viewed under US, catheter clearly within the lumen of the vein, fluid clearly seen flowing up vein out of the catheter. ? likely vasospasm. With IVF it runs well and had good blood return. ) Ultrasound: Sterile probe cover and gel used Ultrasound Image Saved?: No Number of Attempts (See previous attempts in note section): 1 Procedure Tolerated: No Complications Procedure Outcome: Successful Procedure Comment:: PIV was attempted without success. Hand veins seen, but iwth bruising around them. elected to place midline. Performed By: Christian Victoria
[2024-07-02] MEDS: Lidocaine 2% Jelly 11 ML SYR (13:06)
[2024-07-02] MEDS: Omnipaque 300 MG/ML 50 ML BTL (14:21)
--- NOTE | 2024-07-02 14:47 | ROE_ITS ---
Operative Note Operative Note PRE-OP DIAGNOSIS: Right ureteral stone POST-OP DIAGNOSIS: same PROCEDURE: cystoscopy with right retrograde pyelogram, right flexible ureteroscopy with holmium laser lithotripsy of ureteral stone, extraction of stone fragments, insert right ureteral stent SURGEON: Alexander Barrera ANESTHESIA TYPE: Local By Surgeon and General LMA/ETT Refer to Anesthesia Record ESTIMATED BLOOD LOSS: 5 PATHOLOGY: other (stone fragments for chemical analysis) COMPLICATIONS: None Patient was transported to: PACU Patient's condition: stable Implants: 7 Japanese by 22 to 30 cm right ureteal stent 16 ukrainian awan catheter with 10 cc sterile water in balloon Indications: This is a 64-year-old gentleman who has a history of uric acid kidney stones. He had undergone the left ureteroscopy and stone extraction a few years back when he developed an obstructing ureteral stone He presented to the emergency department recently with right flank pain. He was found to have a very large obstructing right ureteral stone with hydronephrosis. His renal function had worsened compared to his baseline. He presents now for stone manipulation Findings: Large right proximal ureteral stone Procedure Description: The patient was given IV antibiotics and brought to the operating room on 07/02/2024. After successful induction of general anesthesia, he was placed in the dorsal lithotomy position. His genitalia was prepped and draped. 2% Xylocaine jelly was instilled into the urethra to act as a local anesthetic. The 22 Japanese rigid cystoscope was passed through the urethra into the bladder. The urethra and bladder were inspected with a 30 degree lens. The pendulous, bulbar and membranous urethra's appeared normal with no strictures. The prostatic urethra showed some lateral lobe enlargement but no significant median lobe. Both ureteral orifice ease were visualized the left orifice appeared normal. The right orifice had blood and clot coming from that side. The right orifice was cannulated with a 5 Japanese access catheter and a retrograde pyelogram was obtained by injecting Omnipaque through the access catheter under fluoroscopic guidance. A large filling defect was outlined in the right proximal ureter. A guidewire was advanced through the lumen of the access catheter and advanced above the level of the stone. The access catheter was then removed a dual-lumen catheter was then advanced over the wire and a second wire was positioned. We then removed the dual-lumen catheter. We chose 1 the wires as a working wire and the other as a safety wire. A ureteral access sheath was advanced over the working wire leaving the safety wire in place. A disposable flexible ureteroscope was then advanced through the lumen of the access sheath up to the level of the stone. There was clot adherent to the stone but the stone was visualized. The stone was treated with a 272 ?m holmium laser fiber. We used a combination of dusting settings and fragmentation settings to treat the stone. Multiple stone fragments were then pushed back up into the kidney. Fragments were removed using a 0 tip stone basket. All extracted fragments were sent to pathology for chemical analysis. I removed the ureteral access sheath and placed a dual-lumen catheter over the safety wire. I then performed a repeat retrograde pyelogram and there did did appear to be extravasation of contrast from the ureter. I passed a 7 Japanese stent over the safety wire and positioned the stent with the proximal end curled in the renal pelvis and the distal end curled within the bladder. I performed cystoscopy to ensure placement of the stent as well as to ensure there were no clots within the bladder. I placed a 16 Japanese Awan catheter. I passed the catheter through the urethra into the bladder. The catheter balloon was inflated with 10 cc of sterile water and the catheter was hooked to gravity drainage. The stent will be left in place for about 2 weeks to allow the ureter to heal. At that time, we will plan a cystoscopy stent removal and repeat ureteroscopy to ensure all stone fragments have been addressed. The patient tolerated this procedure well with no complications. Date of Procedure: 07/02/24
--- NOTE | 2024-07-02 14:54 | DI.RAD_ITS ---
Exam(s) XR RETROGRADE IN OR EXAM: XR RETROGRADE IN OR CLINICAL HISTORY: CALCULUS RIGHT URETER TECHNIQUE: 2D and realtime digital imaging was performed. CONTRAST MATERIAL: Refer to procedure report. COMPARISON: CT CT RENAL COLIC WO from 07/01/2024 FINDINGS: Fluoroscopy was provided for Dr. Barrera during the performance of a retrograde evaluation of the ángel l collecting system. Please refer to the procedure report for complete details. Ka,r=26.5 mGy IMPRESSION: RADIATION DOSE DELIVERED: 0.0 0.0 0
[2024-07-02] MEDS: fentaNYL 100 MCG/2 ML VIAL IVP ×2 (15:03→15:58)
--- NOTE | 2024-07-02 15:13 | W.ANESPOSTOP ---
Postoperative Evaluation Date, Time and Location Date Performed: 07/02/24 Time Performed: 15:13 Patient Location: PACU Vital Signs Most Recent Imported Vital Signs: Most Recent Vital Signs Temp Pulse Resp BP Pulse Ox 36.8 C 57 L 28 H 129/53 L 91 L 07/02/24 11:33 07/02/24 15:11 07/02/24 15:11 07/02/24 15:10 07/02/24 15:11 Pain Score Most Recent Pain Score: Most Recent Pain Score Pain Level [Right Abdomen] 8 07/02/24 08:10 Pain Level 7 07/02/24 11:07 Assessment Mental Status: Arousable with meaningful communication Airway and Respiratory Function: Patent airway with normal (patient baseline) respiratory exam Cardiovascular Function: Hemodynamically Stable Hydration Status: Adequately Hydrated Nausea & Vomiting: No Nausea or Vomiting Pain: Pain is tolerable per patient Peripheral Nerve Block: Patient did not receive a nerve block
[2024-07-02] MEDS: Oxybutynin 5 MG TAB PO (15:34)
--- NOTE | 2024-07-02 15:46 | PGE_ITS ---
Date of Service Date of service: 07/02/24 Time of Service: 15:48 Assessment and Plan Assessment and plan (1) Calculus of right ureter: Start date: 07/01/24 Status: Acute Assessment and plan: History of uric acid nephrolithiasis in the past now with large right ureteral stone at the UPJ causing hydronephrosis with no evidence of infection. Continue pain control and IV hydration until he can resume oral s/p OR Dr. Barrera consulted and cystoscopy , holmium laser lithotripsy of ureteral stone, right ureteral stent insertion completed. Please read notes. 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 (5) Hypertension: Assessment and plan: Continue outpatient medical therapy adjusting as needed, increased threshold d/t pain. (6) MARI (obstructive sleep apnea): Assessment and plan: BMI 39.7 continue home management CPAP at HS if able to bring his own (7) Depression: Assessment and plan: Continue outpatient medical therapy. (8) Diabetes: Assessment and plan: Hgb A1C 5.1 in 2022 with life style management. CKD may be associated with this problem. (9) On deep vein thrombosis (DVT) prophylaxis: Status: Acute Assessment and plan: Not a candidate for pharmacologic prophylaxis int he setting of hematuria and planned OR procedure Continue SCD's discussed with Dr. Ellis Subjective Subjective Patient reports: still having pain, voiding w/o difficulty, flatus and other (NPO); denies tolerating liquids well, tolerating a regular diet, no bowel movement, nausea, vomiting, shortness of breath or fever Exam Narrative Exam Narrative: Constitutional The patient is sitting on the bed uncomfortable but pain down to 8/10 s/p pain Rx a HENMT: Facial structures with normal appearance Neuro:alert and oriented to self, person, place, time and situation. No neurological focal deficit Resp: Unlabored breathing, clear lung bilaterally Cardio: regular rhythm, S1, S2, no murmur, capillary refill<3 sec., bilateral radial and dorsalis pedis pulses are positive, trace LE edema bilaterally GI: Abdomen is not distended, soft and non tender, bowel sounds are present : Negative Costovertebral angle tenderness Back/spine/Pelvis: No back tenderness, normal alignment Integumentary: No skin lesions or rash Extremities: strength 5/5 to bilateral lower and upper extremities Psych: RASS 0, congruent mood and normal affect. Objective Last Vital Signs Temp 36.4 C L 07/02/24 15:30 Pulse 55 L 07/02/24 15:40 Resp 22 07/02/24 15:40 BP 145/61 H 07/02/24 15:36 Pulse Ox 96 07/02/24 15:40 Laboratory Results - last 24 hr 07/01/24 07/01/24 07/01/24 17:57 18:13 19:09 WBC 9.05 RBC 3.56 L Hgb 10.3 L Hct 31.9 L MCV 90 MCH 28.9 MCHC 32.3 RDW 13.5 Plt Count 126 L MPV 10.2 Immature Gran % 0.3 Neutrophils % 85.1 Lymphocytes % 6.2 Monocytes % 5.9 Eosinophils % 1.9 Basophils % 0.6 Nucleated RBC % 0.0 Absolute Neutrophils 7.71 H Absolute Lymphocytes 0.56 L Absolute Monocytes 0.53 Absolute Eosinophils 0.17 Absolute Basophils 0.05 PT INR Sodium 138 Potassium 5.1 Chloride 106 Carbon Dioxide 20.4 L Anion Gap 11.6 H BUN 72 H Creatinine 5.6 H* Est GFR (CKD-EPI 2020) 10.50 Glucose 112 H Calcium 9.7 Magnesium 2.2 Total Bilirubin 0.8 AST 27 ALT 32 Alkaline Phosphatase 179 H Total Protein 8.7 H Albumin 4.2 Lipase 57 TSH 2.40 Urine Color Yellow Urine Clarity Clear Urine pH 5.5 Ur Specific Kirvin 1.020 Urine Protein >=300 H Urine Ketones Negative Urine Blood Moderate H Urine Nitrite Negative Urine Bilirubin Negative Urine Urobilinogen 0.2 Ur Leukocyte Esterase Negative Urine RBC >50 H Urine WBC 3-5 Ur Epithelial Cells Rare Urine Crystals Negative Urine Bacteria Moderate Urine Casts 0-2 Fine Granular Urine Mucus Negative Ur Culture Indicated? No Urine Glucose Negative COVID-19 Source SARS-CoV-2 (PCR) Influenza Type A (PCR) Influenza Type B (PCR) RSV (PCR) 07/01/24 07/02/24 20:05 06:12 WBC 5.71 RBC 3.54 L Hgb 10.1 L Hct 31.9 L MCV 90 MCH 28.5 MCHC 31.7 L RDW 13.5 Plt Count 91 L MPV 10.4 Immature Gran % Neutrophils % Lymphocytes % Monocytes % Eosinophils % Basophils % Nucleated RBC % Absolute Neutrophils Absolute Lymphocytes Absolute Monocytes Absolute Eosinophils Absolute Basophils PT 10.3 INR 1.0 Sodium 140 Potassium 5.1 Chloride 108 H Carbon Dioxide 20.1 L Anion Gap 11.9 H BUN 69 H Creatinine 5.8 H* Est GFR (CKD-EPI 2020) 10.07 Glucose 98 Calcium 9.3 Magnesium 2.2 Total Bilirubin 0.5 AST 21 ALT 24 Alkaline Phosphatase 161 H Total Protein 7.5 Albumin 3.4 Lipase TSH Urine Color Urine Clarity Urine pH Ur Specific Kirvin Urine Protein Urine Ketones Urine Blood Urine Nitrite Urine Bilirubin Urine Urobilinogen Ur Leukocyte Esterase Urine RBC Urine WBC Ur Epithelial Cells Urine Crystals Urine Bacteria Urine Casts Urine Mucus Ur Culture Indicated? Urine Glucose COVID-19 Source Nasopharynx SARS-CoV-2 (PCR) Negative Influenza Type A (PCR) Negative Influenza Type B (PCR) Negative RSV (PCR) Negative PAWSS Have you Been Recently Intoxicated or Drunk Within the Last 30 days?: No Have you Ever Experienced Previous Episodes of Alcohol Withdrawal?: No Have you ever Experienced Withdrawal Seizures?: No Have you ever Experienced Delirium Tremens(DT)s?: No Have you ever undergone Alcohol Rehabilitation Treatment (i.e, inpt ot outpatient treatment programs)?: No Have you ever Experienced Blackouts?: No Have you ever Combined Alcohol with other Downers within the last 90 days?: No Have you ever Combined Alcohol with any other Substance of Abuse during the last 90 days?: No Positive Blood Alcohol level on Presentation? [PCS.BAL]: No Evidence of Increased Autonomic Activity (i.e. HR>120, tremor, sweating, agitation, nausea)?: No Result: 0 Time Spent with Patient Time Spent with Patient: >50 minutes Time was spent: preparing to see the patient(eg.review tests), obtaining and/or reviewing separately otained hiistory, ordering medications,tests, procedures, referring, communicating with other health director of managed care, indepentently interpreting results, counseling the patient and care coordination
--- NOTE | 2024-07-02 16:29 | CHAPLAIN ---
Khang was in bed visiting with his daughter when I stopped in. I explained my role and offered support. He was getting ready to go to the OR. I will check on him tomorrow.
--- NOTE | 2024-07-02 17:24 | RESPIRATORY ---
07/02/2024 Pt has his own [employer] BIPAP with 2L bleed in O2 (pt only wears oxygen while wearing BIPAP) Max IPAP 23 Min EPAP 16 PS 4 Patient gets his home oxygen from [facility] and his BIPAP from [employer]. Pt states that Poonam Taylor set his BIPAP settings up.
[2024-07-02] MEDS: Lactated Ringers 1,000 ML 100 ML IV (17:47)
[2024-07-02 17:48] LABS: Anion Gap 11.2 mmol/L (3-11); BUN 71 mg/dL (7-18); CO2 18.8 mmol/L (21.0-32.0); Chloride 109 mmol/L (98-107); Estimated GFR 8.95 (mL/min/1.73m2); Glucose 141 mg/dL (74-106); Potassium 5.9 mmol/L (3.5-5.1); Sodium 139 mmol/L (136-145)
[2024-07-02 17:57] LABS: CREATININE 6.4 mg/dL (0.70-1.30)
[2024-07-02] MEDS: Benzocaine 20% 60 ML CAN TP (20:24)
[2024-07-02] MEDS: Atorvastatin 40 MG TAB 80 MG PO (20:24)
[2024-07-02] MEDS: Docusate Sodium 100 MG CAP PO (20:25)
--- NOTE | 2024-07-02 20:42 | RESPIRATORY ---
Pt has him home respironics unit at bedside w/sterile water in chamber. Settings are auto bipap 23/16, ps of 4 w/ 2L bleed in. Pt put mask on himself w/no complications.
[2024-07-02 21:50] LABS: Anion Gap 8.7 mmol/L (3-11); BUN 73 mg/dL (7-18); CO2 21.3 mmol/L (21.0-32.0); Calcium 8.9 mg/dL (8.5-10.1); Chloride 109 mmol/L (98-107); Estimated GFR 8.78 (mL/min/1.73m2); Glucose 136 mg/dL (74-106); Potassium 5.7 mmol/L (3.5-5.1); Sodium 139 mmol/L (136-145)
[2024-07-02 21:51] LABS: CREATININE 6.5 mg/dL (0.70-1.30)
[2024-07-03] VITALS (7 sets, daily range): BP systolic 140–181; BP diastolic 79–96; PULSE 62–80; RESP 14–18; TEMP 36.6–37.3; O2SAT 92–97
[2024-07-03] MEDS: Lactated Ringers 1,000 ML 100 ML IV ×3 (04:00→23:57)
[2024-07-03 06:37] LABS: Abs Immature Grans 0.02 10^3/uL (0.0-0.06); Absolute Basophil Count 0.01 10^3/uL (0.0-0.2); Absolute Eosinophil Count 0.02 10^3/uL (0.0-0.7); Absolute Lymphocyte Count 0.29 10^3/uL (1.2-3.4); Absolute Monocyte Count 0.54 10^3/uL (0.1-0.8); Absolute Neutrophil Count 6.09 10^3/uL (1.2-6.7); Basophils % 0.1 %; Eosinophils % 0.3 %; HCT 24.4 % (40.0-50.0); HGB 7.9 g/dL (13.5-17.5); Immature Grans % 0.3 %; Lymphocytes % 4.2 %; MCHC 32.4 % (32.0-36.0); MCV 90 fL (80-95); MPV 10.7 fL (8.0-11.0); Monocytes % 7.7 %; Neutrophils % 87.4 %; RBC 2.72 10^6/uL (4.36-5.78); RDW 13.5 % (11.8-14.1); RDW-SD 44.8 fL; WBC 6.97 10^3/uL (4.4-10.8)
[2024-07-03 07:04] LABS: ALT 16 U/L (16-63); AST 15 U/L (15-37); Albumin 2.9 g/dL (3.4-5.0); Alkaline Phosphatase 133 U/L (46-116); Anion Gap 10.6 mmol/L (3-11); BUN 75 mg/dL (7-18); Bilirubin, Total 0.4 mg/dL (0.2-1.0); CO2 19.4 mmol/L (21.0-32.0); Calcium 8.9 mg/dL (8.5-10.1); Chloride 109 mmol/L (98-107); Estimated GFR 8.78 (mL/min/1.73m2); Glucose 116 mg/dL (74-106); Magnesium 2.1 mg/dL (1.8-2.4); Potassium 5.1 mmol/L (3.5-5.1); Sodium 139 mmol/L (136-145); Total Protein 6.5 g/dL (6.4-8.2)
[2024-07-03 07:07] LABS: Diff Comment Diff Reviewed; Platelet Count 92 10^3/uL (130-400); RBC Morphology Normal
[2024-07-03 07:10] LABS: CREATININE 6.5 mg/dL (0.70-1.30)
[2024-07-03] MEDS: Tamsulosin 0.4 MG CAPCR 0.8 MG PO (09:43)
[2024-07-03] MEDS: Torsemide 10 MG TAB PO (09:43)
[2024-07-03] MEDS: Sertraline 100 MG TAB 50 MG PO (09:43)
[2024-07-03] MEDS: Docusate Sodium 100 MG CAP PO ×2 (09:43→20:15)
[2024-07-03] MEDS: Multivitamin TAB 1 TAB PO (09:44)
[2024-07-03] MEDS: Losartan 50 MG TAB 100 MG PO (09:44)
[2024-07-03] MEDS: Metoprolol CR 50 MG TABCR PO (09:44)
[2024-07-03] MEDS: Aspirin E.C. 81 MG TABEC PO (09:44)
[2024-07-03] MEDS: Isosorbide Mononitrate 30 MG TABCR PO (09:44)
--- NOTE | 2024-07-03 09:44 | CMPROGNOTE_ITS ---
Date of service: 07/03/24 Time of Service: 15:09 Care Management Progress Note Progress Note Text Progress Note Text: Khang was lying in bed when CM arrived. He states that he is feeling much better today than he was yesterday. Per report, Khang was flagged for a palliative care consult, CM introduced and educated him on what palliative care is. Madisyn states that he has too many other appointments happening at this time and chooses to opt out; CM communicated this with the provider. CM will continue to follow. Discharge Potential Discharge Needs: PCP F/U Appt and Other (Urology ) Anticipated Barriers to Discharge: None Identified Patient/Family Education Needs: Review discharge instructions, discuss Ask Me Three Transportation: Private vehicle Plan: Anticipate Khang will return home once medically cleared. He will follow up with his community providers and plan of care. Khang will transport via private vehicle by himself. Social Determinants of Health Screening Social Determinants of health last assessed in clinic: 07/03/24 Will the Patient Participate in the Screening?: Yes Do you worry about having a steady place to live?: no Problems where you live: no known problems In the past 12 months, have you had to go without electric, gas, oil or water in your home?: no 1. Within the past 12 months, we worried whether our food would run out before we got money to buy more.: Never true 2. Within the past 12 months, the food we bought just didn't last and we didn't have money to get more.: Never true Has lack of transportation kept you from medical appointments or from doing things needed for daily living?: no Has anyone in your life made you feel unsafe or unsupported?: no How hard is it for you to pay for the very basics like food, housing, medical care, and heating? Would you say it is:: Not hard at all Do you want help finding or keeping work or a job?: I do not need or want help If for any reason you need help with day-to-day activities such as bathing, preparing meals, shopping, managing finances, etc., do you get the help you need?: I don?t need any help How often do you feel lonely or isolated from those around you?: Sometimes Do you speak a language other than [place] at home?: No Does the patient want assistance with any of the above?: No Health Related Social Needs Health related social needs: feeling lonely/isolated (Z60.8) Health related social needs details: Pt declines need for assistance at this time
[2024-07-03] MEDS: Normal Saline Flush 10 ML SYR IVP ×2 (09:45)
--- NOTE | 2024-07-03 10:14 | W.PM.PROGNOT ---
Date of Service Date of service: 07/03/24 Time of Service: 11:00 Assessment and Plan Assessment and plan (1) Anemia: Status: Chronic Assessment and plan: Hgb & Hct at 7.9 & 24.4 from 10.1 & 31.9 Multi-factorial blood loss VS CKD and hemo-dilution Iron studies- will replace iron in the setting of positive blood work anemia findings (2) Calculus of right ureter: Start date: 07/01/24 Status: Acute Assessment and plan: History of uric acid nephrolithiasis in the past now with large right ureteral stone at the UPJ causing hydronephrosis with no evidence of infection. Continue pain control and IV hydration until Cr down trend then encourage oral fluid Dr. Barrera consulted and cystoscopy , holmium laser lithotripsy of ureteral stone, right ureteral stent insertion completed. Please read notes. 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 (6) Hypertension: Assessment and plan: Continue outpatient medical therapy adjusting as needed, increased threshold d/t pain. (7) MARI (obstructive sleep apnea): Assessment and plan: BMI 39.7 continue home management CPAP at HS if able to bring his own (8) Depression: Assessment and plan: Continue outpatient medical therapy. (9) Diabetes: Assessment and plan: Hgb A1C 5.1 in 202 with life style management. CKD may be associated with this problem. (10) On deep vein thrombosis (DVT) prophylaxis: Status: Acute Assessment and plan: Not a candidate for pharmacologic prophylaxis int he setting of hematuria and planned OR procedure Continue SCD's discussed with Dr. Ellis Subjective Subjective Patient reports: feels better, tolerating liquids well, tolerating a regular diet, voiding w/o difficulty, flatus and other (hematuria); denies still having pain, bowel movement, diarrhea, nausea, vomiting or shortness of breath Exam Narrative Exam Narrative: Constitutional The patient is sitting on the bed comfortable Neuro:alert and oriented to self, person, place, time and situation. No neurological focal deficit Resp: Unlabored breathing, clear lung bilaterally Cardio: regular rhythm, S1, S2, + pansystolic murmur, positive bilateral pulses to upper and lower ext GI: Abdomen is not distended, soft and non tender, bowel sounds are present : Negative Costovertebral angle tenderness Back/spine/Pelvis: no R CVA tenderness Integumentary: No skin lesions or rash Extremities: strength 5/5 to bilateral lower and upper extremities Psych: RASS 0, congruent mood and normal affect. Objective Last Vital Signs Temp 36.7 C 07/03/24 07:32 Pulse 70 07/03/24 07:32 Resp 18 07/03/24 07:32 BP 163/84 H 07/03/24 07:32 Pulse Ox 97 07/03/24 07:32 Laboratory Results - last 24 hr 07/02/24 07/02/24 07/03/24 16:35 20:50 06:02 WBC 6.97 RBC 2.72 L Hgb 7.9 L D Hct 24.4 L MCV 90 MCH 29.0 MCHC 32.4 RDW 13.5 Plt Count 92 L MPV 10.7 Immature Gran % 0.3 Neutrophils % 87.4 Lymphocytes % 4.2 Monocytes % 7.7 Eosinophils % 0.3 Basophils % 0.1 Nucleated RBC % 0.0 Absolute Neutrophils 6.09 Absolute Lymphocytes 0.29 L Absolute Monocytes 0.54 Absolute Eosinophils 0.02 Absolute Basophils 0.01 RBC Morphology Normal Sodium 139 139 139 Potassium 5.9 H 5.7 H 5.1 Chloride 109 H 109 H 109 H Carbon Dioxide 18.8 L 21.3 19.4 L Anion Gap 11.2 H 8.7 10.6 BUN 71 H 73 H 75 H Creatinine 6.4 H* 6.5 H* 6.5 H* Est GFR (CKD-EPI 2020) 8.95 8.78 8.78 Glucose 141 H 136 H 116 H Calcium 9.0 8.9 8.9 Magnesium 2.1 Total Bilirubin 0.4 AST 15 ALT 16 Alkaline Phosphatase 133 H Total Protein 6.5 Albumin 2.9 L PAWSS Have you Been Recently Intoxicated or Drunk Within the Last 30 days?: No Have you Ever Experienced Previous Episodes of Alcohol Withdrawal?: No Have you ever Experienced Withdrawal Seizures?: No Have you ever Experienced Delirium Tremens(DT)s?: No Have you ever undergone Alcohol Rehabilitation Treatment (i.e, inpt ot outpatient treatment programs)?: No Have you ever Experienced Blackouts?: No Have you ever Combined Alcohol with other Downers within the last 90 days?: No Have you ever Combined Alcohol with any other Substance of Abuse during the last 90 days?: No Positive Blood Alcohol level on Presentation? [PCS.BAL]: No Evidence of Increased Autonomic Activity (i.e. HR>120, tremor, sweating, agitation, nausea)?: No Result: 0 Time Spent with Patient Time Spent with Patient: >50 minutes Time was spent: preparing to see the patient(eg.review tests), obtaining and/or reviewing separately otained hiistory, ordering medications,tests, procedures, referring, communicating with other health senior care provider, indepentently interpreting results, counseling the patient and care coordination
[2024-07-03] MEDS: Benzocaine 20% 60 ML CAN TP ×3 (11:17→20:17)
[2024-07-03 15:32] LABS: Iron 21 ug/dL (65-175); Total Iron Binding Capacity 250 ug/dL (250-450); Transferrin Sat 8 % (20-55)
[2024-07-03 15:33] LABS: Anion Gap 13.5 mmol/L (3-11); BUN 74 mg/dL (7-18); CO2 20.5 mmol/L (21.0-32.0); Calcium 8.6 mg/dL (8.5-10.1); Chloride 109 mmol/L (98-107); Estimated GFR 8.78 (mL/min/1.73m2); Glucose 91 mg/dL (74-106); Potassium 4.8 mmol/L (3.5-5.1); Sodium 143 mmol/L (136-145)
[2024-07-03 15:39] LABS: CREATININE 6.5 mg/dL (0.70-1.30)
--- NOTE | 2024-07-03 16:44 | CHAPLAIN ---
Delfino was in bed when I visited. He had his procedure yesterday and said the pain is going, but his throat is very sore from the tube and anesthesia. Delfino's daughter was in earlier and will be returning. She is a med student at [employer] and will be leaving soon to attend [place]. Delfino talked about the accomplishments of his daughter, and said her goal is to be an elementary school librarian.
[2024-07-03] MEDS: Atorvastatin 40 MG TAB 80 MG PO (20:15)
[2024-07-04 02:50] VITALS: BP 174/94; PULSE 60; RESP 19; TEMP 36.6; O2SAT 98
[2024-07-04 07:14] LABS: ALT 15 U/L (16-63); AST 19 U/L (15-37); Albumin 2.9 g/dL (3.4-5.0); Alkaline Phosphatase 130 U/L (46-116); Anion Gap 10.2 mmol/L (3-11); BUN 75 mg/dL (7-18); Bilirubin, Total 0.5 mg/dL (0.2-1.0); CO2 19.8 mmol/L (21.0-32.0); Calcium 8.7 mg/dL (8.5-10.1); Chloride 111 mmol/L (98-107); Estimated GFR 9.48 (mL/min/1.73m2); Glucose 89 mg/dL (74-106); Sodium 141 mmol/L (136-145); Total Protein 6.6 g/dL (6.4-8.2)
[2024-07-04 07:21] LABS: CREATININE 6.1 mg/dL (0.70-1.30)
[2024-07-04 07:35] VITALS: BP 188/81; PULSE 74; RESP 18; TEMP 36; O2SAT 97
[2024-07-04] MEDS: Sertraline 100 MG TAB 50 MG PO (07:38)
[2024-07-04] MEDS: Tamsulosin 0.4 MG CAPCR 0.8 MG PO (07:38)
[2024-07-04] MEDS: Losartan 50 MG TAB 100 MG PO (07:38)
[2024-07-04] MEDS: Normal Saline Flush 10 ML SYR IVP (07:38)
[2024-07-04] MEDS: Aspirin E.C. 81 MG TABEC PO (07:38)
[2024-07-04] MEDS: Docusate Sodium 100 MG CAP PO (07:38)
[2024-07-04] MEDS: Isosorbide Mononitrate 30 MG TABCR PO (07:38)
[2024-07-04] MEDS: Metoprolol CR 50 MG TABCR PO (07:39)
[2024-07-04] MEDS: Multivitamin TAB 1 TAB PO (07:39)
[2024-07-04 09:01] LABS: Transferrin 195 mg/dL (201-352)
[2024-07-04] MEDS: Torsemide 10 MG TAB PO (09:58)
[2024-07-04 10:09] LABS: Abs Immature Grans 0.01 10^3/uL (0.0-0.06); Absolute Basophil Count 0.02 10^3/uL (0.0-0.2); Absolute Eosinophil Count 0.15 10^3/uL (0.0-0.7); Absolute Lymphocyte Count 0.75 10^3/uL (1.2-3.4); Absolute Monocyte Count 0.47 10^3/uL (0.1-0.8); Absolute Neutrophil Count 3.75 10^3/uL (1.2-6.7); Basophils % 0.4 %; Eosinophils % 2.9 %; HCT 24.2 % (40.0-50.0); HGB 7.9 g/dL (13.5-17.5); Immature Grans % 0.2 %; Lymphocytes % 14.6 %; MCH 29.4 pg (27.0-33.0); MCHC 32.6 % (32.0-36.0); MCV 90 fL (80-95); MPV 11.2 fL (8.0-11.0); Monocytes % 9.1 %; Neutrophils % 72.8 %; RBC 2.69 10^6/uL (4.36-5.78); RDW 13.5 % (11.8-14.1); RDW-SD 44.6 fL; WBC 5.15 10^3/uL (4.4-10.8)
[2024-07-04 10:35] LABS: Diff Comment RBC Morph Reviewed; Platelet Count 83 10^3/uL (130-400); RBC Morphology Normal
[2024-07-04] MEDS: oxyCODONE 5 MG TAB PO (11:22)
[2024-07-04] MEDS: Acetaminophen 325 MG TAB 650 MG PO (11:23)
[2024-07-04] MEDS: FERUMOXYTOL 510 MG in Normal Saline 50 ML 134 MG IVPB (11:43)
[2024-07-04 11:53] VITALS: BP 132/73; PULSE 53; RESP 16; TEMP 36.1; O2SAT 97
--- NOTE | 2024-07-04 12:58 | CMDISCH_ITS ---
Date of service: 07/04/24 Time of Service: 13:09 LACE Index Scoring Tool Questions: Length of Stay (in days): 3 Was the patient admitted via the E.D.?: Yes Comorbidities: Any Tumor (prostate cancer ) and Liver or Renal Disease E.D. Visits: 1 Answers: Total Score: 12 Risk of Readmission: High Risk Care Management Discharge Plan Reason for Hospitalization: Right ureterolithiasis Discharge Plan: Khang will return home today and will follow up with his community providers, urology, and plan of care. Khang will transport via private vehicle by himself. Patient/Family Education Needs: Review of discharge instructions, activity, limitations, and plan of care. Discuss Ask Me Three. SDOH Health Related Social Needs: Health related social needs feeling lonely/isolated (Z 60.8) Health related social needs details Pt declines need f or assistance at this time Health related social needs details: Pt declines need for assistance at this time
--- NOTE | 2024-07-04 13:14 | W.PM.DS.N ---
Date of service: 07/04/24 Time of Service: 13:14 DS: Diagnosis Discharge Diagnosis (1) Anemia: Status: Chronic (2) Calculus of right ureter: Status: Acute (3) PALLAVI (acute kidney injury): Status: Acute (4) Chronic kidney disease: Status: Chronic (5) Coronary artery disease: Status: Chronic (6) Hypertension: (7) MARI (obstructive sleep apnea): (8) Depression: (9) Diabetes: (10) On deep vein thrombosis (DVT) prophylaxis: Status: Acute Discharge Plan Disposition Patient Disposition: Home Condition: Improving Discharge Details Reason For Visit: Right ureterolithiasis Admit Date/Time: 07/01/24 19:55 Admit Provider: Jarad Gómez Attending Provider: Jarad Gómez Primary Care Provider: Fletcher Byrne Hospital Course Hospital Course: This is a 64-year-old gentleman with a history of CKD, prostate cancer, uric acid nephrolithiasis in the past presented to the ED on for evaluation of bloody urine ,acute onset back pain . Cr at 5.6 from baseline of 4.[address] showed a large right ureteral stone at the UPJ causing hydronephrosis with no evidence of infection. Patient was admitted for pain control and IV hydration. Dr. Barrera urologist was consulted and completed a cystoscopy with right retrograde pyelogram, right flexible ureteroscopy with holmium laser lithotripsy of ureteral stone, extraction of stone fragments, right ureteral stent insertion. Oxybutin ordered only as needed for bladder spasm s/p procedure. IVF continued until down trend in Cr obtained then discontinued. Improving hematuria, awan discontinued and the patient was able to void. H&H stable at 7.9 & 24. Iron studies positive and IV iron replacement completed with oral iron on discharge. Follow-up with PCP and urology required. Patient is followed in nephrology. Recommendation for PCP follow-up : H&H Renal function Nephrology follow-up Home Meds and New Rx's Prescriptions: New docusate sodium [Colace] 100 mg Capsule 100 mg PO BID Qty: 60 0RF oxybutynin chloride 5 mg Tablet 5 mg PO Q8H PRN PRN (Reason: spasm) Qty: 30 0RF acetaminophen 325 mg capsule 650 mg PO QID Qty: 40 0RF oxycodone 5 mg tablet 5 mg PO BID PRNQty: 6 0RF ferrous sulfate [Iron (ferrous sulfate)] 325 mg (65 mg iron) tablet 325 mg PO DAILY Qty: 30 0RF Continued multivitamin Tablet 1 tab PO DAILY losartan 50 mg tablet 100 mg PO DAILY tamsulosin 0.4 mg capsule 0.8 mg PO DAILY Qty: 180 4RF allopurinol 100 mg tablet 100 mg PO BID metoprolol succinate 50 mg tablet extended release 24 hr 50 mg PO DAILY atorvastatin 80 mg tablet 80 mg PO QPM sertraline 100 mg tablet 50 mg PO DAILY torsemide 10 mg tablet 10 mg PO DAILY Qty: 90 3RF verapamil 240 mg capsule,ext rel. pellets 24 hr 240 cap PO DAILY Patient Comments: TAKE 1 CAPSULE BY MOUTH EVERY DAY aspirin [Aspir-81] 81 MG tablet,delayed release (DR/EC) 81 mg PO DAILY isosorbide mononitrate 30 mg Tablet Extended Release 24 Hr 30 mg PO DAILY Discharge Instructions Referrals: Fletcher Byrne MD [Primary Care Provider] - (Follow-up with 7 days of discharge please ) Alexander Barrera MD [ [facility] ST[facility]FF [facility]YSICIAN] - 07/18/24 (Day surgery called and said that the follow up surgery will July 18 - They will call the patient 2 business days prior with a time. ) Activity:: Activity as Tolerated Equipment/Supplies:: No Equipment Needed Diet:: heart healthy DS: Summary Time Spent with Patient providing and/or coordinating discharge services: Greater than 30 minutes Status at Discharge Functional status at discharge: independent ambulation Overall status at discharge: patient is progressing back to baseline Mental Status: mental status grossly normal Speech and Movement: speech and movement normal Mood: congruent mood Affect: normal affect Quality:SDOH Health Related Social Needs: Health related social needs feeling lonely/isolated (Z60.8) Health related social needs details Pt declines need for assistance at this time Health related social needs details: Pt declines need for assistance at this time Exam Narrative Exam Narrative: Constitutional The patient is sitting on the bed comfortable Neuro:alert and oriented X4, no neurological focal deficit Resp: Unlabored breathing, clear lung bilaterally Cardio: regular rhythm, S1, S2, + pansystolic murmur, positive bilateral pulses to upper and lower ext GI: Abdomen is not distended, soft and non tender, bowel sounds are present : Negative Costovertebral angle tenderness Integumentary: No skin lesions or rash Extremities: strength 5/5 to bilateral lower and upper extremities Psych: RASS 0, congruent mood and normal affect. Psych Mental Status: mental status grossly normal Speech and Movement: speech and movement normal Mood: congruent mood Affect: normal affect DS: Data Vitals/I&O Vitals and I&O: Vital Signs Temperature 36.1 C L 07/04/24 11:53 Temperature Source Temporal Artery Scan 07/04/24 11:53 Pulse 53 L 07/04/24 11:53 Pulse Rhythm Regular 07/01/24 21:12 Pulse 54 L 07/02/24 16:07 Respiratory Rate 16 07/04/24 11:53 Respiratory Effort Normal, Non-Labored 07/01/24 21:12 Respiratory Depth Normal 07/01/24 21:12 Respiratory Pattern Normal 07/01/24 21:12 Blood Pressure 132/73 07/04/24 11:53 Blood Pressure Mean 92 07/04/24 11:53 Pulse Oximetry 97 07/04/24 11:53 Respiratory End-tidal CO2 27 07/02/24 16:07 Oxygen Delivery Method Room Air 07/04/24 11:53 Oxygen Flow Rate 0 07/04/24 11:53 Pain Level 0 07/04/24 11:53 Comment RN made aware. 07/03/24 15:55 Intake & Output 07/03/24 07/04/24 07/04/24 23:59 11:59 23:59 Intake Total 1913.333 / 3363.333 1250 / 1317 67 / 1317 Output Total 2650 / 3100 1550 / 1550 Balance -736.667 / 263.333 -300 / -233 67 / -233 Weight 119 kg Intake: IV 1913.333 / 2913.333 1000 / 1067 67 / 1067 Oral 250 / 250 Output: Urine 2650 / 3100 1550 / 1550 Other: Urine Color Dark Red Toro Urine Appearance Clear Hematuria Comment awan Data Completed and Pending Labs on day of discharge: Labs from last 24 hours 07/04/24 06:21: WBC 5.15, RBC 2.69 L, Hgb 7.9 L, Hct 24.2 L, MCV 90, MCH 29.4, MCHC 32.6, RDW 13.5, Plt Count 83 L, MPV 11.2 H, Immature Gran % 0.2, Neutrophils % 72.8, Lymphocytes % 14.6, Monocytes % 9.1, Eosinophils % 2.9, Basophils % 0.4, Nucleated RBC % 0.0, Absolute Neutrophils 3.75, Absolute Lymphocytes 0.75 L, Absolute Monocytes 0.47, Absolute Eosinophils 0.15, Absolute Basophils 0.02, RBC Morphology Normal, Sodium 141, Potassium 5.0, Chloride 111 H, Carbon Dioxide 19.8 L, Anion Gap 10.2, BUN 75 H, Creatinine 6.1 H*, Est GFR (CKD-EPI 2020) 9.48, Glucose 89, Calcium 8.7, Magnesium 2.0, Total Bilirubin 0.5, AST 19, ALT 15 L, Alkaline Phosphatase 130 H, Total Protein 6.6, Albumin 2.9 L 07/03/24 14:50: Iron 21 L, TIBC 250, Transferrin 195 L, Transferrin % Sat 8 L 07/03/24 14:40: Sodium 143, Potassium 4.8, Chloride 109 H, Carbon Dioxide 20.5 L, Anion Gap 13.5 H, BUN 74 H, Creatinine 6.5 H*, Est GFR (CKD-EPI 2020) 8.78, Glucose 91, Calcium 8.6 PFSH All Active Problems (Updated 07/03/24 @ 14:31 by Claire Faith APRN) Anemia (Chronic) On deep vein thrombosis (DVT) prophylaxis (Acute) Calculus of right ureter (Acute) PALLAVI (acute kidney injury) (Acute) Prostate cancer (Chronic) Elevated PSA, between 10 and less than 20 ng/ml (Acute) Chronic kidney disease (Chronic) CKD III Chronic venous insufficiency (Acute) Lower urinary tract symptoms (LUTS) (Acute) Uric acid kidney stone (Acute) Coronary artery disease (Chronic) Kidney calculus (Chronic) Tubular adenoma of colon (Acute) Screening for colon cancer (Acute) Medical History Acute kidney injury superimposed on chronic kidney disease PALLAVI (acute kidney injury) Calculus of left ureter Aortic stenosis Stable angina Positive cardiac stress test History of chest pain MARI (obstructive sleep apnea) Very Severe-per sleep study 05/04/17-Uses BiPAP Idiopathic thrombocytopenia Murmur History of adenomatous polyp of colon Deviated nasal septum Obesity Hypertension GERD (gastroesophageal reflux disease) Depression Diabetes Sleep apnea Surgical History History of cardiac catheterization 06/17/21 [facility]-see scanned records Colonoscopy - MAC (06/05/17) 08/2021 Social History Smoking/Tobacco Use Status: Never Smoking risk assessment performed?: Yes Alcohol Intake: current Alcohol Intake frequency: holidays/special occasions only Alcohol type: beer Drug use: Never Substance use type: does not use Housing: house Do you feel safe at home: Yes Do you feel safe in your relationship?: Yes Time Spent with Patient Time Spent with Patient: 70-84 minutes4 Time was spent: preparing to see the patient(eg.review tests), obtaining and/or reviewing separately otained hiistory, ordering medications,tests, procedures, referring, communicating with other health director of critical care, indepentently interpreting results, counseling the patient and care coordination
[2024-07-10 14:10] LABS: Interpretation 100% Uric acid.; Source: Right Ureter
== END 2024-07-04 14:11 | disposition home or self-care (01) | DRG 660 ==
LOC: ER 19:32 → MS 21:04
PROVIDERS: Urology; Admitting Provider Family Medicine; Emergency Provider Emergency Medicine; PCP Family Medicine; Responsible Provider Nurse Practitioner Acute Care; Visit Provider Family Medicine
PROC: 0TC68ZZ Extirpation of Matter from Right Ureter, Via Natural or Artificial Opening Endoscopic (ICD-10-PCS; CPT 52356; principal; 2024-07-02 11:45)
DX: N13.2 Hydronephrosis with renal and ureteral calculous obstruction (principal); D69.3 Immune thrombocytopenic purpura; N17.9 Acute kidney failure, unspecified; N18.4 Chronic kidney disease, stage 4 (severe); I12.9 Hypertensive chronic kidney disease with stage 1 through stage 4 chronic kidney disease, or unspecified chronic kidney disease; C61 Malignant neoplasm of prostate; I25.10 Atherosclerotic heart disease of native coronary artery without angina pectoris; G47.33 Obstructive sleep apnea (adult) (pediatric); E11.22 Type 2 diabetes mellitus with diabetic chronic kidney disease; D64.9 Anemia, unspecified; Z79.899 Other long term (current) drug therapy; I87.2 Venous insufficiency (chronic) (peripheral); I35.0 Nonrheumatic aortic (valve) stenosis; K21.9 Gastro-esophageal reflux disease without esophagitis; I10 Essential (primary) hypertension; E66.9 Obesity, unspecified; Z68.39 Body mass index [BMI] 39.0-39.9, adult; F32.A Depression, unspecified; Z87.442 Personal history of urinary calculi
CPT/HCPCS: 52356; 36410; 00123; 36415; 80048; 80053; 83690; 85027; 87637; 96361; 96374; 96375; 99222; 99285; 74176; 74420; 81003; 81015; 82365; 83540; 83550; 83735; 84443; 84466; 85025; 85610; 99223; 99233; 99239; J0171; J0690; J1100; J1171; J1596; J1805; J2371; J2405; J2598; J2704; J3010; Q0138; Q9967

== ENCOUNTER → 2024-07-02 07:56 | Outpatient (BNVA) | payer MEDICARE, SELFPAY | PROVIDERS: PCP Family Medicine; Referring Provider Family Medicine; Visit Provider Urology ==

== ENCOUNTER 2024-07-10 02:25 | Outpatient (RCR) | payer MEDICARE, SELFPAY ==
[2024-07-10 12:22] LABS: HCT 24.3 % (40.0-50.0); HGB 7.8 g/dL (13.5-17.5)
== END 2024-07-20 23:59 | disposition home or self-care (01) ==
LOC: INF 02:25
PROVIDERS: Registered Nurse Nephrology; PCP Family Medicine; Visit Provider Family Medicine
DX: N18.5 Chronic kidney disease, stage 5 (principal); D63.1 Anemia in chronic kidney disease
CPT/HCPCS: 36415; 96372; 85014; 85018; J0881

== ENCOUNTER 2024-07-11 14:05 | Outpatient (REF) | payer MEDICARE, SELFPAY ==
[2024-07-11 14:28] LABS: HCT 25.1 % (40.0-50.0); MCH 29.3 pg (27.0-33.0); MCHC 31.9 % (32.0-36.0); MCV 92 fL (80-95); MPV 10.5 fL (8.0-11.0); Platelet Count 139 10^3/uL (130-400); RBC 2.73 10^6/uL (4.36-5.78); RDW-SD 46.5 fL; WBC 5.75 10^3/uL (4.4-10.8)
[2024-07-11 14:50] LABS: Anion Gap 10.1 mmol/L (3-11); BUN 65 mg/dL (7-18); CO2 22.9 mmol/L (21.0-32.0); Calcium 8.4 mg/dL (8.5-10.1); Chloride 112 mmol/L (98-107); Estimated GFR 12.96 (mL/min/1.73m2); Glucose 99 mg/dL (74-106); Potassium 4.7 mmol/L (3.5-5.1); Sodium 145 mmol/L (136-145)
[2024-07-11 14:58] LABS: CREATININE 4.7 mg/dL (0.70-1.30)
== END 2024-07-11 14:06 | disposition home or self-care (01) ==
LOC: NCHCN 14:05
PROVIDERS: PCP Family Medicine; Visit Provider Family Medicine
DX: N18.4 Chronic kidney disease, stage 4 (severe) (principal)
CPT/HCPCS: 80048; 85027

== ENCOUNTER 2024-07-18 06:51 | Day surgery (SDC) | payer MEDICARE, SELFPAY ==
[2024-07-18] VITALS (19 sets, daily range): BP systolic 105–156; BP diastolic 57–90; PULSE 42–58; RESP 11–22; TEMP 36.4–36.7; O2SAT 87–98; BMI 39.2
[2024-07-18] MEDS: Lactated Ringers 1,000 ML 80 ML IV (07:38)
--- NOTE | 2024-07-18 08:00 | ANES.PREOP_ITS ---
General Info Date of Service Date Performed: 07/18/24 Height: 5 ft 8 in Weight: 117 kg Body Mass Index (BMI): 39.2 Surgical Procedure: Operation Date: 07/18/24 08:40 Proposed Procedure Side Surgeon p Cystoscopy/Retrograde/Ureteroscopy/ Stent Removal/ Removal of any Residual Stone Fragments Right Alexander Barrera MD Meds Allergies and Home Medications Allergies Allergy/AdvReac Type Severity Reaction Status Date / Time lisinopril AdvReac cough Verified 07/18/24 07:18 Home Medication ?Medication ?Instructions ?Recorded aspirin 81 mg tablet,delayed 81 mg PO DAILY 08/28/16 release (Aspir-) metoprolol succinate 50 mg 50 mg PO DAILY 12/24/20 tablet,extended release 24 hr verapamil 240 mg 24 hr 240 cap PO DAILY 09/03/21 capsule,extended release atorvastatin 80 mg tablet 80 mg PO QPM 12/08/21 isosorbide mononitrate 30 mg 30 mg PO DAILY 02/16/22 tablet,extended release 24 hr multivitamin 1 tab PO DAILY 03/01/22 sertraline 100 mg tablet 50 mg PO DAILY 10/11/22 allopurinol 100 mg tablet 100 mg PO BID 03/31/23 losartan 50 mg tablet 100 mg PO DAILY 05/08/23 tamsulosin 0.4 mg capsule 0.8 mg (2 x 0.4 mg) PO DAILY #180 11/28/23 caps torsemide 10 mg tablet 10 mg PO DAILY #90 tabs 05/28/24 acetaminophen 325 mg capsule 650 mg (2 x 325 mg) PO QID #40 caps 07/04/24 docusate sodium 100 mg capsule 100 mg PO BID #60 caps 07/04/24 (Colace) ferrous sulfate 325 mg (65 mg 325 mg PO DAILY #30 tabs 07/04/24 iron) tablet (Iron (ferrous sulfate)) oxybutynin chloride 5 mg tablet 5 mg PO Q8H PRN PRN spasm #30 tabs 07/04/24 oxycodone 5 mg tablet 5 mg PO BID PRN #6 tabs 07/04/24 Current Visit Medications: Current Medications Generic Name Dose Route Start Last Admin Trade Name Freq PRN Reason Stop Dose Admin Ringer's Solution 1,000 mls @ 80 mls/hr 07/18/24 06:00 07/18/24 07:38 IV 07/18/24 23:59 80 mls/hr INFUSION KRYS Administration Cefazolin Sodium/Dextrose 2 gm in 50 mls @ 100 mls/hr 07/18/24 06:00 Ancef Duplex IVPB 07/18/24 23:59 PREOP KRYS IV Miscellaneous Supplies 1 each 07/18/24 06:00 Iv Access IV 07/18/24 23:59 DIRECTED KRYS Sodium Chloride 0 ml 07/18/24 06:00 Normal Saline Flush 10 Ml Syr IV 07/18/24 23:59 PRN PRN Sodium Chloride 0 ml 07/18/24 06:00 Normal Saline 10 Ml Vial IJ 07/18/24 23:59 DIRECTED PRN Sterile Water 0 ml 07/18/24 06:00 Water,Injection,Sterile 10 Ml Vial IJ 07/18/24 23:59 DIRECTED PRN PFSH Active Problems Active Problems: Problem Status Onset Code Anemia Chronic D64.9 PALLAVI (acute kidney injury) Acute N17.9 Prostate cancer Chronic C61 Elevated PSA, between 10 and less than 20 ng/ml Acute R97.20 Chronic kidney disease Chronic N18.9 Chronic venous insufficiency Acute I87.2 Lower urinary tract symptoms (LUTS) Acute R39.9 Uric acid kidney stone Acute N20.0 Coronary artery disease Chronic I25.10 Kidney calculus Chronic N20.0 Tubular adenoma of colon Acute D12.6 Screening for colon cancer Acute Z12.11 Medical History Medical History Acute kidney injury superimposed on chronic kidney disease PALLAVI (acute kidney injury) Calculus of left ureter Aortic stenosis Stable angina Positive cardiac stress test History of chest pain MARI (obstructive sleep apnea) Very Severe-per sleep study 05/04/17-Uses BiPAP Idiopathic thrombocytopenia Murmur History of adenomatous polyp of colon Deviated nasal septum Obesity Hypertension GERD (gastroesophageal reflux disease) Depression Diabetes Sleep apnea Surgical History Surgical History History of cardiac catheterization 06/17/21 [facility]-see scanned records Colonoscopy - MAC (06/05/17) 08/2021 Tobacco Smoking/Tobacco Use Status: Never Passive smoking exposure: No Alcohol Alcohol Intake: current Alcohol intake frequency: holidays/special occasions only Alcohol type: beer Substance Use Substance use: Never Substance use type: does not use Vital Signs and Lab Results Vital Signs Most Recent Vital Signs in EMR: Most Recent Vital Signs Temp Pulse Resp BP Pulse Ox 36.5 C 58 L 16 156/76 H 98 07/18/24 07:22 07/18/24 07:22 07/18/24 07:22 07/18/24 07:22 07/18/24 07:22 Lab Results Blood Type / Crossmatch: No Data to Display Complete Blood Count: White Blood Count 5.75 10^3/uL (4.4-10.8) 07/11/24 11:20 Red Blood Count 2.73 10^6/uL (4.36-5.78) L 07/11/24 11:20 Hemoglobin 8.0 g/dL (13.5-17.5) L 07/11/24 11:20 Hematocrit 25.1 % (40.0-50.0) L 07/11/24 11:20 Platelet Count 139 10^3/uL (130-400) 07/11/24 11:20 Complete Metabolic Panel: Sodium 145 mmol/L (136-145) 07/11/24 11:20 Potassium 4.7 mmol/L (3.5-5.1) 07/11/24 11:20 Chloride 112 mmol/L (98-107) H 07/11/24 11:20 Carbon Dioxide 22.9 mmol/L (21.0-32.0) 07/11/24 11:20 BUN 65 mg/dL (7-18) H 07/11/24 11:20 Creatinine 4.7 mg/dL (0.70-1.30) H* 07/11/24 11:20 Est GFR (CKD-EPI 2020) 12.96 (mL/min/1.73m2) 07/11/24 11:20 Magnesium 2.0 mg/dL (1.8-2.4) 07/04/24 06:21 Calcium 8.4 mg/dL (8.5-10.1) L 07/11/24 11:20 Albumin 2.9 g/dL (3.4-5.0) L 07/04/24 06:21 Glucose 99 mg/dL (74-106) 07/11/24 11:20 Liver Function Panel: Alanine Aminotransferase (ALT/SGPT) 15 U/L (16-63) L 07/04/24 0 6:21 Aspartate Amino Transf (AST/SGOT) 19 U/L (15-37) 07/04/24 06:21 Coagulation Panel: INR International Normalized Ratio 1.0 (0.9-1.1) 07/02/24 06:1 2 Prothrombin Time 10.3 sec (9.1-11.1) 07/02/24 06:12 Cardiac Panel: No Data to Display Arterial Blood Gas: No Data to Display Venous Blood Gas: No Data to Display Pancreas Panel: Lipase 57 U/L (<78) 07/01/24 18:13 Thyroid Panel: Thyroid Stimulating Hormone (TSH) 2.40 uIU/mL (0.36-3.74) 07/01 17:57 Infectious Disease: Coronavirus (COVID-19)(PCR) Negative (Negative) 07/01/24 20:05 Coronavirus 2019 Source Nasopharynx 07/01/24 20:05 Influenza Virus Type A (PCR) Negative (Negative) 07/01/24 20:0 5 Influenza Virus Type B (PCR) Negative (Negative) 07/01/24 20:0 5 Respiratory Syncytial Virus (PCR) Negative (Negative) 07/01/24 20:05 Blood Cultures: No Data to Display Toxicology Panel: No Data to Display Imaging and Studies Imaging and Studies Study information below may be from another EMR and interpreted by another provider. Please see original notes in EMR for more complete details. EKG Summary: 04/2024: Conclusion Sinus rhythm...normal P axis, V-rate 50- 99 Left ventricular hypertrophy...multiple voltage criteria Stress Test Summary: 10/2023:MPI Conclusion Myocardial perfusion is normal. There is no ischemia or evidence of prior infarction Calculated EF is 47%. Wall motion appears normal 06/03/21: 8 Mets, 87% of predicted HR, ischemia with 2 mm of inferior and 1.5 mm anterolateral depression at peak. Echocardiogram Summary: 12/2023: Conclusion Mild concentric left ventricular hypertrophy. Ejection fraction is 57%. Wall motion is normal Normal right ventricular size and function Left atrium is moderately dilated. Right atrial size is normal Aortic valve is calcified and trileaflet. There is mild aortic stenosis. Peak gradient is 31, mean 18 mmHg with a calculated aortic valve area of 1.6 cm??. There is trace aortic regurgitation Mitral annular calcification. Moderate eccentric mitral regurgitation Estimated right ventricular systolic pressure is 24 mmHg Dilated ascending aorta measuring 4.09 cm 06/17/21: Mild , moderate MR, LVEF 60-65% Cardiac Catheterization Summary: 06/17/21: aortic stenosis, mod diffuse LAD, 90% left circ lesion. Anesthesia Assessment and Plan Anesthesia History Personal History: No History of Anesthesia Complications Family History: No Family History of Anesthesia Complications Exercise Tolerance Exercise Tolerance: Metabolic Equivalents>4 Pertinent Negatives Pertinent Negatives: No Symptoms of GERD Cardiac & Pulmonary Exam Cardiac Exam: Normal S1/S2 Heart Sounds Pulmonary Exam: Clear Bilateral Breath Sounds Implantable Cardiac Device Does patient have a Pacemaker or an ICD?: No Airway Exam Known Difficult Airway: No Mallampati Class: 2 Mouth Opening: Normal (> 3cm) Thyromental Distance: Greater than 3 cm Neck Range of Motion: Full ROM Neck Circumference: Thick Teeth Condition: Normal Dentition ASA Classification ASA Score: ASA 4 Emergency Case?: No NPO Status NPO Status: NPO Clears >2 hours, Solids >8 hours Anesthesia Plan Resuscitation Status: Full Code Anesthesia Technique: General Anesthesia Airway Planned: Endotracheal Tube Monitors Used: Standard Monitors
--- NOTE | 2024-07-18 08:21 | W.PM.HP.N ---
Date of service: 07/18/24 Time of Service: 08:21 Assessment and Plan Assessment and plan (1) Uric acid kidney stone: Status: Acute Assessment and plan: We will plan to do cystoscopy, stent removal and retrograde pyelogram to ensure that the ureter has healed. We will also perform ureteroscopy with extraction of any residual stone fragments that were not addressed during the initial procedure. History of Present Illness History of Present Illness Chief Complaint: Right kidney stone Narrative: This is a 64-year-old gentleman who has a history of uric acid kidney stones. He had a large obstructing right proximal ureteral stone that was treated with ureteroscopy, holmium laser lithotripsy and placement of a ureteral stent. He presents now for stent removal and repeat ureteroscopy to ensure all stone fragments have been addressed. When he initially presented with an obstructing right ureteral stone, his renal function (which had already been compromised) had worsened with a creatinine up to 6 mg/dL. His creatinine has since come back down to 4.7 mg/dL. Review of Systems Narrative: No fevers or chills No vision change or dysphasia No diabetes or thyroid Sleep apnea. No shortness of breath, cough or hemoptysis No chest pain or palpitations GERD. No hepatitis, ulcers, jaundice No seizures, strokes or peripheral neuropathy No bleeding disorders or anemia No gout PFSH All Active Problems Anemia (Chronic) PALLAVI (acute kidney injury) (Acute) Prostate cancer (Chronic) Elevated PSA, between 10 and less than 20 ng/ml (Acute) Chronic kidney disease (Chronic) CKD III Chronic venous insufficiency (Acute) Lower urinary tract symptoms (LUTS) (Acute) Uric acid kidney stone (Acute) Coronary artery disease (Chronic) Kidney calculus (Chronic) Tubular adenoma of colon (Acute) Screening for colon cancer (Acute) Medical History Acute kidney injury superimposed on chronic kidney disease PALLAVI (acute kidney injury) Calculus of left ureter Aortic stenosis Stable angina Positive cardiac stress test History of chest pain MARI (obstructive sleep apnea) Very Severe-per sleep study 05/04/17-Uses BiPAP Idiopathic thrombocytopenia Murmur History of adenomatous polyp of colon Deviated nasal septum Obesity Hypertension GERD (gastroesophageal reflux disease) Depression Diabetes Sleep apnea Surgical History History of cardiac catheterization 06/17/21 [facility]-see scanned records Colonoscopy - MAC (06/05/17) 08/2021 Social History Smoking/Tobacco Use Status: Never Smoking risk assessment performed?: Yes Alcohol Intake: current Alcohol Intake frequency: holidays/special occasions only Alcohol type: beer Drug use: Never Substance use type: does not use Housing: house Do you feel safe at home: Yes Do you feel safe in your relationship?: Yes Meds Allergies and Home Medications Allergies Allergy/AdvReac Type Severity Reaction Status Date / Time lisinopril AdvReac cough Verified 07/18/24 07:18 Home Medications ?Medication ?Instructions ?Recorded ?Confirmed ?Type aspirin 81 mg tablet,delayed 81 mg PO DAILY 08/28/16 07/16/24 History release (Aspir-) metoprolol succinate 50 mg 50 mg PO DAILY 12/24/20 07/18/24 History tablet,extended release 24 hr verapamil 240 mg 24 hr 240 cap PO DAILY 09/03/21 07/18/24 History capsule,extended release atorvastatin 80 mg tablet 80 mg PO QPM 12/08/21 07/18/24 History isosorbide mononitrate 30 mg 30 mg PO DAILY 02/16/22 07/18/24 History tablet,extended release 24 hr multivitamin 1 tab PO DAILY 03/01/22 07/18/24 History sertraline 100 mg tablet 50 mg PO DAILY 10/11/22 07/18/24 History allopurinol 100 mg tablet 100 mg PO BID 03/31/23 07/18/24 History losartan 50 mg tablet 100 mg PO DAILY 05/08/23 07/18/24 History tamsulosin 0.4 mg capsule 0.8 mg (2 x 0.4 mg) PO DAILY #180 11/28/23 07/18/24 Rx caps torsemide 10 mg tablet 10 mg PO DAILY #90 tabs 05/28/24 07/18/24 Rx acetaminophen 325 mg capsule 650 mg (2 x 325 mg) PO QID #40 caps 07/04/24 07/18/24 Rx docusate sodium 100 mg capsule 100 mg PO BID #60 caps 07/04/24 07/18/24 Rx (Colace) ferrous sulfate 325 mg (65 mg 325 mg PO DAILY #30 tabs 07/04/24 07/18/24 Rx iron) tablet (Iron (ferrous sulfate)) oxybutynin chloride 5 mg tablet 5 mg PO Q8H PRN PRN spasm #30 tabs 07/04/24 07/18/24 Rx oxycodone 5 mg tablet 5 mg PO BID PRN #6 tabs 07/04/24 07/18/24 Rx Results Last Vital Signs Temp 36.5 C 07/18/24 07:22 Pulse 58 L 07/18/24 07:22 Resp 16 07/18/24 07:22 BP 156/76 H 07/18/24 07:22 Pulse Ox 98 07/18/24 07:22 Time Spent Time spent with Patient: <40 minutes Time was spent: other
[2024-07-18] MEDS: ceFAZolin 2 GM/50 ML BAG IVPB (09:13)
[2024-07-18] MEDS: Lidocaine 2% Jelly 6 ML SYR (09:24)
[2024-07-18] MEDS: Omnipaque 300 MG/ML 50 ML BTL (09:33)
--- NOTE | 2024-07-18 09:56 | DI.RAD_ITS ---
Exam(s) XR RETROGRADE IN OR EXAM: XR RETROGRADE IN OR CLINICAL HISTORY: RIGHT URETERAL STONE. TECHNIQUE: 2D digital imaging was performed. COMPARISON: No exams were available for comparison FINDINGS: Fluoroscopy was provided during right-side urologic procedure for calculi. See procedure report for details. Total fluoroscopy time 29 seconds IMPRESSION: Radiation exposure index/cumulative dose: mai Bernard= 13.102 mGy DATA REPOSITORY: RADIATION DOSE DELIVERED:
--- NOTE | 2024-07-18 09:56 | W.PM.DSUDISC ---
Date of service: 07/18/24 Discharge Plan Disposition Patient Disposition: Home Condition: Stable Discharge Details Reason For Visit: ureteroscopy Attending Provider: Alexander Barrera Primary Care Provider: Fletcher Byrne Home Meds and New Rx's Prescriptions: New sodium bicarbonate 325 mg tablet 325 mg PO BID Qty: 60 2RF No Action multivitamin Tablet 1 tab PO DAILY losartan 50 mg tablet 100 mg PO DAILY tamsulosin 0.4 mg capsule 0.8 mg PO DAILY Qty: 180 4RF allopurinol 100 mg tablet 100 mg PO BID metoprolol succinate 50 mg tablet extended release 24 hr 50 mg PO DAILY atorvastatin 80 mg tablet 80 mg PO QPM sertraline 100 mg tablet 50 mg PO DAILY torsemide 10 mg tablet 10 mg PO DAILY Qty: 90 3RF verapamil 240 mg capsule,ext rel. pellets 24 hr 240 cap PO DAILY Patient Comments: TAKE 1 CAPSULE BY MOUTH EVERY DAY aspirin [Aspir-81] 81 MG tablet,delayed release (DR/EC) 81 mg PO DAILY isosorbide mononitrate 30 mg Tablet Extended Release 24 Hr 30 mg PO DAILY docusate sodium [Colace] 100 mg Capsule 100 mg PO BID Qty: 60 0RF oxybutynin chloride 5 mg Tablet 5 mg PO Q8H PRN PRN (Reason: spasm) Qty: 30 0RF acetaminophen 325 mg capsule 650 mg PO QID Qty: 40 0RF oxycodone 5 mg tablet 5 mg PO BID PRNQty: 6 0RF ferrous sulfate [Iron (ferrous sulfate)] 325 mg (65 mg iron) tablet 325 mg PO DAILY Qty: 30 0RF Discharge Instructions Additional Instructions: I have started you on sodium bicarbonate to try to dissolve the small stone pieces left in the bottom of your kidney. Please have a blood test and a urine sample about 1 to 2 weeks from now. I have placed the orders for the test to be done at the lab here at the hospital. I we will call you with the results of the lab work and adjust your medication if needed You will need a follow-up appointment with me in about 6 weeks. We will get a renal ultrasound before your appointment. Activity:: Activity as Tolerated Shower/Bathe:: 24 hours Diet:: As Tolerated Discharge Orders Discharge Orders: Discharge Order (Routine); Ordered 07/18/24 Ordered By: Alexander Barrera DS: Diagnosis Discharge Diagnosis (1) Uric acid kidney stone: Status: Acute
--- NOTE | 2024-07-18 10:01 | W.PM.OP ---
Operative Note Operative Note PRE-OP DIAGNOSIS: Right ureteral stone POST-OP DIAGNOSIS: same PROCEDURE: Cystoscopy, remove right ureteral stent, right retrograde pyelogram, right flexible ureteroscopy with extraction of stone fragments SURGEON: Alexander Barrera ANESTHESIA TYPE: General LMA/ETT Refer to Anesthesia Record ESTIMATED BLOOD LOSS: 5 PATHOLOGY: other (Stones for chemical analysis) COMPLICATIONS: None Patient was transported to: PACU Patient's condition: stable Implants: none Indications: This is a 64-year-old gentleman who was identified as having an obstructing right proximal ureteral stone. He was treated with ureteroscopy and holmium laser lithotripsy of the stone. We placed a right ureteral stent. He presents now for removal of the stent and repeat ureteroscopy to address any residual stone fragments Findings: Stone fragment in right proximal ureter Additional smaller stone fragments in the right kidney Procedure Description: The patient was given IV antibiotics and brought to the operating room on 07/18/2024. After successful induction of general anesthesia, he was placed in the dorsal lithotomy position. His genitalia was prepped and draped. 2% Xylocaine jelly was instilled into the urethra. A 22 [place] rigid cystoscope was passed through the urethra into the bladder. The urethra and bladder were inspected with the 30 degree lens. The pendulous, bulbar and membranous urethra's appeared normal with no strictures. The prostatic urethra showed a moderate amount of lateral lobe enlargement with no significant median lobe. The bladder neck was entered and the bladder mucosa was inspected. A stent could be seen protruding from the right ureteral orifice. The stent was grasped with alligator forceps and brought to the level of the urethral meatus. A guidewire was then advanced through the lumen of the stent and the stent was removed leaving the wire in place. I then passed a dual-lumen catheter over the wire and advanced the catheter into the mid ureter. I performed a retrograde pyelogram by injecting Omnipaque through the second port of the dual-lumen catheter under fluoroscopic guidance. No extravasation of contrast was identified. We then passed a second wire up the dual-lumen catheter and removed the catheter leaving both wires in place. We chose one of the wires as a working wire the other as a safety wire. I passed a ureteral access sheath over the working wire leaving the safety wire in place. I then passed a disposable flexible ureteroscope through the ureteral access sheath. I identified a stone in the proximal ureter. The stone was grasped and a 0 tip stone basket and removed. I then passed the scope up the remainder of the ureter and inspected each of the calyces. Multiple small stone fragments were identified. The largest of these fragments were grasped in a ZeroTip stone basket and removed. All stone fragments were sent to the laboratory for chemical analysis. At the completion of the procedure, the scope was removed. I saw no evidence of ureteral injury. I removed the ureteral access sheath. I then reinserted the dual-lumen catheter over the safety wire. I again injected Omnipaque through the dual-lumen catheter under fluoroscopic guidance. There is no evidence of extravasation of contrast outside the ureter. On a 5-minute drainage film, the ureter seemed to drain quite well. The patient tolerated this procedure well with no complications. Date of Procedure: 07/18/24
[2024-07-18] MEDS: Phenazopyridine 200 MG TAB PO (11:08)
--- NOTE | 2024-07-18 15:22 | W.ANESPOSTOP ---
Postoperative Evaluation Date, Time and Location Date Performed: 07/18/24 Time Performed: 10:26 Patient Location: Day Surgery Unit Vital Signs Most Recent Imported Vital Signs: Most Recent Vital Signs Temp Pulse Resp BP Pulse Ox 36.5 C 46 L 17 145/90 H 93 07/18/24 11:01 07/18/24 11:01 07/18/24 11:01 07/18/24 11:01 07/18/24 11:01 Pain Score Most Recent Pain Score: Most Recent Pain Score Pain Level 0 07/18/24 10:27 Assessment Mental Status: Awake (Alert & Oriented to Patient Baseline) Airway and Respiratory Function: Patent airway with normal (patient baseline) respiratory exam Cardiovascular Function: Hemodynamically Stable Hydration Status: Adequately Hydrated Nausea & Vomiting: No Nausea or Vomiting Pain: Pt. Denies Any Pain Peripheral Nerve Block: Patient did not receive a nerve block
[2024-07-29 14:10] LABS: Interpretation 100% Uric acid.; Source: Right Kidney
== END 2024-07-18 11:42 | disposition home or self-care (01) ==
PROVIDERS: PCP Family Medicine; Visit Provider Urology
PROC: (CPT 52352; principal; 2024-07-18 08:30)
DX: N20.0 Calculus of kidney (principal)
CPT/HCPCS: 52352; 74420; 82365; J0690; J1100; J2003; J2405; J2704; Q9967

== ENCOUNTER 2024-08-07 02:50 | Outpatient (RCR) | payer MEDICARE, SELFPAY ==
[2024-08-07 12:12] LABS: HCT 26.4 % (40.0-50.0); HGB 8.9 g/dL (13.5-17.5)
[2024-08-07 12:43] LABS: Iron 40 ug/dL (65-175); Total Iron Binding Capacity 235 ug/dL (250-450); Transferrin Sat 17 % (20-55)
[2024-08-07 12:44] LABS: Anion Gap 12.8 mmol/L (3-11); BUN 79 mg/dL (7-18); CO2 21.2 mmol/L (21.0-32.0); Calcium 8.8 mg/dL (8.5-10.1); Chloride 109 mmol/L (98-107); Estimated GFR 8.18 (mL/min/1.73m2); Glucose 102 mg/dL (74-106); Potassium 4.3 mmol/L (3.5-5.1); Sodium 143 mmol/L (136-145)
[2024-08-07 12:59] LABS: Ferritin 219 ng/mL (26-388)
[2024-08-07 13:54] LABS: CREATININE 6.9 mg/dL (0.70-1.30)
== END 2024-08-19 23:59 | disposition home or self-care (01) ==
LOC: INF 02:50
PROVIDERS: Urology; PCP Family Medicine; Visit Provider Family Medicine
DX: N18.5 Chronic kidney disease, stage 5 (principal); D63.1 Anemia in chronic kidney disease
CPT/HCPCS: 36415; 80048; 96372; 82728; 83540; 83550; 85014; 85018; J0881

== ENCOUNTER 2024-08-15 00:41 | Outpatient (CLI) | payer MEDICARE, SELFPAY ==
--- NOTE | 2024-08-15 07:45 | DI.US_ITS ---
Exam(s) US RENAL EXAM: US RENAL CLINICAL HISTORY: ? hydronephrosis after ureteroscopy,CALCULUS OF PROXIMAL RT URETER. TECHNIQUE: Kessler scale imaging and color doppler were used. COMPARISON: CT CT RENAL COLIC WO from 07/01/2024 XA XR RETROGRADE IN OR from 07/18/2024 FINDINGS: Right kidney: 11.1cm Echogenicity: Normal Hydronephrosis: Moderate Cyst or mass: 17 millimeter cyst lower pole. Nephrolithiasis: No Left kidney: 10.7 cm Echogenicity: Normal Hydronephrosis: No Cyst or mass: 4.2 centimeter cyst. Nephrolithiasis: No Bladder:Normal. Prevoid vol:191 cc Postvoid vol:16 cc Prostate was not well seen. Forty-three cc volume IMPRESSION: Moderate right hydronephrosis. DATA REPOSITORY:
== END 2024-08-15 01:01 ==
LOC: DI 00:42
PROVIDERS: PCP Family Medicine; Visit Provider Urology
DX: N20.1 Calculus of ureter (principal)
CPT/HCPCS: 76770

== ENCOUNTER → 2024-08-20 14:08 | Outpatient (BNVA) | payer MEDICARE, SELFPAY | PROVIDERS: PCP Family Medicine; Referring Provider Family Medicine; Visit Provider Urology | DX: N13.30 Unspecified hydronephrosis (principal); N20.0 Calculus of kidney; N18.9 Chronic kidney disease, unspecified; R35.0 Frequency of micturition; R35.1 Nocturia | CPT/HCPCS: 99214 ==

== ENCOUNTER 2024-08-26 02:48 | Outpatient (CLI) | payer MEDICARE, SELFPAY ==
--- NOTE | 2024-08-26 06:45 | DI.CT_ITS ---
Exam(s) CT ABDOMEN PELVIS WO EXAM: CT ABDOMEN PELVIS WO CLINICAL HISTORY: ? ureteral stone,KIDNEY CALCULUS,RT HYDRONEPHROSIS,N13.30,N20.0. TECHNIQUE: Imaging Protocol: Axial computed tomography images with coronal and sagittal reformatted images were created and reviewed. Oral: / no COMPARISON: CT CT RENAL COLIC WO from 07/01/2024 FINDINGS: Lung Bases: No acute findings. Liver: Normal density. Innumerable cysts. No suspicious mass. Gallbladder and biliary tract: No radiodense calculus or biliary dilation. Pancreas: Normal density. No abnormal calcifications or inflammatory process. Spleen: Normal. Kidneys: Normal size, contour and axis. No radiodense stones. The previously noted stone at the right ureteropelvic junction is no longer present but there is persistent moderate right hydronephrosis to the level of the right iliac artery. Multiple bilateral cysts. No suspicious masses seen. Adrenal glands: No masses seen. Lymph nodes: Within normal limits. Vasculature: Abdominal aorta non-dilated. Soft tissues: Unremarkable. Bladder: Mild wall thickening. No mass or calculi. Bowel: No obstruction or bowel wall thickening. Mild sigmoid diverticulosis. The appendix is normal. Peritoneal cavity: No ascites. No focal collection. No mesenteric inflammatory response. Reproductive organs: Prostate is mildly enlarged. Bones: Unremarkable for age. IMPRESSION: Previously noted stone at the right ureterovesical junction is no longer present however there is persistent moderate hydronephrosis down to the level of the right iliac artery. RADIATION DOSE DELIVERED: Total DLP DATA REPOSITORY: All CT scans at this facility are submitted to the National Radiology Data Registry (NRDR) Dose Index Registry (DIR) with the [employer] (A[employer]). RADIATION OPTIMIZATION: All CT scans at this facility use at least one of these dose optimization techniques: automated exposure control; mA and/or kV adjustment per patient size (includes targeted exams where dose is matched to clinical indication); or iterative reconstruction.
== END 2024-08-26 03:08 ==
LOC: DI 02:48
PROVIDERS: PCP Family Medicine; Visit Provider Urology
DX: N20.0 Calculus of kidney (principal); N13.30 Unspecified hydronephrosis
CPT/HCPCS: 74176

== ENCOUNTER → 2024-08-29 08:53 | Outpatient (BNVA) | payer MEDICARE, SELFPAY | PROVIDERS: PCP Family Medicine; Referring Provider Family Medicine; Visit Provider Urology | DX: N18.4 Chronic kidney disease, stage 4 (severe) (principal); N13.30 Unspecified hydronephrosis; C61 Malignant neoplasm of prostate; M54.9 Dorsalgia, unspecified | CPT/HCPCS: 99214 ==

== ENCOUNTER 2024-09-03 03:27 | Outpatient (RCR) | payer MEDICARE, SELFPAY ==
[2024-09-03 11:20] LABS: HCT 28.6 % (40.0-50.0); HGB 9.3 g/dL (13.5-17.5)
== END 2024-09-19 23:59 | disposition home or self-care (01) ==
LOC: INF 03:27
PROVIDERS: Registered Nurse Nephrology; PCP Family Medicine; Visit Provider Family Medicine
DX: N18.5 Chronic kidney disease, stage 5 (principal); D63.1 Anemia in chronic kidney disease
CPT/HCPCS: 36415; 96372; 85014; 85018; J0881

== ENCOUNTER 2024-10-01 02:13 | Outpatient (RCR) | payer MEDICARE, SELFPAY ==
[2024-10-01 11:24] LABS: Abs Immature Grans 0.01 10^3/uL (0.0-0.06); HCT 26.5 % (40.0-50.0); HGB 8.6 g/dL (13.5-17.5); Immature Grans % 0.2 %; MCH 28.5 pg (27.0-33.0); MCHC 32.5 % (32.0-36.0); MCV 88 fL (80-95); MPV 10.5 fL (8.0-11.0); Platelet Count 101 10^3/uL (130-400); RBC 3.02 10^6/uL (4.36-5.78); RDW 14.4 % (11.8-14.1); RDW-SD 45.8 fL; WBC 4.32 10^3/uL (4.4-10.8)
[2024-10-01 11:51] LABS: Albumin 3.7 g/dL (3.4-5.0); Anion Gap 11.5 mmol/L (3-11); BUN 63 mg/dL (7-18); CO2 22.5 mmol/L (21.0-32.0); Calcium 9.5 mg/dL (8.5-10.1); Chloride 106 mmol/L (98-107); Estimated GFR 10.97 (mL/min/1.73m2); Glucose 98 mg/dL (74-106); Potassium 5.4 mmol/L (3.5-5.1); Sodium 140 mmol/L (136-145); Uric Acid 5.3 mg/dL (3.5-7.2)
[2024-10-01 15:50] LABS: Vitamin B12 546 pg/mL (193-986)
[2024-10-02 18:16] LABS: Folate 11.0 ng/mL (See Note)
== END 2024-10-20 23:59 | disposition home or self-care (01) ==
LOC: INF 02:13
PROVIDERS: Registered Nurse Nephrology; PCP Family Medicine; Visit Provider Family Medicine
DX: N18.5 Chronic kidney disease, stage 5 (principal); D63.1 Anemia in chronic kidney disease
CPT/HCPCS: 36415; 80048; 96372; 82040; 82607; 82746; 83970; 84100; 84550; 85014; 85018; 85025; 85045; J0881

== ENCOUNTER 2024-10-16 15:10 | Outpatient (REF) | payer MEDICARE, SELFPAY ==
[2024-10-16 14:59] LABS: COMMENT (LAB VIEW ONLY) 64.04 mg/dL
== END 2024-10-16 15:11 | disposition home or self-care (01) ==
LOC: NCHCN 15:10
PROVIDERS: PCP Family Medicine; Visit Provider Family Medicine
DX: E11.9 Type 2 diabetes mellitus without complications (principal)
CPT/HCPCS: 82043; 82570

== ENCOUNTER 2024-10-29 02:33 | Outpatient (RCR) | payer MEDICARE, SELFPAY ==
[2024-10-29 11:09] LABS: HCT 28.0 % (40.0-50.0); HGB 9.0 g/dL (13.5-17.5)
[2024-10-29 11:30] LABS: Iron 27 ug/dL (65-175); Total Iron Binding Capacity 298 ug/dL (250-450); Transferrin Sat 9 % (20-55)
[2024-10-29 11:43] LABS: Ferritin 175 ng/mL (26-388)
== END 2024-11-19 23:59 | disposition home or self-care (01) ==
LOC: INF 02:33
PROVIDERS: PCP Family Medicine; Visit Provider Family Medicine
DX: N18.5 Chronic kidney disease, stage 5 (principal); D63.1 Anemia in chronic kidney disease
CPT/HCPCS: 36415; 96372; 82728; 83540; 83550; 85014; 85018; J0881

== ENCOUNTER → 2024-11-14 12:47 | Outpatient (BNVA) | payer MEDICARE, SELFPAY | PROVIDERS: PCP Family Medicine; Visit Provider Internal Medicine Cardiovascular Disease | DX: I25.10 Atherosclerotic heart disease of native coronary artery without angina pectoris (principal); I35.0 Nonrheumatic aortic (valve) stenosis | CPT/HCPCS: 99213 ==

== ENCOUNTER 2024-11-15 03:58 | Outpatient (CLI) | payer MEDICARE, SELFPAY | END 2024-11-15 03:59 | disposition home or self-care (01) | LOC: LBO 03:58 | PROVIDERS: PCP Family Medicine; Visit Provider Radiology Radiation Oncology | DX: C61 Malignant neoplasm of prostate (principal) | CPT/HCPCS: 36415; 84153; 84403 ==

== ENCOUNTER 2024-11-26 03:11 | Outpatient (RCR) | payer MEDICARE, SELFPAY ==
[2024-11-26 13:26] LABS: HCT 26.7 % (40.0-50.0); HGB 8.6 g/dL (13.5-17.5)
== END 2024-12-20 23:59 | disposition home or self-care (01) ==
LOC: INF 03:11
PROVIDERS: Registered Nurse Nephrology; PCP Family Medicine; Visit Provider Family Medicine
DX: N18.5 Chronic kidney disease, stage 5 (principal); D63.1 Anemia in chronic kidney disease
CPT/HCPCS: 36415; 96372; 85014; 85018; J0881

== ENCOUNTER 2024-12-24 01:18 | Outpatient (RCR) | payer MEDICARE, SELFPAY ==
[2024-12-24 13:25] LABS: HCT 25.2 % (40.0-50.0); HGB 8.1 g/dL (13.5-17.5)
[2024-12-24] MEDS: Darbepoetin 200 MCG SYR SC (13:53)
== END 2025-01-19 23:59 | disposition home or self-care (01) ==
LOC: INF 01:18
PROVIDERS: PCP Family Medicine; Visit Provider Family Medicine
DX: N18.5 Chronic kidney disease, stage 5 (principal); D63.1 Anemia in chronic kidney disease
CPT/HCPCS: 36415; 96372; 85014; 85018; J0881

== ENCOUNTER 2025-01-03 16:48 | Outpatient (CLI) | payer MEDICARE, SELFPAY ==
[2025-01-03 13:09] LABS: Abs Immature Grans 0.03 10^3/uL (0.0-0.06); HCT 25.3 % (40.0-50.0); HGB 8.1 g/dL (13.5-17.5); Immature Grans % 0.6 %; MCH 28.3 pg (27.0-33.0); MCHC 32.0 % (32.0-36.0); MCV 89 fL (80-95); MPV 9.6 fL (8.0-11.0); Platelet Count 107 10^3/uL (130-400); RBC 2.86 10^6/uL (4.36-5.78); RDW 16.2 % (11.8-14.1); RDW-SD 50.5 fL; WBC 5.25 10^3/uL (4.4-10.8)
[2025-01-03 13:48] LABS: Uric Acid 5.8 mg/dL (3.7-9.2)
[2025-01-03 13:52] LABS: Prot/Crea Ur Ratio 2.90 mg/mg Cr
[2025-01-03 13:54] LABS: Ferritin 101 ng/mL (11-307)
[2025-01-03 14:10] LABS: Albumin 4.2 g/dL (3.4-5.0); Anion Gap 12.1 mmol/L (3-11); BUN 91 mg/dL (9-23); CO2 21.9 mmol/L (20.0-31.0); Calcium 10.0 mg/dL (8.3-10.6); Chloride 106 mmol/L (98-107); Glucose 89 mg/dL (74-106); Potassium 4.7 mmol/L (3.5-5.1); Sodium 140 mmol/L (136-145)
[2025-01-03 14:30] LABS: Iron 60 ug/dL (65-175); Total Iron Binding Capacity 287 ug/dL (250-425); Transferrin Sat 21 % (20-55)
[2025-01-03 17:58] LABS: EPI 027-NAP1-B1 PRESUMPTIVE NEGATIVE
[2025-01-05 10:39] LABS: Campylobacter PCR Negative (Negative); Shiga Toxin PCR Negative (Negative); Shigella/Enteroinvasive Ecoli Negative (Negative)
== END 2025-01-03 16:49 | disposition home or self-care (01) ==
LOC: LBN 16:48
PROVIDERS: PCP Family Medicine; Visit Provider Registered Nurse Nephrology
DX: N18.5 Chronic kidney disease, stage 5 (principal); R19.7 Diarrhea, unspecified
CPT/HCPCS: 36415; 80048; 87015; 87177; 87209; 87269; 87272; 87505; 82040; 82565; 82728; 83540; 83550; 83630; 83970; 83993; 84100; 84156; 84550; 85025

== ENCOUNTER 2025-01-21 03:25 | Outpatient (RCR) | payer MEDICARE, SELFPAY ==
[2025-01-21 13:41] LABS: HCT 25.9 % (40.0-50.0); HGB 8.4 g/dL (13.5-17.5)
[2025-01-21] MEDS: Darbepoetin 200 MCG SYR SC (14:02)
[2025-01-21 14:20] LABS: Iron 66 ug/dL (65-175); Total Iron Binding Capacity 323 ug/dL (250-425); Transferrin Sat 20 % (20-55)
[2025-01-21 14:24] LABS: Ferritin 123 ng/mL (11-307)
== END 2025-02-19 23:59 | disposition home or self-care (01) ==
LOC: INF 03:25
PROVIDERS: Registered Nurse Nephrology; PCP Family Medicine; Visit Provider Family Medicine
DX: N18.5 Chronic kidney disease, stage 5 (principal); D63.1 Anemia in chronic kidney disease
CPT/HCPCS: 36415; 96372; 82728; 83540; 83550; 85014; 85018; J0881

== ENCOUNTER 2025-02-04 10:25 | Emergency (ER) | payer MEDICARE, SELFPAY ==
[2025-02-04] VITALS (26 sets, daily range): BP systolic 108–151; BP diastolic 59–89; PULSE 53–81; RESP 12–33; TEMP 36.4–36.7; O2SAT 99–100
--- NOTE | 2025-02-04 11:23 | DI.CT_ITS ---
Exam(s) CT ABDOMEN PELVIS WO EXAM: CT ABDOMEN PELVIS WO CLINICAL HISTORY: rectal pain, prostate ca, radiation, pain with bm. TECHNIQUE: Imaging Protocol: Axial computed tomography images with coronal and sagittal reformatted images were created and reviewed. Oral: yes COMPARISON: CT CT ABDOMEN PELVIS WO from 08/26/2024 FINDINGS: Lung Bases: No acute findings. Three vessel coronary artery disease. Liver: Normal density. Innumerable cysts. Gallbladder and biliary tract: No radiodense calculus or biliary dilation. Pancreas: Normal density. No abnormal calcifications or inflammatory process. Spleen: Normal. Kidneys: Right nephrostomy tube. Normal size, contour and axis. No radiodense stones. There is no dilatation of the right renal pelvis. There is some dilatation of the right proximal ureter which has a somewhat irregular appearance. No stones. Small cyst lower pole right kidney. Cyst mid left kid clark. No suspicious masses seen. Adrenal glands: No masses seen. Lymph nodes: Within normal limits. Vasculature: Abdominal aorta non-dilated. Mild atherosclerotic changes. Soft tissues: Small bilateral fat containing inguinal hernias. Bladder: There is mild thickening of the inferior wall of the bladder which may be related to therapy for prostate CA. No mass or calculi. Bowel: No obstruction or bowel wall thickening. The appendix appears normal. There is mild diverticulosis the lower descending to proximal sigmoid colon. No evidence of diverticulitis. There is no evidence of rectal wall thickening or perirectal or bairon anal abscess. Peritoneal cavity: No ascites. No focal collection. No mesenteric inflammatory response. Reproductive organs: Radiotherapy seeds are now present within the prostate. The prostate size is decreased when compared with the previous exam. Bones: Unremarkable for age. IMPRESSION: Right nephrostomy tube. No dilatation of the right renal pelvis. Mild dilatation of the right proximal ureter. Wall thickening of the inferior bladder could be related to prostate cancer treatment. No perirectal or perianal abnormalities identified. RADIATION DOSE DELIVERED: Total DLP DATA REPOSITORY: All CT scans at this facility are submitted to the National Radiology Data Registry (NRDR) Dose Index Registry (DIR) with the [employer] (ACR). RADIATION OPTIMIZATION: All CT scans at this facility use at least one of these dose optimization techniques: automated exposure control; mA and/or kV adjustment per patient size (includes targeted exams where dose is matched to clinical indication); or iterative reconstruction.
[2025-02-04] MEDS: Breeza Beverage 473 ML BTL PO ×2 (11:32→11:33)
[2025-02-04] MEDS: Omnipaque 350 MG/ML 50 ML BTL PO (11:32)
[2025-02-04] MEDS: LIDOCAINE 5% TP (11:35)
[2025-02-04 11:50] LABS: Abs Immature Grans 0.03 10^3/uL (0.0-0.06); HCT 24.6 % (40.0-50.0); HGB 7.5 g/dL (13.5-17.5); Immature Grans % 0.4 %; MCH 28.4 pg (27.0-33.0); MCHC 30.5 % (32.0-36.0); MCV 93 fL (80-95); MPV 9.3 fL (8.0-11.0); RBC 2.64 10^6/uL (4.36-5.78); RDW 19.2 % (11.8-14.1); RDW-SD 65.2 fL; WBC 6.68 10^3/uL (4.4-10.8)
[2025-02-04 12:05] LABS: Platelet Count 75 10^3/uL (130-400); RBC Morphology Normal
[2025-02-04 12:50] LABS: ALT 141 U/L (10-49); AST 110 U/L (<34); Albumin 3.8 g/dL (3.2-5.0); Alkaline Phosphatase 148 U/L (46-116); Anion Gap 10.5 mmol/L (3-11); BUN 122 mg/dL (9-23); Bilirubin, Total 0.4 mg/dL (0.2-1.2); CO2 18.5 mmol/L (20.0-31.0); Calcium 9.0 mg/dL (8.3-10.6); Chloride 111 mmol/L (98-107); Glucose 109 mg/dL (74-106); Potassium 5.2 mmol/L (3.5-5.1); Sodium 140 mmol/L (136-145); Total Protein 6.8 g/dL (5.7-8.2)
--- NOTE | 2025-02-04 13:30 | RT.EKG_ITS ---
APPROVED REPORT Exam: Resting ECG Reason for Exam: hyperkalemia Patient Location: E HR:48 bpm ECG Measurements Heart Rate 48 AXIS HI 200 P 48 QRSd 101 QRS 8 QT 443 T 41 QTc 395 Conclusion Sinus bradycardia...rate< 60 No Occlusion NH
[2025-02-04 14:18] LABS: BE (Venous) -12 mmol/L (-2-3); HCO3 (Venous) 17 mmol/L (23-28); O2 Sat (Venous) 59 %; TCO2 (Venous) 17 mmol/L (24-29); pCO2 (Venous) 47 mmHg (41-51); pO2 (Venous) 36 mmHg
[2025-02-04 14:31] LABS: Potassium 5.3 mmol/L (3.5-5.1)
--- NOTE | 2025-02-04 14:50 | W.ED.GENAD ---
Discharge Plan Disposition Patient Disposition: Transfer-Acute Inpatient Care Specific Acute Inpt Facility: [facility] Condition: Critical Discharge Details Clinical Impression: Metabolic acidosis, Acute renal failure, Anemia, Radiation adverse effect, Prostate CA Primary Care Provider: Fletcher Byrne ED Provider: Patience Car Home Meds and New Rx's Prescriptions: No Action multivitamin Tablet 1 tab PO DAILY losartan 50 mg tablet 100 mg PO DAILY tamsulosin 0.4 mg capsule 0.8 mg PO DAILY Qty: 180 4RF torsemide 10 mg tablet 20 mg PO DAILY hydroxyzine HCl 25 mg tablet 25 mg PO BID PRN calcitriol 0.25 mcg capsule 0.25 mcg PO DAILY allopurinol 100 mg tablet 100 mg PO BID metoprolol succinate 50 mg tablet extended release 24 hr 50 mg PO DAILY atorvastatin 80 mg tablet 80 mg PO QPM sertraline 100 mg tablet 50 mg PO DAILY sodium bicarbonate 650 mg tablet See Rx Instructions .ROUTE .COMPLEX Qty: 60 2RF Dose Instruction: TAKE ONE - HALF TABLET BY MOUTH TWO TIMES A DAY Rx Instructions: TAKE ONE - HALF TABLET BY MOUTH TWO TIMES A DAY verapamil 240 mg capsule,ext rel. pellets 24 hr 240 cap PO DAILY Patient Comments: TAKE 1 CAPSULE BY MOUTH EVERY DAY diazepam 2 mg tablet 2 mg PO DAILY PRN (Reason: anxiety) Patient Comments: TAKE ONE TABLET BY MOUTH EVERY 6 HOURS NEEDED FOR ANXIETY aspirin [Aspir-81] 81 MG tablet,delayed release (DR/EC) 81 mg PO DAILY isosorbide mononitrate 30 mg Tablet Extended Release 24 Hr 30 mg PO DAILY docusate sodium [Colace] 100 mg Capsule 100 mg PO BID Qty: 60 0RF acetaminophen 325 mg capsule 650 mg PO QID Qty: 40 0RF ferrous sulfate [Iron (ferrous sulfate)] 325 mg (65 mg iron) tablet 325 mg PO DAILY Qty: 30 0RF Discharge Data Discharge Date/Time-TO BE ENTERED AT DEPARTURE: 02/04/25 17:41 HPI General Date/Time Provider Initiated Documentation: 02/04/25 10:37. HPI Narrative: This 64-year-old male presents with report of rectal pain and feeling generally unwell for the past several weeks. States has had frequent BMs and has had some intermittent red blood in his stool. He also had some blood intermittently in his [place] catheter but this is resolved. Last radiation was yesterday he is receiving daily radiation. Denies any chest pain or shortness. Related Data Home Medications ?Medication ?Instructions ?Recorded ?Confirmed aspirin 81 mg tablet,delayed 81 mg PO DAILY 08/28/16 02/04/25 release (Aspir-) metoprolol succinate 50 mg 50 mg PO DAILY 12/24/20 02/04/25 tablet,extended release 24 hr verapamil 240 mg 24 hr 240 cap PO DAILY 09/03/21 02/04/25 capsule,extended release atorvastatin 80 mg tablet 80 mg PO QPM 12/08/21 02/04/25 isosorbide mononitrate 30 mg 30 mg PO DAILY 02/16/22 02/04/25 tablet,extended release 24 hr multivitamin 1 tab PO DAILY 03/01/22 02/04/25 sertraline 100 mg tablet 50 mg PO DAILY 10/11/22 02/04/25 allopurinol 100 mg tablet 100 mg PO BID 03/31/23 02/04/25 losartan 50 mg tablet 100 mg PO DAILY 05/08/23 02/04/25 tamsulosin 0.4 mg capsule 0.8 mg (2 x 0.4 mg) PO DAILY #180 11/28/23 02/04/25 caps acetaminophen 325 mg capsule 650 mg (2 x 325 mg) PO QID #40 caps 07/04/24 02/04/25 docusate sodium 100 mg capsule 100 mg PO BID #60 caps 07/04/24 02/04/25 (Colace) ferrous sulfate 325 mg (65 mg 325 mg PO DAILY #30 tabs 07/04/24 02/04/25 iron) tablet (Iron (ferrous sulfate)) calcitriol 0.25 mcg capsule 0.25 mcg PO DAILY 08/20/24 02/04/25 hydroxyzine HCl 25 mg tablet 25 mg PO BID PRN 08/20/24 02/04/25 torsemide 10 mg tablet 20 mg PO DAILY 11/14/24 02/04/25 sodium bicarbonate 650 mg tablet See Rx Instructions .Route 01/27/25 02/04/25 .COMPLEX #60 tabs diazepam 2 mg tablet 2 mg PO DAILY PRN anxiety 02/04/25 02/04/25 Previous Rx's ?Medication ?Instructions ?Recorded tamsulosin 0.4 mg capsule 0.8 mg (2 x 0.4 mg) PO DAILY #180 11/28/23 caps acetaminophen 325 mg capsule 650 mg (2 x 325 mg) PO QID #40 caps 07/04/24 docusate sodium 100 mg capsule 100 mg PO BID #60 caps 07/04/24 (Colace) ferrous sulfate 325 mg (65 mg 325 mg PO DAILY #30 tabs 07/04/24 iron) tablet (Iron (ferrous sulfate)) sodium bicarbonate 650 mg tablet See Rx Instructions .Route 01/27/25 .COMPLEX #60 tabs Allergies Allergy/AdvReac Type Severity Reaction Status Date / Time lisinopril AdvReac cough Verified 02/04/25 10:32 General Stated Complaint: Abd Prob BEENA: 3 Exam Narrative Exam Narrative: 64-year-old male, alert, oriented, pale abdominal tenderness, perirectal tenderness without any sign of obvious trauma no flank tenderness, answering questions appropriately Course Vital Signs Vital signs: Vital Signs Temperature 36.4 C L 02/04/25 10:28 Pulse 58 L 02/04/25 10:28 Respiratory Rate 20 02/04/25 10:28 Blood Pressure 120/70 02/04/25 10:28 Pulse Oximetry 99 02/04/25 10:28 Temperature 36.4 C L 02/04/25 10:31 Pulse 54 L 02/04/25 14:30 Pulse 54 L 02/04/25 14:30 Respiratory Rate 17 02/04/25 14:30 Blood Pressure 120/70 02/04/25 10:31 Blood Pressure Position Sitting 02/04/25 10:31 Pulse Oximetry 100 02/04/25 14:30 Oxygen Delivery Method Room Air 02/04/25 10:31 Oxygen Flow Rate 0 02/04/25 10:31 Lab/Test Results Lab/Test Results: Laboratory Tests Range/Units 02/04/25 02/04/25 11:37 14:07 WBC (4.4-10.8) 10^3/uL 6.68 RBC (4.36-5.78) 10^6/uL 2.64 L Hgb (13.5-17.5) g/dL 7.5 L Hct (40.0-50.0) % 24.6 L MCV (80-95) fL 93 MCH (27.0-33.0) pg 28.4 MCHC (32.0-36.0) % 30.5 L RDW (11.8-14.1) % 19.2 H Plt Count (130-400) 10^3/uL 75 L MPV (8.0-11.0) fL 9.3 Immature Gran % % 0.4 Neutrophils % % 82.5 Lymphocytes % % 2.1 Monocytes % % 11.1 Eosinophils % % 3.9 Basophils % % 0.0 Nucleated RBC % (0.0-0.3) % 0.3 Absolute Neutrophils (1.2-6.7) 10^3/uL 5.51 Absolute Lymphocytes (1.2-3.4) 10^3/uL 0.14 L Absolute Monocytes (0.1-0.8) 10^3/uL 0.74 Absolute Eosinophils (0.0-0.7) 10^3/uL 0.26 Absolute Basophils (0.0-0.2) 10^3/uL 0.00 RBC Morphology Normal VBG pH (7.31-7.41) 7.17 L* VBG pCO2 (41-51) mmHg 47 VBG pO2 mmHg 36 VBG HCO3 (23-28) mmol/L 17 L VBG Total CO2 (24-29) mmol/L 17 L VBG O2 Saturation % 59 VBG Base Excess (-2-3) mmol/L -12 L Sodium (136-145) mmol/L 140 Potassium (3.5-5.1) mmol/L 5.2 H 5.3 H Chloride (98-107) mmol/L 111 H Carbon Dioxide (20.0-31.0) mmol/L 18.5 L Anion Gap (3-11) mmol/L 10.5 BUN (9-23) mg/dL 122 H* Creatinine (0.73-1.18) mg/dL 5.50 H* Est GFR (CKD-EPI 2020) (mL/min/1.73m2) 10.43 Glucose (74-106) mg/dL 109 H Calcium (8.3-10.6) mg/dL 9.0 Total Bilirubin (0.2-1.2) mg/dL 0.4 AST (<34) U/L 110 H ALT (10-49) U/L 141 H Alkaline Phosphatase (46-116) U/L 148 H Total Protein (5.7-8.2) g/dL 6.8 Albumin (3.2-5.0) g/dL 3.8 Medical Decision Making Results: Patient with hemoglobin of 7.5, hematocrit of 24, decreased from 8.41-month prior platelet count 75,000, decreased from 90,000, pH of 7.17 pCO2 of 17, HCO3 of 17 BUN of 122 potassium 5.3, urinalysis with greater than 50 white blood cells, however patient has an indwelling [place] catheter, will not treat this at this time, O- blood work Assessment and plan: This is a complex patient with prostate cancer with report of blood in stool which is bright red, no blood in vomitus, receiving daily radiation for the past several weeks, last dose was yesterday. Patient with chronic kidney disease. 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 Patient states he is unable to control the pain and he feels generally weak for the past 3 weeks. His labs are certainly concerning and he is acidotic. I do see that he take sodium bicarb daily. I gave him 1 amp of bicarb in the emergency department secondary to a pH of 7.17, ordered 1 unit of blood and I will recheck a CBC and VBG. His potassium is 5.3 although he does not have significant EKG findings will place on telemetry and give Lokelma. I did speak with nephrology, Dr. Langford at [facility], and he did not feel like the patient's renal levels were significantly changed although his BUN has increased from 90?1 22 and he is now acidotic which is certainly concerning. With the hemoglobin and hematocrit trending down and thrombocytopenia, I am concerned regarding this patient. I will give a single transfusion although he is a radiation patient and so perhaps he might benefit from irradiated blood in the future. I will consent him for treatment. I feel like this patient would be best served at a higher level of care so that oncology, nephrology and hospitalist service says can manage him secondary to the acuity of his presentation. He is pending a abdomen and pelvis. CT abdomen and pelvis of the right nephrostomy tube no dilation of the right renal pelvis mild dilation of the right proximal ureter wall thickening. Of the bladder. I called [facility] again and transfer line spoke with medical record specialist regarding the acuity of this patient and they are again unable to accept this patient in transfer. I placed a call to [facility] at this time in hopes of transferring this patient. I spoke with Dr. Salvador hospitalist at [facility] and he is agreeable to accepting this patient in transport. Patient has 2 lines that have been placed he has 1 unit of blood that is infusing, his repeat VBG shows a pH of 7.25 which is improving, we will infuse the blood over 2 to 3 hours secondary to history of CKD. Patient is pending transportation vitals are stable Quality:SDOH Health Related Social Needs: Health related social needs lonely/isolated Health related social needs details Pt declines need for assistance at this time Critical Care Time Critical Care Time Attestation: 60 minutes of critical care time secondary to metabolic acidosis acute exacerbation of chronic renal failure, hyperkalemia, anemia requiring transfusion, bicarb administration, telemetry monitoring, consultation with nephrology, oncology, [facility] and ultimately transferred to [facility] for nephrology, oncology, and hematology involvement. Diagnostic image interpretation and review, diagnostic EKG interpretation and review. PFS All Active Problems (Updated 02/05/25 @ 11:58 by STEF Dia) Prostate CA (Chronic) Radiation adverse effect (Acute) Anemia (Chronic) Acute renal failure (Acute) Metabolic acidosis (Acute) Hydronephrosis, right (Acute) Anemia (Chronic) PALLAVI (acute kidney injury) (Acute) Prostate cancer (Chronic) Elevated PSA, between 10 and less than 20 ng/ml (Acute) Chronic kidney disease (Chronic) CKD III Chronic venous insufficiency (Acute) Lower urinary tract symptoms (LUTS) (Acute) Uric acid kidney stone (Acute) Coronary artery disease (Chronic) Kidney calculus (Chronic) Tubular adenoma of colon (Acute) Screening for colon cancer (Acute) Medical History Calculus of right ureter Acute kidney injury superimposed on chronic kidney disease PALLAVI (acute kidney injury) Calculus of left ureter Aortic stenosis Stable angina Positive cardiac stress test History of chest pain MARI (obstructive sleep apnea) Very Severe-per sleep study 05/04/17-Uses BiPAP Idiopathic thrombocytopenia Murmur History of adenomatous polyp of colon Deviated nasal septum Obesity Hypertension GERD (gastroesophageal reflux disease) Depression Diabetes Sleep apnea Surgical History History of cardiac catheterization 06/17/21 [facility]-see scanned records Colonoscopy - MAC (06/05/17) 08/2021 Social History Smoking/Tobacco Use Status: Never Smoking risk assessment performed?: Yes Alcohol Intake: current Alcohol Intake frequency: holidays/special occasions only Alcohol type: beer Drug use: Never Substance use type: does not use Housing: house Do you feel safe at home: Yes Do you feel safe in your relationship?: Yes
[2025-02-04 15:06] LABS: Glucose Negative (Negative)
[2025-02-04 15:13] LABS: C & S Indicated? Yes; WBC >50 HPF (0-5)
[2025-02-04] MEDS: Sodium Bicarbonate 50 MEQ/50 ML VIAL IJ (15:20)
[2025-02-04] MEDS: ACETAMINOPHEN 1,000 MG/100 ML BAG 400 MG (16:00)
[2025-02-04 16:03] LABS: BE (Venous) -8 mmol/L (-2-3); HCO3 (Venous) 19 mmol/L (23-28); O2 Sat (Venous) 31 %; TCO2 (Venous) 19 mmol/L (24-29); pCO2 (Venous) 44 mmHg (41-51); pO2 (Venous) 21 mmHg
--- NOTE | 2025-02-10 09:01 | NUR.NOTE ---
Nursing Note:Patient left facility with blood still infusing.
== END 2025-02-04 17:41 | disposition short-term general hospital (02) ==
LOC: ER 11:27
PROVIDERS: Emergency Provider Physician Assistant; PCP Family Medicine
DX: C61 Malignant neoplasm of prostate (principal); E87.20 Acidosis, unspecified; D64.9 Anemia, unspecified; N17.9 Acute kidney failure, unspecified; T66.XXXA Radiation sickness, unspecified, initial encounter
CPT/HCPCS: 36415; 80053; 82805; 86850; 86900; 86901; 86920; 87077; 93005; 96374; 99291; 74176; 81003; 81015; 84132; 85025; 87086; 87186; 93010; J0131; P9016; Q9967